=== PATIENT | male | born 1970 | race Caucasian/White ===

== ENCOUNTER 2024-04-24 16:04 | Inpatient (IN) | payer OTHER, SELFPAY ==
[2024-04-24] VITALS (43 sets, daily range): BP systolic 71–107; BP diastolic 51–72; BMI 26.0
[2024-04-24] MEDS: NSS 1000 IV ×6 (12:15→21:46)
[2024-04-24 12:21] LABS: ALT (SGPT) 34 U/L (0-50); Alkaline Phosphatase 358 U/L (38-126); Calcium 7.1 mg/dl (8.4-10.2); Carbon Dioxide 22 mmol/L (22-30); Chloride 96 mmol/L (98-107); Estimated Creatinine Clearance > 125 ml/min; Potassium 4.5 mmol/L (3.5-5.1); Sodium 128 mmol/L (135-145); Total Protein 4.8 g/dl (6.3-8.2); eGFR > 60.00
[2024-04-24 12:23] LABS: Alcohol None Detected
[2024-04-24 12:25] LABS: % Basophils 0.7 % (0-2); % Eosinophils 0.2 % (0-6); % Immature Granulocytes 1.2 % (0-0.5); % Lymphocytes 1.9 % (20.5-51.1); % Monocytes 2.9 % (1.7-9.3); % Neutrophils 93.1 % (42.2-75.2); Absolute Basophils 0.2 10^3/uL (0-0.2); Absolute Immature Granulocytes 0.3 10^3/uL (0-0.05); Absolute Lymphocytes 0.5 10^3/uL (1.2-3.4); Absolute Monocytes 0.8 10^3/uL (0.1-0.6); Hematocrit 30.1 % (39.0-52.0); Hemoglobin 10.4 g/dL (13.0-18.0); Mean Corp Hgb Conc. 34.6 g/dL (33.0-37.0); Mean Corpuscular Volume 83.8 fL (80.0-94.0); Mean Platelet Volume 10.5 fL (7.4-10.4); Nucleated Red Blood Cells % 0 % (-); Platelet Count 314 10^3/uL (130-400); Red Blood Cell Count 3.59 10^6/uL (4.70-6.10); Red Cell Dist. Width 13.3 % (11.5-14.5); White Blood Cell Count 25.8 10^3/uL (4.8-10.8)
[2024-04-24 12:28] LABS: B-Hydroxybutyrate 1.64 mmol/L (0.02-0.27)
[2024-04-24 12:32] LABS: NT-proBNP 6740 pg/ml; Troponin I < 0.012 ng/ml
[2024-04-24 12:34] LABS: AST (SGOT) 21 U/L (17-59); Blood Urea Nitrogen 25 mg/dl (9-20); Glucose 483 mg/dl (70-99); Total Bilirubin 0.4 mg/dl (0.2-1.3)
--- NOTE | 2024-04-24 12:44 | ED.GENMED ---
History of Present Illness
General
Chief Complaint: Fall
Source: patient and ambulance crew
Exam Limitations: none
Time Seen by Provider: 04/24/24 11:40
Nursing documentation reviewed up to this point in time: agreed with
History of Present Illness
History of Present Illness:
The patient is a 54-year-old man with a past medical history of insulin-dependent diabetes, obesity, chronic sinus tachycardia, and anxiety and depression who was brought in by ambulance for a fall that occurred 5 days ago and has caused him to have
significant left upper back pain and left hip pain. Patient admits that he has not seen a doctor in several months and is not taking his medications. He admits he has not been taking care of himself. Patient arrives hypotensive, tachycardic and
hypoxic. Patient denies fever and vomiting. He is not sure if he hit his head. He reports neck pain as well. He denies abdominal pain. He reports that he has been using marijuana and injecting and snorting methamphetamine.
Past History
Past History
ED Past Medical History: Asthma, GERD, HTN, Hypercholesterolemia, NIDDM, Psychiatric (Anxiety, depression) and Other (Chronic pancreatitis, hemachromatosis, diverticulitis/diverticulosis, anxiety)
ED Past Surgical History: Appendectomy, Orthopedic (Right hip is 'bone on bone,' L hip replacement, back surgery at L4-L5) and Other (Liver biopsy)
Social History
Tobacco: Former smoker
Alcohol: Occasional
Drug: Marijuana, IVDA and Other (Methamphetamine)
Personal: Single
Living: alone (Domestic partner)
Employment: Other
Family History
Family History: CAD
Review of Systems
Review of Systems
Allergies reviewed?: Yes
Other source history: ambulance crew
All Other Systems: ROS reviewed and negative except as documented in HPI and ROS
Constitutional: Reports fatigue
EENT: Reports other (Light sensitivity to eyes)
Respiratory: Reports trouble breathing
Cardiac: Reports chest pain
ABD/GI: Reports anorexia
: Reports frequency
Musculoskeletal: Reports joint pain, edema (Chronic edema bilateral ankles and feet) and back pain
Skin: Reports no symptoms
Neurological: Reports no symptoms
Endocrine: Reports polyuria and polydipsia
Hematologic/Lymphatic: Reports no symptoms
Psychiatric: Reports no symptoms
Phy Exam
Physical Exam
Physical Exam:
Physical Exam
General: no apparent distress, disheveled, mildly short of breath
Neck: supple. no meningeal signs. Very dry mucous membrane. C6-C7 spinal tenderness, especially on left side.
Heart: Tachycardic, regular. Tenderness of left scapular area. Deformity of left clavicle. Strong pulses in bilateral upper extremity.
Lungs: Mildly tachypneic. Decreased breath sounds bilaterally
Abdomen: normal bowel sounds. not tender. no CVAT
Neuro: alert and orientedx3 no focal neurological deficits
Skin: no rash
Psychiatric: Disheveled, interactive
Extremities: Swelling of bilateral hands and feet. Pitting edema of bilateral lower extremities including lower legs, ankles and feet. Negative Homans' sign bilaterally. Ecchymotic left lateral femoral area
Course
Orders/Labs/Results
Orders:
Orders
04/24/24 11:42
Electrocardiogram (*1) Urgent
Reason for Study: Bradycardia / Tachycardia
04/24/24 11:43
EKG- Treatment ONCE
04/24/24 11:46
Alcohol Urgent
B-Hydroxybutyrate Urgent
BNP [NT-proBNP] Urgent
Complete Blood Count/With Diff Urgent
Comprehensive Metabolic Panel Urgent
Creatine Phosphokinase Urgent
Comment: ADD ON
Troponin I Urgent
04/24/24 12:15
0.9% Sodium Chloride 1000 ml [Nss] 1,000 ml IV BOLUS
04/24/24 12:18
Add On- LAB Urgent
Tests Added?: total creatinine kinase
04/24/24 12:19
CT Cervical Spine W/o Iv Contr Urgent
Comment:
Reason For Exam: fall, left sided neck pain
CT Head W/o Iv Contrast Urgent
Comment:
Reason For Exam: possible head injury
04/24/24 12:20
CT Chest/abd/pel W Iv Cont Urgent
Reason For Exam: s/p fall, L scapular pain, hypoxia, tachycardia
Hip, Left 2-3 Views [CR Hip - LT w/wo Pel 2-3 Vw*] Urgent
Comment:
Reason For Exam: left thigh pain, fall
Include a pelvis x-ray?: No
04/24/24 12:26
Lactic Acid Urgent
04/24/24 12:54
Lorazepam [Ativan] 0.5 mg IV NOW STA
04/24/24 13:02
Fentanyl, Urine Urgent
Urinalysis Reflex To Culture Urgent
Date Specimen was Collected: 04/24/24
Time Specimen was Collected: 13:00
Urine Drug Abuse Screen Urgent
Date Specimen was Collected: 04/24/24
Time Specimen was Collected: 13:01
Urine Microscopic Reflex Cult Urgent
Urine Culture Urgent
JANETH Source: U
Specimen Description:
Date Specimen was Collected: 04/24/24
Time Specimen was Collected: 13:00
04/24/24 14:17
Piperacillin/Tazo 4.5 Gram [Zosyn] 4.5 gram in 100 ml IV NOW
04/24/24 14:20
0.9% Sodium Chloride 1000 ml [Nss] 1,000 ml IV BOLUS
04/24/24 14:30
Vancomycin [Vancocin] 2,000 mg 0.9% Sodium Chloride 500 ml [Nss] 500 ml IV NOW
04/24/24 14:57
0.9% Sodium Chloride 1000 ml [Nss] 2,000 ml IV BOLUS
04/24/24 15:02
Blood Culture Urgent
JANETH Source: Blood/Venous
Specimen Description:
04/24/24 15:05
Blood Culture Routine
JANETH Source: Blood/Venous
Specimen Description:
04/24/24 15:08
0.9% Sodium Chloride 1000 ml [Nss] 1,000 ml IV BOLUS
04/24/24 15:10
Vancomycin [Vancocin] 2,000 mg 0.9% Sodium Chloride 500 ml [Nss] 500 ml IV NOW
04/24/24 15:21
Admit/Transfer Patient As Directed
Co-Sign Provider:
Level of Care: Inpatient admission
Assign to:: ICU
Physician / Group: Hospitalist
Diagnosis: Sepsis, broken hip
Reason for Hospitalization: Sepsis, broken hip
Expected length of stay greater than two midnights?: Yes
ELOS- Estimated Length of Stay in days: 5
I certify the patient meets the requirements for IP care: Yes
04/24/24 15:25
PRN Pain Medication Management As Directed
May give lesser potent ordered pain med per pt: Yes
preference::
Protocol:: Medication orders for pain may be administered in a
manner that supports deferring to patient preference
when the pt is:
- Requesting an ordered lesser potent pain medication.
Least to most potent pain medications are defined
as: acetaminophen < NSAID < tramadol < opioids
(morphine, oxycodone, hydromorphone).
- Requesting a lesser dose of the same medication IF
ORDERED.
- Requesting a less intrusive route of administration
if both routes are prescribed by the provider (PO <
IV).
04/24/24 15:28
Code Status As Directed
Resuscitation Status: Full Code
04/24/24 16:29
Lactic Acid Q4H
Comment: repeat q4 hours x 4 or until less than 2 mmol/L
0.9% Sodium Chloride 1000 ml [Nss] 1,000 ml IV 200 mls/hr
Albuterol [ProAIR HFA INHALER] 2 puff INH R Q4HPRN PRN
Dextrose 50%-Water [Dextrose 50% Syringe] 12.5 grams IV [id number] PRN
Glucagon [GlucaGen] 1 mg IM PRN PRN
Heparin 5,000 units SC Q8
VANCOMYCIN Pharmacy to Dose [VANCOCIN Pharmacy to Dose] 1 each Pharmacy To Prepare [Call Pharmacy To Prepare] 0 ml IV PER PROTOCOL
04/24/24 16:29
PHYSICIAN CONSULT Routine
Consulting Provider: Kasey Arauz
Was physician already notified: Yes
Reason for consult: septic shock, broken hip
Respiratory Culture/Gram Stain Routine
JANETH Source: Sputum
Specimen Description:
Comment: IF NOT OBTAINED IN ED
Activity As Directed
Activity Level: Bedrest
Bedside Glucose Monitoring As Directed
Frequency: AC&HS
Additional Instructions:: Change to q6h if pt on TPN, tube feeding or not eating
Intake/ Output As Directed
Frequency: Per unit guidelines
Vital Signs As Directed
Frequency: Per unit guidelines
DX Deep Vein Thrombosis Video Routine
04/24/24 16:30
Insulin Aspart High Resistance [Novolog Flexpen-High Resistance] See Protocol SC AC
04/24/24 17:30
telenm-bmzzggrv-ipqvnmp [Creon] 2 cap PO MEALS
04/24/24 20:00
Budesonide/Formoterol 160/4.5 [Symbicort 160/4.5 Mcg Inhaler] 2 puff INH R BID
Piperacillin/Tazo 4.5 Gram [Zosyn] 4.5 gram in 100 ml IV Q6H
04/24/24 20:29
Lactic Acid Q4H
Comment: repeat q4 hours x 4 or until less than 2 mmol/L
04/25/24 00:29
Lactic Acid Q4H
Comment: repeat q4 hours x 4 or until less than 2 mmol/L
04/25/24 04:29
Lactic Acid Q4H
Comment: repeat q4 hours x 4 or until less than 2 mmol/L
04/25/24 Breakfast
2000 calorie (17 carb) Diabetic
Complete Blood Count/No Diff IN AM
Comprehensive Metabolic Panel IN AM
Glycohemoglobin (HgbA1c) IN AM
Abnormal Lab Results
04/24/24 04/24/24
11:46 13:02
WBC 25.8 H 10^3/uL
(4.8-10.8)
RBC 3.59 L 10^6/uL
(4.70-6.10)
Hgb 10.4 L g/dL
(13.0-18.0)
Hct 30.1 L %
(39.0-52.0)
MPV 10.5 H fL
(7.4-10.4)
Abs Immat Gran (auto) 0.3 H 10^3/uL
(0-0.05)
Absolute Neuts (auto) 24.0 H 10^3/uL
(1.4-6.5)
Absolute Lymphs (auto) 0.5 L 10^3/uL
(1.2-3.4)
Absolute Monos (auto) 0.8 H 10^3/uL
(0.1-0.6)
Immature Gran % 1.2 H %
(0-0.5)
Neutrophils % 93.1 H %
(42.2-75.2)
Lymphocytes % 1.9 L %
(20.5-51.1)
Sodium 128 L mmol/L
(135-145)
Chloride 96 L mmol/L
(98-107)
BUN 25 H mg/dl
(9-20)
Glucose 483 H* mg/dl
(70-99)
Calcium 7.1 L mg/dl
(8.4-10.2)
Alkaline Phosphatase 358 H U/L
(38-126)
Creatine Kinase 32 L U/L
(55-170)
Total Protein 4.8 L g/dl
(6.3-8.2)
Albumin 2.0 L g/dl
(3.5-5.0)
Urine Ketones Trace A
(Negative)
Ur Occult Blood Reflex 1+ A
(Negative)
Leukocyte Esterase Rfl 2+ A
(Negative)
Urine RBC 3-6 A /HPF
(0-2)
Urine WBC (Reflex) 26-30 A /HPF
(0-5)
Urine Bacteria (Reflex) Many A
(Negative)
Urine Glucose 3+ A
(Negative)
Ur Oxycodone Screen Positive H
(Negative)
Ur Amphetamines Screen Positive H
(Negative)
U Methamphetamines Scrn Positive H
(Negative)
B-Hydroxybutyrate 1.64 H mmol/L
(0.02-0.27)
04/24/24 11:46
04/24/24 11:46
Vital Signs
Initial and Last Documented VS:
Initial Vital Signs
BP
100/72
04/24/24 11:38
Last Documented Vital Signs
Temp Pulse Resp BP Pulse Ox
97.8 F 121 24 71/53 93
04/24/24 14:42 04/24/24 16:09 04/24/24 16:09 04/24/24 16:09 04/24/24 16:09
MDM/Problems Addressed
Differential Diagnosis Includes:
Diabetic ketoacidosis
acute renal failure
Acute traumatic injuries such as C-spine fracture, left clavicle fracture, left hip fracture
MDM/Problems Addressed:
Patient presents with acute neck pain, left scapular pain, left hip pain and hyperglycemic
Chronic conditions affecting care: DM
Acute Exacerbation and/or Progression of Chronic Illness:
The patient has acute hyperglycemia due to poorly controlled insulin-dependent diabetes
Acute Exacerbation and/or Progression of Chronic Illness: DM
*Radiology
Radiology exam reviewed: preliminary read by ED provider (Acute fracture of left hip) and radiology read reviewed
*Pulse Oximetry
Patient hypoxic: yes
*EKG
Interpreted by ED Provider?: Yes
Interpretation: abnormal
Comparison EKG: changes noted
Rate: tachycardiac
Rhythm: sinus
[place]: normal axis
Interval: normal interval
QRS Pattern: normal QRS
Ischemia: non-specific ST changes
*Senior Production Supervisor Interpretation
Rate: tachycardiac
Interpretation: abnormal
Rhythm: sinus
*Critical Care Note
Total Time (30-74mins, 75-104mins- exclusive of procedures): 85 minutes
comment:
85 minutes critical care given to patient including speaking to the hospitalist as well as orthopedics, as well as reviewing patient's blood work, urinalysis, EKG, x-rays, CAT scan reports, and reassessing his mental status and blood pressure.
Data Reviewed
Review of Other/Old Records Reveals: Discharge Summary (Discharge summary reviewed from December 2021 when patient was admitted for acute nausea and vomiting and diarrhea and also found to have chronically elevated heart rate)
Source: patient and ambulance crew
Patient Management
Social determinants of health affecting care: Living situation
Discussion with other providers: Hospitalist and Other (Case also discussed with Dr. Pete Peck so he is aware of patient's acute left hip fracture as well as our concerns for bacteremia and his prosthesis getting infected.)
Escalation/DeEscalation of care consider admission/obs:
Patient is persistently hypotensive. Given his concern for UTI, likely pneumonia, hypotension and elevated white blood cell count, there is concern for sepsis. Wide spectrum antibiotic started. IV fluids started
ED Attending Note
-
Portions of this chart may have been created with voice recognition software.� Occasional wrong word or��sound alike� substitutions may have occurred due to the inherent limitations of voice recognition software.
Discharge Plan
Departure
Patient Disposition: Admit
Date of Disposition: 04/24/24
Time of Disposition: 14:19
Admit to: ICU
Presentation/result/management discussed w/ accepting MD/DO: Hospitalist
Patient with high blood pressure during this ER visit?: No
Condition: Critical
Discharge Problem:
Acute left hip fracture, Septic shock, Bilateral pleural effusion, Acute UTI, Pneumonia, Acute hyperglycemia
Interventions
Interventions:
*General Assessment Last Done: 04/24/24 11:48
*Neglect/Abuse Screening Last Done: 04/24/24 11:48
ED- Fall Risk Assessment Last Done: 04/24/24 11:51
*ED COVID-19 Vaccine History Last Done: 04/24/24 11:48
ED-Musculoskeletal Assessment Last Done: 04/24/24 11:51
ED- Neurological Assessment Last Done: 04/24/24 11:51
ED-Skin Assessment Last Done: 04/24/24 12:05
[2024-04-24 12:52] LABS: Lactic Acid 1.6 mmol/L (0.7-2.0)
[2024-04-24] MEDS: ATIVAN 0.5 MG IV (13:00)
[2024-04-24 13:16] LABS: Urine Albumin Trace (Neg - Trace); Urine Bilirubin Negative (Negative); Urine Character Slightly Cloudy (Clear); Urine Color Yellow; Urine Glucose 3+ (Negative); Urine Ketone Trace (Negative); Urine Leukocyte 2+ (Negative); Urine Nitrite Negative (Negative); Urine Occult Blood 1+ (Negative); Urine Specific Gravity 1.005 (<1.030); Urine Urobilinogen Negative (Neg - 1+)
[2024-04-24 13:41] LABS: Amphetamines Positive (Negative); Methamphetamines Positive (Negative)
[2024-04-24 13:42] LABS: Barbiturates Negative (Negative); Benzodiazepines Negative (Negative); Buprenorphine Negative (Negative); Cocaine Negative (Negative); Marijuana Negative (Negative); Methadone Negative (Negative); Opiates Negative (Negative); Phencyclidine Negative (Negative); Tricyclic Antidepressants Negative (Negative)
[2024-04-24 13:53] LABS: Creatine Phosphokinase 32 U/L (55-170)
[2024-04-24 14:02] LABS: Urine Bacteria Many (Negative); Urine Squamous Cell 0-2 /LPF (Few); Urine White Cell 26-30 /HPF (0-5)
[2024-04-24 14:04] LABS: Fentanyl, Urine Negative (Negative)
--- NOTE | 2024-04-24 14:54 | HPS.HSE ---
Family Physician
-
Family Physician: Pascual Bates
Chief Complaint
-
hip pain
History of Present Illness
54-year-old man comes in with septic shock. He has a past medical history of:
insulin-dependent diabetes,
historic obesity (now BMI 26),
chronic sinus tachycardia,
anxiety and depression
Past hip replacement x2
Came in by ambulance for a fall that occurred 5 days ago. This has caused him to have significant left upper back pain and left hip pain. He has not seen a doctor in several months and is not taking his medications. He arrived to hypotensive,
tachycardic and hypoxic. He denies fever and vomiting. He is not sure if he hit his head. He reports neck pain as well. He denies abdominal pain. He feels he may have been on the floor for possibly days. He reports that he has been using
marijuana and injecting and snorting methamphetamine. At the time of my interview, he was mildly confused and appeared in distress.
Medical History
Past Medical History
Past Medical History: Reports Other
Additional Past Medical History:
Appendectomy
Right hip was 'bone on bone,' (looks like it was also replaced)
L hip replacement,
back surgery at L4-L5
Liver biopsy
Ophthalmic migraine
Chronic seasonal allergic rhinitis, unspecified trigger
Benign essential hypertension
Diverticulosis of large intestine without hemorrhage
Low testosterone in male
Hereditary hemochromatosis
Fatty liver
Vitamin D deficiency
Pancreatic insufficiency
Benign essential tremor syndrome
History of COVID-19
Renal cyst, right
Opioid type dependence, continuous
Historical Obesity (BMI 30.0-34.9)
Mild persistent asthma without complication
Type 2 diabetes mellitus with other specified complication
Hyperlipidemia, unspecified
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
Type 2 diabetes mellitus with hyperglycemia
Spondylolisthesis, lumbar region
Hypertriglyceridemia
Chronic pancreatitis, unspecified pancreatitis type
Benzodiazepine dependence, continuous
Other chronic pain
History of colonic polyps
Gastroesophageal reflux disease without esophagitis
ALMA DELIA (generalized anxiety disorder)
Hyperthyroidism
Mild episode of recurrent major depressive disorder
Erectile dysfunction due to diseases classified elsewhere
Type 2 diabetes mellitus with other circulatory complications
Past Surgical History: Reports Other
Additional Past Surgical History:
see above
Social History
Unable to obtain full social history at this time due to: Acuity
Drug: Marijuana and Narcotics
Family History
Family History: Not pertinent
Allergies / Home Medications
Allergies reflects when Allergies were last updated in [employer].
Home Medications with original date entered in [employer]
Allergy/Medication List:
Allergies
Allergy/AdvReac Type Severity Reaction Status Date / Time
venom-honey bee Allergy PASSED OUT Verified 04/24/24 11:44
[bee venom (honey bee)] AFTER
STING/ANAPHYLAXIS
Home Medications
budesonide-formoterol HFA 160 mcg-4.5 mcg/actuation aerosol inhaler (Symbicort) 2 puff inhalation R BID Lung/breathing issues 07/24/12
albuterol sulfate 90 mcg/actuation aerosol inhaler 2 puff inhalation R Q4HPRN PRN shortness of breath 08/21/17
aspirin 81 mg tablet,delayed release 81 mg PO DAILY Blood clot prevention/tx 08/21/17
multivitamin with folic acid 400 mcg tablet (Tab-A-Ayan) 1 tab PO DAILY Supplement 01/26/19
fluticasone propionate 50 mcg/actuation nasal spray,suspension 1 spray intranasal DAILYPRN PRN allergies, nasal congestion 07/12/19
sodium chloride 0.65 % nasal spray aerosol (Saline Nasal) 1 sprays intranasal BIDPRN PRN CONGESTION 07/12/19
atorvastatin 40 mg tablet 40 mg PO QPM High cholesterol 09/17/19
fenofibrate nanocrystallized 145 mg tablet 145 mg PO HS High cholesterol 01/03/20
lansoprazole 30 mg delayed release,disintegrating tablet 30 mg PO DAILY Gastrointestinal issue 02/24/20
furosemide 20 mg tablet 20 mg PO DAILYPRN PRN FLUID IN LEGS 12/13/20
icosapent ethyl 1 gram capsule (Vascepa) 2 gm PO BID High cholesterol 12/13/20
glipizide 5 mg tablet 10 mg PO BID Diabetes 01/24/21
oxycodone-acetaminophen 10 mg-325 mg tablet 1 tab PO Q6HPRN PRN severe back pain 02/15/21
Methimazole 15 mg PO DAILY Thyroid 12/24/21
amitriptyline 25 mg tablet 25 mg PO HSPRN PRN urinary leakage 12/24/21
empagliflozin 10 mg tablet (Jardiance) 10 mg PO DAILY Diabetes 12/24/21
gabapentin 400 mg capsule 400 mg PO TID Neurological Condition 12/24/21
insulin glargine 100 unit/mL (3 mL) subcutaneous pen (Lantus Solostar U-100 Insulin) 20 units SC BID Diabetes 12/24/21
insulin lispro 100 unit/mL subcutaneous pen 30 unit SQ MEALS Diabetes 12/24/21
insulin regular human 100 unit/mL injection solution (Novolin R Regular U-100 Insulin) 20 unit IJ MEALS Diabetes 12/24/21
sertraline 50 mg tablet 100 mg PO DAILY Depression 12/24/21
sildenafil (pulm.hypertension) 20 mg tablet 20 mg PO DAILYPRN PRN ed 12/24/21
dicyclomine 20 mg tablet 20 mg PO QIDPRN PRN spasm, pain #15 tabs 12/26/21
icnflz-jctwuqjk-okrqfym 12,000-38,000-60,000 unit capsule,delayed rel (Creon) 2 cap (2 x 12,000-38,000 -60,000 unit) PO MEALS Gastrointestinal issue #180 ea 12/26/21
magnesium oxide 800 mg (2 x 400 mg magnesium) PO TID #90 tabs 12/26/21
metoprolol tartrate 100 mg tablet 100 mg PO BID #60 tabs 12/26/21
Review of Systems
-
Unable to obtain full review of systems at this time due to: Acuity
Physical Exam
Vital Signs
Vital Signs
Temp Pulse Resp BP Pulse Ox
97.8 F 129 23 87/53 93
04/24/24 14:42 04/24/24 14:38 04/24/24 14:38 04/24/24 14:30 04/24/24 14:42
Physical Exam
General: Appears in Distress, Pain and Appears Chronically Ill
HEENT: No Moist mucous membranes
Respiratory: Clear and Decreased Breath Sounds
Cardiac: S1/S2 and Tachycardia
GI: Soft
Musculoskeletal: No Clubbing, No Cyanosis and No Edema
Skin: Warm, Dry and Rash (red LE)
Psych: Calm and Confused
Laboratory Results
-
04/24/24 11:46
04/24/24 11:46
Laboratory Results
Lactic Acid 1.6 mmol/L (0.7-2.0) 04/24/24 12:26
Total Bilirubin 0.4 mg/dl (0.2-1.3) 04/24/24 11:46
AST 21 U/L (17-59) 04/24/24 11:46
ALT 34 U/L (0-50) 04/24/24 11:46
Alkaline Phosphatase 358 U/L (38-126) H 04/24/24 11:46
Troponin I < 0.012 ng/ml 04/24/24 11:46
Data Reviewed
-
Lab Data: Labs Reviewed by me
Impression/Plan
-
IMPRESSION:
54 man with septic shock. 5 days after a fall. Significant findings:
BP 80/56
HR 129
Anemia, H/H 10.4/30.1
WBC 25.8
BUN/Creat 25/0.7
Glucose 483
UA LE, OB, RBC, WBC, Uvaldo
Imaging:
1. Small to moderate bilateral pleural effusions with associated consolidation/atelectasis.
2. Infectious/inflammatory bronchiolitis change in the bilateral upper lobes.
Cannot rule out superimposed pulmonary contusions and/or underlying nodules.
Recommend follow-up imaging after the acute process resolves.
The [facility] Pulmonary Nodule Advisory Board will be notified.
3. Comminuted minimally displaced fracture of the left greater trochanter extending to the underlying prosthesis.
4. Total left hip arthroplasty hardware noted in place.
5. There is a comminuted fracture of the left greater trochanter, with possible extension to the prosthesis.
No dislocation.
Soft tissues are grossly unremarkable.
PLAN:
1. Septic shock - multiple possible sources (could be LE cellulitis, pyelo, PNA, endocarditis, or infected hip joint)
Blood cultures, UC, sputum culture,
echocardiogram
Broad spectrum abx (zosyn, vanco)
High volume fluids
ICU admit with cupola operator consult
2. Broken hip, on setting of past repaired broken hip
Ortho consult
3. risk of rhabdo
Check TCPK
High volume fluids
4. Uncontrolled DM
SQ insulin
5. Anemia - likely from chronic disease
Follow daily
No indication today for immediate transfusion
6. Polysubstance abuse
risk of going into w/d
Re-eval once septic shock stabilized
7. Inability to care for self
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
Social work consult
8. H/O asthma with multiple radiological findings in lungs,
Careful monitoring of breathing status
High risk of asthma exacerbation
9. Pulm HTN - unclear staging
Repeat echo
Resume sildenafil once BP allows
Code: Presumed Full. he does not have capacity to discuss this right now
SQ heparin for DVTP
[2024-04-24] MEDS: ZOSYN 100 IV ×2 (15:05→19:25)
[2024-04-24] MEDS: VANCOCIN 540 MG IV (15:11)
--- NOTE | 2024-04-24 17:11 | PHA.VAN.IN ---
Assessment
- Assessment
Renal Function: Appears similar to baseline
Concomitant Antimicrobials: piperacillin/tazobactam
- Previous Dosing Experience
Previous Regimen: 1500 mg q12h
Date of Regimen: December 2019
Provided Trough of: 10
Provided AUC of: 384
Patient's SCR is: Similar to previous dosing experience
Patient's weight is: Decreased compared to previous dosing experience (01/07 - 110 kg; 05/13 - 86.9 kg)
AUC Dosing Plan
- Empiric Dosing
Initial / Loading Dose: 2000 mg - given 04/24 @1500
Maintenance Regimen: 1250 mg q12h - to start 0600 04/25/24
Estimated AUC (mcg*h/mL): 501
Estimated Peak (mcg*h/mL): 31.6
Estimated Trough (mcg/ml): 12.6
Estimated Half Life (H): 7.9
- Monitoring
No levels ordered at this time: consider levels when pt nears steady state
Pharmacokinetics Vancomycin I
- -
Patient Age: 54
Patient Sex: Male
Vancomycin Day #: 1
Indication: Pulmonary/Respiratory
Requesting Provider: Liz
Height / Weight:
Height 6 ft
Actual Weight 86.9 kg
Pertinent Past Medical History: opioid dependence
- Vital Signs / Lab Results
Temp Pulse Resp BP Pulse Ox
97.8 F 121 24 71/53 93
04/24/24 14:42 04/24/24 16:09 04/24/24 16:09 04/24/24 16:09 04/24/24 16:09
Lab Results - Hematology
04/24/24
11:46
WBC 25.8 H
Lab Results - Chemistry
04/24/24
11:46
BUN 25 H
Creatinine 0.7
Estimated Creat Clear > 125
Albumin 2.0 L
04/24/24
12:26
Lactic Acid 1.6
Lab Results - Urine
04/24/24
13:02
Urine Nitrite (Reflex) Negative
Leukocyte Esterase Rfl 2+ A
Urine WBC (Reflex) 26-30 A
Ur Squamous Epith Cells 0-2
Urine Bacteria (Reflex) Many A
[2024-04-24 18:01] LABS: INR 1.38; PT 16.8 Sec (11.4-14.6)
[2024-04-24 18:02] LABS: APTT 34.5 Sec (23.4-35.0)
[2024-04-24 18:03] LABS: Lactic Acid 1.2 mmol/L (0.7-2.0)
[2024-04-24] MEDS: NOVOLOG FLEXPEN-HIGH RESISTANCE 12 UNITS SC (18:34)
[2024-04-24] MEDS: HEPARIN 5000 UNITS SC (18:35)
[2024-04-24] MEDS: ZENPEP DELAYED RELEASE CAPSULE 2 CAPSULE PO (18:37)
[2024-04-24 18:38] LABS: Glucose - Point of Care 372 mg/dl (70-99)
--- NOTE | 2024-04-24 19:00 | PTCARENOTE ---
Rec'd pt via stretcher from the ED at 1810. Rec'd pt awake alert and overall oriented but moaning in pain. Began writhing/screaming in pain when turned to removed saturated and soiled linens. C/O 9/10 L hip pain. Offered ordered Morphine but refused
it stating it makes him nauseated and that Dilaudid works better for him- will speak with ICU PLASTIC SURGEON about pain management. Speech is clear. Denies dizziness or headache. Skin is pale and warm. Wounds as documented. Stage 2 wound on sacrum and DTI on L
heel as well as excoriation in his R nostril. Respirs are sl shallow and tachypnic but non-labored on 6l nc with sats of 94%. BS are clear. Monitor ST. + pulses. PT and DP pulses with the doppler. Bilateral shins are reddened. +2 LE edema. Denies
chest pain. VS as documented. Bp's 85-97/60's. IV NSS hung via RAC IV site at 200 ml/hr. Capped int intact L AC. ABd is soft with + BS. Denies nausea. Incont of a saturated amt of urine on arrival and just voided via urinal 600 mls of yellow urine.
Complete CHG bath given. BS at [phone] Covered with High Dose coverage 12 units. Plan of care reviewed with pt and call patel in reach.
[2024-04-24] MEDS: TORADOL 30 MG IV (19:17)
--- NOTE | 2024-04-24 19:24 | W.PN.SEPSIS ---
Addendum entered and electronically signed by BETITO Moncada 04/24/24 22:37:
error in note: bilateral BKA, no lower extremity pedals or capillary refill
Original Note:
Sepsis
Vital Signs
Temp Pulse Resp BP Pulse Ox
98.4 F 126 21 77/59 93
04/24/24 17:38 04/24/24 18:00 04/24/24 18:00 04/24/24 17:30 04/24/24 17:45
Physical Exam
Physical Exam:
A focused exam was performed after fluid resuscitation.
Capillary Refill
Bilateral Upper Extremity:
Jose C Time: Less than 3 sec
Bilateral Lower Extremity:
Jose C Time: Less than 3 sec
Pulse Evaluation
Bilateral Radial:
Pulse Evaluation: Present
Bilateral Dorsalis Pedis:
Pulse Evaluation: Present
[2024-04-24] MEDS: NEO-SYNEPHRINE 250 IV (20:10)
--- NOTE | 2024-04-24 20:13 | PTCARENOTE ---
Assumed care of pt. approx 1900.
Lethargic, but can answer/follow simple commands.
On 6L, sp02 91-94%. Lungs CTA B/L.
SBP ranging in high 80s, tachycardic, Phenylephrine started.
L hip fracture, pain management w/ PRNs.
All care explained and pt. updated on plan.
[2024-04-24] MEDS: NOVOLOG FLEXPEN-HIGH RESISTANCE 10 UNITS SC (20:17)
[2024-04-24 20:28] LABS: Glucose - Point of Care 303 mg/dl (70-99)
[2024-04-24] MEDS: SYMBICORT 160/4.5 MCG INHALER 2 PUFF INH (20:35)
[2024-04-24] MEDS: DILAUDID 0.5 MG IV (21:46)
[2024-04-25] VITALS (56 sets, daily range): BP systolic 79–153; BP diastolic 48–132; BMI 26.5
[2024-04-25] MEDS: HEPARIN 5000 UNITS SC ×4 (00:19→23:59)
--- NOTE | 2024-04-25 00:24 | PTCARENOTE ---
Pt. remains on/off evette, see flowsheet.
Assessment unchanged.
[2024-04-25] MEDS: DILAUDID 0.5 MG IV ×5 (00:59→19:39)
[2024-04-25 01:35] LABS: Glucose - Point of Care 247 mg/dl (70-99)
[2024-04-25] MEDS: VALIUM INJECTION 5 MG IV (01:37)
[2024-04-25] MEDS: ZOSYN 100 IV ×2 (01:38→07:41)
[2024-04-25] MEDS: NOVOLOG FLEXPEN-HIGH RESISTANCE 4 UNITS SC ×2 (01:39→11:30)
[2024-04-25 03:30] LABS: Hematocrit 29.5 % (39.0-52.0); Mean Corp Hgb Conc. 33.9 g/dL (33.0-37.0); Mean Corpuscular Hgb 28.5 pg (27.0-31.0); Mean Platelet Volume 10.3 fL (7.4-10.4); Platelet Count 314 10^3/uL (130-400); Red Blood Cell Count 3.51 10^6/uL (4.70-6.10); Red Cell Dist. Width 13.7 % (11.5-14.5); White Blood Cell Count 25.8 10^3/uL (4.8-10.8)
--- NOTE | 2024-04-25 03:46 | PTCARENOTE ---
No change in assessment, remains hemodynamically stable off evette.
Valium x1 given.
[2024-04-25 03:55] LABS: ALT (SGPT) 34 U/L (0-50); AST (SGOT) 27 U/L (17-59); Albumin 2.2 g/dl (3.5-5.0); Alkaline Phosphatase 411 U/L (38-126); Blood Urea Nitrogen 19 mg/dl (9-20); Carbon Dioxide 25 mmol/L (22-30); Chloride 101 mmol/L (98-107); Estimated Creatinine Clearance > 125 ml/min; Glucose 230 mg/dl (70-99); Magnesium 1.5 mg/dl (1.6-2.3); Phosphorus 4.3 mg/dl (2.5-4.5); Potassium 4.4 mmol/L (3.5-5.1); Sodium 136 mmol/L (135-145); Total Bilirubin 0.4 mg/dl (0.2-1.3); Total Protein 5.5 g/dl (6.3-8.2); eGFR > 60.00
[2024-04-25] MEDS: NSS 1000 IV ×4 (05:02→19:49)
[2024-04-25] MEDS: VANCOCIN 275 MG IV ×2 (05:03→17:54)
[2024-04-25] MEDS: MAGNESIUM SULFATE 50 IV (05:13)
--- NOTE | 2024-04-25 07:36 | CON.INTV ---
Consultation
Consultation Request
Date/Time Consultation Requested: 04/25/24
Date/Time Consultation Performed: 04/25/24
Performing Provider: Regla
Reason for Consultation: ICU
Medical History
-
History of Present Illness:
Patient is a 54-year-old male with previous history of IDDM, anxiety and depression, alcohol abuse with chronic pancreatitis, hypertension, hereditary hemochromatosis, asthma presenting via ambulance for a fall that occurred 5 days ago with
persistent left upper back pain and left hip pain. He admits to noncompliance with his medications. Arrived to hypotensive, tachycardic and hypoxemic. He was it is late on the floor somnolent for a few days. He had been using marijuana,
injecting and snorting methamphetamines. UDS indicating positive screening for oxycodone and meth/amphetamines. Alcohol level negative. Elevated beta hydroxybutyrate, UA possibly demonstrating UTI. CT obtained of chest abdomen pelvis showing
small to moderate bilateral pleural effusions and left greater trochanteric fracture. He is placed on pressors for hypotension, and admitted to ICU.
.
Past Medical History
Past Medical History: Other (see list below)
Social History
Tobacco: Non-smoker
Alcohol: Former
Drug: Marijuana and IVDA
Family History
Family History: Reviewed & Not Pertinent
Allergies / Home Medications
Allergies
Allergy/AdvReac Type Severity Reaction Status Date / Time
venom-honey bee Allergy PASSED OUT Verified 04/24/24 11:44
[bee venom (honey bee)] AFTER
STING/ANAPHYLAXIS
Home Medications
�Medication �Instructions �Recorded �Confirmed �Last Taken �Type
budesonide-formoterol HFA 160 2 puff inhalation R BID 07/24/12 12/24/21 02/14/21 History
mcg-4.5 mcg/actuation aerosol Lung/breathing issues
inhaler (Symbicort)
albuterol sulfate 90 mcg/actuation 2 puff inhalation R Q4HPRN PRN 08/21/17 12/24/21 02/14/21 History
aerosol inhaler shortness of breath
aspirin 81 mg tablet,delayed 81 mg PO DAILY Blood clot 08/21/17 12/24/21 02/14/21 History
release prevention/tx
multivitamin with folic acid 400 1 tab PO DAILY Supplement 01/26/19 12/24/21 02/14/21 History
mcg tablet (Tab-A-Ayan)
fluticasone propionate 50 1 spray intranasal DAILYPRN PRN 07/12/19 12/24/21 02/14/21 History
mcg/actuation nasal allergies, nasal congestion
spray,suspension
sodium chloride 0.65 % nasal spray 1 sprays intranasal BIDPRN PRN 07/12/19 12/24/21 01/20/21 History
aerosol (Saline Nasal) CONGESTION
atorvastatin 40 mg tablet 40 mg PO QPM High cholesterol 09/17/19 12/24/21 02/14/21 History
fenofibrate nanocrystallized 145 145 mg PO HS High cholesterol 01/03/20 12/24/21 02/14/21 History
mg tablet
lansoprazole 30 mg delayed 30 mg PO DAILY Gastrointestinal 02/24/20 12/24/21 02/14/21 History
release,disintegrating tablet issue
furosemide 20 mg tablet 20 mg PO DAILYPRN PRN FLUID IN LEGS 12/13/20 12/24/21 02/14/21 History
icosapent ethyl 1 gram capsule 2 gm PO BID High cholesterol 12/13/20 12/24/21 02/14/21 History
(Vascepa)
glipizide 5 mg tablet 10 mg PO BID Diabetes 01/24/21 12/24/21 02/14/21 History
oxycodone-acetaminophen 10 mg-325 1 tab PO Q6HPRN PRN severe back 02/15/21 12/24/21 02/14/21 History
mg tablet pain
Methimazole 15 mg PO DAILY Thyroid 12/24/21 12/24/21 Unknown History
amitriptyline 25 mg tablet 25 mg PO HSPRN PRN urinary leakage 12/24/21 12/24/21 Unknown History
empagliflozin 10 mg tablet 10 mg PO DAILY Diabetes 12/24/21 12/24/21 Unknown History
(Jardiance)
gabapentin 400 mg capsule 400 mg PO TID Neurological 12/24/21 12/24/21 Unknown History
Condition
insulin glargine 100 unit/mL (3 20 units SC BID Diabetes 12/24/21 12/24/21 Unknown History
mL) subcutaneous pen (Lantus
Solostar U-100 Insulin)
insulin lispro 100 unit/mL 30 unit SQ MEALS Diabetes 12/24/21 12/24/21 Unknown History
subcutaneous pen
insulin regular human 100 unit/mL 20 unit IJ MEALS Diabetes 12/24/21 12/24/21 Unknown History
injection solution (Novolin R
Regular U-100 Insulin)
sertraline 50 mg tablet 100 mg PO DAILY Depression 12/24/21 12/24/21 Unknown History
sildenafil (pulm.hypertension) 20 20 mg PO DAILYPRN PRN ed 12/24/21 12/24/21 Unknown History
mg tablet
dicyclomine 20 mg tablet 20 mg PO QIDPRN PRN spasm, pain 12/26/21 Unknown Rx
#15 tabs
zalwvz-bywlqmvs-nyifoaw 2 cap (2 x 12,000-38,000 -60,000 12/26/21 Unknown Rx
12,000-38,000-60,000 unit unit) PO MEALS Gastrointestinal
capsule,delayed rel (Creon) issue #180 ea
magnesium oxide 800 mg (2 x 400 mg magnesium) PO 12/26/21 Unknown Rx
TID #90 tabs
metoprolol tartrate 100 mg tablet 100 mg PO BID #60 tabs 12/26/21 Unknown Rx
Review of Systems
-
Unable to Obtain full review of systems at this time due to: Acuity
History Source: Transfer Record
Vitals / Labs / Diagnostic Testing
Vital Signs
Temp Pulse Resp BP Pulse Ox
102.9 F H 135 22 102/70 94
04/25/24 07:00 04/25/24 05:30 04/25/24 05:30 04/25/24 05:30 04/25/24 05:30
Lab Data
04/25/24 03:06
04/25/24 03:06
Laboratory Results
04/24/24
17:41
PT 16.8 H
INR 1.38
APTT 34.5
Diagnostic Testing:
Physical Exam
-
HEENT: Normocephalic, Anicteric and Moist Mucous Membranes
Cardiovascular: S1/S2 and Regular Rhythm
Respiratory: Clear and Non-Labored Respirations
GI: Soft, Non Distended and Tender (to palpation)
Neurology: Awake, Tremors and Other (confused, non oriented, not answering appropriately)
Skin: Warm and Dry
General: Poor Appetite and Other (restless with eyes closed, speaking incoherently, agitated)
Assessment
-
Patient is a 54-year-old male with previous history of IDDM, anxiety and depression, alcohol abuse with chronic pancreatitis, hypertension, hereditary hemochromatosis, asthma presenting via ambulance for a fall that occurred 5 days ago with
persistent left upper back pain and left hip pain. He admits to noncompliance with his medications. Arrived to hypotensive, tachycardic and hypoxemic. He was it is late on the floor somnolent for a few days. He had been using marijuana,
injecting and snorting methamphetamines. UDS indicating positive screening for oxycodone and meth/amphetamines. Alcohol level negative. Elevated beta hydroxybutyrate, UA possibly demonstrating UTI. CT obtained of chest abdomen pelvis showing
small to moderate bilateral pleural effusions and left greater trochanteric fracture. He is placed on pressors for hypotension, and admitted to ICU.
Septic shock on pressors
MRSA bacteremia
Acute respiratory insufficiency, 12L midflow
Acute bilateral pleural effusions
Acute left greater trochanteric fracture, left hip pain status post fall
Possible UTI
Leukocytosis
Hyperglycemia
Polysubstance abuse including marijuana, methamphetamines
Medical noncompliance
TME likely from sepsis
Conditions present prior to admission
Adm DH 03/15/2020: Acute on chronic pancreatitis triggered by alcohol use
GERD
Chronic abdominal pain/pancreatitis
Pancreatic pseudocyst per imaging, 4.1 cm
History of hypertriglyceridemia
Admitted with DKA 12/2019
Hemochromatosis s/p liver biopsy; phlebotomy every 6 weeks (Prashanth)
Chronic back pain/sciatica s/p hemilaminectomy
Hypertension
Essential tremor
History of asthma, on Symbicort
Anxiety/depression
Former smoker
Former alcohol abuse
Bilateral hip replacement
Insulin-dependent diabetes
Opioid dependence
Hyperlipidemia
Plan
+current signs of metabolic encephalopathy, confused
Baseline MS unknown
Psychiatric history noted above including anxiety/depression
Pain/sedation: PRN, limit based on MS/avoid oversedation
RASS goals: 0
Stop ativan, may contribute to delirium
Can trial seroquel if needed
Hemodynamically unstable, requiring pressors.
Received 4L NS overnight, hold off on further IVFs
Requiring pressors: neosynephrine added, change to levophed
Cardiac history reviewed--HTN
Prior ECHO ([id number]) reviewed indicating stable function
Hold home meds while hypotensive
Monitor on telemetry
Oxygen needs: on 12L midflow
Prior history of lung disease: asthma
Can resume home meds when MS improves
Supplemental O2 as indicated to maintain sats > 89%
CXR/CT reviewed indicating b/l pleural effusions and acute L LE fracture
May eventally need diuresis
NPO, resume diet when able
[facility] recommendations
Aspiration precautions, HOB > 30 degrees
Speech therapy eval can be considered given MS
GI prophylaxis if indicated for mechanical ventilation >48 hours, prior history of GERD, stress ulcer formation in the critically ill
History of pancreatitis, neg CT AP
Creat at baseline, no history of renal disease
Void trials
Follow urine output, critical I/Os
Replete electrolytes as needed
Fever and increased WBC on presentation, suspect underlying MRSA bacteremia/UTI
Likely from IVDU
Will need ECHO
ID consult obtained
Started on empiric antibiotics
Cultures sent/pending
Blood + MRSA
Urine
Follow fever trend, WBC count
CBC stable, no signs of bleeding or coagulopathy.
DVT prophylaxis as assessed based on risk, including mechanical SCDs
Can transfuse if indicated for Hb <7, plt < 10
INR WNL
No prior h/o thyroid disease
H/o diabetes, can continue on home meds, SS for coverage
HbA1c 7.9 previously, repeat pending
s/p L femur fracture, ortho consult placed
Fall precautions
We will follow
Diagnostic Data
Chest X-Ray: 01/21/21-The lung volumes are mildly decreased bilaterally. The tracheal air column is slightly deviated to the right. There is no focal airspace opacity suspicious for pneumonia. There is no pleural effusion or pneumothorax. The
cardiomediastinal silhouette is mildly enlarged. There is no radiographic evidence for acute pulmonary edema.
CT Scan: CAP 04/24/24- 1. Small to moderate bilateral pleural effusions with associated consolidation/atelectasis.
2. Confluent pleural-based consolidation within the lingula measures up to 2.4 cm. Infectious/inflammatory bronchiolitis change in the bilateral upper lobes. Cannot rule out superimposed pulmonary contusions and/or underlying nodules.
3. Comminuted minimally displaced fracture of the left greater trochanter extending to the underlying prosthesis.
Stable simple bilateral renal cysts
Echocardiogram on 05/15/2020: Normal LVEF. Ejection fraction 60-65%. Mild LVH.
02/19/21- Technically difficult study. Normal left ventricular chamber size and left ventricular systolic function. Left ventricular ejection fraction is 55-60% . Mild concentric left ventricular hypertrophy.
Normal diastolic function. Trace mitral regurgitation. Aortic sclerosis without stenosis. Trace tricuspid regurgitation. Estimated pulmonary artery pressure of 30-35 mmHg assuming a right atrial pressure of 0-5 mmHg. Compared to study dated
05/15/2020, no significant change.
PFT's:
Reports and relevant images were personally reviewed.
-----
Critical care time 75 mins -- this includes review of history, physical exam, medications, hemodynamic/ventilator parameters, laboratory data, imaging and discussion with house staff, pharmacy, respiratory therapy, inventory control analyst, and nursing. Extensive
time spent on complexity of case.
[2024-04-25] MEDS: ZENPEP DELAYED RELEASE CAPSULE PO ×2 (07:41→08:35)
--- NOTE | 2024-04-25 07:44 | PHA.VAN.FU ---
Vancomycin Assessment / Plan
- Assessment
Renal Function: Stable
WBC's are: Stable
In the past 24 hrs, patient has been: Febrile (102.9F)
Concomitant Antimicrobials: zosyn
- Dosing Plan
Continue: 1250mg q12h
- Monitoring Plan
Peak Level: 04/26 @2100
Trough Level: 04/27 @0530
- Follow Up
Pharmacy will continue to follow.
Vancomycin Follow UP
- -
Patient Age: 54
Patient Sex: Male
Vancomycin Day #: 2
Indication: Pulmonary/Respiratory
Requesting Provider: Liz
Height / Weight:
Height 6 ft
Actual Weight 88.7 kg
Pertinent Past Medical History: opioid dependence
- Vital Signs / Lab Results
Temp Pulse Resp BP Pulse Ox
102.9 F H 135 22 102/70 94
04/25/24 07:00 04/25/24 05:30 04/25/24 05:30 04/25/24 05:30 04/25/24 05:30
Lab Results - Hematology
04/24/24 04/25/24
11:46 03:06
WBC 25.8 H 25.8 H
Lab Results - Chemistry
04/24/24 04/25/24
11:46 03:06
BUN 25 H 19
Creatinine 0.7 0.5 L
Estimated Creat Clear > 125 > 125
Albumin 2.0 L 2.2 L
04/24/24 04/24/24 04/24/24
12:26 17:41 20:29
Lactic Acid 1.6 1.2 Cancelled
Lab Results - Urine
04/24/24
13:02
Urine Nitrite (Reflex) Negative
Leukocyte Esterase Rfl 2+ A
Ur Squamous Epith Cells 0-2
[2024-04-25] MEDS: NOVOLOG FLEXPEN-HIGH RESISTANCE 7 UNITS SC (07:54)
[2024-04-25] MEDS: SYMBICORT 160/4.5 MCG INHALER 2 PUFF INH ×2 (08:01→20:17)
[2024-04-25 08:04] LABS: Glucose - Point of Care 262 mg/dl (70-99)
[2024-04-25] MEDS: OFIRMEV 100 IV (08:13)
--- NOTE | 2024-04-25 09:06 | W.PN.UPDATE ---
Update Note
Progress Note Update
Patient seen and examined.
Full consult to follow
History is obtained through chart review as patient kept saying 'I don't know' to nearly all questions asked. He appears to be in quite distress
He states that his most pain in his 'tummy'
He may have fallen 5 days ago. Has been using marijuana and methamphetamines.
X-rays show minimally displaced left greater trochanteric fracture with intact prosthesis
Left hip incision is intact, no erythema, no warmth
There is diffuse bilateral lower extremity edema, but without any overt signs of joint infection.
Plan:
- Non op management of the greater trochanter fracture
- Continue with medical care for sepsis
- If the joint pain continues, follow up with his original joint surgeon.
--- NOTE | 2024-04-25 09:28 | PTCARENOTE ---
recd pt in acute distress, moaning/groaning, calling out. T noted. Requested and recd order from Dr. Donnelly for acetaminophen, dose given. restless, occas redirectable, unable to quantify pain, all over, abdomen, r hip. ice packs to L hip where
swelling is slightly greater. Seen by Liv Patel. incont, cont to c/o need to urinate, bladder scanned 1709, order for white from Dr. Mcdaniel, placed, immed clear yellow 1749, urine initially clear yellow now milky/cloudy. thermister in place,
102.5 upon placing, presently 101.9. hypoxic, increased midflow presently 15 l, when pulls off desats immed to 81%. Restless. Nasal drainage, irritated. rest of assessment as documented.
--- NOTE | 2024-04-25 09:29 | CON.ID ---
Consultation
-
Date/Time Consultation Requested: 04/25/2024 0812
Date/Time Consultation Performed: 04/25/2024 0930
Requesting Provider: Dr. Donnelly
Performing Provider: Dr. Hand
Reason for Consultation: Clinical sepsis
Chief Complaint / Past History
History of Present Illness
Michael Villa is a 54-year-old male being evaluated at the request of Dr. Donnelly regarding bacteremia and clinical sepsis. History is obtained from chart review, and to a limited degree, the patient himself although he was found to be able to
provide very little in the way of history.
The patient presented to the emergency room on 04/24/2024 via ambulance following a reported fall that occurred 5 days ago. He reports significant left upper back pain, along with left hip pain since that time. Reviewed notes indicate that he
admitted to noncompliance with his medications recently and generally not taking care of himself. Additionally, there is a report of illicit drug use in the form of marijuana and methamphetamine.
Workup in the ER revealed a marked leukocytosis. Blood cultures are now positive for gram-positive cocci in clusters. Nursing reports Proctor placement with frankly purulent urine. The patient was in urinary retention. Currently in intensive care
unit on phenylephrine.
At this time, the patient denies any specific complaints. He denies any cough. He denies any back discomfort.
Past History
Additional Past Medical History:
Asthma
GERD
Hypertension
Dyslipidemia
Diabetes mellitus
Anxiety/depression
Chronic pancreatitis
Hemochromatosis
Additional Past Surgical History:
Appendectomy
Left hip replacement
Right hip 'resurfacing'
L4-S1 back surgery
Hepatic biopsy
Allergy History:
venom-honey bee [bee venom (honey bee)] Allergy (Verified 04/24/24 11:44)
PASSED OUT AFTER STING/ANAPHYLAXIS
Medications Reviewed: Yes
Current Antibiotics:
Zosyn 4.5 g IV every 6 hours
Vancomycin (dosing per pharmacy)
Social History
Tobacco: Former Smoker
Alcohol: Occasional
Drug: Marijuana and Other (meth)
Personal: Partner
Living: Alone
Family History
Family History: Not Pertinent
Review of Systems
Vital Signs
Temp Pulse Resp BP Pulse Ox
102.9 F H 143 28 100/70 93
04/25/24 07:00 04/25/24 08:30 04/25/24 08:30 04/25/24 08:30 04/25/24 08:30
Physical Exam
Physical Exam
Constitutional: Comfortable, Chronically Ill and Non-toxic
Head: Normocephalic
Eyes: Pupils Equal, Pupils Round, No Conjunctival Hemorrhage and Sclera Anicteric
Oral: No Thrush and No Ulcers
Cardiovascular: Regular Rate and S1/S2; Negative S3/S4 or Murmur
Pulmonary: Clear; Negative Wheezes, Rales or Rhonchi
Gastrointestinal: Soft, Non Tender, Non Distended, Normal Bowel Sounds, No Rebound and No Guarding
Genito-Urinary: Proctor and Turbid Urine; Negative Hematuria
Extremities: Edema (3+ bilateral lower extremities) and Splinter Hemorrhage (On distal nailbeds); Negative Cyanosis, Erythema or Janeway Lesions
Neurological: Oriented (To person and place) and Other (Arousable; responsive)
Psychological: Calm
.
Lab / Diagnostic Study Results
04/25/24 03:06
04/25/24 03:06
Abs Immat Gran (auto) 0.3 10^3/uL (0-0.05) H 04/24/24 11:46
Absolute Neuts (auto) 24.0 10^3/uL (1.4-6.5) H 04/24/24 11:46
Absolute Lymphs (auto) 0.5 10^3/uL (1.2-3.4) L 04/24/24 11:46
Absolute Monos (auto) 0.8 10^3/uL (0.1-0.6) H 04/24/24 11:46
Absolute Basos (auto) 0.2 10^3/uL (0-0.2) 04/24/24 11:46
Immature Gran % 1.2 % (0-0.5) H 04/24/24 11:46
Neutrophils % 93.1 % (42.2-75.2) H 04/24/24 11:46
Lymphocytes % 1.9 % (20.5-51.1) L 04/24/24 11:46
Monocytes % 2.9 % (1.7-9.3) 04/24/24 11:46
Eosinophils % 0.2 % (0-6) 04/24/24 11:46
Basophils % 0.7 % (0-2) 04/24/24 11:46
PT 16.8 Sec (11.4-14.6) H 04/24/24 17:41
INR 1.38 04/24/24 17:41
Lactic Acid Cancelled 04/24/24 20:29
Ur Squamous Epith Cells 0-2 /LPF (Few) 04/24/24 13:02
Microbiology Results
Micro:
04/24/24 17:41 Nasal Screen MRSA (PCR) - Final
Nose Staph aureus MRSA
04/24/24 15:05 Blood Culture - Preliminary
Blood/Venous Positive for GPC (1 of 2); culture in progress
Gram Stain - Preliminary
04/24/24 15:02 Blood Culture - Preliminary
Blood/Venous Positive for GPC (1 of 2); culture in progress
Gram Stain - Preliminary
04/24/24 18:42 MRSA Screen - Pending
Nose
04/24/24 13:02 Urine Culture - Pending
Urine
Imaging:
04/24/2024 X-ray left hip: Total left hip arthroplasty hardware noted in place. There is a comminuted nondisplaced fracture of the left greater trochanter, with possible extension to the prosthesis. No dislocation noted. Please see full dictation
for additional detail.
04/24/2024 CT chest/abdomen/pelvis with IV contrast: There is a small to moderate bilateral pleural effusions with associated consolidation. Infectious/inflammatory bronchiolitis changes in the bilateral upper lobes. Cannot rule out superimposed
pulmonary contusion or underlying nodules. There is a comminuted minimally displaced fracture of the left greater trochanter extending to the underlying prosthesis. Please see full dictation for additional detail. Film personally viewed.
04/24/2024 CT cervical spine without contrast; CT head without contrast: No acute intracranial abnormalities noted. No acute fracture or subluxation of the cervical spine. Multilevel degenerative changes of the cervical spine are noted.
Assessment / Plan
Clinical sepsis /septic shock
- remains on pressor
Leukocytosis
Fever
Complicated urinary tract infection
Hyperglycemia
Illicit drug use
Left hip fracture
Asthma
GERD
Hypertension
Dyslipidemia
Diabetes mellitus
Anxiety/depression
Chronic pancreatitis
Hemochromatosis
Recommendations:
Continue current empiric antibiotics (vancomycin; Zosyn)
Change Zosyn dose to 3.375 g IV every 6 hours
Follow white count and temperature curve.
Await further culture data from currently positive cultures.
Continue with supportive care.
Continue pressor support; maintain MAP greater than 65
Await further input from Orthopedics regarding fracture
Check ESR and CRP in AM. May need ECHO based upon further blood culture findings.
Care Review
Plan reviewed with: Physician (Hospitalist)
--- NOTE | 2024-04-25 09:31 | CON.ORTHO ---
Consultation
-
Date/Time Consultation Requested: 04/24/2024
Date/Time Consultation Performed: 04/25/2024
Requesting Provider: Dr. Donnelly
Performing Provider: Lesley Greenberg PA-C, for Dr. Pete Peck
Reason for Consultation: Left hip periprosthetic greater trochanter fracture
Consultation - Orthopedics
History
HPI: This is a 54 year old male who presented to ED and admitted with sepsis. All history is obtained through chart review as patient was unable to appropriately answer any questions during examination. It is believed he sustained a fall at
home within the last week and may have been on the floor for days. He has a known history of polysubstance abuse to include marijuana, methamphetamine, and opioids. He has a prior history of a right UMU in 2008 and a left UMU in 2014. He was c/o
left hip pain in the ED, and x-rays revealed a periprosthetic greater trochanter fracture. When attempting to ask him where his pain was today, he kept replying 'my tummy'. He was unable to provide information about his joint surgeon, but his
surgery was not performed at [facility]. Orthopedics was consulted in to discuss management of his left hip periprosthetic fracture.
Past medical history: Hypertension, diverticulosis, rotatory hemochromatosis, fatty liver, vitamin D deficiency, pancreatic insufficiency, benign essential tremor syndrome, opioid dependence, historical obesity, mild persistent asthma without
complication, type 2 diabetes hyperlipidemia, GERD, generalized anxiety disorder, hypothyroidism.
Past surgical history: Appendectomy, right UMU, left UMU, L4-L5 discectomy by Dr. Thomas, liver biopsy.
Social history: Polysubstance abuse. Lives at home.
Review of systems: Unable to obtain due to altered mental status
Allergies / Home Medications
Allergy/AdvReac Type Severity Reaction Status Date / Time
venom-honey bee Allergy PASSED OUT Verified 04/24/24 11:44
[bee venom (honey bee)] AFTER
STING/ANAPHYLAXIS
�Medication �Instructions �Recorded
budesonide-formoterol HFA 160 2 puff inhalation R BID 07/24/12
mcg-4.5 mcg/actuation aerosol Lung/breathing issues
inhaler (Symbicort)
albuterol sulfate 90 mcg/actuation 2 puff inhalation R Q4HPRN PRN 08/21/17
aerosol inhaler shortness of breath
aspirin 81 mg tablet,delayed 81 mg PO DAILY Blood clot 08/21/17
release prevention/tx
multivitamin with folic acid 400 1 tab PO DAILY Supplement 01/26/19
mcg tablet (Tab-A-Ayan)
fluticasone propionate 50 1 spray intranasal DAILYPRN PRN 07/12/19
mcg/actuation nasal allergies, nasal congestion
spray,suspension
sodium chloride 0.65 % nasal spray 1 sprays intranasal BIDPRN PRN 07/12/19
aerosol (Saline Nasal) CONGESTION
atorvastatin 40 mg tablet 40 mg PO QPM High cholesterol 09/17/19
fenofibrate nanocrystallized 145 145 mg PO HS High cholesterol 01/03/20
mg tablet
lansoprazole 30 mg delayed 30 mg PO DAILY Gastrointestinal 02/24/20
release,disintegrating tablet issue
furosemide 20 mg tablet 20 mg PO DAILYPRN PRN FLUID IN LEGS 12/13/20
icosapent ethyl 1 gram capsule 2 gm PO BID High cholesterol 12/13/20
(Vascepa)
glipizide 5 mg tablet 10 mg PO BID Diabetes 01/24/21
oxycodone-acetaminophen 10 mg-325 1 tab PO Q6HPRN PRN severe back 02/15/21
mg tablet pain
Methimazole 15 mg PO DAILY Thyroid 12/24/21
amitriptyline 25 mg tablet 25 mg PO HSPRN PRN urinary leakage 12/24/21
empagliflozin 10 mg tablet 10 mg PO DAILY Diabetes 12/24/21
(Jardiance)
gabapentin 400 mg capsule 400 mg PO TID Neurological 12/24/21
Condition
insulin glargine 100 unit/mL (3 20 units SC BID Diabetes 12/24/21
mL) subcutaneous pen (Lantus
Solostar U-100 Insulin)
insulin lispro 100 unit/mL 30 unit SQ MEALS Diabetes 12/24/21
subcutaneous pen
insulin regular human 100 unit/mL 20 unit IJ MEALS Diabetes 12/24/21
injection solution (Novolin R
Regular U-100 Insulin)
sertraline 50 mg tablet 100 mg PO DAILY Depression 12/24/21
sildenafil (pulm.hypertension) 20 20 mg PO DAILYPRN PRN ed 12/24/21
mg tablet
dicyclomine 20 mg tablet 20 mg PO QIDPRN PRN spasm, pain 12/26/21
#15 tabs
zptwaf-fdstgnja-kxzuymv 2 cap (2 x 12,000-38,000 -60,000 12/26/21
12,000-38,000-60,000 unit unit) PO MEALS Gastrointestinal
capsule,delayed rel (Creon) issue #180 ea
magnesium oxide 800 mg (2 x 400 mg magnesium) PO 12/26/21
TID #90 tabs
metoprolol tartrate 100 mg tablet 100 mg PO BID #60 tabs 12/26/21
Vital Signs / Lab Results
Temp Pulse Resp BP Pulse Ox
102.9 F H 143 28 100/70 93
04/25/24 07:00 04/25/24 08:30 04/25/24 08:30 04/25/24 08:30 04/25/24 08:30
04/25/24 03:06
04/25/24 03:06
Physical examination:
General: patient in obvious distress with mild rigors noted. Inappropriately answering questions.
HEENT: AT/NC, neck supple.
Lungs: Non labored breathing on room air, no audible wheezing.
Left hip: limited exam secondary to patient's distress. Surgical incision over anterior hip is well healed. Logroll with discomfort. Ecchymosis and swelling about lateral hip. Calf soft and non tender. Erythematous changes of medial B/L lower
extremities. N/v intact.
Radiographic studies:
Left hip x-ray demonstrates comminuted, nondisplaced fracture of greater trochanter with possible extension to the prosthesis. Total hip arthroplasty hardware noted to be in place. No dislocation
Assessment / Plan
Assessment: Left periprosthetic greater trochanter fracture.
Plan: Patient seen in tandem with Dr. Peck. Unfortunately, Michael was unable to provide any history in regards to his left hip surgery, current injury, or complaints in regards to his left hip pain. His x-rays do demonstrate a nondisplaced greater
trochanter fracture about the left hip prosthesis. This is amenable to nonsurgical intervention with nonweightbearing and avoidance of abduction of the left hip. It does appear as though he had an anterior hip approach, but he was unable to let us
know who the operating surgeon was. We will check in on him again tomorrow to see if he is more coherent or able to provide more information in regards to his left hip symptoms. Continue medical care for sepsis and withdrawal. PT will likely be
beneficial when medically stable. May need further follow up with original joint surgeon if joint pain persists. Will continue to follow along for now.
--- NOTE | 2024-04-25 10:38 | PTCARENOTE ---
sister Pam phoned, updated. pt pulled off oxygen and monitor, replaced. more comfortable than earlier, resting presently when undisturbed at brief intervals.
--- NOTE | 2024-04-25 11:20 | W.PN.HOSP.TC ---
Today's Communication/Plan
-
Continue with empiric broad-spectrum IV antibiotics
Maintain Proctor catheter
Plan for TTE
Follow culture results
Med rec when cognition improved
Assessment / Plan
Assessment / Plan
#Gram-positive sepsis of unclear origin
#Pyelonephritis
-Differentials include endocarditis, bacterial pneumonia, pyelonephritis, hip infection
-Does have grossly purulent urine though gram-positive cocci would not be typical species
-Question if he has vegetations with septic emboli to the kidney; right flank pain with purulent urine
-Was started on broad-spectrum antibiotics with vancomycin and Zosyn on arrival
-Remained febrile as of this morning, status post 1700 mL urine retention
-CT scan showed signs of pyelonephritis, bacterial pneumonia
-Has not required vasopressors; hemodynamically stable on fluid
Plan
-Continue broad-spectrum antibiotics and follow cultures
-Maintain Proctor catheter and monitor urine output
-Order echocardiogram to assess for vegetation
-Trend CBC, temperature curve, inflammatory markers
-Continue supportive IVF and monitor MAP
#Acute hypoxemic respiratory failure
-Suspect secondary to bacterial pneumonia, has required up to 15 L O2 here
-Imaging on arrival concerning for lobar pneumonia; blood cultures with gram-positive cocci
-He does have a history of asthma though no wheezing on exam, no signs of CO2 retention
-Currently on 12 L of supplemental oxygen with SpO2 at 94%, no increased WOB
-Sputum cultures pending
Plan
-Continue with empiric antibiotics as above
-Order albuterol MDI as needed for wheezing or shortness of breath
-Follow-up sputum cultures taken in the ED
-Wean oxygen for SpO2 goal >90%
#Left comminuted nondisplaced greater trochanter fracture
-likely secondary to a fall
-X-ray with comminuted nondisplaced fracture of left greater trochanter
-Imaging shows possible extension to the prosthesis of the hip
-Orthopedics evaluated, no plan for surgical intervention as of now
-As needed Tylenol ordered
#Toxic metabolic encephalopathy
-Secondary to above issues; CT head on arrival without acute findings
-No focal neurological deficits on exam
-Expect improvement with resolution of the above
-Monitor neurological status clinically
#Chronic pancreatitis
-Unclear etiology, possibly from alcohol or other substance abuse
-Home medications include pancreatic enzymes, Creon 2 caps with meals
-Remains on home enzyme replacement therapy
#S/p bilateral hip replacements
-Unclear what necessitated this at early age
-Acute periprosthetic hip fracture as above
#Hyperthyroidism
-Per history, home med list does show methimazole 15 mg daily
-Unclear etiology, no orbitopathy or other signs of Graves' disease
-Does have history of sinus tachycardia that is likely related
-Will clarify methimazole dose mental status improved
#Hereditary hemochromatosis
-Per history, no HFE gene mutation analysis per records here
#Insulin-dependent diabetes mellitus
-Unknown A1c, current results pending from admission
-Will started on insulin sliding scale on admission, glucose remained near 250�300
-Will start on 10 units Lantus, continue with insulin sliding scale and Accu-Cheks
DVT prophylaxis: Subcutaneous heparin
Diet: Carb controlled
CODE STATUS: Full code
Med rec incomplete due to patient's mental status and inability to obtain history. As encephalopathy improves will obtain home medication list.
Anticipated Discharge: > 48 hours
Subjective/Interval History
-
Date of Service: April 25, 2024
Seen and examined at the bedside. No acute events since admission. Remains febrile with a temperature 102.9 �F this morning, tachycardic at 135/min, hypoxemic on 8 L oxygen via nasal cannula. Not currently receiving vasopressors, MAP within
normal range on IV fluids.
He is able to answer questions though does seem encephalopathic. Complains of right flank pain. Had straight cath 1700 mL, per nursing gross purulence near end of urine stream.
Review of systems is limited due to his encephalopathy
Objective Data
-
Labs:
Laboratory Results
04/25/24
03:06
WBC 25.8 H
Hgb 10.0 L
Hct 29.5 L
Plt Count 314
Sodium 136 D
Potassium 4.4
Chloride 101
Carbon Dioxide 25
BUN 19
Creatinine 0.5 L
Glucose 230 H
Calcium 8.0 L
Total Bilirubin 0.4
AST 27
ALT 34
Alkaline Phosphatase 411 H
Vital Signs:
Vital Signs
Temp Pulse Resp BP Pulse Ox
101.9 F H 131 23 98/60 94
04/25/24 09:31 04/25/24 09:45 04/25/24 09:45 04/25/24 09:30 04/25/24 09:45
I&O
04/24/24 04/25/24 04/26/24
06:59 06:59 06:59
Intake Total 3018 / 3218 800 / 800
Output Total 1750 / 1750 1750 / 1750
Balance 1268 / 1468 -950 / -950
Review of Systems
-
Unable to obtain full review of systems at this time due to: Acuity
Physical Exam
-
General: Appears in Distress, Fever, Sweats and Other (Toxic appearance)
HEENT: Normocephalic, Atraumatic, Moist Mucous Membranes and Anicteric
Respiratory: Clear to Auscultation and Non Labored Respirations; Negative Wheezes, Rales, Rhonchi or Accessory Resp Muscle Use
Cardiac: Regular Rhythm, S1/S2 and Tachycardic; Negative Murmur, Rub or Gallop
GI: Soft, Nontender, Nondistended and Normal Bowel Sounds
Genito-urinary: Costovertebral Angle Tend (Right side), Turbid Urine and Proctor
Musculoskeletal: No Clubbing, No Cyanosis, No Edema and Other (No gross deformity, including to hip)
Skin: Warm and Other (Splinter hemorrhages on distal nailbeds, left hand); Negative Dry, Rash or Jaundice
Neuro: Awake, Alert, Nonfocal/Grossly Intact and Central Nerve's Intact; Negative Oriented
Psych: Confused
Data Reviewed
-
CT Scan: Report Reviewed by me and Discussed with Nurse
Labs: Labs Reviewed by me, Discussed with Nurse and Discussed with Patient
[2024-04-25] MEDS: LANTUS 0.1 UNITS SC (11:29)
[2024-04-25] MEDS: ZENPEP DELAYED RELEASE CAPSULE 2 CAPSULE PO ×2 (11:31→17:15)
[2024-04-25 11:39] LABS: Glucose - Point of Care 228 mg/dl (70-99)
[2024-04-25] MEDS: ZOSYN 50 IV ×2 (11:58→17:15)
[2024-04-25 12:58] LABS: Glycohemoglobin (HgbA1c) 16.9 % (4.0-5.6)
--- NOTE | 2024-04-25 13:44 | PTCARENOTE ---
ate lunch though fell asleep several times while eating. Turned, repositioned, draw sheet placed for boosting, localized pain L hip, med as noted, see MAR. Presently sleeping, TV movie is on, titrating midflow cannula lower.
--- NOTE | 2024-04-25 14:38 | CM ---
CM following re: discharge planning.
Reviewed pt's chart, met with pt.
pt is a 54 year old male, admitted with primary dx of Sepsis.
Pt is not a great historian, presents drowsy, lethargic and was falling to sleep during interview. Pt reports he lives alone in a 2 story house. The patient has been independent in ADLs and ambulation using his cane until recently when he began
using his RW. The patient states he is disabled due to back and hip problems. The patient has no children. His sister Pam lives next door.
Substance abuse treatment resources consult noted. Pt referred to [facility] and they will meet with the pt when pt is more awake and oriented.
PCP - Pascual Bates
Pharmacy - [facility]
D/C plan: uncertain at this time and will depend on pt's progress.
CM will follow with discharge plan updates as hospitalization progresses
[2024-04-25] MEDS: TYLENOL 650 MG PO (17:06)
[2024-04-25] MEDS: NOVOLOG FLEXPEN-HIGH RESISTANCE 2 UNITS SC (17:15)
[2024-04-25 17:25] LABS: Glucose - Point of Care 191 mg/dl (70-99)
--- NOTE | 2024-04-25 18:13 | PTCARENOTE ---
I/O collected, popo presently infusing, sitting up eating dinner. more interactive. Order obtained for oral tylenol, given for temp. urine remains cloudy clumpy sediment.
[2024-04-25] MEDS: ZANAFLEX 2 MG PO (19:49)
--- NOTE | 2024-04-25 19:50 | PTCARENOTE ---
Assumed care of pt. approx 1900.
Remains on midflo 10L, sp02 94-96%. In no acute distress.
Remains off vasopressor support, Fluids decreased to 80 ml/hr. Pt. having excessive oral intake.
Proctor remains patent, and OP 70-100 ml hr.
Pain management discussed w/ house provider, cont. same regiment.
Fever trending down, switched to basal po APAP.
[2024-04-25] MEDS: NSS IV (20:10)
[2024-04-25] MEDS: LEVOPHED 250 IV (21:12)
--- NOTE | 2024-04-25 21:19 | PTCARENOTE ---
Pt. profound hypotension, Norepi started,
[2024-04-25 21:51] LABS: Glucose - Point of Care 285 mg/dl (70-99)
--- NOTE | 2024-04-25 23:36 | PTCARENOTE ---
Pt. having increased confusion, removing leads.
Desatting into high 70s. Mid cornelius maxxed out --> sp02 now low 90s. ICU RONNELL notified, orders for high cornelius if pt desats again.
Norepi titrated off.
[2024-04-26] VITALS (54 sets, daily range): BP systolic 78–141; BP diastolic 58–99; BMI 26.9
--- NOTE | 2024-04-26 00:19 | PTCARENOTE ---
Spiking fever to 102.8, orders for cooling blanket, offirmev.
[2024-04-26] MEDS: OFIRMEV 100 IV (00:46)
--- NOTE | 2024-04-26 02:47 | PTCARENOTE ---
Pt. reached target temp. ICU RONNELL notified, therapy D/C.
[2024-04-26 03:35] LABS: % Basophils 0.7 % (0-2); % Eosinophils 0.1 % (0-6); % Lymphocytes 5.2 % (20.5-51.1); % Monocytes 3.7 % (1.7-9.3); % Neutrophils 88.3 % (42.2-75.2); Absolute Basophils 0.2 10^3/uL (0-0.2); Absolute Immature Granulocytes 0.5 10^3/uL (0-0.05); Absolute Lymphocytes 1.2 10^3/uL (1.2-3.4); Absolute Monocytes 0.9 10^3/uL (0.1-0.6); Absolute Neutrophils 21.1 10^3/uL (1.4-6.5); Hematocrit 31.2 % (39.0-52.0); Hemoglobin 10.3 g/dL (13.0-18.0); Mean Corpuscular Hgb 27.4 pg (27.0-31.0); Mean Platelet Volume 9.8 fL (7.4-10.4); Nucleated Red Blood Cells % 0 % (-); Platelet Count 297 10^3/uL (130-400); Red Blood Cell Count 3.76 10^6/uL (4.70-6.10); Red Cell Dist. Width 14.3 % (11.5-14.5); White Blood Cell Count 23.9 10^3/uL (4.8-10.8)
[2024-04-26 03:44] LABS: ALT (SGPT) 33 U/L (0-50); AST (SGOT) 37 U/L (17-59); Albumin 2.2 g/dl (3.5-5.0); Alkaline Phosphatase 671 U/L (38-126); Blood Urea Nitrogen 15 mg/dl (9-20); Calcium 7.9 mg/dl (8.4-10.2); Carbon Dioxide 25 mmol/L (22-30); Chloride 99 mmol/L (98-107); Direct Bilirubin 0.1 mg/dl (0.0-0.4); Estimated Creatinine Clearance > 125 ml/min; Glucose 252 mg/dl (70-99); Potassium 4.2 mmol/L (3.5-5.1); Sodium 133 mmol/L (135-145); Total Bilirubin 0.6 mg/dl (0.2-1.3); Total Protein 5.7 g/dl (6.3-8.2); eGFR > 60.00
--- NOTE | 2024-04-26 03:45 | PTCARENOTE ---
Cooling blanket off, core temp now 98.6.
Maintaining sp02 94-97 12L midflo.
Remains confused/encephalopathic, unable to redirect.
Hemodynamically stable off Vasopressor support.
[2024-04-26 03:47] LABS: Erythrocyte Sed Rate 75 mm/hour (0-20)
[2024-04-26 04:00] LABS: C-Reactive Protein > 270.00 mg/L (0.0-10.00)
--- NOTE | 2024-04-26 04:16 | PTCARENOTE ---
Pt. more alert/awake, able to explain previous ortho surgeries.
Previously saw Dr. Yoan Adamson MD at [place]. Right hip resurface, Left hip replacement.
[2024-04-26] MEDS: DILAUDID 0.5 MG IV ×7 (04:18→19:51)
[2024-04-26] MEDS: NOVOLOG FLEXPEN 7 UNITS SC (04:19)
[2024-04-26] MEDS: ZOSYN 50 IV ×2 (05:06)
[2024-04-26] MEDS: VANCOCIN 275 MG IV ×2 (05:07→17:14)
[2024-04-26 06:22] LABS: Glucose - Point of Care 285 mg/dl (70-99)
[2024-04-26] MEDS: NOVOLOG FLEXPEN-HIGH RESISTANCE 7 UNITS SC ×2 (06:46→12:32)
[2024-04-26] MEDS: SYMBICORT 160/4.5 MCG INHALER 2 PUFF INH ×2 (07:26→19:46)
[2024-04-26] MEDS: HEPARIN 5000 UNITS SC ×3 (07:28→23:34)
[2024-04-26] MEDS: LANTUS 0.1 UNITS SC (07:30)
[2024-04-26] MEDS: ZENPEP DELAYED RELEASE CAPSULE 2 CAPSULE PO ×2 (07:34→19:10)
--- NOTE | 2024-04-26 08:00 | PTCARENOTE ---
Received patient from warehouse shift supervisor.
Patient is AAOx2, has been screaming and moaning throughout the night. Pain medicine continues to be administered q3hrs as ordered. Educated patient production control expert patel.
Patient remains on10L midflow, 94% pulse ox resting. is sinus tach on monitor. some edema noted lower extremities. Patient is on 1800 heather diet. poor appetite. Urinary catheter draining clear/yellow urine. Heparin for dvt prophylaxis. will
review orders.
Call patel within reach.
--- NOTE | 2024-04-26 09:27 | CM ---
Patient seen at bedside with physician. Patient drowsy but talked to physician and CM. Patient complaining of pain. Patient clarified that his sister and brother in law live in the attached duplex home. Patient for further medical assessment per
chart review. CM will follow for discharge planning needs.
Plan; pending medical assessment; [facility] assessment. SNF vs home with VN pending functional assessment
--- NOTE | 2024-04-26 09:32 | W.PN.HOSP.TC ---
Today's Communication/Plan
-
wean pressors to off
will need to clarify orthopedics MD
repeat blood cultures until clear
wean O2 as able
repeat CXR
cont vanco/zosyn
await ECHO
check proBNP
check B/L LE US
Assessment / Plan
Assessment / Plan
pt is a 54 year old male
septic shock--pressor dependent with acute hypoxemic respiratory failure due to MRSA bacteremia with MRSA UTI (blood and urine cultures positive for MRSA)--with positive nasal screen as well--cont vanco/zosyn--apprec ID and indoor landscape architect--wean
pressors to off--cont white for now--CT scan with small to moderate bilateral pleural effusions (unclear if true pna)--await ECHO, may need NEELIMA--still with elevated WBCs
Acute hypoxemic respiratory failure--suspect due to sepsis and bilateral pleural effusions--no evidence of pna by CT scan formal read--may need thoracentesis--wean O2 as able--no documentation of PE on CT chest either--repeat CXR
Acute Left comminuted nondisplaced greater trochanter fracture from acute fall-- pt relates that he sees Dr. Adamson--other ortho group has seen patient this admission---may need to consult Abhinav--Imaging shows possible extension to the prosthesis of
the hip--pain control
bilateral LE edema--check bilateral LE US--check proBNP
Toxic metabolic encephalopathy---Secondary to above issues; CT head on arrival without acute findings--No focal neurological deficits on exam
Chronic pancreatitis--Unclear etiology, possibly from alcohol or other substance abuse--Home medications include pancreatic enzymes, Creon 2 caps with meals--Remains on home enzyme replacement therapy
Hyperthyroidism--Per history, home med list does show methimazole 15 mg daily--Does have history of sinus tachycardia that is likely related
Hereditary hemochromatosis--Per history, no HFE gene mutation analysis per records here (in 2007, liver iron concentration very high at 7340)
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
DVT prophylaxis: Subcutaneous heparin
CODE STATUS: Full code
Total Critical Care Time 30 minutes. I was immediately available to the patient and staff. I personally examined, reviewed labs, diagnostic images/reports, interpretations, treatment plans, discussed patient care with other providers and family
or caregivers (if patient is unable to make decisions), entered orders as appropriate and documented the medical record.
Anticipated Discharge: > 48 hours
Subjective/Interval History
-
Date of Service: April 26, 2024
pt c/o pain all over with touching his bilateral legs
Objective Data
-
Labs:
Laboratory Results
04/26/24
03:14
WBC 23.9 H
Hgb 10.3 L
Hct 31.2 L
Plt Count 297
Sodium 133 L
Potassium 4.2
Chloride 99
Carbon Dioxide 25
BUN 15
Creatinine 0.5 L
Glucose 252 H
Calcium 7.9 L
Total Bilirubin 0.6
AST 37
ALT 33
Alkaline Phosphatase 671 H
Vital Signs:
max temp for 24 hours
04/26/24
00:40
Temp 102.8 F H
Vital Signs
Temp Pulse Resp BP Pulse Ox
98.4 F 109 23 106/76 91
04/26/24 08:00 04/26/24 08:45 04/26/24 08:45 04/26/24 08:00 04/26/24 08:45
I&O
04/25/24 04/26/24 04/27/24
06:59 06:59 06:59
Intake Total 3018 / 3218 6100 / 6180 160 / 160
Output Total 1750 / 1750 4095 / 4095
Balance 1268 / 1468 2004 160 / 160
Review of Systems
-
All other systems: Reviewed and negative
Musculoskeletal: Reports Other (leg pains)
Physical Exam
-
General: Well Developed, Well Nourished and No Apparent Distress
HEENT: Normocephalic, Atraumatic and Oxygen
Respiratory: Clear to Auscultation; Negative Wheezes or Rhonchi
Cardiac: Regular Rhythm and S1/S2; Negative Murmur
GI: Soft, Nontender, Nondistended and Normal Bowel Sounds
Genito-urinary: White
Musculoskeletal: Other (bilateral LE edema with tenderness to palpation)
Skin: Warm
Neuro: Awake and Alert
Psych: Calm
[2024-04-26 09:34] LABS: Magnesium 1.8 mg/dl (1.6-2.3)
[2024-04-26] MEDS: LASIX 20 MG IV ×2 (10:41→17:21)
--- NOTE | 2024-04-26 10:42 | W.PN.UPDATE ---
Update Note
Progress Note Update
Mr. Villa was a bit more coherent this morning, however I am told he was quite agitated overnight. continues his detox. He was able to report that his left hip was replaced by Dr. Adamson back in 2008. I did explain that he has a periprosthetic
fracture (greater trochanter), but fortunately no operative management will be recommended at this time. He will continue to be NWB with no active or passive abduction. May work with PT/OT if deemed safe by the medical team. Would recommend
follow-up x-rays in 1 to 2 weeks, but should return to see his original orthopedist, Dr. Adamson, or someone on his team. Orthopedics ([facility]) to follow along peripherally. please reengage throughout the rest of his admission, if necessary. Again, he
should follow-up as an outpatient with Dr. Adamson, or someone at the [facility]
[2024-04-26] MEDS: NSS IV (10:45)
[2024-04-26] MEDS: ZANAFLEX 2 MG PO ×2 (10:47→17:06)
[2024-04-26] MEDS: TYLENOL 650 MG PO ×3 (10:47→19:51)
--- NOTE | 2024-04-26 11:46 | W.PN.ID1 ---
Date of Service
Date of Service: April 26, 2024
Today's Communication
Continue vancomycin. See below�
Assessment / Plan
Clinical sepsis /septic shock
MRSA bacteremia
MRSA complicated urinary tract infection
Elevated ESR, CRP
Leukocytosis
Fever
Hyperglycemia
Illicit drug use (opiates, amphetamines)
Left hip fracture
Asthma
GERD
Hypertension
Dyslipidemia
Diabetes mellitus
Anxiety/depression
Chronic pancreatitis
Hemochromatosis
Recommendations:
Continue vancomycin.
Further Zosyn can be discontinued.
Follow white count and temperature curve.
Repeat blood cultures x 2 today.
Continue with supportive care.
Check ECHO
Check MRI of thoracic and lumbar spine to assess for epidural abscess.
Chief Complaint
-: Fever, Leukocytosis and Bacteremia
Subjective / Review of Systems
Patient seen and examined. Patient notes diffuse and generalized body discomfort. Also notes low back discomfort. He states that it is somewhat chronic, but increased over baseline.
Vital Signs / Physical Exam
Vital Signs
Vital Signs
Temp Pulse Resp BP Pulse Ox
98.4 F 109 23 106/76 91
04/26/24 08:00 04/26/24 08:45 04/26/24 08:45 04/26/24 08:00 04/26/24 08:45
Physical Exam
Constitutional: Comfortable and Chronically Ill
Eyes: No Conjunctival Hemorrhage and Sclera Anicteric
Cardiovascular: Regular Rate (tachy) and S1/S2; Negative S3/S4 or Murmur
Pulmonary: Coarse and Non Labored
Gastrointestinal: Soft, Non Distended, Normal Bowel Sounds, No Rebound and No Guarding
Genito-Urinary: Proctor and Clear Urine
Extremities: Edema (3+ B/L LE edema) and Splinter Hemorrhage (noted in distal nail beds.); Negative Janeway Lesions
Musculoskeletal: Negative Joint Swelling or Joint Effusion
Skin: Warm and Dry; Negative Rash or Jaundice
Neurological: Awake and Alert; Negative Meningeal Signs
Psychological: Calm
Objective Data
Lab Data
Lab Results
04/26/24 03:14
04/26/24 03:14
ESR 75 mm/hour (0-20) H 04/26/24 03:14
PT 16.8 Sec (11.4-14.6) H 04/24/24 17:41
INR 1.38 04/24/24 17:41
APTT 34.5 Sec (23.4-35.0) 04/24/24 17:41
Estimated Creat Clear > 125 ml/min 04/26/24 03:14
Lactic Acid Cancelled 04/24/24 20:29
Total Bilirubin 0.6 mg/dl (0.2-1.3) 04/26/24 03:14
AST 37 U/L (17-59) 04/26/24 03:14
ALT 33 U/L (0-50) 04/26/24 03:14
Alkaline Phosphatase 671 U/L (38-126) H 04/26/24 03:14
C-Reactive Protein > 270.00 mg/L (0.0-10.00) H 04/26/24 03:14
Most recent labs reviewed.
Micro Results:
04/26/24 11:12 Blood Culture - Pending
Blood/Venous
04/24/24 15:05 Blood Culture - 2 of 2 bottles
Blood/Venous Staph aureus MRSA
Gram Stain - Preliminary
04/24/24 15:02 Blood Culture - 2 of 2 bottles
Blood/Venous Staph aureus MRSA
Gram Stain - Final
04/24/24 13:02 Urine Culture - Final
Urine Staph aureus MRSA
04/24/24 17:41 Nasal Screen MRSA (PCR) - Final
Nose Staph aureus MRSA
Imaging:
04/24/2024 X-ray left hip: Total left hip arthroplasty hardware noted in place. There is a comminuted nondisplaced fracture of the left greater trochanter, with possible extension to the prosthesis. No dislocation noted. Please see full dictation
for additional detail.
04/24/2024 CT chest/abdomen/pelvis with IV contrast: There is a small to moderate bilateral pleural effusions with associated consolidation. Infectious/inflammatory bronchiolitis changes in the bilateral upper lobes. Cannot rule out superimposed
pulmonary contusion or underlying nodules. There is a comminuted minimally displaced fracture of the left greater trochanter extending to the underlying prosthesis. Please see full dictation for additional detail. Film personally viewed.
04/24/2024 CT cervical spine without contrast; CT head without contrast: No acute intracranial abnormalities noted. No acute fracture or subluxation of the cervical spine. Multilevel degenerative changes of the cervical spine are noted.
Care Review
Plan reviewed with: Nurse, Physician (Hospitalist) and Other (Radiology team)
--- NOTE | 2024-04-26 11:54 | W.PN.INTV ---
Today's Communication / Plan
Recommendations
Discontinue IV fluids
20 mg of diuretic
Continue mid flow oxygen
Continue antibiotics
Follow cultures
Pain control
Monitor respiratory status and mental status closely
Assessment
-
Patient is a 54-year-old male with previous history of IDDM, anxiety and depression, alcohol abuse with chronic pancreatitis, hypertension, hereditary hemochromatosis, asthma presenting via ambulance for a fall that occurred 5 days ago with
persistent left upper back pain and left hip pain. He admits to noncompliance with his medications. Arrived to hypotensive, tachycardic and hypoxemic. He was it is late on the floor somnolent for a few days. He had been using marijuana,
injecting and snorting methamphetamines. UDS indicating positive screening for oxycodone and meth/amphetamines. Alcohol level negative. Elevated beta hydroxybutyrate, UA possibly demonstrating UTI. CT obtained of chest abdomen pelvis showing
small to moderate bilateral pleural effusions and left greater trochanteric fracture. He is placed on pressors for hypotension, and admitted to ICU.
Septic shock on pressors
MRSA bacteremia
Acute respiratory insufficiency, 12L midflow
Acute bilateral pleural effusions
Acute left greater trochanteric fracture, left hip pain status post fall
Possible UTI
Leukocytosis
Hyperglycemia
Polysubstance abuse including marijuana, methamphetamines
Medical noncompliance
TME likely from sepsis
Conditions present prior to admission
Adm 03/15/2020: Acute on chronic pancreatitis triggered by alcohol use
GERD
Chronic abdominal pain/pancreatitis
Pancreatic pseudocyst per imaging, 4.1 cm
History of hypertriglyceridemia
Admitted with DKA 12/2019
Hemochromatosis s/p liver biopsy; phlebotomy every 6 weeks (Prashanth)
Chronic back pain/sciatica s/p hemilaminectomy
Hypertension
Essential tremor
History of asthma, on Symbicort
Anxiety/depression
Former smoker
Former alcohol abuse
Bilateral hip replacement
Insulin-dependent diabetes
Opioid dependence
Hyperlipidemia
Plan
-
Mental status appears to be back to baseline. Toxic metabolic encephalopathy resolved
Psychiatric history noted above including anxiety/depression
Pain/sedation: PRN, limit based on MS/avoid oversedation
Continue to hold benzodiazepines. May have contributed to confusion.
Can trial seroquel if needed
Hemodynamics improved-off Levophed since 04/25/2024.
Status post adequate fluid resuscitation.
Discontinue all IV fluid
Cardiac history reviewed--HTN
Prior ECHO ([id number]) reviewed indicating stable function
Hold home meds while hypotensive
Monitor on telemetry
Acute hypoxemic respiratory failure: Suspect volume overload plan
proBNP 6000
Oxygen needs: on 12L midflow
Prior history of lung disease: asthma-continue inhalers. Not bronchospastic on exam
Supplemental O2 as indicated to maintain sats > 89%
CXR/CT reviewed indicating b/l pleural effusions , bilateral pleural effusions suggestive of volume overload.
Discontinue IV fluids
20 mg of Lasix given 04/26/2024. Likely will need more depending on tolerance
Follow renal function electrolytes
Advance diet as able
Home Health Outreach Coordinator recommendations
Aspiration precautions, HOB > 30 degrees
History of pancreatitis, neg CT AP
Creat at baseline, no history of renal disease
Follow urine output, critical I/Os
Replete electrolytes as needed
MRSA bacteremia/UTI
Fever and increased WBC on presentation, suspect underlying MRSA bacteremia/UTI
Likely from IVDU
Repeat echocardiogram pending.
ID following the patient.
Continue vancomycin, consider discontinuation of Zosyn
Cultures sent/pending
Blood + MRSA
Urine positive for MRSA
Leukocytosis trending lower.
Fever curve improved this morning
CBC stable, no signs of bleeding or coagulopathy.
DVT prophylaxis as assessed based on risk, including mechanical SCDs
Can transfuse if indicated for Hb <7, plt < 10
INR WNL
No prior h/o thyroid disease
H/o diabetes, can continue on home meds, SS for coverage
HbA1c 7.9 previously, repeat pending
s/p L femur fracture, ortho consult placed-prior history of left hip replacement back in 2008
Per Ortho, periprosthetic fracture (greater trochanter), but fortunately no operative management will be recommended at this time. He will continue to be NWB with no active or passive abduction.
Fall precautions
We will follow
Diagnostic Data
Chest X-Ray: 01/21/21-The lung volumes are mildly decreased bilaterally. The tracheal air column is slightly deviated to the right. There is no focal airspace opacity suspicious for pneumonia. There is no pleural effusion or pneumothorax. The
cardiomediastinal silhouette is mildly enlarged. There is no radiographic evidence for acute pulmonary edema.
CT Scan: CAP 04/24/24- 1. Small to moderate bilateral pleural effusions with associated consolidation/atelectasis.
2. Confluent pleural-based consolidation within the lingula measures up to 2.4 cm. Infectious/inflammatory bronchiolitis change in the bilateral upper lobes. Cannot rule out superimposed pulmonary contusions and/or underlying nodules.
3. Comminuted minimally displaced fracture of the left greater trochanter extending to the underlying prosthesis.
Stable simple bilateral renal cysts
Echocardiogram on 05/15/2020: Normal LVEF. Ejection fraction 60-65%. Mild LVH.
02/19/21- Technically difficult study. Normal left ventricular chamber size and left ventricular systolic function. Left ventricular ejection fraction is 55-60% . Mild concentric left ventricular hypertrophy.
Normal diastolic function. Trace mitral regurgitation. Aortic sclerosis without stenosis. Trace tricuspid regurgitation. Estimated pulmonary artery pressure of 30-35 mmHg assuming a right atrial pressure of 0-5 mmHg. Compared to study dated
05/15/2020, no significant change.
PFT's:
Reports and relevant images were personally reviewed.
-----
Critical care time35 mins -- this includes review of history, physical exam, medications, hemodynamic/ventilator parameters, laboratory data, imaging and discussion with house staff, pharmacy, respiratory therapy, telephone maintainer, and nursing. Extensive
time spent on complexity of case.
Subjective Dataa
Subjective Data
Date of Service:
Date of Service: April 26, 2024
Chief Complaint: Electrical Instrument Technician Follow Up (Septic shock/MRSA bacteremia)
Subjective:
Denies shortness of breath
Continues to complain of pain
Continues to report shortness of breath-hypoxemic on mid flow oxygen
Review of Systems
General: Fever (n)
Cardiopulmonary: Dyspnea and Dyspnea on Exertion
GI: Abdominal Pain (n)
Neuro: Headache (n) and Dizziness (n)
Objective Data
Data Reviewed
Vital Signs / I&O / Oxygen:
Vital Signs
Temp Pulse Resp BP Pulse Ox
98.4 F 109 23 106/76 91
04/26/24 08:00 04/26/24 08:45 04/26/24 08:45 04/26/24 08:00 04/26/24 08:45
Intake and Output
04/25/24 04/26/24 04/27/24
06:59 06:59 06:59
Intake Total 3018 / 3218 6100 / 6180 240 / 240
Output Total 1750 / 1750 4095 / 4220 650 / 650
Balance 1268 / 1468 2004 / 1959 -410 / -410
SaO2 91
Nasal Cannula flow liters per 10
minute
Physical Exam
General: Respiratory Distress (With activity)
HEENT: Normocephalic
Cardiovascular: S1-S2
Respiratory: Other (Decreased breath sounds)
GI: Soft and Non Distended
Neurology: Awake, Alert and No Motor Deficits
Skin: Warm
Labs/Micro/Reports
Lab Data
04/26/24 03:14
04/26/24 03:14
Microbiology
04/24/24 15:05 Blood/Venous Blood Culture - Preliminary
Staph aureus MRSA
04/24/24 15:05 Blood/Venous Gram Stain - Preliminary
04/24/24 15:02 Blood/Venous Blood Culture - Preliminary
Staph aureus MRSA
04/24/24 15:02 Blood/Venous Gram Stain - Final
04/24/24 13:02 Urine Urine Culture - Final
Staph aureus MRSA
04/24/24 17:41 Nose Nasal Screen MRSA (PCR) - Final
Staph aureus MRSA
--- NOTE | 2024-04-26 12:00 | PTCARENOTE ---
Patient continues to desaturate intermittently. Lasix given, on 15L midflow with non rebreather at times.
[2024-04-26] MEDS: NOVOLOG FLEXPEN 5 UNITS SC (12:33)
[2024-04-26] MEDS: ZENPEP DELAYED RELEASE CAPSULE PO ×2 (12:36→17:06)
--- NOTE | 2024-04-26 12:40 | PHA.VAN.FU ---
Vancomycin Assessment / Plan
- Assessment
Renal Function: Stable
WBC's are: Trending Down
- Dosing Plan
Continue: Vanc 1250mg Q12H pending levels
- Monitoring Plan
Peak Level: 04/26 21:00
Trough Level: 04/27 05:30
Monitoring Comments: levels to be drawn after 4th maintenance dose
- Follow Up
Pharmacy will continue to follow.
Vancomycin Follow UP
- -
Patient Age: 54
Patient Sex: Male
Vancomycin Day #: 3
Indication: Pulmonary/Respiratory
Requesting Provider: Dr. Hill / Yazan
Pertinent Antimicrobial Allergies:
no pertinent antibiotic allergies
Height / Weight:
Height 6 ft
Actual Weight 90 kg
Pertinent Past Medical History: DM, IV SHANTELL
- Vital Signs / Lab Results
Temp Pulse Resp BP Pulse Ox
102.1 F H 109 23 106/76 91
04/26/24 12:00 04/26/24 08:45 04/26/24 08:45 04/26/24 08:00 04/26/24 08:45
Lab Results - Hematology
04/24/24 04/25/24 04/26/24
11:46 03:06 03:14
WBC 25.8 H 25.8 H 23.9 H
Lab Results - Chemistry
04/24/24 04/25/24 04/26/24
11:46 03:06 03:14
BUN 25 H 19 15
Creatinine 0.7 0.5 L 0.5 L
Estimated Creat Clear > 125 > 125 > 125
Albumin 2.0 L 2.2 L 2.2 L
04/24/24 04/24/24 04/24/24
12:26 17:41 20:29
Lactic Acid 1.6 1.2 Cancelled
Microbiology Results
04/24/24 15:05 Blood Culture - Preliminary
Blood/Venous Staph aureus MRSA
Gram Stain - Preliminary
04/24/24 15:02 Blood Culture - Preliminary
Blood/Venous Staph aureus MRSA
Gram Stain - Final
04/24/24 13:02 Urine Culture - Final
Urine Staph aureus MRSA
04/24/24 17:41 Nasal Screen MRSA (PCR) - Final
Nose Staph aureus MRSA
[2024-04-26 12:48] LABS: Glucose - Point of Care 256 mg/dl (70-99)
--- NOTE | 2024-04-26 14:48 | PN.DE.MGMTRT ---
Insulin Management
- -
04/26/2024: Diabetes Management Consult
54 year old male admitted on 04/24 s/p fall 5 days ago with persistent left upper back pain and left hip pain due to Acute left greater trochanteric fx.
PMH: HTN, HLD, Alcohol abuse with acute on chronic pancreatitis, h/o hypertriglyceridemia, Hemochromatosis s/p liver biopsy, GERD, Chronic back pain/sciatica s/p hemilaminectomy, Essential tremor,Asthma, Anxiety/depression, Former smoker, Former
alcohol abuse, Opioid dependence and IDDM.
Patient had been using marijuana, injecting and snorting methamphetamines. UDS +oxycodone and meth/amphetamines.
Reports he was taking Lantus 20 units BID, Lispro 30 units AC, Jardiance 10 mg daily, Metformin 1000 mg BID, and Glipizide 10mg BID. Has not taken his meds in 8-9 months. Was using Dexcom G7 and has a working meter at home. States he was routinely
seeing an Endo at [place]. A1C 16.9%, Cr 0.6, eGFR >60.
Pt awake, A/O x3, sitting up in bed, offers no complaints, able to discuss diabetes plan of care
Current diabetes regimen includes: Lantus 15 units in AM, NovoLog 5 units AC and high corrective with meals
Glucose remains elevated, premeal 191 to 262, requiring 7 units of additional corrective coverage
FBG 252 this AM. Will increase Lantus to 20 units BID and AC NovoLog to 12 units. Will start Farxiga 10mg daily (Jardiance @home)
Will follow tomorrow and make further insulin adjustments if needed
Diabetes History
- -
Type of Diabetes: 2 requiring insulin
Pre-Admission Diabetes Regimen
04/26/24
03:14
Creatinine 0.5 L
Lab Results
Hemoglobin A1c 16.9 % (4.0-5.6) H 04/25/24 03:06
Insulin Pump Settings
IP Diabetes Regimen
04/25/24 04/25/24 04/26/24
17:14 21:39 03:14
Glucose 252 H
POC Glucose 191 H 285 H
04/26/24 04/26/24
06:11 12:32
Glucose
POC Glucose 285 H 256 H
Meal type: Breakfast
Meal type: Dinner
Meal type: Lunch
Amount consumed: 75%
Amount consumed: 85%
Patient Education
--- NOTE | 2024-04-26 14:53 | PTCARENOTE ---
Patient is not moving or shifting at all in bed. Placed air pillows under sacrum, under heels and pillows under bilateral calves.
--- NOTE | 2024-04-26 17:10 | PTCARENOTE ---
Judah Melo called nurses station to report patient's echo could possibly implicate PE. US of lower extremities ordered by Dr. Pickett. Patient continues to have pain 9:10, having more pain on left side. MRI ordered as well. one time dose of PO
ativan ordered for test.
--- NOTE | 2024-04-26 17:10 | W.PN.UPDATE ---
Update Note
Progress Note Update
Hypoxemia somewhat better. Responded to diuretics been
Today chest x-ray noted with ongoing abnormality suggestive of pulmonary edema.
Echocardiogram noted: Normal LVEF. RV dilatation/dysfunction with signs of pressure overload. Unclear if this is explained by his hypoxemia and abnormal CT of the chest.
Pulmonary embolism is a possibility but at this point with significantly abnormal chest x-ray appears less likely.
Patient has been on DVT prophylaxis.
Will start with lower extremity Doppler-May need to consider CT angiogram at some point depending if there is no response to diuresis.
He did receive 20 mg of Lasix with significant urinary output. Urinary output tapering down, will give again 20 mg of Lasix.
[2024-04-26 17:21] LABS: Glucose - Point of Care 132 mg/dl (70-99)
[2024-04-26] MEDS: NOVOLOG FLEXPEN 12 UNITS SC (19:08)
[2024-04-26] MEDS: LANTUS 0.2 UNITS SC (19:50)
[2024-04-26 19:58] LABS: Glucose - Point of Care 182 mg/dl (70-99)
--- NOTE | 2024-04-26 20:06 | PTCARENOTE ---
report received, assessments per work list. patient moaning in pain. febrile. medicated with dilaudid per prn order. pulse oximeter 98 on 15 liters midflow. adjustment per RT. lungs with basilar crackles. nonproductive cough. monitor sinus
tachycardia. +4 lower leg edema, generalized anasarca. +1 left arm edema. abdomen distended, hyperactive bowel sounds. white draining yellow urine. poor po intake. bruising left hip/leg. sacral dressing in place with air cushion under buttocks. feet
dusky, doppler pulses. call from MRI, tnetative time for MRI [id number], they request thermistor white be removed prior to MRI
[2024-04-26] MEDS: ATIVAN 1 MG PO (21:10)
[2024-04-26 21:11] LABS: Vancomycin Peak 14.3 ug/ml (18-26)
[2024-04-26] MEDS: NSS (PRESERVATIVE FREE) 0.5 ML IV (21:25)
[2024-04-26] MEDS: ATIVAN 1 MG IV (21:26)
[2024-04-26 23:14] LABS: Glucose - Point of Care 149 mg/dl (70-99)
--- NOTE | 2024-04-26 23:17 | PTCARENOTE ---
patient premedicated with oral Ativan per order pre MRI, patient very agitated yelling stated he needed IV Ativan to tolerate MRI. d/w pillar man BETITO, orders received. premedicated with IV Ativan prior to MRI. Proctor removed. taken to MRI, patient
mildly restless, required addition of non rebreather when lying flat for test. MRI not able to be completed due to equipment malfunction. returned to unit. Proctor reinserted(not a thermistor as MRI not completed and will require rescheduling). rectal
probe inserted, complete care given
[2024-04-27] VITALS (55 sets, daily range): BP systolic 75–136; BP diastolic 47–91; BMI 26.8
--- NOTE | 2024-04-27 00:12 | PTCARENOTE ---
patient reassessed, remains sedate. awakens with repositioning. yells out with care, but then back to sleep. call patel in reach
--- NOTE | 2024-04-27 02:50 | PTCARENOTE ---
patient clammy, temp rectal down to 95.2. AccuCheck as per [facility], vascular surgeon LINING STUFFER updated. no new orders. warm blanket applied. patient remains drowsy, but arouses to verbal stimuli
[2024-04-27 03:00] LABS: Glucose - Point of Care 217 mg/dl (70-99)
[2024-04-27 03:43] LABS: Hematocrit 28.6 % (39.0-52.0); Hemoglobin 9.6 g/dL (13.0-18.0); Mean Corp Hgb Conc. 33.6 g/dL (33.0-37.0); Mean Corpuscular Hgb 27.7 pg (27.0-31.0); Mean Corpuscular Volume 82.7 fL (80.0-94.0); Mean Platelet Volume 9.7 fL (7.4-10.4); Platelet Count 280 10^3/uL (130-400); Red Blood Cell Count 3.46 10^6/uL (4.70-6.10); Red Cell Dist. Width 14.2 % (11.5-14.5); White Blood Cell Count 23.5 10^3/uL (4.8-10.8)
[2024-04-27 04:06] LABS: ALT (SGPT) 24 U/L (0-50); AST (SGOT) 24 U/L (17-59); Alkaline Phosphatase 450 U/L (38-126); Blood Urea Nitrogen 14 mg/dl (9-20); Calcium 7.8 mg/dl (8.4-10.2); Carbon Dioxide 28 mmol/L (22-30); Chloride 100 mmol/L (98-107); Estimated Creatinine Clearance > 125 ml/min; Glucose 75 mg/dl (70-99); Magnesium 1.5 mg/dl (1.6-2.3); Potassium 3.6 mmol/L (3.5-5.1); Sodium 135 mmol/L (135-145); Total Bilirubin 0.6 mg/dl (0.2-1.3); Total Protein 5.4 g/dl (6.3-8.2); eGFR > 60.00
[2024-04-27 04:14] LABS: NT-proBNP 2630 pg/ml
[2024-04-27 04:37] LABS: TSH Reflex To Free T4 1.45 uIU/ml (0.47-4.68)
--- NOTE | 2024-04-27 04:55 | PTCARENOTE ---
patient remains very drowsy. received call from MRI that they would be able to complete MRI@0500. patient is now adamantly refusing. hybrid powertrain development engineer BETITO updated
[2024-04-27] MEDS: KCL 160 MEQ IV (05:14)
[2024-04-27] MEDS: MAGNESIUM SULFATE 50 IV (05:14)
[2024-04-27] MEDS: VANCOCIN 275 MG IV (06:11)
[2024-04-27] MEDS: SYMBICORT 160/4.5 MCG INHALER 2 PUFF INH ×2 (07:32→19:52)
[2024-04-27 07:43] LABS: Glucose - Point of Care 119 mg/dl (70-99)
[2024-04-27] MEDS: TYLENOL 650 MG PO ×2 (07:51→12:55)
[2024-04-27] MEDS: DILAUDID 0.5 MG IV ×4 (07:52→20:31)
[2024-04-27] MEDS: HEPARIN 5000 UNITS SC ×3 (07:52→23:09)
[2024-04-27] MEDS: ZENPEP DELAYED RELEASE CAPSULE 2 CAPSULE PO ×2 (07:52→12:55)
[2024-04-27] MEDS: ZANAFLEX 2 MG PO ×2 (07:56→22:09)
--- NOTE | 2024-04-27 07:56 | PN.DE.MGMTRT ---
Addendum entered and electronically signed by Lori Kan NP 04/27/24 13:41:
Will decrease AC novolog to 3 units
Original Note:
Insulin Management
- -
04/27/2024: Diabetes Management Consult Follow up
Patient admitted on 04/24 s/p fall 5 days ago with persistent left upper back pain and left hip pain due to Acute left greater trochanteric fx.
PMH: HTN, HLD, Alcohol abuse with acute on chronic pancreatitis, h/o hypertriglyceridemia, Hemochromatosis s/p liver biopsy, GERD, Chronic back pain/sciatica s/p hemilaminectomy, Essential tremor,Asthma, Anxiety/depression, Former smoker, alcohol
abuse, Opioid dependence and IDDM.
Patient had been using marijuana, injecting and snorting methamphetamines. UDS +oxycodone and meth/amphetamines.
Reports he was taking Lantus 20 units BID, Lispro 30 units AC, Jardiance 10 mg daily, Metformin 1000 mg BID, and Glipizide 10mg BID. Has not taken his meds in 8-9 months. Was using DexZalando G7 and has a working meter at home. States he was routinely
seeing an Endo at [place]. A1C 16.9%, Cr 0.6, eGFR >60.
Pt awake, A/O x3, sitting up in bed, offers no complaints, able to discuss diabetes plan of care
Current diabetes regimen includes: Lantus 20 units @ hs with ac novolog 12 units.
04/27 glucose 75 @ 3:29AM. cr .5, eGFR > 60.
Fasting glucose 04/27 119. Will decrease Lantus to 18 units BID and AC NovoLog to 10 units. Will start Farxiga 10mg daily (Jardiance @home) and metformin 1000 mg BID.
Will follow for further needed adjustments.
Diabetes History
- -
Type of Diabetes: 2 requiring insulin
Pre-Admission Diabetes Regimen
04/27/24
03:29
Creatinine 0.5 L
Lab Results
Hemoglobin A1c 16.9 % (4.0-5.6) H 04/25/24 03:06
Insulin Pump Settings
IP Diabetes Regimen
04/26/24 04/26/24 04/26/24
12:32 17:04 19:47
Glucose
POC Glucose 256 H 132 H 182 H
04/26/24 04/27/24 04/27/24
23:03 02:49 03:29
Glucose 75
POC Glucose 149 H 217 H
04/27/24
07:31
Glucose
POC Glucose 119 H
Meal type: Dinner
Amount consumed: 5%
Patient Education
--- NOTE | 2024-04-27 08:00 | PTCARENOTE ---
No change in patient's assessment. patient is somnolent this morning, but arousable. Patient's blood sugar was 119 on POC. reached out to statement clerks manager as patient also had low blood sugar, 75 last night regarding lantus dose. Adjustments
ordered. patient is on midflow, 10L 92%. still dyspneic on exertion, orthopneic. He is sinus rhythm on monitor while sleeping. will be tachycardic at times. Patient is arousable, states he feels 'better than yesterday' is more calm. Patient
has 2000 heather diet, ordered for patient. REstarted metformin and Farxiga. Proctor draining yellow urine. Skin as documented in focused assessment. Will review orders, call patel within reach.
[2024-04-27] MEDS: VANCOCIN 150 IV (08:35)
--- NOTE | 2024-04-27 08:50 | W.PN.HOSP.TC ---
Addendum entered and electronically signed by Carmen Mejia MD 04/27/24 17:29:
I saw and evaluated the patient independently. I reviewed the resident�s note and agree with findings and plan as documented by Dr. Jimenez.
GENERAL: well developed, well nourished, male in no apparent distress
HEENT: NC/AT--still on O2
HEART: regular rate and rhythm, +S1, +S2, tachycardic
LUNGS : clear to auscultation bilaterally
ABDOM: soft, nontender, nondistended, + bowel sounds
EXT: no cyanosis, clubbing, or edema
NEUROLOGIC: grossly intact
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
pressors off--cont white for now--CT scan with small to moderate bilateral pleural effusions (unclear if true pna)-- ECHO without vegetations but suggestive of volume overload no vegetations seen, will likely still need NEELIMA as negative transthoracic
echo does not rule out endocarditis--still with elevated WBCs
Acute hypoxemic respiratory failure--suspect due to sepsis and bilateral pleural effusions--no evidence of pna by CT scan formal read--may need thoracentesis--wean O2 as able--no documentation of PE on CT chest either--repeat CXR still with volume
overload
Acute Left comminuted nondisplaced greater trochanter fracture from acute fall-- pt relates that he sees Dr. Adamson--other ortho group has seen patient this admission-- consulted Abhinav--Imaging shows possible extension to the prosthesis of the
hip--pain control--f/u with Dr. Adamson as outpt
hypokalemia/hypomagnesemia--replete as needed
bilateral LE edema-- bilateral LE US neg for DVT--left arm neg for DVT-- proBNP elevated--cont diuresis
Toxic metabolic encephalopathy---Secondary to above issues; CT head on arrival without acute findings--No focal neurological deficits on exam--mentation improving
Chronic pancreatitis--Unclear etiology, possibly from alcohol or other substance abuse--Home medications include pancreatic enzymes, Creon 2 caps with meals--Remains on home enzyme replacement therapy
Hyperthyroidism--Per history, home med list does show methimazole 15 mg daily--Does have history of sinus tachycardia that is likely related
Hereditary hemochromatosis--Per history, no HFE gene mutation analysis per records here (in 2007, liver iron concentration very high at 7340)
type 2 DM insulin requiring--cont home insulin with SSI--HGB A1C 16.9--consult DM WEDDING PHOTOGRAPHER
pt now admits to IV use of drugs--likely cause of MRSA bacteremia
DVT prophylaxis: Subcutaneous heparin
CODE STATUS: Full code
Total Critical Care Time 32 minutes. I was immediately available to the patient and staff. I personally examined, reviewed labs, diagnostic images/reports, interpretations, treatment plans, discussed patient care with other providers and family
or caregivers (if patient is unable to make decisions), entered orders as appropriate and documented the medical record.
Original Note:
Today's Communication/Plan
-
Switch vancomycin to daptomycin
Follow blood cultures
MRI today
IV diuretics
Monitor BMP
Wean O2 as tolerated
Pain control
Assessment / Plan
Assessment / Plan
Assessment/plan
#septic shock-
#MRSA bacteremia with MRSA UTI
Weaned off pressors
with positive MRSA screen
ID input appreciated, vancomycin/Zosyn changed to daptomycin
Follow blood cultures
CT scan with small to moderate bilateral pleural effusions
ECHO 04/26/2024 with no vegetations, may need NEELIMA
#Acute hypoxemic respiratory failure--suspect due to sepsis and bilateral pleural effusions
may need thoracentesis
wean O2 as able
Diuresis with Lasix
#Acute Left comminuted nondisplaced greater trochanter fracture from acute fall
-Imaging shows possible extension to the prosthesis of the hip
-pain control
-Ortho consulted
#bilateral LE edema-
-bilateral peripheral ultrasound 04/27/2024 with no evidence of DVT bilaterally
-proBNP 2630
#Toxic metabolic encephalopathy
Secondary to above issues; CT head on arrival without acute findings--No focal neurological deficits on exam
#Chronic pancreatitis
-Unclear etiology, possibly from alcohol or other substance abuse
-Home medications include pancreatic enzymes, Creon 2 caps with meals
-Remains on home enzyme replacement therapy
#type 2 DM insulin requiring
-DM WEDDING PHOTOGRAPHER consulted
-Lantus 18 units twice daily, NovoLog 3 units
-HGB A1C 16.9
#Hyperthyroidism-
#Hereditary hemochromatosis--Per history, no HFE gene mutation analysis per records here (in 2007, liver iron concentration very high at 7340)
DVT prophylaxis: Subcutaneous heparin
CODE STATUS: Full code
Anticipated Discharge: > 48 hours
Subjective/Interval History
-
Date of Service: April 27, 2024
Objective Data
-
Labs:
Laboratory Results
04/27/24
03:29
WBC 23.5 H
Hgb 9.6 L
Hct 28.6 L
Plt Count 280
Sodium 135
Potassium 3.6
Chloride 100
Carbon Dioxide 28
BUN 14
Creatinine 0.5 L
Glucose 75
Calcium 7.8 L
Total Bilirubin 0.6
AST 24
ALT 24
Alkaline Phosphatase 450 H
Vital Signs:
Vital Signs
Temp Pulse Resp BP Pulse Ox
97 F 95 18 133/91 93
04/27/24 06:00 04/27/24 07:36 04/27/24 07:36 04/27/24 06:12 04/27/24 07:36
I&O
04/26/24 04/27/24 04/28/24
06:59 06:59 06:59
Intake Total 6100 / 6180 1350 / 1350
Output Total 4095 / 4220 4475 / 4475
Balance 2004 -3124 /
Review of Systems
-
All other systems: Reviewed and negative (Except as documented)
Physical Exam
-
General: Respiratory Distress
Respiratory: Crackles
Cardiac: S1/S2
GI: Soft, Nontender and Nondistended
Musculoskeletal: Edema, Left Upper Extrem, Edema, Right Lower Extrem and Edema, Left Lower Extrem
Neuro: Awake and Alert
[2024-04-27] MEDS: LANTUS SC (09:09)
[2024-04-27] MEDS: NOVOLOG FLEXPEN SC ×2 (09:09→17:49)
[2024-04-27] MEDS: GLUCOPHAGE 1000 MG PO ×2 (09:20→17:23)
[2024-04-27] MEDS: LANTUS 0.18 UNITS SC ×2 (09:20→20:11)
[2024-04-27] MEDS: FARXIGA 10 MG PO (09:20)
--- NOTE | 2024-04-27 09:27 | PHA.VAN.FU ---
Addendum entered and electronically signed by Lorna Zapata RPH 04/27/24 09:49:
Note entered in error - see corrected note
Original Note:
Vancomycin Assessment / Plan
- Assessment
Renal Function: No New Labs Today
In the past 24 hrs, patient has been: Afebrile
- Dosing Plan
Continue: Vanc 750mg Q24H
- Monitoring Plan
Level(s) appropriate: Recheck trough at minimum of weekly intervals, Repeat sooner for changes in renal function or clinical status
Next Level Due (Date): ~05/03
- Follow Up
Pharmacy will continue to follow.
Vancomycin Follow UP
- -
Patient Age: 54
Patient Sex: Male
Vancomycin Day #: 4
Indication: Pulmonary/Respiratory
Requesting Provider: Dr. Hill / Yazan
Pertinent Antimicrobial Allergies:
no pertinent antibiotic allergies
Height / Weight:
Height 6 ft
Actual Weight 89.4 kg
Pertinent Past Medical History: DM, IV SHANTELL
- Vital Signs / Lab Results
Temp Pulse Resp BP Pulse Ox
99.2 F 95 18 133/91 93
04/27/24 08:00 04/27/24 07:36 04/27/24 07:36 04/27/24 06:12 04/27/24 07:36
Lab Results - Hematology
04/24/24 04/25/24 04/26/24
11:46 03:06 03:14
WBC 25.8 H 25.8 H 23.9 H
04/27/24
03:29
WBC 23.5 H
Lab Results - Chemistry
04/24/24 04/25/24 04/26/24
11:46 03:06 03:14
BUN 25 H 19 15
Creatinine 0.7 0.5 L 0.5 L
Estimated Creat Clear > 125 > 125 > 125
Albumin 2.0 L 2.2 L 2.2 L
04/27/24
03:29
BUN 14
Creatinine 0.5 L
Estimated Creat Clear > 125
Albumin 2.0 L
04/24/24 04/24/24 04/24/24
12:26 17:41 20:29
Lactic Acid 1.6 1.2 Cancelled
Microbiology Results
04/24/24 15:05 Blood Culture - Preliminary
Blood/Venous Staph aureus MRSA
Gram Stain - Preliminary
04/24/24 15:02 Blood Culture - Preliminary
Blood/Venous Staph aureus MRSA
Gram Stain - Final
04/26/24 11:12 Blood Culture - Preliminary
Blood/Venous Positive culture in progress
Gram Stain - Preliminary
04/26/24 14:27 Blood Culture - Preliminary
Blood/Venous Positive culture in progress
Gram Stain - Preliminary
04/24/24 13:02 Urine Culture - Final
Urine Staph aureus MRSA
04/24/24 17:41 Nasal Screen MRSA (PCR) - Final
Nose Staph aureus MRSA
Therapeutic Drug Monitoring
Vancomycin Peak Cancelled 04/26/24 21:00
Vancomycin Trough Cancelled 04/27/24 05:23
--- NOTE | 2024-04-27 09:49 | PHA.VAN.FU ---
Vancomycin Assessment / Plan
- Assessment
Renal Function: Stable
WBC's are: Stable
- Assessment - Therapeutic Drug Monitoring
Extrapolated Cmax (mcg/mL): 16.5
Peak level was drawn: Appropriately (drawn ~2H after end of previous infusion)
Extrapolated Cmin (mcg/mL): 7.7
Trough Drawn: Appropriately
Levels were drawn: At steady state (levels drawn after 4th maintenance dose)
Calculated AUC (mcg*h/mL): 279
Calculated ke: 0.0729
Calculated half life (H): 9.5
Calculated Vd (L): 123 (~1.4 L/kg)
Calculated Vanc CL (ml/min): 149
- Dosing Plan
Adjust Regimen to: Vanc 1750mg Q12H
New Regimen Predicts: AUC (419), Peak (24.4), Trough (11.8)
- Monitoring Plan
Monitoring Comments: Vancomycin changed to daptomycin - no repeat levels
- Follow Up
Pharmacy will continue to follow.
Vancomycin Follow UP
- -
Patient Age: 54
Patient Sex: Male
Vancomycin Day #: 4
Indication: Pulmonary/Respiratory
Requesting Provider: Dr. Hill / Yazan
Pertinent Antimicrobial Allergies:
no pertinent antibiotic allergies
Height / Weight:
Height 6 ft
Actual Weight 89.4 kg
Pertinent Past Medical History: DM, IV SHANTELL
- Vital Signs / Lab Results
Temp Pulse Resp BP Pulse Ox
99.2 F 95 18 133/91 93
04/27/24 08:00 04/27/24 07:36 04/27/24 07:36 04/27/24 06:12 04/27/24 07:36
Lab Results - Hematology
04/24/24 04/25/24 04/26/24
11:46 03:06 03:14
WBC 25.8 H 25.8 H 23.9 H
04/27/24
03:29
WBC 23.5 H
Lab Results - Chemistry
04/24/24 04/25/24 04/26/24
11:46 03:06 03:14
BUN 25 H 19 15
Creatinine 0.7 0.5 L 0.5 L
Estimated Creat Clear > 125 > 125 > 125
Albumin 2.0 L 2.2 L 2.2 L
04/27/24
03:29
BUN 14
Creatinine 0.5 L
Estimated Creat Clear > 125
Albumin 2.0 L
04/24/24 04/24/24 04/24/24
12:26 17:41 20:29
Lactic Acid 1.6 1.2 Cancelled
Microbiology Results
04/24/24 15:05 Blood Culture - Preliminary
Blood/Venous Staph aureus MRSA
Gram Stain - Preliminary
04/24/24 15:02 Blood Culture - Preliminary
Blood/Venous Staph aureus MRSA
Gram Stain - Final
04/26/24 11:12 Blood Culture - Preliminary
Blood/Venous Positive culture in progress
Gram Stain - Preliminary
04/26/24 14:27 Blood Culture - Preliminary
Blood/Venous Positive culture in progress
Gram Stain - Preliminary
04/24/24 13:02 Urine Culture - Final
Urine Staph aureus MRSA
04/24/24 17:41 Nasal Screen MRSA (PCR) - Final
Nose Staph aureus MRSA
Therapeutic Drug Monitoring
Vancomycin Peak Cancelled 04/26/24 21:00
Vancomycin Trough Cancelled 04/27/24 05:23
--- NOTE | 2024-04-27 10:18 | PTCARENOTE ---
US in to see patient.
[2024-04-27] MEDS: LASIX 20 MG IV ×2 (11:28→19:11)
--- NOTE | 2024-04-27 12:16 | W.PN.INTV ---
Today's Communication / Plan
Recommendations
Continue antibiotics
Follow cultures
MRI later today
NEELIMA might be needed
IV diuretics
Follow renal function
Wean down oxygen for mentation
Pain control
Assessment
-
Patient is a 54-year-old male with previous history of IDDM, anxiety and depression, alcohol abuse with chronic pancreatitis, hypertension, hereditary hemochromatosis, asthma presenting via ambulance for a fall that occurred 5 days ago with
persistent left upper back pain and left hip pain. He admits to noncompliance with his medications. Arrived to hypotensive, tachycardic and hypoxemic. He was it is late on the floor somnolent for a few days. He had been using marijuana,
injecting and snorting methamphetamines. UDS indicating positive screening for oxycodone and meth/amphetamines. Alcohol level negative. Elevated beta hydroxybutyrate, UA possibly demonstrating UTI. CT obtained of chest abdomen pelvis showing
small to moderate bilateral pleural effusions and left greater trochanteric fracture. He is placed on pressors for hypotension, and admitted to ICU.
Septic shock-resolved
MRSA bacteremia-source possibly due to IVDA
Acute respiratory insufficiency, 12L midflow
Acute bilateral pleural effusions
Acute left greater trochanteric fracture, left hip pain status post fall
Possible UTI
Leukocytosis
Hyperglycemia
Polysubstance abuse including marijuana, methamphetamines
Medical noncompliance
TME likely from sepsis
Conditions present prior to admission
Adm 03/15/2020: Acute on chronic pancreatitis triggered by alcohol use
GERD
Chronic abdominal pain/pancreatitis
Pancreatic pseudocyst per imaging, 4.1 cm
History of hypertriglyceridemia
Admitted with DKA 12/2019
Hemochromatosis s/p liver biopsy; phlebotomy every 6 weeks (Prashanth)
Chronic back pain/sciatica s/p hemilaminectomy
Hypertension
Essential tremor
History of asthma, on Symbicort
Anxiety/depression
Former smoker
Former alcohol abuse
Bilateral hip replacement
Insulin-dependent diabetes
Opioid dependence
Hyperlipidemia
Plan
-
Mental status back to baseline.
Patient feels less anxious with a dose of Ativan he got last night.
Psychiatric history noted above including anxiety/depression
Main complaint is ongoing back pain.
Hemodynamics improved-off Levophed since 04/25/2024.
Status post adequate fluid resuscitation.
No further IV fluids required.
Cardiac history reviewed--HTN
Echocardiogram this admission: Showed RV dysfunction. Signs of RV pressure overload. Normal LVEF.
Hold home meds while hypotensive
Lower extremity Dopplers negative. Upper left extremity Doppler negative for DVT.
Suspect RV dysfunction likely related to hypoxemia and underlying parenchymal lung disease-doubt thromboembolic disease.
-
Acute hypoxemic respiratory failure: Suspect volume overload based on increased proBNP as well as bilateral groundglass opacities on CAT scan/chest x-ray with bilateral pleural effusions.
proBNP 6000 responded to diuresis since 04/26/2024, 3 L negative.
Oxygen supplementation improved down to 7 L
Will give additional 20 mg of IV Lasix.
Follow renal function, hemodynamics and electrolytes.
-
Prior history of lung disease: asthma-continue inhalers. Not bronchospastic on exam
Continue inhaler
Continue to wean down oxygen supplementation to maintain pulse ox above 90%.
-
MRSA bacteremia/UTI/? From IVDA.
Echocardiogram: No vegetations. RV dysfunction.
Persistently positive cultures, latest on 04/26/2024.
Persistently febrile.
ID following the patient. Antibiotics adjusted
NEELIMA may be necessary
MRI to evaluate for abscess pending.
Ativan for claustrophobia/anxiety will be given prior to procedure.
-
Back pain/anxiety: Narcotics for pain. Monitor respiratory status closely-history of chronic back pain status postsurgery
Lorazepam for anxiety and possible some degree of withdrawal.
Zanaflex as needed
MRI pending as above
-
Advance diet as able
Aspiration precautions, HOB > 30 degrees
History of pancreatitis, neg acute findings on CT AP
Creat at baseline, no history of renal disease-tolerating diuresis.
Follow urine output, critical I/Os
Replete electrolytes as needed
-
CBC stable, no signs of bleeding or coagulopathy.
Chronic anemia noted since admission.
No evidence of bleeding
Platelet count stable
-
H/o diabetes, can continue on home meds, SS for coverage
Hemoglobin A1c on admission 16.9-poorly controlled
Diabetes nurse practitioner following, on subcu insulin.
s/p L femur fracture, ortho consult placed-prior history of left hip replacement back in 2008
Per Ortho, periprosthetic fracture (greater trochanter), but fortunately no operative management will be recommended at this time. He will continue to be NWB with no active or passive abduction.
Fall precautions
Outpatient follow-up
We will follow

Diagnostic Data
Chest X-Ray: 01/21/21-The lung volumes are mildly decreased bilaterally. The tracheal air column is slightly deviated to the right. There is no focal airspace opacity suspicious for pneumonia. There is no pleural effusion or pneumothorax. The
cardiomediastinal silhouette is mildly enlarged. There is no radiographic evidence for acute pulmonary edema.
CT Scan: CAP 04/24/24- 1. Small to moderate bilateral pleural effusions with associated consolidation/atelectasis.
2. Confluent pleural-based consolidation within the lingula measures up to 2.4 cm. Infectious/inflammatory bronchiolitis change in the bilateral upper lobes. Cannot rule out superimposed pulmonary contusions and/or underlying nodules.
3. Comminuted minimally displaced fracture of the left greater trochanter extending to the underlying prosthesis.
Stable simple bilateral renal cysts
Echocardiogram on 05/15/2020: Normal LVEF. Ejection fraction 60-65%. Mild LVH.
02/19/21- Technically difficult study. Normal left ventricular chamber size and left ventricular systolic function. Left ventricular ejection fraction is 55-60% . Mild concentric left ventricular hypertrophy.
Normal diastolic function. Trace mitral regurgitation. Aortic sclerosis without stenosis. Trace tricuspid regurgitation. Estimated pulmonary artery pressure of 30-35 mmHg assuming a right atrial pressure of 0-5 mmHg. Compared to study dated
05/15/2020, no significant change.
PFT's:
Reports and relevant images were personally reviewed.
-----
Critical care time 40 mins -- this includes review of history, physical exam, medications, hemodynamic/ventilator parameters, laboratory data, imaging and discussion with house staff, pharmacy, respiratory therapy, electrifier operator, and nursing. Extensive
time spent on complexity of case.
Subjective Dataa
Subjective Data
Date of Service:
Date of Service: April 27, 2024
Chief Complaint: Order Entry Administrator Follow Up (Septic shock/MRSA bacteremia)
Subjective:
Remains intermittently febrile
Blood cultures positive
Short of breath with activity
Continues to complain of back pain.
Feels less anxious after receiving some Ativan.
Review of Systems
General: Fever
Cardiopulmonary: Dyspnea, Dyspnea on Exertion, Cough and Sputum Production (n)
GI: Abdominal Pain (n)
Neuro: Headache (n)
Objective Data
Data Reviewed
Vital Signs / I&O / Oxygen:
Vital Signs
Temp Pulse Resp BP Pulse Ox
99.2 F 95 18 99/70 92
04/27/24 08:00 04/27/24 07:36 04/27/24 07:36 04/27/24 11:28 04/27/24 08:00
Intake and Output
04/26/24 04/27/24 04/28/24
06:59 06:59 06:59
Intake Total 6100 / 6180 1350 / 1350 480 / 480
Output Total 4095 / 4220 4475 / 4625 650 / 650
Balance 2004 -3125 / -3275 -170 / -170
SaO2 92
Nasal Cannula flow liters per 10
minute
Physical Exam
General: Respiratory Distress (With activity)
HEENT: Normocephalic
Cardiovascular: S1-S2
Respiratory: Wheeze (n) and Crackles
GI: Soft and Non Distended
Neurology: Awake, Alert and No Motor Deficits
Skin: Warm
Labs/Micro/Reports
Lab Data
04/27/24 03:29
04/27/24 03:29
Microbiology
04/24/24 15:05 Blood/Venous Blood Culture - Preliminary
Staph aureus MRSA
04/24/24 15:05 Blood/Venous Gram Stain - Preliminary
04/24/24 15:02 Blood/Venous Blood Culture - Preliminary
Staph aureus MRSA
04/24/24 15:02 Blood/Venous Gram Stain - Final
04/26/24 11:12 Blood/Venous Blood Culture - Preliminary
Positive culture in progress
04/26/24 11:12 Blood/Venous Gram Stain - Preliminary
04/26/24 14:27 Blood/Venous Blood Culture - Preliminary
Positive culture in progress
04/26/24 14:27 Blood/Venous Gram Stain - Preliminary
04/24/24 13:02 Urine Urine Culture - Final
Staph aureus MRSA
04/24/24 17:41 Nose Nasal Screen MRSA (PCR) - Final
Staph aureus MRSA
--- NOTE | 2024-04-27 12:38 | W.PN.ID1 ---
Date of Service
Date of Service: April 27, 2024
Today's Communication
Continue antibiotics. Vancomycin changed to daptomycin. Await further studies. See below�
Assessment / Plan
Clinical sepsis /septic shock
MRSA bacteremia
MRSA complicated urinary tract infection
Elevated ESR, CRP
Leukocytosis
Fever
Hyperglycemia
Illicit drug use (opiates, amphetamines)
Left hip fracture
Asthma
GERD
Hypertension
Dyslipidemia
Diabetes mellitus
Anxiety/depression
Chronic pancreatitis
Hemochromatosis
Recommendations:
Ongoing bacteremia noted.
Case discussed with Clinical ID Pharmacist. Transitioned vancomycin to daptomycin.
Follow white count and temperature curve.
Repeat blood cultures x 2 today.
Continue with supportive care.
Patient remains critically ill in ICU
Echo without evidence of vegetation. Will need NEELIMA.
Awaiting MRI of thoracic and lumbar spine to assess for epidural abscess.
����������������������������������������������������������
Chief Complaint
-: Fever, Leukocytosis and Bacteremia
Subjective / Review of Systems
Patient seen and examined. Reports ongoing diffuse body pain, along with low back pain. MRI could not be performed last night, but will be performed today at some point. Patient denies lower extremity weakness.
Review of Systems: Fever
Vital Signs / Physical Exam
Vital Signs
Vital Signs
Temp Pulse Resp BP Pulse Ox
99.2 F 95 18 99/70 92
04/27/24 08:00 04/27/24 07:36 04/27/24 07:36 04/27/24 11:28 04/27/24 08:00
Physical Exam
Constitutional: Comfortable, Acutely Ill, Chronically Ill and Non-toxic
Eyes: No Conjunctival Hemorrhage and Sclera Anicteric
Cardiovascular: Regular Rate and S1/S2; Negative S3/S4 or Murmur
Pulmonary: Clear; Negative Wheezes, Rales or Rhonchi
Gastrointestinal: Soft, Non Tender and Non Distended
Genito-Urinary: Proctor and Clear Urine; Negative Hematuria
Extremities: Splinter Hemorrhage; Negative Edema (3+ bilateral lower extremities), Erythema or Venous Insufficiency
Neurological: Awake and Alert
Psychological: Calm
Objective Data
Lab Data
Lab Results
04/27/24 03:29
04/27/24 03:29
ESR 75 mm/hour (0-20) H 04/26/24 03:14
PT 16.8 Sec (11.4-14.6) H 04/24/24 17:41
INR 1.38 04/24/24 17:41
APTT 34.5 Sec (23.4-35.0) 04/24/24 17:41
Estimated Creat Clear > 125 ml/min 04/27/24 03:29
Lactic Acid Cancelled 04/24/24 20:29
Total Bilirubin 0.6 mg/dl (0.2-1.3) 04/27/24 03:29
AST 24 U/L (17-59) 04/27/24 03:29
ALT 24 U/L (0-50) 04/27/24 03:29
Alkaline Phosphatase 450 U/L (38-126) H 04/27/24 03:29
C-Reactive Protein > 270.00 mg/L (0.0-10.00) H 04/26/24 03:14
Most recent labs reviewed.
Micro Results:
04/24/24 15:05 Blood Culture - Preliminary
Blood/Venous Staph aureus MRSA
Gram Stain - Preliminary
04/24/24 15:02 Blood Culture - Preliminary
Blood/Venous Staph aureus MRSA
Gram Stain - Final
04/26/24 11:12 Blood Culture - Preliminary
Blood/Venous Positive culture in progress
Gram Stain - Preliminary
04/26/24 14:27 Blood Culture - Preliminary
Blood/Venous Positive culture in progress
Gram Stain - Preliminary
04/24/24 13:02 Urine Culture - Final
Urine Staph aureus MRSA
04/24/24 17:41 Nasal Screen MRSA (PCR) - Final
Nose Staph aureus MRSA
Imaging:
04/24/2024 X-ray left hip: Total left hip arthroplasty hardware noted in place. There is a comminuted nondisplaced fracture of the left greater trochanter, with possible extension to the prosthesis. No dislocation noted. Please see full dictation
for additional detail.
04/24/2024 CT chest/abdomen/pelvis with IV contrast: There is a small to moderate bilateral pleural effusions with associated consolidation. Infectious/inflammatory bronchiolitis changes in the bilateral upper lobes. Cannot rule out superimposed
pulmonary contusion or underlying nodules. There is a comminuted minimally displaced fracture of the left greater trochanter extending to the underlying prosthesis. Please see full dictation for additional detail. Film personally viewed.
04/24/2024 CT cervical spine without contrast; CT head without contrast: No acute intracranial abnormalities noted. No acute fracture or subluxation of the cervical spine. Multilevel degenerative changes of the cervical spine are noted.
Care Review
Plan reviewed with: Physician (Critical Care)
[2024-04-27 12:39] LABS: Glucose - Point of Care 134 mg/dl (70-99)
[2024-04-27] MEDS: NOVOLOG FLEXPEN-LOW RESISTANCE SC (12:40)
[2024-04-27] MEDS: CUBICIN 20 MG IV (12:53)
[2024-04-27] MEDS: KCL 40 MEQ PO (12:54)
[2024-04-27] MEDS: LEVOPHED 250 IV (15:19)
--- NOTE | 2024-04-27 15:28 | WOUNDNOTE ---
TAMERA RN NOTE: Consulted to see patient for wound care. Nurse requested that patient be seen tomorrow, patient not stable at the moment.
--- NOTE | 2024-04-27 16:26 | CON.CAR ---
Addendum entered and electronically signed by Alex Zarco MD 04/27/24 17:56:
I saw and examined the patient.
The Tractor Operator Helper's note was reviewed and I agree with the note.
Comment:
GEN: No distress, awake, Ox3
HEENT: supple, anicteric, mmm
LUNGS: Scattered rhonchi
CV: Reg, S1/S2, 1/6 syst LSB, no gallop
ABD: soft, BS+, NT/ND
EXT: No edema
NEURO: Gross non-focal
SKIN: No rash
Plan:
53-year-old male with past medical history of IV drug use presents with sepsis, back pain status post fall who was found to have recurrent fevers and MRSA bacteremia. He has had several blood cultures which were positive continues to have fevers.
Transthoracic echo has an ejection fraction of 54% with tricuspid valve thickening and mild to moderate TR. We are asked to evaluate him for NEELIMA.
He remains on high flow oxygen with a nonrebreather mask. At this point he is not stable for transesophageal echo but ultimately will need a NEELIMA to evaluate for endocarditis.
Will continue longstanding antibiotics per infectious disease.
Wean Levophed as tolerated and continue to wean oxygen.
I suspect that he is mildly volume overloaded and would diurese with IV Lasix.
Will follow.
Original Note:
Consultation
Consultation Request
Date/Time Consultation Requested: 04/27/24
Date/Time Consultation Performed: 04/27/24
Requesting Provider: Dr. Mejia
Performing Provider: Dr. Zarco
Reason for Consultation: Possible endocarditis
Medical History
-
History of Present Illness:
Patient came to ER from home on 04/24/2024 with back pain after a fall at home 5 days prior and was admitted with sepsis and shock, cardiology is now consulted for MRSA bacteremia and concern for endocarditis. Blood cultures have been positive
since admission for MRSA. Patient had echo 04/26/2024 that showed EF 54% with mild MR. ID is following. His vancomycin was changed to daptomycin today. He is awaiting an MRI of the thoracic and lumbar spine to look for possible epidural abscess.
Patient also has upper and lower extremity edema. There is no known history of heart failure and patient was not taking a diuretic prior to admission. Patient says he was not taking any of his medications prior to admission and that he has 'not
been taking care of himself' it appears that he was discharged from his PCP office back in 05/2023 due to repeatedly missing appointments. And then more recently he started injecting methamphetamine.
PMH:
Chronic pancreatitis
DM 2
h/o Mediterranean fever
Hemochromatosis
HTN
HLD-Hypertriglyceridemia
Severe Fatty Liver Disease
Chronic pancreatitis
DM II
RA
Multiple fractures including hip and pelvic (was very active as a child and young adult with sports including Equestrian sports)
Chronic pain
Past Medical History
Past Medical History: Other (in HPI)
Past Surgical History: Appendectomy, Orthopedic (B/L UMU, lumbar discectomy) and Other (previous liver biopsy)
Social History
Tobacco: Former Smoker
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
Drug: Marijuana and IVDA (methamphetamine)
Personal: Single
Living: Alone (lives next door to his sister)
Family History
Family History: CAD
Allergies / Home Medications
Allergy/AdvReac Type Severity Reaction Status Date / Time
venom-honey bee Allergy PASSED OUT Verified 04/24/24 11:44
[bee venom (honey bee)] AFTER
STING/ANAPHYLAXIS
�Medication �Instructions �Recorded �Confirmed �Type
budesonide-formoterol HFA 160 2 puff inhalation R BID 07/24/12 12/24/21 History
mcg-4.5 mcg/actuation aerosol Lung/breathing issues
inhaler (Symbicort)
albuterol sulfate 90 mcg/actuation 2 puff inhalation R Q4HPRN PRN 08/21/17 12/24/21 History
aerosol inhaler shortness of breath
aspirin 81 mg tablet,delayed 81 mg PO DAILY Blood clot 08/21/17 12/24/21 History
release prevention/tx
multivitamin with folic acid 400 1 tab PO DAILY Supplement 01/26/19 12/24/21 History
mcg tablet (Tab-A-Ayan)
fluticasone propionate 50 1 spray intranasal DAILYPRN PRN 07/12/19 12/24/21 History
mcg/actuation nasal allergies, nasal congestion
spray,suspension
sodium chloride 0.65 % nasal spray 1 sprays intranasal BIDPRN PRN 07/12/19 12/24/21 History
aerosol (Saline Nasal) CONGESTION
atorvastatin 40 mg tablet 40 mg PO QPM High cholesterol 09/17/19 12/24/21 History
fenofibrate nanocrystallized 145 145 mg PO HS High cholesterol 01/03/20 12/24/21 History
mg tablet
lansoprazole 30 mg delayed 30 mg PO DAILY Gastrointestinal 02/24/20 12/24/21 History
release,disintegrating tablet issue
furosemide 20 mg tablet 20 mg PO DAILYPRN PRN FLUID IN LEGS 12/13/20 12/24/21 History
icosapent ethyl 1 gram capsule 2 gm PO BID High cholesterol 12/13/20 12/24/21 History
(Vascepa)
glipizide 5 mg tablet 10 mg PO BID Diabetes 01/24/21 12/24/21 History
oxycodone-acetaminophen 10 mg-325 1 tab PO Q6HPRN PRN severe back 02/15/21 12/24/21 History
mg tablet pain
Methimazole 15 mg PO DAILY Thyroid 12/24/21 12/24/21 History
amitriptyline 25 mg tablet 25 mg PO HSPRN PRN urinary leakage 12/24/21 12/24/21 History
empagliflozin 10 mg tablet 10 mg PO DAILY Diabetes 12/24/21 12/24/21 History
(Jardiance)
gabapentin 400 mg capsule 400 mg PO TID Neurological 12/24/21 12/24/21 History
Condition
insulin glargine 100 unit/mL (3 20 units SC BID Diabetes 12/24/21 12/24/21 History
mL) subcutaneous pen (Lantus
Solostar U-100 Insulin)
insulin lispro 100 unit/mL 30 unit SQ MEALS Diabetes 12/24/21 12/24/21 History
subcutaneous pen
insulin regular human 100 unit/mL 20 unit IJ MEALS Diabetes 12/24/21 12/24/21 History
injection solution (Novolin R
Regular U-100 Insulin)
sertraline 50 mg tablet 100 mg PO DAILY Depression 12/24/21 12/24/21 History
sildenafil (pulm.hypertension) 20 20 mg PO DAILYPRN PRN ed 12/24/21 12/24/21 History
mg tablet
dicyclomine 20 mg tablet 20 mg PO QIDPRN PRN spasm, pain 12/26/21 Rx
#15 tabs
xwfkjo-vpijfeaj-nhdtlrr 2 cap (2 x 12,000-38,000 -60,000 12/26/21 Rx
12,000-38,000-60,000 unit unit) PO MEALS Gastrointestinal
capsule,delayed rel (Creon) issue #180 ea
magnesium oxide 800 mg PO TID Supplement 04/25/24 History
metoprolol tartrate 100 mg tablet 100 mg PO BID Blood Pressure 04/25/24 History
Review of Systems
-
History Source: Patient
All other systems: Negative unless noted
Physical Exam
Vital Signs
Temp Pulse Resp BP Pulse Ox
101.4 F H 111 25 91/59 88
04/27/24 13:30 04/27/24 14:45 04/27/24 14:45 04/27/24 14:00 04/27/24 14:45
GEN: AAOx3
HEENT: EOMI, MMM
LUNGS: Wearing 10 L midflow. No audible wheeze
CV: Reg, S1/S2, 1/6 syst LSB
ABD: soft, BS+, NT, ND
EXT: +2 B/L LE edema
NEURO: Gross non-focal
SKIN: No rash
Lab Results
04/27/24 03:29
04/27/24 03:29
Troponin I < 0.012 ng/ml 04/24/24 11:46
Qux-V-Xgpzqkuywcu Pept 2630 pg/ml 04/27/24 03:29
Impression / Plan
-
PCP: None, previously discharged from Dr. Bates's office for noncompliance 05/2023, multiple no-shows with [facility]-residency program
Hospital Insurance Clerk: none as an outpatient, seen by [facility] during previous admission in 2019
Impression:
Admitted with back pain after a fall at home 5 days prior, 04/24/24
Sepsis
Septic shock
MRSA bacteremia
IVDA
Acute hypoxemic respiratory failure
Acute HFpEF
Left greater trochanter fracture
TME
Chronic pancreatitis
DM 2
h/o Mediterranean fever
Hemochromatosis
HTN
HLD-Hypertriglyceridemia
Severe Fatty Liver Disease
Chronic pancreatitis
DM II
RA
Multiple fractures including hip and pelvic (was very active as a child and young adult with sports including Equestrian sports)
Chronic pain
ECHO 05/15/20: EF 60-65%, mild cLVH
Echo 04/26/24: EF 54%, D-shaped septum c/w RV pressure overload, mild MR, mild aortic sclerosis with trace aortic regurgitation, borderline dilated RV with RV hypokinesis and moderate PHTN with PAP 54 to 59 mmHg
Plan:
-Patient came to [facility] from home on 04/24/2024 with back pain after a fall at home 5 days prior and was admitted with sepsis and shock, cardiology is now consulted for MRSA bacteremia and concern for endocarditis. Blood cultures have been positive
since admission for MRSA. Patient had echo 04/26/2024 that showed EF 54% with mild MR. MEAGHAN is following. His vancomycin was changed to daptomycin today. He is awaiting an MRI of the thoracic and lumbar spine to look for possible epidural abscess.
Patient also has upper and lower extremity edema. There is no known history of heart failure and patient was not taking a diuretic prior to admission. Patient says he was not taking any of his medications prior to admission and that he has 'not
been taking care of himself' it appears that he was discharged from his PCP office back in 05/2023 due to repeatedly missing appointments. And then more recently he started injecting methamphetamine.
-Will tentatively plan on NEELIMA on , 04/29/24
-Hand Brush Filler has ordered Lasix 20 mg IV x1 on 04/27/24. Follow daily weights
-EF preserved by echo
-Hypotension precludes GDMT
-ECG from 04/24/24 reviewed by me shows sinus tachycardia without acute ischemic changes
[2024-04-27 17:35] LABS: Glucose - Point of Care 160 mg/dl (70-99)
[2024-04-27] MEDS: NOVOLOG FLEXPEN-LOW RESISTANCE 1 UNITS SC (17:36)
[2024-04-27] MEDS: ZENPEP DELAYED RELEASE CAPSULE PO (17:50)
--- NOTE | 2024-04-27 17:54 | PTCARENOTE ---
Andrade rocheed hospitalist. Patient is requiring non rebreather again. was given Dilaudid for pain, is somnolent at times but still states he has pain 9:10. Unable to get comfortable. Requiring more oxygen.
--- NOTE | 2024-04-27 18:20 | W.PN.UPDATE ---
Update Note
Progress Note Update
called to see patient at Bedside. Patient requiring non rebreather mask again. uncomfortable and requiring high flow oxygen. Patient states pain still persistent despite Dilaudid. Requesting more pain medication to get comfortable. On examination of
lungs at bedside, bilateral crackles present. On review of Chest Ultrasound 04/27/24 Moderate sized Bilateral pleural effusion. Will consult IR for thoracocentesis. Lasix 20 mg IV now. In addition, will repeat portable CXR now.
[2024-04-27 18:29] LABS: Creatine Phosphokinase 23 U/L (55-170)
[2024-04-27] MEDS: TORADOL 15 MG IV (19:11)
[2024-04-27 19:28] LABS: Glucose - Point of Care 131 mg/dl (70-99)
--- NOTE | 2024-04-27 20:13 | PTCARENOTE ---
report received, hospitalist at bedside, reviewed orders plan of care. plan for MRI @0400 per MRI staff.assessments per work list. patient drowsy, easily arousable. oriented to self, place and time. stat dose Lasix, Toradol given, placed on high
flow oxygen. lungs diminished with scattered crackles. no cough. orthopnea. monitor sinus tachycardia with occasional pvc. Levophed per work list. +4 anasarca, all IV's with good blood returns. abdomen soft, hyperactive bowel sounds. incontinent
small amount brown stool. Proctor draining katia yellow urine. family updated at bedside. call patel in reach
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
[2024-04-27 22:37] LABS: Glucose - Point of Care 91 mg/dl (70-99)
[2024-04-28] VITALS (45 sets, daily range): BP systolic 78–110; BP diastolic 47–71; BMI 26.9
[2024-04-28] MEDS: TORADOL 15 MG IV ×3 (00:11→11:56)
--- NOTE | 2024-04-28 00:23 | PTCARENOTE ---
reassessed,levophed per work list. high flow wean per RT
[2024-04-28] MEDS: DILAUDID 0.5 MG IV ×3 (02:06→13:08)
[2024-04-28 03:24] LABS: Glucose - Point of Care 104 mg/dl (70-99)
[2024-04-28 03:25] LABS: Hematocrit 28.7 % (39.0-52.0); Hemoglobin 9.4 g/dL (13.0-18.0); Mean Corp Hgb Conc. 32.8 g/dL (33.0-37.0); Mean Corpuscular Hgb 27.6 pg (27.0-31.0); Mean Corpuscular Volume 84.4 fL (80.0-94.0); Mean Platelet Volume 10.1 fL (7.4-10.4); Platelet Count 366 10^3/uL (130-400); Red Cell Dist. Width 14.2 % (11.5-14.5); White Blood Cell Count 27.8 10^3/uL (4.8-10.8)
[2024-04-28] MEDS: ATIVAN 1 MG IV (03:31)
[2024-04-28 03:51] LABS: ALT (SGPT) 20 U/L (0-50); AST (SGOT) 21 U/L (17-59); Albumin 1.9 g/dl (3.5-5.0); Alkaline Phosphatase 400 U/L (38-126); Blood Urea Nitrogen 20 mg/dl (9-20); Calcium 7.7 mg/dl (8.4-10.2); Carbon Dioxide 29 mmol/L (22-30); Chloride 98 mmol/L (98-107); Estimated Creatinine Clearance > 125 ml/min; Glucose 112 mg/dl (70-99); Magnesium 1.6 mg/dl (1.6-2.3); Potassium 4.7 mmol/L (3.5-5.1); Sodium 133 mmol/L (135-145); Total Bilirubin 0.5 mg/dl (0.2-1.3); Total Protein 5.3 g/dl (6.3-8.2); eGFR > 60.00
[2024-04-28] MEDS: LEVOPHED 250 IV ×2 (05:51→13:49)
--- NOTE | 2024-04-28 05:53 | PTCARENOTE ---
patient taken and returned from MRI on nonrebreather mask. premedicated with ativan, patient mildy restless during MRI. returned to room. placed back on high flow. during repositioning, pulse oximeter 88, returned to 90's with rest.
[2024-04-28 06:01] LABS: % Basophils 0.6 % (0-2); % Eosinophils 0.2 % (0-6); % Immature Granulocytes 4.4 % (0-0.5); % Monocytes 5.2 % (1.7-9.3); % Neutrophils 82.6 % (42.2-75.2); Absolute Basophils 0.2 10^3/uL (0-0.2); Absolute Eosinophils 0.1 10^3/uL (0-0.7); Absolute Immature Granulocytes 1.2 10^3/uL (0-0.05); Absolute Monocytes 1.4 10^3/uL (0.1-0.6); Absolute Neutrophils 22.9 10^3/uL (1.4-6.5); Nucleated Red Blood Cells % 0 % (-)
[2024-04-28] MEDS: SYMBICORT 160/4.5 MCG INHALER 2 PUFF INH (07:32)
[2024-04-28 07:36] LABS: Glucose - Point of Care 132 mg/dl (70-99)
--- NOTE | 2024-04-28 08:05 | PN.DE.MGMTRT ---
Insulin Management
- -
04/28/2024: Diabetes Management Consult Follow up
Patient admitted on 04/24 s/p fall 5 days ago with persistent left upper back pain and left hip pain due to Acute left greater trochanteric fx.
PMH: HTN, HLD, Alcohol abuse with acute on chronic pancreatitis, h/o hypertriglyceridemia, Hemochromatosis s/p liver biopsy, GERD, Chronic back pain/sciatica s/p hemilaminectomy, Essential tremor,Asthma, Anxiety/depression, Former smoker, alcohol
abuse, Opioid dependence and IDDM.
Patient had been using marijuana, injecting and snorting methamphetamines. UDS +oxycodone and meth/amphetamines.
Reports he was taking Lantus 20 units BID, Lispro 30 units AC, Jardiance 10 mg daily, Metformin 1000 mg BID, and Glipizide 10mg BID. Has not taken his meds in 8-9 months. Was using DexItugo G7 and has a working meter at home. States he was routinely
seeing an Endo at [facility]. A1C 16.9%, Cr 0.6, eGFR >60.
Pt awake, A/O x3, sitting up in bed, offers no complaints, able to discuss diabetes plan of care
04/27 glucose 75 @ 3:29AM. cr .5, eGFR > 60. Fasting glucose 04/27 119. Lantus decreased to 18 units BID and AC NovoLog to 3 units with Farxiga 10mg daily (Jardiance @home) and metformin 1000 mg BID. Fasting glucose 104 venous/132 POC. Will make
no change to regimen at this time.
Will follow for further needed adjustments.
Diabetes History
- -
Type of Diabetes: 2 requiring insulin
Pre-Admission Diabetes Regimen
04/28/24
03:05
Creatinine 0.6 L
Lab Results
Hemoglobin A1c 16.9 % (4.0-5.6) H 04/25/24 03:06
Insulin Pump Settings
IP Diabetes Regimen
04/27/24 04/27/24 04/27/24
12:26 17:20 18:36
Glucose Cancelled
POC Glucose 134 H 160 H
04/27/24 04/27/24 04/28/24
19:17 22:24 03:05
Glucose 112 H
POC Glucose 131 H 91
04/28/24 04/28/24
03:13 07:25
Glucose
POC Glucose 104 H 132 H
Meal type: Dinner
Amount consumed: 0
Patient Education
--- NOTE | 2024-04-28 08:14 | W.PN.CARDCBS ---
Today's Communication / Plan
-
Continue Levophed for blood pressure support
Will attempt to diurese with Lasix 40 mg IV twice daily.
Will need eventual transesophageal echo for MRSA bacteremia
Remains critically ill.
Attempt to wean oxygen
Impression / Plan
-
PCP: None, previously discharged from Dr. Bates's office for noncompliance 05/2023, multiple no-shows with [facility]-residency program
Communications Executive: none as an outpatient, seen by [facility] during previous admission in 2019
Impression:
Admitted with back pain after a fall at home 5 days prior, 04/24/24
Sepsis
Septic shock
MRSA bacteremia
IVDA
Acute hypoxemic respiratory failure
Acute HFpEF
Left greater trochanter fracture
TME
Chronic pancreatitis
DM 2
h/o Mediterranean fever
Hemochromatosis
HTN
HLD-Hypertriglyceridemia
Severe Fatty Liver Disease
Chronic pancreatitis
DM II
RA
Multiple fractures including hip and pelvic (was very active as a child and young adult with sports including Equestrian sports)
Chronic pain
ECHO 05/15/20: EF 60-65%, mild cLVH
Echo 04/26/24: EF 54%, D-shaped septum c/w RV pressure overload, mild MR, mild aortic sclerosis with trace aortic regurgitation, borderline dilated RV with RV hypokinesis and moderate PHTN with PAP 54 to 59 mmHg
Plan:
-Patient came to ER from home on 04/24/2024 with back pain after a fall at home 5 days prior and was admitted with sepsis and shock, cardiology is now consulted for MRSA bacteremia and concern for endocarditis. Blood cultures have been positive
since admission for MRSA. Patient had echo 04/26/2024 that showed EF 54% with mild MR. ID is following. His vancomycin was changed to daptomycin today.
-He will need a transesophageal echo when he is medically stable. I reviewed his echo personally and he does have thickening of the tricuspid valve with moderate tricuspid regurgitation and pulm hypertension.
-He will need to be off Levophed and oxygen weaned down. We will continue to evaluate him daily.
-Chest x-ray could be bilateral pneumonia/ARDS versus heart failure. Will increase Lasix to 40 mg IV twice daily and attempt to diurese.
-Continue antibiotics
-Await report of MRI of spine with back pain.
-EF preserved by echo
-Hypotension precludes GDMT
-ECG from 04/24/24 reviewed by me shows sinus tachycardia without acute ischemic changes
-cc Time 32 min
Progress Note - Communications Executive
Subjective
Date of Service: April 28, 2024
Remains on high flow oxygen. Still with positive blood cultures and low-grade fevers.
Objective
Labs:
04/28/24 03:05
Labs
Hgb 9.4 g/dL (13.0-18.0) L 04/28/24 03:05
Hct 28.7 % (39.0-52.0) L 04/28/24 03:05
Plt Count 366 10^3/uL (130-400) D 04/28/24 03:05
PT 16.8 Sec (11.4-14.6) H 04/24/24 17:41
INR 1.38 04/24/24 17:41
APTT 34.5 Sec (23.4-35.0) 04/24/24 17:41
Sodium 133 mmol/L (135-145) L 04/28/24 03:05
Potassium 4.7 mmol/L (3.5-5.1) D 04/28/24 03:05
BUN 20 mg/dl (9-20) 04/28/24 03:05
Creatinine 0.6 mg/dL (0.7-1.3) L 04/28/24 03:05
Glucose 112 mg/dl (70-99) H 04/28/24 03:05
Vital Signs and I&O:
Vital Signs
Temp Pulse Resp BP Pulse Ox
99.4 F 84 17 93/60 95
04/28/24 07:49 04/28/24 07:45 04/28/24 07:45 04/28/24 07:45 04/28/24 07:45
Vital Signs
Temp Pulse Resp BP Pulse Ox
99.4 F 84 17 93/60 95
04/28/24 07:49 04/28/24 07:45 04/28/24 07:45 04/28/24 07:45 04/28/24 07:45
Intake & Output
04/26/24 04/27/24 04/28/24 04/29/24
06:59 06:59 06:59 06:59
Intake Total 6100 / 6180 1350 / 1350 2291.7 / 2310.5 18.8 / 18.8
Output Total 4095 / 4220 4475 / 4625 3800 / 3800
Balance 2004 -3125 / -3275 -1508.3 / -1489.5 18.8 / 18.8
Physical Exam
Physical Exam
GEN: No distress, awake, Ox3
HEENT: supple, anicteric, mmm
LUNGS: bilt rhonchi
CV: Reg, S1/S2, 1/6 syst LSB, no murmur
ABD: soft, BS+, NT/ND
EXT: No edema
NEURO: gen slowing
SKIN: No rash
[2024-04-28] MEDS: NOVOLOG FLEXPEN-LOW RESISTANCE SC (08:20)
[2024-04-28] MEDS: MAGNESIUM SULFATE 102 GRAMS IV (08:27)
[2024-04-28] MEDS: HEPARIN 5000 UNITS SC (08:35)
[2024-04-28] MEDS: FLUSH (NSS) 2 FLUSH IV (08:35)
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
--- NOTE | 2024-04-28 09:00 | PTCARENOTE ---
Rec'd pt at 0800 sleeping. Did require a fair amount of stimulation to wake up but once awake was alert and oriented asking for his diet Snapple and zero sugar Twizzlers. Admitted to initially pain across his chest but then more in his back 02/27-
Medicated with Dilaudid 0.5 mg IV for pain at 0840. Speech is clear. Does get tearful at times when he thinks about how sick he is. Movement- is able to move his arm off the bed about 1/2 way but unable to lift arms completely up and cannot put them
down and unable to move legs or move feet. Can feel sensation however. Dr. Pickett in and aware. Skin is pale wm and dry. Temp 99.4 rectally via rectal probe. Wounds as documented. Foam intact on sacrum. L heel remains ecchymotic with DTI. Respirs
are shallow at times with some abd breathing. Rec'd pt on High Flow 50L/70% with sats of 96%- changed currently to 15 L midflow to transport to IR with sats of 95%. BS are decreasd throughout with base crackles. Dr. Zarco in and will give Lasix
20 mg BID today. Monitor SR. + pulses. +3 gen anasarca and scrotal edema. VS as documented. Remains on Levophed at 5 mg via R forearm IV Site. Site wnl . MAP's >65. ABd is soft, round, sl distended with + BS. Denies nausea. States he is hungry
today. Proctor intact for yellow urine. Mag 1 gm rider hung via R AC IV site. Capped int intact LAC. Pt turned and repostioned. SKin and mouth care given. Does c/o pain with turning. Plan of care reviewed with pt and call patel in reach. Pt ready to go
to IR for thoracentesis.
--- NOTE | 2024-04-28 09:07 | PTCARENOTE ---
Taken to IR for thoracentesis. Report given to IR staff. Tolerating Midflow 15L with sats at 95%
[2024-04-28] MEDS: LANTUS 0.18 UNITS SC (10:34)
[2024-04-28] MEDS: NOVOLOG FLEXPEN-LOW RESISTANCE 1 UNITS SC ×2 (10:34→14:00)
[2024-04-28] MEDS: NOVOLOG FLEXPEN 3 UNITS SC ×2 (10:34→14:00)
[2024-04-28] MEDS: ZENPEP DELAYED RELEASE CAPSULE 2 CAPSULE PO ×2 (10:35→13:48)
[2024-04-28] MEDS: FARXIGA 10 MG PO (10:35)
[2024-04-28] MEDS: GLUCOPHAGE 1000 MG PO (10:35)
[2024-04-28] MEDS: LASIX 20 MG IV (10:36)
[2024-04-28 10:37] LABS: Glucose - Point of Care 174 mg/dl (70-99)
[2024-04-28 10:47] LABS: Body Fluid pH 7.51
--- NOTE | 2024-04-28 10:49 | W.PN.ID1 ---
Addendum entered and electronically signed by Hero Hand DO 04/28/24 13:59:
Spoke with Radiology earlier, along with Neurosurgery. Inability to quickly obtain MRI given multiple factors, including availability of machine. Reading by Neurosurgery of thoracic MRI noted. Agree with emergent transfer to [facility] to prevent any
delay in care. Continue abx.
Original Note:
Date of Service
Date of Service: April 28, 2024
Today's Communication
Continue antibiotics. Await further input from Neurosurgery.
Assessment / Plan
Clinical sepsis /septic shock
MRSA bacteremia (high-grade)
MRSA complicated urinary tract infection
Suspected C5-C7 infection (possible epidural abscess, possible discitis/osteomyelitis)
Elevated ESR, CRP
Leukocytosis
Fever
Hyperglycemia
Illicit drug use (opiates, amphetamines) <- may have been source of MRSA
Left hip fracture
Asthma
GERD
Hypertension
Dyslipidemia
Diabetes mellitus
Anxiety/depression
Chronic pancreatitis
Hemochromatosis
Recommendations:
Continue with daptomycin.
MRI findings discussed with Radiology. MRI of C-spine ordered stat. MRI of L-spine changed to stat.
Case discussed extensively with Hospitalist. Have recommended Neurosurgical evaluation, and they have been consulted.
Follow white count and temperature curve.
Repeat blood cultures x 2 today.
Continue with supportive care.
Patient remains critically ill in ICU
Echo without evidence of vegetation. Will need NEELIMA.
Await MRI of c-spine and l-spine to assess for epidural abscess. (Ordered stat). Case further discussed with Radiology. Contrast cannot be given again on the same day. I have asked studies to be changed to noncontrast so that they may be
performed on an stat basis.
����������������������������������������������������������
Chief Complaint
-: Fever, Leukocytosis and Bacteremia
Subjective / Review of Systems
Patient seen and examined. Notes ongoing back pain, especially in the low back area. No upper thoracic or cervical pain described or admitted to. Also notes new weakness of the upper and lower extremities.
Vital Signs / Physical Exam
Vital Signs
Vital Signs
Temp Pulse Resp BP Pulse Ox
98.1 F 20 16 110/71 93
04/28/24 09:04 04/28/24 10:36 04/28/24 10:00 04/28/24 10:36 04/28/24 09:30
Physical Exam
Constitutional: Acutely Ill and Chronically Ill
Eyes: No Conjunctival Hemorrhage and Sclera Anicteric
Cardiovascular: S1/S2; Negative S3/S4 or Murmur
Pulmonary: Clear; Negative Wheezes or Rales
Gastrointestinal: Soft, Non Tender, Non Distended, Normal Bowel Sounds and No Rebound
Extremities: Edema; Negative Erythema
Skin: Warm and Dry; Negative Rash or Jaundice
Neurological: Awake, Alert, Oriented and Other (UE motor strength 3/5. LE motor 1/5.)
Psychological: Calm
Objective Data
Lab Data
Lab Results
04/28/24 03:05
04/28/24 10:28
ESR 75 mm/hour (0-20) H 04/26/24 03:14
PT 16.8 Sec (11.4-14.6) H 04/24/24 17:41
INR 1.38 04/24/24 17:41
APTT 34.5 Sec (23.4-35.0) 04/24/24 17:41
Estimated Creat Clear > 125 ml/min 04/28/24 03:05
Lactic Acid Cancelled 04/24/24 20:29
Total Bilirubin 0.5 mg/dl (0.2-1.3) 04/28/24 03:05
AST 21 U/L (17-59) 04/28/24 03:05
ALT 20 U/L (0-50) 04/28/24 03:05
Alkaline Phosphatase 400 U/L (38-126) H 04/28/24 03:05
C-Reactive Protein > 270.00 mg/L (0.0-10.00) H 04/26/24 03:14
Most recent labs reviewed.
Micro Results:
04/28/24 09:42 Body Fluid Culture - Pending
Pleural Fluid Gram Stain - Pending
04/24/24 15:05 Blood Culture - Final
Blood/Venous Staph aureus MRSA
Gram Stain - Final
04/24/24 15:02 Blood Culture - Final
Blood/Venous Staph aureus MRSA
Gram Stain - Final
04/26/24 11:12 Blood Culture - Preliminary
Blood/Venous Staph aureus MRSA
Gram Stain - Preliminary
04/26/24 14:27 Blood Culture - Preliminary
Blood/Venous Staph aureus MRSA
Gram Stain - Preliminary
04/24/24 13:02 Urine Culture - Final
Urine Staph aureus MRSA
04/24/24 17:41 Nasal Screen MRSA (PCR) - Final
Nose Staph aureus MRSA
Imaging:
04/28/2024 MRI T-spine: [employer] images demonstrate T2 signal within the C6-C7 vertebral bodies with a likely 3 mm T2 hyperintense focus of signal in the anterior epidural space which appears to extend from the C5-C7 levels. Findings may represent
discitis/osteomyelitis with epidural phlegmon or fracture with hematoma. Recommend dedicated MRI cervical spine with and without contrast for further evaluation.
MRI L-spine : (ordered urgent) : pending
04/24/2024 X-ray left hip: Total left hip arthroplasty hardware noted in place. There is a comminuted nondisplaced fracture of the left greater trochanter, with possible extension to the prosthesis. No dislocation noted. Please see full dictation
for additional detail.
04/24/2024 CT chest/abdomen/pelvis with IV contrast: There is a small to moderate bilateral pleural effusions with associated consolidation. Infectious/inflammatory bronchiolitis changes in the bilateral upper lobes. Cannot rule out superimposed
pulmonary contusion or underlying nodules. There is a comminuted minimally displaced fracture of the left greater trochanter extending to the underlying prosthesis. Please see full dictation for additional detail. Film personally viewed.
04/24/2024 CT cervical spine without contrast; CT head without contrast: No acute intracranial abnormalities noted. No acute fracture or subluxation of the cervical spine. Multilevel degenerative changes of the cervical spine are noted.
Care Review
Plan reviewed with: Physician (Hospitalist; Radiology)
--- NOTE | 2024-04-28 10:50 | PTCARENOTE ---
Pt returned around 1015 from IR s/p L thoracentesis. Bandaid to back is D+I. Glucose checked and was 174- Pt fed breakfast as he is unable to move his hands to feed himself. Insulin given as ordered. Excellent appetite for breakfast- ate 100% and
said he was really hungry. No difficulty noted with swallowing with breakfast or pills but after breakfast and currently is having trouble expectorating mucous. Cough is very weak as is his gag when orally suctioned. Tried Seat Coverer suctioning as he was
begging me to do something to get the mucous out but only a small amt of clear/whitish mucous obtained. Able to expectorate small amts of whitish mucous/spit but with much effort- making him anxious. Sats remain 91-93% on 15L midflow. AM Lasix 20 mg
IV given as ordered at 1040. Earlier this am c/o an intermittent 'freezing' feeling of his mostly L arm but sometimes his R arm-despite both arms being warm to touch- now c/o intermittent extreme shooting spasms in his arms that only pain med or
warm blankets seem to ease. Gets very anxious with any discomfort. Currently repositioned and 1 set of blood cultures obtained. Dr. Hand in to see pt. Levophed currently remains at 5 mcg. Pt for PICC line today.
[2024-04-28 11:11] LABS: Body Fluid Mononuclear 16.5 %; Body Fluid Polymorphonuclear 83.5 %; Body Fluid WBC 2541 /CUMM
[2024-04-28 11:17] LABS: Body Fluid Second Tech EM
[2024-04-28 11:19] LABS: Body Fluid Amylase < 30 U/L; Body Fluid Glucose 115 mg/dl; Body Fluid LDH 173 U/L; Body Fluid Protein < 2.0 g/dl; Body Fluid Triglycerides < 30 mg/dl
--- NOTE | 2024-04-28 11:35 | W.PN.INTV ---
Today's Communication / Plan
Recommendations
MRI as soon as possible cervical spine, lumbar spine
Continue antibiotics
Wait for neurosurgical input
Continue vasopressin
Continue oxygen supplementation
Diuresis as able
Continue aspiration precautions
Assessment
-
Patient is a 54-year-old male with previous history of IDDM, anxiety and depression, alcohol abuse with chronic pancreatitis, hypertension, hereditary hemochromatosis, asthma presenting via ambulance for a fall that occurred 5 days ago with
persistent left upper back pain and left hip pain. He admits to noncompliance with his medications. Arrived to hypotensive, tachycardic and hypoxemic. He was it is late on the floor somnolent for a few days. He had been using marijuana,
injecting and snorting methamphetamines. UDS indicating positive screening for oxycodone and meth/amphetamines. Alcohol level negative. Elevated beta hydroxybutyrate, UA possibly demonstrating UTI. CT obtained of chest abdomen pelvis showing
small to moderate bilateral pleural effusions and left greater trochanteric fracture. He is placed on pressors for hypotension, and admitted to ICU.
Septic shock
MRSA bacteremia-source possibly due to IVDA
Acute respiratory insufficiency, 12L midflow
Acute bilateral pleural effusions
Acute left greater trochanteric fracture, left hip pain status post fall
Possible UTI
Leukocytosis
Hyperglycemia
Polysubstance abuse including marijuana, methamphetamines
Medical noncompliance
TME likely from sepsis
Conditions present prior to admission
Adm 03/15/2020: Acute on chronic pancreatitis triggered by alcohol use
GERD
Chronic abdominal pain/pancreatitis
Pancreatic pseudocyst per imaging, 4.1 cm
History of hypertriglyceridemia
Admitted with DKA 12/2019
Hemochromatosis s/p liver biopsy; phlebotomy every 6 weeks (Prashanth)
Chronic back pain/sciatica s/p hemilaminectomy
Hypertension
Essential tremor
History of asthma, on Symbicort
Anxiety/depression
Former smoker
Former alcohol abuse
Bilateral hip replacement
Insulin-dependent diabetes
Opioid dependence
Hyperlipidemia
Plan
-
Remains critically ill.
This morning following commands, not complaining of distal for extremity weakness.
Main complaint is ongoing back pain.
-
New onset upper and lower distal lower extremity weakness
Discussed with infectious disease, there has been a delay from radiology on the MRI due to equipment issues.
We have made this stat-radiology aware. Rule out epidural abscess.
Only thoracic spine was performed yesterday 04/28/2024: No discrete abnormality in the thoracic spine. Possible C5-C7 abnormality suggestive of discitis/osteomyelitis with possible phlegmon. Cervical and lumbar spine stat MRIs ordered and they have
been pending.
Discussed with infectious disease.
Neurosurgery has been notified as well.
-
Septic shock
Hemodynamics improved-off Levophed since 04/25/2024. Restarted on 04/26/2024 after diuresis.
Continue Levophed to target mean arterial blood pressure 65 mmHg
Status post adequate fluid resuscitation.
IV fluids have been discontinued
Cardiac history reviewed--HTN.
Echocardiogram this admission: Showed RV dysfunction. Signs of RV pressure overload. Normal LVEF.
Hold home meds while hypotensive.
Lower extremity Dopplers negative. Upper left extremity Doppler negative for DVT.
Suspect RV dysfunction likely related to hypoxemia and underlying parenchymal lung disease-doubt thromboembolic disease.
Eventual NEELIMA, at this point too risky.
-
Acute hypoxemic respiratory failure: Suspect volume overload based on increased proBNP as well as bilateral groundglass opacities on CAT scan/chest x-ray with bilateral pleural effusions.
proBNP 6000 responded to diuresis-continue IV Lasix.
Monitor renal function electrolytes
Continue oxygen supplementation.
Chest x-ray 04/27/2024: Continues to have bilateral upper lobe predominant infiltrate.
Cannot rule out that infiltrates are related to MRSA pneumonia as well
-
Status post thoracentesis, 04/28/2024-transudate.
Suspect due to heart failure and low albumin state
Follow culture
-
Prior history of lung disease: asthma-continue inhalers. Not bronchospastic on exam
Continue inhaler
Continue to wean down oxygen supplementation to maintain pulse ox above 90%.
-
MRSA bacteremia/UTI/? From IVDA.
Echocardiogram: No vegetations. RV dysfunction.
Persistently positive cultures, latest on 04/26/2024.
Persistently febrile.
ID following the patient. Antibiotics adjusted
Eventual NEELIMA-discussed with cardiology. To risk at this point due to increased oxygen requirements
MRI pending as above. Delayed due to equipment issues
Ativan for claustrophobia/anxiety will be given prior to procedure.
-
Back pain/anxiety: Narcotics for pain. Monitor respiratory status closely-history of chronic back pain status postsurgery
Lorazepam for anxiety and possible some degree of withdrawal.
Zanaflex as needed
MRI pending as above
-
Advance diet as able
Aspiration precautions, HOB > 30 degrees
History of pancreatitis, neg acute findings on CT AP
Creat at baseline, no history of renal disease-tolerating diuresis.
Follow urine output, critical I/Os
Replete electrolytes as needed
-
CBC stable, no signs of bleeding or coagulopathy.
Chronic anemia noted since admission.
No evidence of bleeding
Platelet count stable
-
H/o diabetes, can continue on home meds, SS for coverage
Hemoglobin A1c on admission 16.9-poorly controlled
Diabetes nurse practitioner following, on subcu insulin.
s/p L femur fracture, ortho consult placed-prior history of left hip replacement back in 2008
Per Ortho, periprosthetic fracture (greater trochanter), but fortunately no operative management will be recommended at this time. He will continue to be NWB with no active or passive abduction.
Fall precautions
Outpatient follow-up
Discussed with patient severity of his situation 04/28/2024. Cannot rule out that patient will end up on mechanical ventilation. He is agreeable to go on mechanical ventilation. Continue with aggressive care
We will follow

Diagnostic Data
Chest X-Ray: 01/21/21-The lung volumes are mildly decreased bilaterally. The tracheal air column is slightly deviated to the right. There is no focal airspace opacity suspicious for pneumonia. There is no pleural effusion or pneumothorax. The
cardiomediastinal silhouette is mildly enlarged. There is no radiographic evidence for acute pulmonary edema.
CT Scan: CAP 04/24/24- 1. Small to moderate bilateral pleural effusions with associated consolidation/atelectasis.
2. Confluent pleural-based consolidation within the lingula measures up to 2.4 cm. Infectious/inflammatory bronchiolitis change in the bilateral upper lobes. Cannot rule out superimposed pulmonary contusions and/or underlying nodules.
3. Comminuted minimally displaced fracture of the left greater trochanter extending to the underlying prosthesis.
Stable simple bilateral renal cysts
Echocardiogram on 05/15/2020: Normal LVEF. Ejection fraction 60-65%. Mild LVH.
02/19/21- Technically difficult study. Normal left ventricular chamber size and left ventricular systolic function. Left ventricular ejection fraction is 55-60% . Mild concentric left ventricular hypertrophy.
Normal diastolic function. Trace mitral regurgitation. Aortic sclerosis without stenosis. Trace tricuspid regurgitation. Estimated pulmonary artery pressure of 30-35 mmHg assuming a right atrial pressure of 0-5 mmHg. Compared to study dated
05/15/2020, no significant change.
PFT's:
Reports and relevant images were personally reviewed.
-----
Critical care time 43 mins -- this includes review of history, physical exam, medications, hemodynamic/ventilator parameters, laboratory data, imaging and discussion with house staff, pharmacy, respiratory therapy, puddler helper, and nursing. Extensive
time spent on complexity of case.
Subjective Dataa
Subjective Data
Date of Service:
Date of Service: April 28, 2024
Chief Complaint: Academic Affairs Dean Follow Up (Septic shock/MRSA bacteremia)
Subjective:
This morning complaining of distal extremity weakness.
No shortness of breath at rest
High flow oxygen has been discontinued
Denies abdominal pain
Continues to report back pain
Review of Systems
General: Fever
Cardiopulmonary: Dyspnea and Dyspnea on Exertion
GI: Abdominal Pain (n) and Nausea (n)
Objective Data
Data Reviewed
Vital Signs / I&O / Oxygen:
Vital Signs
Temp Pulse Resp BP Pulse Ox
98.1 F 20 16 110/71 93
04/28/24 09:04 04/28/24 10:36 04/28/24 10:00 04/28/24 10:36 04/28/24 09:30
Intake and Output
04/27/24 04/28/24 04/29/24
06:59 06:59 06:59
Intake Total 1350 / 1350 2291.7 / 2310.5 308.4 / 308.4
Output Total 4475 / 4625 3800 / 3800 100 / 100
Balance -3125 / -3275 -1508.3 / -1489.5 208.4 / 208.4
SaO2 93
Nasal Cannula flow liters per 50
minute
Physical Exam
General: Respiratory Distress (With activity)
HEENT: Normocephalic
Cardiovascular: S1-S2
Respiratory: Wheeze (n) and Crackles
GI: Soft and Non Distended
Neurology: Awake, Alert, Other (Now with evident bilateral hand and bilateral feet weakness. Able to lift arms in the air but unable to squeeze symmetrically in both hands.) and Other
Skin: Warm
Labs/Micro/Reports
Lab Data
04/28/24 03:05
04/28/24 10:28
Microbiology
04/24/24 15:05 Blood/Venous Blood Culture - Final
Staph aureus MRSA
04/24/24 15:05 Blood/Venous Gram Stain - Final
04/24/24 15:02 Blood/Venous Blood Culture - Final
Staph aureus MRSA
04/24/24 15:02 Blood/Venous Gram Stain - Final
04/26/24 11:12 Blood/Venous Blood Culture - Preliminary
Staph aureus MRSA
04/26/24 11:12 Blood/Venous Gram Stain - Preliminary
04/26/24 14:27 Blood/Venous Blood Culture - Preliminary
Staph aureus MRSA
04/26/24 14:27 Blood/Venous Gram Stain - Preliminary
04/24/24 13:02 Urine Urine Culture - Final
Staph aureus MRSA
04/24/24 17:41 Nose Nasal Screen MRSA (PCR) - Final
Staph aureus MRSA
[2024-04-28 11:36] LABS: LDH 204 U/L (120-246)
--- NOTE | 2024-04-28 11:55 | PTCARENOTE ---
2nd set of blood cultures obtained peripherally and both sets sent to lab. Levophed increased to 6 mcg for MAP of 60 at 1152. Ordered Toradol given for pain. Pt repositioned again. Diuresing somewhat from Lasix. No other changes in assessment. Still
with some movement off the bed of his arms but unable to move his hands-no fine or gross motor movement. No movement of his legs. Further described the sensation he intermittently gets in his arms as a stinging type spasm.
[2024-04-28] MEDS: CUBICIN 20 MG IV (11:56)
[2024-04-28 12:02] LABS: Glucose - Point of Care 186 mg/dl (70-99)
[2024-04-28] MEDS: ZANAFLEX 2 MG PO (12:04)
--- NOTE | 2024-04-28 12:15 | PTCARENOTE ---
Zanaflex 2 mg po given at 1205 to try to help with the spasm discomfort. Currently IV team in to place PICC Line. Spoke with MRI about needed MRI- will put on schedule as first Outpt starting at 2200. Dr. Pickett and Dr. Hand aware.
[2024-04-28] MEDS: FLUSH (NSS) 1 FLUSH IV ×2 (13:09→15:10)
--- NOTE | 2024-04-28 13:24 | W.PN.UPDATE ---
Update Note
Progress Note Update
Thoracic MRI was done during the night of April 27, 2024 to April 28, 2024. Radiology read reveals patrol sergeant sheriff's office images demonstrate T2 signal within the C6-C7 vertebral bodies with a likely 3 mm T2 hyperintense focus of signal in the anterior epidural
space which appears to extend from the C5-C7 levels. Recommended a dedicated MRI of the cervical spine which we did order stat.
Attending physician Dr Mejia called [facility]. Based on Discussion with Dr Park (Neurosurgeon), and after his review of thoracic spine MRI: It is his impression that the patient has a cervical epidural abscess from C5-C7. Dr Park is
recommending transfer due to his performing an emergent procedure currently and another immediately following (He is the only neurosurgeon available currently). Therefore he is unable to take this patient to surgery. Patient is having signs of
cord compression. He is unable to move his legs, complaining of significant pain in his neck and arms, and and only able to 'batwing' his arms ,meaning movements of the shoulders only. He has no fine motor movements of his hands and feet.
Dr Mejia Spoke with Dr. Donahue (Neurosurgeon) at [facility] who agrees to accept the patient to an ICU level of care, with a 'Buy back' agreement in place. Patient is agreeable to transfer as well.
--- NOTE | 2024-04-28 13:45 | PTCARENOTE ---
PICC line placement confirmed and Levophed changed over to R upper arm DL picc- remains at 6 mcg. Capped ints removed from his RAC and R forearm. Plan is for transfer to [facility]- Pts sister in and updated.Awaiting a bed. Pt remedicated with Dilaudid
0.5 mg IV at 1310 for 8/ mostly arm burning/stabbing pain. Pt dozing on and off currently but will still intermittently c/o pain. Still with intermitent coughing and difficulty clearing his mucous which in turn tends to make him very anxious.
Oropharyngeally suctioned for whitsh secretions. Very very minimal gag and cough in general is weak. BS are decreased and sl coarse. Remains in High FLow with sats of mostly 90-92%. Will at times dip to 88-89%. Dr. Mejia in and updated. Turned
and repositioned.
--- NOTE | 2024-04-28 13:45 | PTCARENOTE ---
PICC line placement confirmed and Levophed changed over to R upper arm DL picc- remains at 6 mcg. Capped ints removed from his RAC and R forearm. Plan is for transfer to [facility]- Pts sister in and updated.Awaiting a bed. Pt remedicated with Dilaudid
0.5 mg IV at 1310 for 8 mostly arm burning/stabbing pain. Pt dozing on and off currently but will still intermittently c/o pain. Still with intermittent coughing and difficulty clearing his mucous which in turn tends to make him very anxious.
Oropharyngeally suctioned for whitsh secretions. Very very minimal gag and cough in general is weak. BS are decreased and sl coarse. Remains on Midflow with sats of mostly 90-92%. Will at times dip to 88-89%. Dr. Mejia in and updated. Turned and
repositioned.
--- NOTE | 2024-04-28 13:45 | W.DCSUMMARY ---
Discharge Summary
Discharge Data
Date of Admission: 04/24/24
Date of Discharge: 04/28/24
Total time spent discharging patient (in min): 90
-
Pending Results: Yes
Additional Pending Results:
ongoing blood cultures
thoracentesis fluid studies
Hospital Course
Disposition : [facility]
Accepting MD: Dr. Donahue, Neurosurgeon
Primary care physician : Pascual Bates
Principal Discharge diagnosis : Cervical abscess with impending paraplegia due to persistently positive MRSA bacteremia/urinary tract infection with persistently positive blood cultures
Other Pertinent Discharge diagnosis : Septic shock with Levophed dependent hypotension and acute hypoxemic respiratory failure on 15 L mid flow oxygen, acute left comminuted nondisplaced greater trochanteric fracture extending into his hip
prosthetic, bilateral lower extremity edema with negative ultrasound for DVT, swollen left upper arm with ultrasound negative for DVT, significant volume overload with elevated proBNP, chronic pancreatitis secondary to alcohol abuse, hypothyroidism,
hereditary hemochromatosis, type 2 diabetes insulin requiring, IV drug abuse likely cause of MRSA bacteremia
Hospital Course : Patient was a 54-year-old male with a history of insulin requiring type 2 diabetes, anxiety and depression, past hip replacements x 2, who was brought in by ambulance on April 24, 2024 after a fall that occurred 5 days prior. He
stated he had significant left upper back and hip pain. He stated that he is noncompliant with his medications since July. Upon arrival he was found to be hypotensive, tachycardic, and hypoxic. He complained of neck pain. He states he may
have been on the floor for days. He initially stated that he was using marijuana and admitted to injecting methamphetamine laced with marijuana. Urine drug screen was positive for oxycodone and meth/amphetamines. Patient was found to be in septic
shock and was admitted to the intensive care unit.
During his hospitalization here, he has been in the intensive care unit since admission. He has been on and off pressors for blood pressure support and currently is on Levophed at the time of discharge (6 mcg). He also received significant amounts
of IV fluids for resuscitative efforts. He was found to have bilateral pleural effusions on his imaging studies from the emergency department and is requiring oxygen for acute hypoxemic respiratory failure. At one point he was on 12 L nasal
cannula mid flow oxygen upon arrival, high flow oxygen overnight from April 27 to April 28 and currently is on 15 L of nasal cannula oxygen mid flow.
He was started on empiric antibiotics with vancomycin and Zosyn and cultures were obtained. Infectious disease was consulted. On April 24, 2024 urine culture was positive for MRSA, blood cultures were positive for MRSA, and nasal screen was also
positive for MRSA. Blood cultures from April 26 were positive for MRSA, April 27 blood cultures are pending at this time. Antibiotics were transitioned to vancomycin only and eventually to daptomycin. Patient had persistently elevated white
blood cell counts in the mid 20,000's. Current white blood cell count on discharge is 27.8.
Cardiology was consulted for echocardiogram as endocarditis was a significant possibility. Echocardiogram results are below without any vegetations seen. Patient will need a NEELIMA but is too unstable at this point to obtain. proBNP was elevated at
2630 and IV diuresis was started. Bilateral lower extremity ultrasounds were negative for DVT, left upper arm ultrasound was also negative for DVT. Patient had left thoracentesis done for bilateral pleural effusions. 1100 mL of clear yellow
fluid was removed with fluid results as follows (pH 7.51, white cells 2541, fluid glucose 115, fluid total protein less than 2, fluid LDH 173, amylase less than 30, triglycerides less than 30 which indicates an exudative effusion).
Due to significant back pain, thoracic and lumbar spine MRIs were ordered. Lumbar spine was unable to be obtained due to extenuating circumstances with the MRI machine, thoracic MRI is read as follows C5-C7 signal consistent with either
discitis/osteomyelitis or epidural phlegmon. Our neurosurgeon did review the images and indicated that the patient has a cervical epidural abscess given his medical findings of persistent positive MRSA bacteremia. Stat C-spine MRI was ordered.
Unfortunately, we only have 1 neurosurgeon available today and he is involved with 2 emergent procedures and is unable to get to this patient. He is recommending immediate transfer. Patient cannot move his legs but sensation is intact, is only
able to raise his shoulders and cannot wound care specialist.
[facility] transfer center was notified and the case was reviewed with neurosurgeon Dr. Donahue. He agrees to accept the patient in transfer with buy back agreement in place.
In regards to his fracture of the left hip, orthopedics was consulted, and no operative management is recommended at this time. He should return to his primary orthopedic surgeon and recommend follow-up x-rays in 1 to 2 weeks.
At his other medical issues including chronic pancreatitis, hereditary hemochromatosis, type 2 diabetes insulin requiring were managed appropriately to the best of our ability.
Important imaging findings :
THORACIC SPINE MRI IMPRESSION:
Within the limitations there is no discrete abnormality of the thoracic spine.
[employer] images demonstrate T2 signal within the C6-C7 vertebral bodies with a likely 3 mm T2 hyperintense focus of signal in the anterior epidural space which appears to extend from the C5-C7 levels. Findings may represent discitis/osteomyelitis with
epidural phlegmon or fracture with hematoma. Recommend dedicated MRI cervical spine with and without contrast for further evaluation.
ADMISSION CERVICAL SPINE CT IMPRESSION:
1. No acute intracranial abnormality noted.
2. No acute fracture or subluxation of the cervical spine. Multilevel degenerative changes of the cervical spine.
ADMISSION CHEST/ABDOMEN/PELVIS CT IMPRESSION:
1. Small to moderate bilateral pleural effusions with associated consolidation/atelectasis.
2. Infectious/inflammatory bronchiolitis change in the bilateral upper lobes. Cannot rule out superimposed pulmonary contusions and/or underlying nodules. Recommend follow-up imaging after the acute process resolves. [facility]
Nodule Advisory Board will be notified.
3. Comminuted minimally displaced fracture of the left greater trochanter extending to the underlying prosthesis.
Procedure findings :
ECHOCARDIOGRAM CONCLUSIONS:
1. Borderline small left ventricle with D-shaped septum consistent with RV
pressure overload, EF 54%
2. Mild mitral regurgitation with normal left atrium
3. Mild aortic sclerosis with trace aortic regurgitation
4. Borderline dilated RV with RV hypokinesis and moderate pulmonary
hypertension, pulmonary artery systolic pressure 54-59 mmHg
5. Pleural effusion presents
Compared to 2020, the RV is now dilated, and mitral regurgitation is mild
instead of trace. A D-shaped septum is present. The pulmonary artery pressure
is higher.
Discharge Plan
-
Patient Disposition: Acute Care Hospital
Discharge Orders:
Discharge Patient (As Directed); Ordered 04/28/24
Ordered By: Carmen Mejia
Discharge Date and Time
Print Language: SAMOAN
[2024-04-28] MEDS: TYLENOL 650 MG PO (14:22)
[2024-04-28] MEDS: NEURONTIN 100 MG PO (15:10)
[2024-04-28] MEDS: DILAUDID 0.25 MG IV (15:10)
--- NOTE | 2024-04-28 15:40 | PTCARENOTE ---
Pt for transfer to [facility]- Report called to Elizabeth in the Neuro ICU at [facility] [phone]. Dr. Mejia in and spoke with pts sister Pam. Pt remedicated with Dilaudid 0.25 mg IV for pain. Swallowed a few spoonfuls of applesauce and had pudding and
gingerale for lunch. Took pills whole without difficulty and swallowed lunch with no coughing noted however has required suctioning several times for whitish secretions that he cannot expectorate. Overall respirs are shallow and more tachypnic-
remains on 15L midflow with sats of 91-95%. Vs as documented. Remains on 6mcg of Levophed. Currently Gian Stat here and pt for transfer. Disc's and Transfer records sent. Report given to Gian stat and pt transferred via helicopter. Held on giving
Flu shot after consulting with Dr. Mejia as temp currently is 101.4. Tylenol 650 mg po given at 1425.
== END 2024-04-28 15:30 | disposition short-term general hospital (02) | DRG 871 ==
LOC: ICU 16:04
PROVIDERS: Internal Medicine; Radiology Diagnostic Radiology; Student in an Organized Health Care Education/Training Program; ADMITTING PHYSICIAN Internal Medicine; ATTENDING PHYSICIAN Internal Medicine; CONSULT PHYSICIAN Internal Medicine; CONSULT PHYSICIAN Internal Medicine Cardiovascular Disease; CONSULT PHYSICIAN Internal Medicine Infectious Disease; EMERGENCY PHYSICIAN Emergency Medicine; FAMILY PHYSICIAN Family Medicine; OTHER PHYSICIAN Orthopaedic Surgery
PROC: 5A0935A Assistance with Respiratory Ventilation, Less than 24 Consecutive Hours, High Flow/Velocity Cannula (ICD-10-PCS; 2024-04-27)
PROC: 0W9B3ZZ Drainage of Left Pleural Cavity, Percutaneous Approach (ICD-10-PCS; 2024-04-28)
PROC: 02HV33Z Insertion of Infusion Device into Superior Vena Cava, Percutaneous Approach (ICD-10-PCS; 2024-04-28)
DX: A41.02 Sepsis due to Methicillin resistant Staphylococcus aureus (principal); G06.1 Intraspinal abscess and granuloma; G92.8 Other toxic encephalopathy; I50.31 Acute diastolic (congestive) heart failure; S72.115A Nondisplaced fracture of greater trochanter of left femur, initial encounter for closed fracture; J96.01 Acute respiratory failure with hypoxia; R65.21 Severe sepsis with septic shock; J18.9 Pneumonia, unspecified organism; F33.0 Major depressive disorder, recurrent, mild; F11.20 Opioid dependence, uncomplicated; F13.20 Sedative, hypnotic or anxiolytic dependence, uncomplicated; J98.11 Atelectasis; J21.9 Acute bronchiolitis, unspecified; M97.02XA Periprosthetic fracture around internal prosthetic left hip joint, initial encounter; N39.0 Urinary tract infection, site not specified; K86.3 Pseudocyst of pancreas; K86.0 Alcohol-induced chronic pancreatitis; F41.1 Generalized anxiety disorder; M54.6 Pain in thoracic spine; E78.00 Pure hypercholesterolemia, unspecified; I11.0 Hypertensive heart disease with heart failure; K21.9 Gastro-esophageal reflux disease without esophagitis; J45.30 Mild persistent asthma, uncomplicated; N28.1 Cyst of kidney, acquired; E78.1 Pure hyperglyceridemia; M43.16 Spondylolisthesis, lumbar region; E83.110 Hereditary hemochromatosis; R91.1 Solitary pulmonary nodule; D63.8 Anemia in other chronic diseases classified elsewhere; I27.20 Pulmonary hypertension, unspecified; K76.0 Fatty (change of) liver, not elsewhere classified; M47.812 Spondylosis without myelopathy or radiculopathy, cervical region; I70.0 Atherosclerosis of aorta; G25.0 Essential tremor; G89.29 Other chronic pain; E05.90 Thyrotoxicosis, unspecified without thyrotoxic crisis or storm; E87.6 Hypokalemia; E11.59 Type 2 diabetes mellitus with other circulatory complications; E11.65 Type 2 diabetes mellitus with hyperglycemia; M25.512 Pain in left shoulder; F10.10 Alcohol abuse, uncomplicated; W19.XXXA Unspecified fall, initial encounter; Y93.9 Activity, unspecified; Y92.9 Unspecified place or not applicable; Z60.2 Problems related to living alone; Z87.891 Personal history of nicotine dependence; Z82.49 Family history of ischemic heart disease and other diseases of the circulatory system; Z79.4 Long term (current) use of insulin; Z86.16 Personal history of COVID-19; Z86.0100 Personal history of colon polyps, unspecified; Z91.030 Bee allergy status; Z79.82 Long term (current) use of aspirin; Z79.51 Long term (current) use of inhaled steroids; Z79.84 Long term (current) use of oral hypoglycemic drugs; Z91.148 Patient's other noncompliance with medication regimen for other reason; Z91.199 Patient's noncompliance with other medical treatment and regimen due to unspecified reason
CPT/HCPCS: 32555; 70450; 71045; 71260; 72125; 72157; 73502; 74177; 76604; 80053; 80202; 80306; 80307; 81003; 81015; 82010; 82077; 82150; 82248; 82550; 82945; 82962; 83036; 83605; 83615; 83735; 83880; 83986; 84100; 84157; 84443; 84478; 84484; 85025; 85027; 85610; 85652; 85730; 86140; 87015; 87040; 87070; 87086; 87147; 87150; 87186; 87205; 87641; 89051; 93005; 93306; 93970; 93971; 94640; 96361; 96365; 96366; 96367; 96375; 99291; 99292; A9575; J0878; Q9967

== ENCOUNTER 2024-05-01 12:48 | Inpatient (IN) | payer OTHER, SELFPAY ==
[2024-05-01] VITALS (20 sets, daily range): BP systolic 90–118; BP diastolic 55–87; BMI 25.5
--- NOTE | 2024-05-01 13:24 | HPS.HSE ---
Family Physician
-
Family Physician: NOT KNOWN
Chief Complaint
-
Transferred back from [facility]
History of Present Illness
Patient is a 54-year-old male who was admitted to our hospital on April 24, 2024 with a diagnosis of septic shock with persistently positive MRSA bacteremia, MRSA urinary tract infection and developed cervical abscess with impending paraplegia.
This was presumed to be due to IV use of methamphetamine. Patient developed significant neurologic findings with the inability to move his legs and and his shoulders only with thoracic spine MRI concerning for cervical epidural abscess from the
C5-C7 region. Patient was transferred emergently to the [facility] on April 28, 2024 for immediate cervical laminectomy and decompression.
On the patient's arrival to the intensive care unit at [facility], patient was emergently intubated for increased work of breathing and airway protection, was continued on a Levophed drip, and taken urgently for a C4-C7 laminectomy
for cervical decompression. Patient was extubated on April 30, 2024, NOE drain from the neck was also removed on April 30, 2024. Patient's PICC line that was placed here for Levophed prior to transfer was removed at 10 on April 30, 2024. He
had persistently positive blood cultures at [place] as well with the last positive on April 29, 2024 with April 30's not resulted yet. He was continued on IV vancomycin and there are infectious disease team is recommending switching to daptomycin
at some point. He was placed on stress dose steroids and they are being weaned, he was on 50 mg every 6 hours of hydrocortisone. Pain control has been an issue and he was on Tylenol, Dilaudid, Flexeril, gabapentin.
He did undergo a transesophageal echocardiogram (NEELIMA) prior to extubation which did not show any vegetation, ejection fraction was 60%, no RV strain, and normal pulmonary arterial pressures. He was not requiring diuresis since April 28, 2024 and
his Proctor catheter was removed on April 29, 2024.
He was seen in consultation by speech and failed his swallowing evaluation. It was recommended that he remain n.p.o. and a Dobbhoff catheter was placed.
He returns to us from the [facility] for further ongoing medical management.
Medical History
Past Medical History
Past Medical History: Reports Other
Additional Past Medical History:
Persistently positive MRSA bacteremia, MRSA urinary tract infection with cervical epidural abscess
Chronic pancreatitis secondary to previous alcohol abuse
Hypothyroidism
Hereditary hemochromatosis
Type 2 diabetes mellitus insulin requiring
IV drug abuse
Recent septic shock as mentioned starting April 24, 2024
Acute hypoxemic respiratory failure requiring 15 L mid flow oxygen and subsequent intubation upon arrival to [facility]
Acute left comminuted nondisplaced greater trochanteric fracture extending into his hip prosthetic
Bilateral lower extremity edema
Essential hypertension
Ophthalmic migraines
Vitamin D deficiency
History of opioid dependence
Hyperlipidemia
Gastro esophageal reflux disease
Generalized anxiety disorder
Past Surgical History: Reports Other
Additional Past Surgical History:
Cervical laminectomy at C4-C7 April 2024
Appendectomy
Left hip replacement
Back surgery previously at L4-L5 unknown timeframe
Liver biopsy
Social History
Tobacco: Other (Unknown)
Alcohol: Other (History of alcohol abuse)
Drug: Other (History of IV drug abuse and narcotic dependency abuse)
Family History
Family History: Not pertinent
Allergies / Home Medications
Allergies reflects when Allergies were last updated in [facility].
Home Medications with original date entered in [facility]
Allergy/Medication List:
Allergies
Allergy/AdvReac Type Severity Reaction Status Date / Time
venom-honey bee Allergy PASSED OUT Verified 04/24/24 11:44
[bee venom (honey bee)] AFTER
STING/ANAPHYLAXIS
Home Medications
Actually from [facility] transfer form
acetaminophen 160 mg/5 mL oral elixir 500 mg feeding tube Q6H 05/01/24
bisacodyl 10 mg rectal suppository 10 mg MN DAILY PRN constipation 05/01/24
famotidine 20 mg tablet 20 mg PO BID 05/01/24
folic acid 1 mg tablet 1 mg PO DAILY 05/01/24
heparin, porcine (PF) 5,000 unit/mL injection syringe 5,000 unit SC Q8H 05/01/24
hydrocortisone sod succinate 100 mg solution for injection (Solu-Cortef) 100 mg IV Q6H 05/01/24
hydromorphone 0.2 mg/mL injection solution 0.4 mg Q1H Pain 05/01/24
insulin aspart U-100 100 unit/mL (3 mL) subcutaneous pen (Novolog FlexPen U-100 Insulin aspart) 1 sliding scale dose SC DIRECTED 05/01/24
lidocaine 5 % topical patch 1 patch topical DAILY 05/01/24
multivitamin with minerals-iron fumarate 9 mg iron/15 mL oral liquid (Multi Vitamin) 15 ml PO DAILY 05/01/24
polyethylene glycol 3350 17 gram oral powder packet (Miralax) 17 g PO DAILY 05/01/24
sennosides 8.6 mg tablet (senna) 8.6 mg PO DAILY 05/01/24
thiamine HCl (vitamin B1) 100 mg tablet 100 mg feeding tube DAILY 05/01/24
vancomycin 1.5 gram/500 mL in 0.9 % sodium chloride intravenous soln 1.5 g IV Q8H 05/01/24
Review of Systems
-
History Source: Patient
A 12 point ROS was completed and negative except as noted: Yes
Constitutional: Reports Other (Patient complains of pain, in tears)
EENT: Reports No Symptoms
Respiratory: Reports No Symptoms
Cardiac: Reports No Symptoms
Abdomen/GI: Reports No Symptoms
: Reports No Symptoms
Musculoskeletal: Reports No Symptoms and Other (Pain all over)
Skin: Reports No Symptoms
Neurological: Reports No Symptoms
Endocrine: Reports No Symptoms
Hematologic/Lymphatic: Reports No Symptoms
Psych: Reports No Symptoms
Physical Exam
Physical Exam
General: Appears Chronically Ill
HEENT: NormoCephalic, Atraumatic, Oxygen (Nasal cannula in place) and Other (Small bore Dobbhoff feeding tube in place)
Respiratory: Clear; No Wheezes, Rales, Rhonchi or Crackles
Cardiac: S1/S2, Regular Rhythm and Murmur
GI: Soft, Non Tender, Non Distended and Normal Bowel Sounds
Genito-urinary: Other (Swollen scrotum)
Musculoskeletal: No Clubbing, No Cyanosis and Other (3+ lower extremity edema bilaterally--2+ upper extremity edema bilaterally)
Skin: Other (Early pressure skin blanching injury on bilateral heels--present on admission)
Neuro: Awake and Alert; No Nonfocal/grossly intact (Has sensation present in bilateral lower extremities, no motor movement lower extremities bilaterally--left upper extremity with more movement in right, can move both at the elbows and wrists)
Psych: Other (Tearful)
Impression/Plan
-
Patient is a 54-year-old male
C4-C7 cervical laminectomy for epidural abscess drainage on April 28, 2024 --developed upper and lower extremity weakness/plegia with inability to move--NOE drain removed April 30, dangelo will remain in place through May 19, 2024--continue
vancomycin with possibility of switching to daptomycin--pain control
MRSA bacteremia with MRSA UTI with septic shock--pressor dependent on Levophed--unable to be weaned at the [facility]--on 4 mics here--wean to off as able keeping mean arterial pressure greater than 65, systolic blood pressure
greater than 90--hold on IV fluids as patient finished diuresing April 28, 2024--still with persistently positive MRSA bacteremia--last positive culture 04/29/2024, 04/30/2024 pending--consult ID, consult market investigator--patient had NEELIMA at [place]
[facility] which showed no vegetations, ejection fraction 60%, no RV strain, normal pulmonary artery pressures, this was done prior to extubation--patient finished diuresis on April 28, 2024 and Proctor catheter was taken out April
10--ID team recommends looking at left hip prosthetic with fracture if blood cultures do not clear as a possible source--weaning stress dose steroids on 50 mg every 6 IV hydrocortisone
acute hypoxemic respiratory failure required intubation with extubation on April 30 likely due to sepsis MRSA bacteremia with MRSA UTI --remains on IV Vanco at this time--reconsult ID and market investigator--prior to his transfer to [facility], patient had a
CAT scan here which did not show pulmonary embolism
Acute Left comminuted nondisplaced greater trochanter fracture from acute fall--patient was seen by 2 orthopedic groups here and the orthopedic group at [facility]--all 3 have recommended no surgical interventions with weightbearing as tolerated and
follow-up as an outpatient with his orthopedic doctor --however, [facility] ID team recommending taking a look at the hardware as a potential source of ongoing infection if blood cultures do not clear imaging
bilateral LE edema-- bilateral LE US neg for DVT--left arm neg for DVT--patient finished diuresis on 04/28/2024--Proctor catheter was removed on 04/29/2024
History of chronic pancreatitis--Unclear etiology, possibly from alcohol or other substance abuse--Home medications include pancreatic enzymes, Creon 2 caps with meals--Remains on home enzyme replacement therapy
Hyperthyroidism/hypothyroidism--Per history, home med list prior to first admission here showed methimazole 15 mg daily--Does have history of sinus tachycardia that is likely related--if patient's tachycardia continues to increase, would consider
restarting methimazole
Hereditary hemochromatosis--Per history, no HFE gene mutation analysis per records here (in 2007, liver iron concentration very high at 7340)
type 2 DM insulin requiring--cont home insulin with SSI--HGB A1C 16.9--reconsult DM TREASURY DIRECTOR, Friday
DVT prophylaxis: Subcutaneous heparin
CODE STATUS: Full code
--- NOTE | 2024-05-01 14:28 | PTCARENOTE ---
pt aaox3. crying out in pain asking for ice and pain medicine. pain med given as ordered. pt states whole body pain. chg bath and oral care done. condom cath placed on pt. left heel with dti wound foam dressing applied. st2 on sacrum foam
dressing applied. posterior neck with dangelo intact. pt unable to move legs but states he has sensation. moves arms at wrists and elbows but very weak. inc of stool levo gtt running when he arrived from [place].
[2024-05-01] MEDS: DILAUDID 1 MG IV ×2 (14:30→20:15)
[2024-05-01] MEDS: SOLU-CORTEF 50 MG IV ×2 (15:25→20:18)
--- NOTE | 2024-05-01 16:24 | PHA.VAN.FU ---
Vancomycin Assessment / Plan
- Assessment
Renal Function: No New Labs Today (transferred from [facility], labs pending for AM)
Patient-specific PK from 04/27 calculations:
Extrapolated Cmax (mcg/mL): 16.5
Peak level was drawn: Appropriately (drawn ~2H after end of previous infusion)
Extrapolated Cmin (mcg/mL): 7.7
Trough Drawn: Appropriately
Levels were drawn: At steady state (levels drawn after 4th maintenance dose)
Calculated AUC (mcg*h/mL): 279
Calculated ke: 0.0729
Calculated half life (H): 9.5
Calculated Vd (L): 123 (~1.4 L/kg)
Calculated Vanc CL (ml/min): 149
- Dosing Plan
Adjust Regimen to: Vanc 1750mg Q12H
New Regimen Predicts: AUC (419), Peak (24.4), Trough (11.8)
Patient previously on Vanc 1250mg Q12H that provided subtherapeutic levels.
Patient-specific PK calculated 04/27 but patient changed to daptomycin
Patient transferred to [facility] and per returning transfer med list, is currently on Vanc 1500mg Q8H; however, based on prior dosing experience, patient's half-life > 8H
- Monitoring Plan
No level(s) ordered at this time: consider repeat levels in next few days
- Follow Up
Pharmacy will continue to follow.
Vancomycin Follow UP
- -
Patient Age: 54
Patient Sex: Male
Vancomycin Day #: 8 (total antibiotics - switched to daptomycin 04/27 then back to vanco at [facility])
Indication: Bacteremia (epidural abscess)
Requesting Provider: Dr. Mejia
Pertinent Antimicrobial Allergies:
no pertinent antibiotic allergies
Height / Weight:
Height 6 ft
Actual Weight 85.2 kg
Pertinent Past Medical History: DM, IV SHANTELL
- Vital Signs / Lab Results
Temp Pulse Ox
97.8 F 95
05/01/24 14:00 05/01/24 14:26
[2024-05-01] MEDS: TYLENOL ORAL SOLUTION 500 MG TUBE ×2 (17:14→23:43)
[2024-05-01] MEDS: DILAUDID 4 MG TUBE ×2 (17:15→23:43)
[2024-05-01] MEDS: VANCOCIN 535 MG IV (17:46)
--- NOTE | 2024-05-01 17:47 | CON.ID ---
Consultation
-
Date/Time Consultation Requested: May 01, 2024 1313
Date/Time Consultation Performed: May 01, 2024 1750
Requesting Provider: Dr. Carmen Mejia
Performing Provider: Dr. Ange Priest
Reason for Consultation: MRSA bacteremia, discitis, transfered back from [facility]
Chief Complaint / Past History
Chief Complaint
Back pain
History of Present Illness
I reviewed medica records here and at [facility]. Michael Villa is a 54-year-old male, DM, poor self-care, who presented emergency room on 04/24/2024 via ambulance following a reported fall that occurred 5 days prior with significant left upper back
pain, along with left hip pain since that time. Patient was in septic shock with sustained MRSA bacteremia. MRI T-spine concerning for epidural abscess/osteo of C5- C7 level. He was transfered to [facility] on 04/28/2024. He underwent emergent C4-C7
laminectomy, cervical decompression. OR cx +MRSAThe PICC line and white removed 04/29/. Blood cx persistently positive at [facility]. 04/29 NEELIMA negative vegetation. He remained on Vancomycin. He failed speech eval. Pt was transferred back to today,
04/30/24. Today, he continues to have back pain and asking for pain med. He is also thirsty.
Past History
Additional Past Medical History:
Asthma
GERD
Hypertension
Dyslipidemia
Diabetes mellitus
Anxiety/depression
Chronic pancreatitis
Hemochromatosis
hx opioid dependence
Additional Past Surgical History:
Appendectomy
Left hip replacement
Right hip 'resurfacing'
L4-S1 back surgery
Hepatic biopsy
Allergy History:
venom-honey bee [bee venom (honey bee)] Allergy (Verified 04/24/24 11:44)
PASSED OUT AFTER STING/ANAPHYLAXIS
Medications Reviewed: Yes
Current Antibiotics:
Vancomycin (dosing per pharmacy)
Social History
Tobacco: Former Smoker
Alcohol: Occasional
Drug: Marijuana and Other (meth)
Personal: Partner
Living: Alone
Family History
Family History: Not Pertinent
Review of Systems
Review of Systems
General: Negative Fever or Chills
HEENT: Negative Headache
Respiratory: Dyspnea; Negative Cough
Gasteroenterology: Negative Nausea, Vomiting or Diarrhea
Genital / Urological: Negative Flank Pain
Endocrine: Weakness
Skin / Hair / Nails: Negative Rash
All systems: All other systems were reviewed and were negative
Vital Signs
Temp Pulse Ox
97.8 F 95
05/01/24 14:00 05/01/24 14:26
Physical Exam
Physical Exam
Constitutional: Acutely Ill
Eyes: No Conjunctival Hemorrhage and Sclera Anicteric
Cardiovascular: Regular Rate and S1/S2
Pulmonary: Other (Decreased breath sounds at the bases)
Gastrointestinal: Soft, Non Tender and Non Distended
Genito-Urinary: Negative CVA Tenderness
Extremities: Edema
Musculoskeletal: Negative Joint Swelling (Left hip) or Joint Effusion (Left hip)
Neurological: AO x 3 and Other (Able to move upper extremities)
Assessment / Plan
MRSA bacteremia -sustained, persistent
- 04/29/24 NEELIMA no vege at [facility]
C4-C7 epidural abscess
- 04/28/24 s/p laminectomy, decompression at [facility].
-OR cx MRSA
septic shock
- on low dose levophed
- tapering stress dose steroid
Elevated ESR, CRP
Leukocytosis
Fever
Dysphagia
Hyperglycemia
Illicit drug use (opiates, amphetamines) <- may have been source of MRSA
Left hip fracture
Asthma
GERD
Hypertension
Dyslipidemia
Diabetes mellitus
Anxiety/depression
Chronic pancreatitis
Hemochromatosis
Recommendations:
Continue with Vancomycin. Follow levels
Continue daily blood culture until bacteremia cleared.
Follow white count and temperature curve.
[2024-05-01 18:05] LABS: Glucose - Point of Care 284 mg/dl (70-99)
--- NOTE | 2024-05-01 18:08 | PTCARENOTE ---
pt complaining of full body pain. po pain med given as ordered. pt o2 sat will drop into the low 80's while awake. very poor moist cough NT suction produced min this clear. place pt on nrb mask. sat 95% now. bladder scan >700 had multiple
straight caths at [facility] per report dr inocencia white ordered.
[2024-05-01] MEDS: NOVOLOG FLEXPEN-LOW RESISTANCE 3 UNITS SC (18:31)
[2024-05-01] MEDS: NOVOLOG FLEXPEN 4 UNITS SC (20:16)
[2024-05-01] MEDS: HEPARIN 5000 UNITS SC (20:18)
[2024-05-01] MEDS: PEPCID 20 MG TUBE (20:18)
--- NOTE | 2024-05-01 20:19 | PTCARENOTE ---
Assumed care of pt. approx 1899.
Pt. placed on Hi Josiah N/C due to increased WOB/desatturating periods.
Pt. calling out in pain, appearing encephalopathic, one time IV dilaudid ordered.
Norepi infusing at 4 mcg.
Appears hemodynamically stable, normothermic.
Lami incision site well approximated w/ dangelo STEVE.
Unable to follow simple commands, does move upper extrem, does not move lowers but sensation intact.
4 U additional insulin covered, following closely.
[2024-05-01 22:25] LABS: Hematocrit 25.8 % (39.0-52.0); Hemoglobin 8.1 g/dL (13.0-18.0); Mean Corp Hgb Conc. 31.4 g/dL (33.0-37.0); Mean Corpuscular Hgb 27.3 pg (27.0-31.0); Mean Corpuscular Volume 86.9 fL (80.0-94.0); Mean Platelet Volume 9.4 fL (7.4-10.4); Platelet Count 553 10^3/uL (130-400); Red Blood Cell Count 2.97 10^6/uL (4.70-6.10); Red Cell Dist. Width 14.6 % (11.5-14.5); White Blood Cell Count 21.8 10^3/uL (4.8-10.8)
--- NOTE | 2024-05-01 22:31 | PTCARENOTE ---
Addendum entered by New Melo RN 05/01/24 23:09:
ICU RONNELL confirmed Dobhoff placement, TF resumed.
Addendum entered by New Melo RN 05/01/24 22:33:
No baseline labs since transfer back from [place], CBC/CMP ordered.
Original Note:
Pt. confused, started to remove dobhoff tube. TF placed on hold, STAT CXR ordered to confirm placement.
POC rechecked, GLU 278 despite additional 4u given, ICU RONNELL notified,
-Admin 7U SQ.
-Recheck at 0000, if persisting will place on insulin gtt.
[2024-05-01 22:40] LABS: Glucose - Point of Care 272 mg/dl (70-99)
[2024-05-01] MEDS: NOVOLOG FLEXPEN 7 UNITS SC (22:49)
[2024-05-01 22:50] LABS: Blood Urea Nitrogen 33 mg/dl (9-20); Calcium 8.2 mg/dl (8.4-10.2); Carbon Dioxide 32 mmol/L (22-30); Chloride 104 mmol/L (98-107); Estimated Creatinine Clearance > 125 ml/min; Glucose 279 mg/dl (70-99); Magnesium 1.9 mg/dl (1.6-2.3); Potassium 4.8 mmol/L (3.5-5.1); Sodium 141 mmol/L (135-145); eGFR > 60.00
[2024-05-01] MEDS: LEVOPHED 250 IV (23:43)
--- NOTE | 2024-05-01 23:48 | PTCARENOTE ---
Tube feeds resumed, pt repeating phrase 'please', unable to verbalize any more. PRNs given as ordered, pt. does not appear to be in distress, remains hemodynamically stable on low dose norepi, see flowsheet for details.
[2024-05-02] VITALS (74 sets, daily range): BP systolic 61–140; BP diastolic 44–82; BMI 25.6
--- NOTE | 2024-05-02 00:36 | PTCARENOTE ---
Pt. hypoxic, desatting to low 80s sustained, non rebreather placed on pt. HHF maxed, ABG sent.
[2024-05-02 00:38] LABS: B.E. 8.6 mmol/L; HCO3 33.4 mmol/L (21-28); PCO2 47 mmHg (35-48); PO2 144 mmHg (83-108); pH 7.46 (7.35-7.45)
--- NOTE | 2024-05-02 01:13 | PTCARENOTE ---
POC in the 300s despite multiple add. SQ insulin, Orders placed to start insulin gtt.
[2024-05-02 01:23] LABS: Glucose - Point of Care 304 mg/dl (70-99)
[2024-05-02] MEDS: NOVOLIN R INSULIN INFUSION 100 IV ×2 (01:56→08:33)
[2024-05-02] MEDS: NOVOLIN R 6 UNITS IV (01:56)
[2024-05-02] MEDS: SOLU-CORTEF 50 MG IV ×4 (01:57→20:04)
--- NOTE | 2024-05-02 02:47 | PTCARENOTE ---
Pt. cont. removing HHF N/C, reorientation unsuccessful on numerous attempts, pt. RX per order set.
[2024-05-02 03:25] LABS: Glucose - Point of Care 301 mg/dl (70-99)
[2024-05-02 04:19] LABS: Glucose - Point of Care 286 mg/dl (70-99)
[2024-05-02 04:29] LABS: Hematocrit 26.2 % (39.0-52.0); Hemoglobin 8.3 g/dL (13.0-18.0); Mean Corp Hgb Conc. 31.7 g/dL (33.0-37.0); Mean Corpuscular Hgb 28.3 pg (27.0-31.0); Mean Corpuscular Volume 89.4 fL (80.0-94.0); Mean Platelet Volume 9.5 fL (7.4-10.4); Platelet Count 555 10^3/uL (130-400); Red Blood Cell Count 2.93 10^6/uL (4.70-6.10); Red Cell Dist. Width 14.5 % (11.5-14.5); White Blood Cell Count 27.6 10^3/uL (4.8-10.8)
--- NOTE | 2024-05-02 04:30 | PTCARENOTE ---
Addendum entered by New Melo RN 05/02/24 04:41:
Pt. complains of chest pain, unable to ascertain specifics and/or characteristics of pain, ICU RONNELL notified, EKG ordered, troponin.
Original Note:
Pt. out of bi lat soft restraints, remains maxed on HHF w/ multiple desats inter. recovering back to low 90s, ICU RONNELL aware.
Confused, but can follow very simple commands.
[2024-05-02] MEDS: DILAUDID 4 MG TUBE ×4 (04:47→20:05)
[2024-05-02 04:53] LABS: ALT (SGPT) 17 U/L (0-50); AST (SGOT) 18 U/L (17-59); Albumin 2.1 g/dl (3.5-5.0); Alkaline Phosphatase 249 U/L (38-126); Blood Urea Nitrogen 33 mg/dl (9-20); Calcium 8.3 mg/dl (8.4-10.2); Carbon Dioxide 30 mmol/L (22-30); Chloride 107 mmol/L (98-107); Estimated Creatinine Clearance > 125 ml/min; Glucose 270 mg/dl (70-99); Potassium 4.4 mmol/L (3.5-5.1); Sodium 145 mmol/L (135-145); Total Bilirubin 0.3 mg/dl (0.2-1.3); Total Protein 5.8 g/dl (6.3-8.2); eGFR > 60.00
[2024-05-02] MEDS: TYLENOL ORAL SOLUTION 500 MG TUBE ×4 (05:00→23:05)
[2024-05-02] MEDS: VANCOCIN 535 MG IV ×2 (05:01→17:34)
[2024-05-02 05:17] LABS: Glucose - Point of Care 238 mg/dl (70-99)
[2024-05-02 05:51] LABS: Troponin I < 0.012 ng/ml
[2024-05-02 06:18] LABS: Glucose - Point of Care 262 mg/dl (70-99)
[2024-05-02 07:21] LABS: Glucose - Point of Care 202 mg/dl (70-99)
[2024-05-02] MEDS: VITAMIN B1 100 MG TUBE (08:25)
[2024-05-02] MEDS: PEPCID 20 MG TUBE ×2 (08:44→20:05)
[2024-05-02] MEDS: FOLVITE 1 MG TUBE (08:45)
[2024-05-02] MEDS: HEPARIN 5000 UNITS SC ×2 (08:45→19:58)
--- NOTE | 2024-05-02 08:45 | W.PN.HOSP.TC ---
Today's Communication/Plan
-
consult neuro
renew drips
pain control
follow oxygen requirements--may need intubation....
apprec all consultants' input
prognosis guarded....
Assessment / Plan
Assessment / Plan
pt is a 54 year old male
C4-C7 cervical laminectomy for epidural abscess drainage on April 28, 2024 --developed upper and lower extremity weakness/plegia with inability to move required emergent transfer 04/28--NOE drain removed April 30, dangelo will remain in place
through May 19, 2024--continue vancomycin with possibility of switching to daptomycin--pain control, some improvement--consult neuro for opinion
inverted T waves on EKG--cards consulted--want to start IV heparin--consult neuro
MRSA bacteremia with MRSA UTI with septic shock--pressor dependent on Levophed--unable to be weaned at the [facility]--on 6 mics here--wean to off as able keeping mean arterial pressure greater than 65--hold on IV fluids as patient
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
ejection fraction 60%, no RV strain, normal pulmonary artery pressures, this was done prior to extubation--patient finished diuresis on April 28, 2024 and Proctor catheter was taken out April 29--ID team recommended looking at left hip prosthetic
with fracture if blood cultures do not clear as a possible source-- stress dose steroids on 50 mg every 6 IV hydrocortisone
acute hypoxemic respiratory failure required intubation with extubation on April 30 likely due to sepsis MRSA bacteremia with MRSA UTI --on HI GURMEET max with intermittent NRB mask (perhaps acute lung injury?) --remains on --apprec ID and
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
type 2 DM insulin requiring- (uncontrolled)-now on glycemic protocol with insulin drip at 22 units per hour-HGB A1C 16.9--reconsult DM Friday
Acute Left comminuted nondisplaced greater trochanter fracture from acute fall--patient was seen by 2 orthopedic groups here and the orthopedic group at [facility]--all 3 have recommended no surgical interventions with weightbearing as tolerated and
follow-up as an outpatient with his orthopedic doctor --however, [facility] ID team recommending taking a look at the hardware as a potential source of ongoing infection if blood cultures do not clear--may need ortho reconsult
bilateral LE edema-- bilateral LE US neg for DVT--left arm neg for DVT--patient finished diuresis on 04/28/2024 at [facility]--Proctor catheter was removed on 04/29/2024
History of chronic pancreatitis--Unclear etiology, possibly from alcohol or other substance abuse--Home medications include pancreatic enzymes, Creon 2 caps with meals--Remains on home enzyme replacement therapy
Hyperthyroidism/hypothyroidism--Per history, home med list prior to first admission here showed methimazole 15 mg daily--Does have history of sinus tachycardia that is likely related--if patient's tachycardia continues to increase, would consider
restarting methimazole--consider hecking TSH but pt is critically ill and will not be accurate
Hereditary hemochromatosis--Per history, no HFE gene mutation analysis per records here (in 2007, liver iron concentration very high at 7340)
DVT prophylaxis: Subcutaneous heparin
CODE STATUS: Full code
pt critically ill, prognosis guarded at best......
Total Critical Care Time 38 minutes. I was immediately available to the patient and staff. I personally examined, reviewed labs, diagnostic images/reports, interpretations, treatment plans, discussed patient care with other providers and family
or caregivers (if patient is unable to make decisions), entered orders as appropriate and documented the medical record.
Anticipated Discharge: > 48 hours
Subjective/Interval History
-
Date of Service: May 02, 2024
pt c/o his eye are burning from the O2--pt said amenable to intubation if need be
Objective Data
-
Labs:
Laboratory Results
05/01/24 05/02/24 05/02/24
22:14 00:33 04:10
WBC 21.8 H 27.6 H
Hgb 8.1 L 8.3 L
Hct 25.8 L 26.2 L
Plt Count 553 H D 555 H
HCO3 33.4 H
Sodium 141 145
Potassium 4.8 4.4
Chloride 104 107
Carbon Dioxide 32 H 30
BUN 33 H 33 H
Creatinine 0.5 L 0.5 L
Glucose 279 H 270 H
Calcium 8.2 L 8.3 L
Total Bilirubin 0.3
AST 18
ALT 17
Alkaline Phosphatase 249 H
Vital Signs:
max temp for 24 hours
05/01/24
19:00
Temp 99 F
Vital Signs
Temp Pulse Resp BP Pulse Ox
98.5 F 86 19 95/63 99
05/02/24 05:00 05/02/24 05:00 05/02/24 05:00 05/02/24 05:00 05/02/24 08:08
I&O
05/01/24 05/02/24 05/03/24
06:59 06:59 06:59
Intake Total 1245 / 1245
Output Total 1540 / 1540
Balance -295 / -295
Review of Systems
-
Unable to obtain full review of systems at this time due to: Acuity
Physical Exam
-
General: Appears Chronically Ill
HEENT: Normocephalic, Atraumatic and Oxygen (max at HI GURMEET with NRB mask at times)
Respiratory: Rhonchi (all lung linares)
Cardiac: Regular Rhythm and S1/S2; Negative Murmur
GI: Soft, Nontender, Nondistended and Normal Bowel Sounds
Genito-urinary: Proctor
Musculoskeletal: No Clubbing and No Cyanosis; Negative No Edema (bilateral edema x 4)
Skin: Other (early heel skin changes from pressure injury)
Neuro: Awake and Alert
Psych: Agitated
[2024-05-02] MEDS: LIDOCAINE 4% PATCH 1 PATCH TOPICAL (08:46)
[2024-05-02] MEDS: NSS (PRESERVATIVE FREE) 10 ML IV (08:47)
[2024-05-02] MEDS: PROTONIX IV 40 MG IV (08:47)
[2024-05-02 08:52] LABS: Glucose - Point of Care 184 mg/dl (70-99)
--- NOTE | 2024-05-02 08:53 | PHA.VAN.FU ---
Vancomycin Assessment / Plan
- Assessment
Renal Function: Stable
WBC's are: Trending Up
In the past 24 hrs, patient has been: Afebrile
- Dosing Plan
Continue: Vanc 1750mg IV Q12H
- Monitoring Plan
Peak Level: 05/02 at 2130
Trough Level: 05/03 at 0530
- Follow Up
Pharmacy will continue to follow.
Vancomycin Follow UP
- -
Patient Age: 54
Patient Sex: Male
Vancomycin Day #: 9 (total antibiotics - switched to daptomycin 04/27 then back to vanco at [facility])
Indication: Bacteremia (epidural abscess)
Requesting Provider: Dr. Mejia
Pertinent Antimicrobial Allergies:
no pertinent antibiotic allergies
Height / Weight:
Height 6 ft
Actual Weight 85.4 kg
Pertinent Past Medical History: DM, IV SHANTELL
- Vital Signs / Lab Results
Temp Pulse Resp BP Pulse Ox
98.5 F 86 19 95/63 99
05/02/24 05:00 05/02/24 05:00 05/02/24 05:00 05/02/24 05:00 05/02/24 08:08
Lab Results - Hematology
05/01/24 05/02/24
22:14 04:10
WBC 21.8 H 27.6 H
Lab Results - Chemistry
05/01/24 05/02/24
22:14 04:10
BUN 33 H 33 H
Creatinine 0.5 L 0.5 L
Estimated Creat Clear > 125 > 125
Albumin 2.1 L
[2024-05-02] MEDS: DAILY VITAMIN/CENTRUM 15 ML TUBE (09:00)
[2024-05-02 09:13] LABS: Glucose - Point of Care 147 mg/dl (70-99)
--- NOTE | 2024-05-02 09:19 | CON.CAR ---
Consultation
Consultation Request
Date/Time Consultation Requested: May 02, 2024
Date/Time Consultation Performed: May 02 2024
Requesting Provider: Tellez
Performing Provider: Hospitalist
Reason for Consultation: Chest pain
Medical History
-
Chief Complaint: Chest pain
History of Present Illness:
54-year-old male who has an extensive past medical history who is reporting to nursing constant central chest pain which also in the notes has been reported as back pain. Initial troponin is negative. He does have T wave inversions in lead V2 and
V3 compared to prior electrocardiograms. He has been transferred back from [facility] after a C4-C7 cervical decompression and NEELIMA which demonstrated no cardiac vegetation which was performed due to persistent MRSA bacteremia. Cultures from overnight
are currently pending. His white count and hemoglobin are noted.
PCP: None, previously discharged from Dr. Bates's office for noncompliance 05/2023, multiple no-shows with [facility]-residency program
Home Health Caregiver: none as an outpatient, seen by [facility] during previous admission in 2019
Past medical history
Admitted with back pain after a fall at home 5 days prior, 04/24/24
Sepsis
Septic shock
MRSA bacteremia
IVDA
Acute hypoxemic respiratory failure
Acute HFpEF
Left greater trochanter fracture
TME
Chronic pancreatitis
DM 2
h/o Mediterranean fever
Hemochromatosis
HTN
HLD-Hypertriglyceridemia
Severe Fatty Liver Disease
Chronic pancreatitis
DM II
RA
Multiple fractures including hip and pelvic (was very active as a child and young adult with sports including Equestrian sports)
Chronic pain
ECHO 05/15/20: EF 60-65%, mild cLVH
Echo 04/26/24: EF 54%, D-shaped septum c/w RV pressure overload, mild MR, mild aortic sclerosis with trace aortic regurgitation, borderline dilated RV with RV hypokinesis and moderate PHTN with PAP 54 to 59 mmHg
Past Medical History
Past Surgical History: Orthopedic
Social History
Tobacco: Smoker
Alcohol: None
Drug: Former User
Personal: Other
Living: Other
Employment: Other
Family History
Family History: Reviewed & Not Pertinent
Allergies / Home Medications
Allergy/AdvReac Type Severity Reaction Status Date / Time
venom-honey bee Allergy PASSED OUT Verified 04/24/24 11:44
[bee venom (honey bee)] AFTER
STING/ANAPHYLAXIS
�Medication �Instructions �Recorded �Confirmed �Type
acetaminophen 160 mg/5 mL oral 500 mg feeding tube Q6H 05/01/24 05/01/24 History
elixir
bisacodyl 10 mg rectal suppository 10 mg MA DAILY PRN constipation 05/01/24 05/01/24 History
famotidine 20 mg tablet 20 mg PO BID 05/01/24 05/01/24 History
folic acid 1 mg tablet 1 mg PO DAILY 05/01/24 05/01/24 History
heparin, porcine (PF) 5,000 5,000 unit SC Q8H 05/01/24 05/01/24 History
unit/mL injection syringe
hydrocortisone sod succinate 100 100 mg IV Q6H 05/01/24 05/01/24 History
mg solution for injection
(Solu-Cortef)
hydromorphone 0.2 mg/mL injection 0.4 mg Q1H Pain 05/01/24 05/01/24 History
solution
insulin aspart U-100 100 unit/mL 1 sliding scale dose SC DIRECTED 05/01/24 05/01/24 History
(3 mL) subcutaneous pen (Novolog
FlexPen U-100 Insulin aspart)
lidocaine 5 % topical patch 1 patch topical DAILY 05/01/24 05/01/24 History
multivitamin with minerals-iron 15 ml PO DAILY 05/01/24 05/01/24 History
fumarate 9 mg iron/15 mL oral
liquid (Multi Vitamin)
polyethylene glycol 3350 17 gram 17 g PO DAILY 05/01/24 05/01/24 History
oral powder packet (Miralax)
sennosides 8.6 mg tablet (senna) 8.6 mg PO DAILY 05/01/24 05/01/24 History
thiamine HCl (vitamin B1) 100 mg 100 mg feeding tube DAILY 05/01/24 05/01/24 History
tablet
vancomycin 1.5 gram/500 mL in 0.9 1.5 g IV Q8H 05/01/24 05/01/24 History
% sodium chloride intravenous soln
Review of Systems
-
All other systems: Negative unless noted
Cardiac: Chest Pain
Musculoskeletal: Muscle Pain
Physical Exam
Vital Signs
Temp Pulse Resp BP Pulse Ox
98.5 F 86 19 95/63 99
05/02/24 05:00 05/02/24 05:00 05/02/24 05:00 05/02/24 05:00 05/02/24 08:08
Lab Results
05/02/24 04:10
05/02/24 04:10
Troponin I < 0.012 ng/ml 05/02/24 04:59
Physical Exam
General: Well Developed and Well Nourished
HEENT: Normocephalic and Anicteric
Respiratory: Clear
Cardiac: S1/S2 and Regular Rhythm
Breast: Deferred by me
GI: Soft, Non Tender and Non Distended
Rectal: Deferred by Provider
Musculoskeletal: No Clubbing and No Cyanosis
Skin: Warm and Dry
Neuro: Awake, Alert and Oriented
Hematologic/Lymphatic: No Lymphadenopathy
Psych: Calm
Impression / Plan
-
PCP: None, previously discharged from Dr. Bates's office for noncompliance 05/2023, multiple no-shows with [facility]-residency program
Home Health Caregiver: none as an outpatient, seen by [facility] during previous admission in 2019
Impression:
Admitted with back pain after a fall at home 5 days prior, 04/24/24
Sepsis
Septic shock
MRSA bacteremia
IVDA
Acute hypoxemic respiratory failure
Acute HFpEF
Left greater trochanter fracture
TME
Chronic pancreatitis
DM 2
h/o Mediterranean fever
Hemochromatosis
HTN
HLD-Hypertriglyceridemia
Severe Fatty Liver Disease
Chronic pancreatitis
DM II
RA
Multiple fractures including hip and pelvic (was very active as a child and young adult with sports including Equestrian sports)
Chronic pain
ECHO 05/15/20: EF 60-65%, mild cLVH
Echo 04/26/24: EF 54%, D-shaped septum c/w RV pressure overload, mild MR, mild aortic sclerosis with trace aortic regurgitation, borderline dilated RV with RV hypokinesis and moderate PHTN with PAP 54 to 59 mmHg
-His pain may indeed be noncardiac in nature. He does have nonspecific ST-T changes in the anterior precordium but given his overall medical picture including sepsis, persistent MRSA bacteremia, recent neurosurgery in his cervical spine and fresh
surgical site I am reticent to consider aspirin or heparin in this patient. Happy to communicate with his neurosurgical team or neurosurgical team locally to assess risks of consideration of these therapies if indeed he is found to have a positive
troponin. Currently his initial troponin is negative and his pain appears to be musculoskeletal
-Will perform echo at bedside to see if there is any focal wall motion abnormalities in the anterior wall
-Agree with serial troponin
-Currently his blood pressure on pressor support for sepsis would not allow antianginals and as such would perform observant management at this time. Aim to keep hemoglobin greater than 8 if possible to to decrease myocardial oxygen demand
-We will follow closely with you
Data Reviewed
-
EKG: Tracing Personally Visualized and interpreted
Medical Tests (Nuc Med, Echo etc): Image Personally Visualized and interpreted
Labs: Labs Reviewed by me
Old Records: Requested
[2024-05-02] MEDS: REFRESH EYE DROPS (PF) 1 DROPS OPHTH (09:24)
--- NOTE | 2024-05-02 09:31 | W.PN.ID1 ---
Date of Service
Date of Service: May 02, 2024
Today's Communication
Continue Vancomycin.
Assessment / Plan
MRSA bacteremia -sustained, persistent
- 04/29/24 NEELIMA no vege at [facility]
C4-C7 epidural abscess
- 04/28/24 s/p laminectomy, decompression at [facility].
-OR cx MRSA
septic shock
- on levophed
- on steroid
Acute hypoxic respiratory failure on high-flow oxygen
Elevated ESR, CRP
Leukocytosis - partially due to steroid effect
Fever
Dysphagia - NGT in place
Hyperglycemia
Illicit drug use (opiates, amphetamines) <- may have been source of MRSA
Left hip fracture
Asthma
GERD
Hypertension
Dyslipidemia
Diabetes mellitus
Anxiety/depression
Chronic pancreatitis
Hemochromatosis
Recommendations:
Continue with Vancomycin. Follow levels
Continue daily blood culture until bacteremia cleared.
Follow white count and temperature curve.
Continue ICU supportive care.
Prognosis guarded.
Chief Complaint
-: Bacteremia and Other (epidural abscess)
Subjective / Review of Systems
Multiple complaints - back pain, SOB, weak
Vital Signs / Physical Exam
Vital Signs
Vital Signs
Temp Pulse Resp BP Pulse Ox
98.5 F 86 19 95/63 99
05/02/24 05:00 05/02/24 05:00 05/02/24 05:00 05/02/24 05:00 05/02/24 08:08
Physical Exam
Constitutional: Acutely Ill
Eyes: Sclera Anicteric
Cardiovascular: Regular Rate and S1/S2
Pulmonary: Clear (anteriorly)
Gastrointestinal: Soft, Non Tender and Non Distended
Extremities: Edema
Neurological: Other (Lethargic)
Objective Data
Lab Data
Lab Results
05/02/24 04:10
05/02/24 04:10
Estimated Creat Clear > 125 ml/min 05/02/24 04:10
Total Bilirubin 0.3 mg/dl (0.2-1.3) 05/02/24 04:10
AST 18 U/L (17-59) 05/02/24 04:10
ALT 17 U/L (0-50) 05/02/24 04:10
Alkaline Phosphatase 249 U/L (38-126) H 05/02/24 04:10
Most recent labs reviewed.
Micro Results:
05/02/24 01:49 Blood Culture - Pending
Blood/Venous
[2024-05-02] MEDS: LEVOPHED 250 IV ×2 (09:40→20:05)
[2024-05-02 10:16] LABS: Urine Albumin Negative (Neg - Trace); Urine Bilirubin Negative (Negative); Urine Character Clear (Clear); Urine Color Yellow; Urine Glucose Negative (Negative); Urine Ketone Negative (Negative); Urine Leukocyte Negative (Negative); Urine Nitrite Negative (Negative); Urine Occult Blood Negative (Negative); Urine Specific Gravity 1.015 (<1.030); Urine Urobilinogen Negative (Neg - 1+)
[2024-05-02 10:18] LABS: Glucose - Point of Care 155 mg/dl (70-99)
--- NOTE | 2024-05-02 10:23 | CON.INTV ---
Consultation
Consultation Request
Date/Time Consultation Requested: 05/02/2024
Date/Time Consultation Performed: 05/02/2020
Requesting Provider: Dr. Mejia
Performing Provider: Dr. Jose David Pickett
Reason for Consultation: Septic shock/hypoxemic respiratory failure
Medical History
-
History of Present Illness:
Michael Villa is a 54-year-old male, DM, poor self-care, not following with doctors, methamphetamine abuse, who initially presented emergency room on 04/24/2024 via ambulance following a reported fall that occurred 5 days prior with significant
left upper back pain, along with left hip pain since that time. Patient was in septic shock with sustained MRSA bacteremia/acute hypoxemic respiratory failure possibly acute lung injury/pulmonary edema. Due to persistent bacteremia and ongoing
back pain. Further imaging performed.
MRI T-spine concerning for epidural abscess/osteo of C5- C7 level. He was transfered to [facility] on 04/28/2024. He underwent emergent C4-C7 laminectomy, cervical decompression. OR cx +MRSA The PICC line and white removed 04/29/.
Blood cx persistently positive at [facility]. 04/29 NEELIMA negative vegetation.
He remained on Vancomycin. He failed speech eval-NG tube in place.
Pt was transferred back to 04/30/24. Today, he continues to have back pain and asking for pain med.
Hypoxemic requiring high flow oxygen despite x-ray improved compared to prior.
Has increased work of breathing at rest.
Asking for pain medications.
Feels thirsty
Past Medical History
Past Medical History: Other (See assessment and plan)
Family History
Family History: Unable to Obtain
Allergies / Home Medications
Allergies
Allergy/AdvReac Type Severity Reaction Status Date / Time
venom-honey bee Allergy PASSED OUT Verified 04/24/24 11:44
[bee venom (honey bee)] AFTER
STING/ANAPHYLAXIS
Home Medications
�Medication �Instructions �Recorded �Confirmed �Last Taken �Type
acetaminophen 160 mg/5 mL oral 500 mg feeding tube Q6H 05/01/24 05/01/24 Unknown History
elixir
bisacodyl 10 mg rectal suppository 10 mg NE DAILY PRN constipation 05/01/24 05/01/24 Unknown History
famotidine 20 mg tablet 20 mg PO BID 05/01/24 05/01/24 Unknown History
folic acid 1 mg tablet 1 mg PO DAILY 05/01/24 05/01/24 05/01/24 08:00 History
heparin, porcine (PF) 5,000 5,000 unit SC Q8H 05/01/24 05/01/24 05/01/24 05:00 History
unit/mL injection syringe
hydrocortisone sod succinate 100 100 mg IV Q6H 05/01/24 05/01/24 05/01/24 05:00 History
mg solution for injection
(Solu-Cortef)
hydromorphone 0.2 mg/mL injection 0.4 mg Q1H Pain 05/01/24 05/01/24 05/01/24 05:00 History
solution
insulin aspart U-100 100 unit/mL 1 sliding scale dose SC DIRECTED 05/01/24 05/01/24 05/01/24 05:00 History
(3 mL) subcutaneous pen (Novolog
FlexPen U-100 Insulin aspart)
lidocaine 5 % topical patch 1 patch topical DAILY 05/01/24 05/01/24 04/30/24 04:00 History
multivitamin with minerals-iron 15 ml PO DAILY 05/01/24 05/01/24 05/01/24 09:00 History
fumarate 9 mg iron/15 mL oral
liquid (Multi Vitamin)
polyethylene glycol 3350 17 gram 17 g PO DAILY 05/01/24 05/01/24 05/01/24 09:00 History
oral powder packet (Miralax)
sennosides 8.6 mg tablet (senna) 8.6 mg PO DAILY 05/01/24 05/01/24 05/01/24 09:00 History
thiamine HCl (vitamin B1) 100 mg 100 mg feeding tube DAILY 05/01/24 05/01/24 05/01/24 09:00 History
tablet
vancomycin 1.5 gram/500 mL in 0.9 1.5 g IV Q8H 05/01/24 05/01/24 05/01/24 07:00 History
% sodium chloride intravenous soln
Review of Systems
-
Unable to Obtain full review of systems at this time due to: Acuity
Vitals / Labs / Diagnostic Testing
Vital Signs
Temp Pulse Resp BP Pulse Ox
98.5 F 86 19 95/63 99
05/02/24 05:00 05/02/24 05:00 05/02/24 05:00 05/02/24 05:00 05/02/24 08:08
Lab Data
05/02/24 04:10
05/02/24 04:10
Laboratory Results
05/02/24
00:33
pH 7.46 H
pCO2 47
pO2 144 H
HCO3 33.4 H
O2 Delivery Level
Diagnostic Testing:
Assessment
-
Patient is a 54-year-old male with previous history of IDDM, anxiety and depression, alcohol abuse with chronic pancreatitis, hypertension, hereditary hemochromatosis, asthma presenting via ambulance for a fall that occurred 5 days ago with
persistent left upper back pain and left hip pain. He admits to noncompliance with his medications. Arrived to hypotensive, tachycardic and hypoxemic. He was it is late on the floor somnolent for a few days. He had been using marijuana,
injecting and snorting methamphetamines. UDS indicating positive screening for oxycodone and meth/amphetamines. Alcohol level negative. Elevated beta hydroxybutyrate, UA possibly demonstrating UTI. CT obtained of chest abdomen pelvis showing
small to moderate bilateral pleural effusions and left greater trochanteric fracture. He is placed on pressors for hypotension, and admitted to ICU.
Subsequently diagnosed with cervical epidural abscess-transferred to [facility] underwent laminectomy and decompression. 04/28/2024.
Negative NEELIMA. Persistently positive cultures for MRSA.
Persistently in shock. Persistently hypoxemic. Transferred back to the critical care unit [facility] 05/01/2024
Septic shock
MRSA bacteremia-source possibly due to IVDA
Persistently positive blood cultures as of 04/29/2024
Cervical epidural abscess status postlaminectomy and decompression 04/28/2024 [facility]
Acute respiratory failure: Suspect acute lung injury/possibly MRSA pneumonia as well
Bilateral pleural effusions: Likely to hypovolemia, fluid resuscitation. Volume overload
Acute left greater trochanteric fracture, left hip pain status post fall
Positive urine culture for MRSA
Leukocytosis
Hyperglycemia-necessitating insulin drip
Polysubstance abuse including marijuana, methamphetamines
Medical noncompliance
TME likely from sepsis
Conditions present prior to admission
Transfer to [facility] for laminectomy due to persistent MRSA bacteremia 04/28/2024 status post laminectomy and decompression
Adm DH 03/15/2020: Acute on chronic pancreatitis triggered by alcohol use
GERD
Chronic abdominal pain/pancreatitis
Pancreatic pseudocyst per imaging, 4.1 cm
History of hypertriglyceridemia
Admitted with DKA 12/2019
Hemochromatosis s/p liver biopsy; phlebotomy every 6 weeks (Prashanth)
Chronic back pain/sciatica s/p hemilaminectomy
Hypertension
Essential tremor
History of asthma, on Symbicort
Anxiety/depression
Former smoker
Former alcohol abuse
Bilateral hip replacement
Insulin-dependent diabetes
Opioid dependence
Hyperlipidemia
Assessment and plan:
Remains critically ill: Persistently requiring low-dose vasopressors, hypoxemic requiring high flow oxygen.
Transferred back from [facility] after cervical laminectomy/decompression for epidural MRSA abscess 05/01/2024.
-
MRSA bacteremia/epidural cervical abscess status post decompression [facility] 04/28/2024
Persistently positive blood cultures as of 04/29/2024.
Persistent leukocytosis/monitor fever curve
Repeat blood cultures pending
NEELIMA at [facility] negative
If persistently bacteremic may need to contemplate seeding of left hip hardware-he is a status post hip replacement in 2008.
Discussed with infectious disease
-
Septic shock-currently on 6 mics of Levophed.
Continue Levophed to target mean arterial blood pressure 65 mmHg
No further fluid resuscitation required.
IV fluids have been discontinued
Placed on hydrocortisone for relative adrenal insufficiency-continue without change for now
Prior to transfer to [facility] patient got significant diuresis.
Repeat chest x-ray 05/01/2024: Showed persistent bibasilar infiltrate but improved pulmonary edema pattern.
-
Continues to complain of chest and back pain. Suspect chest pain musculoskeletal
Due to new EKG changes: Nonspecific ST-T wave abnormalities.
Initial troponin negative
New echocardiogram performed 05/02/2024-results pending
Echocardiogram 04/26/2024: D-shaped septum consistent with RV pressure overload. EF 44%. Mild MR. Mild aortic sclerosis. Borderline RV with RV hypokinesis and moderate pulmonary hypertension. Bilateral pleural effusions.
Cardiology following.
Correspondence reviewed, considering starting antiplatelets and heparin drip.
-
Hold home meds while hypotensive.
04/27/2024 lower extremity Dopplers negative. Upper left extremity Doppler negative for DVT.
Suspect RV dysfunction likely related to hypoxemia and underlying parenchymal lung disease-doubt thromboembolic disease.
Repeat echocardiogram pending
Persistently hypoxemic
-
Acute hypoxemic respiratory failure: Suspect volume overload based on increased proBNP as well as bilateral groundglass opacities on CAT scan/chest x-ray with bilateral pleural effusions.
Initial proBNP was elevated. Patient was diuresed.
Chest x-ray 05/01/2024 improved pulmonary edema pattern.
I suspect degree of acute lung injury/atelectasis/perhaps also MRSA pneumonia.
No further diuretics-patient shock
Continue oxygen supplementation-high flow oxygen to maintain pulse ox above 90%. Currently 100% FiO2, 50 L/min.
Monitor closely.
At risk for intubation and mechanical ventilation
Full code
-
Status post thoracentesis, 04/28/2024-transudate.
Suspect due to heart failure and low albumin state
Culture negative.
-
Not bronchospastic.? Prior history of asthma.
As needed nebulizers
-
Back pain/anxiety: Narcotics for pain. Monitor respiratory status closely-history of chronic back pain status postsurgery
Lorazepam for anxiety and possible some degree of withdrawal.
Zanaflex as needed
Incentive spirometry encouraged. Limited by pain.
Likely developing some degree of dependent atelectasis due to ongoing narcotic usage.
-
Failed speech evaluation.
Keep Dobbhoff tube-tube feeding
Aspiration precautions, HOB > 30 degrees
History of pancreatitis, neg acute findings on CT AP this admission.
-
Renal function is normal.
Follow urine output, critical I/Os-White in place
Replete electrolytes as needed
-
Chronic anemia-will transfuse as necessary
Hemoglobin trending lower
Thrombocytosis-likely reactive
Not coagulopathic
Follow CBC
-
H/o diabetes, can continue on home meds, SS for coverage
Hyperglycemic. Continue insulin drip
s/p L femur fracture after a fall this admission, ortho consult placed-prior history of left hip replacement back in 2008
Per Ortho, periprosthetic fracture (greater trochanter), but fortunately no operative management will be recommended at this time. He will continue to be NWB with no active or passive abduction.
-
Discussed with patient severity of his situation 04/28/2024. Cannot rule out that patient will end up on mechanical ventilation. He is agreeable to go on mechanical ventilation. Continue with aggressive care
We will follow

Diagnostic Data
Chest X-Ray: 01/21/21-The lung volumes are mildly decreased bilaterally. The tracheal air column is slightly deviated to the right. There is no focal airspace opacity suspicious for pneumonia. There is no pleural effusion or pneumothorax. The
cardiomediastinal silhouette is mildly enlarged. There is no radiographic evidence for acute pulmonary edema.
CT Scan: [facility] 04/24/24- 1. Small to moderate bilateral pleural effusions with associated consolidation/atelectasis.
2. Confluent pleural-based consolidation within the lingula measures up to 2.4 cm. Infectious/inflammatory bronchiolitis change in the bilateral upper lobes. Cannot rule out superimposed pulmonary contusions and/or underlying nodules.
3. Comminuted minimally displaced fracture of the left greater trochanter extending to the underlying prosthesis.
Stable simple bilateral renal cysts
Echocardiogram on 05/15/2020: Normal LVEF. Ejection fraction 60-65%. Mild LVH.
02/19/21- Technically difficult study. Normal left ventricular chamber size and left ventricular systolic function. Left ventricular ejection fraction is 55-60% . Mild concentric left ventricular hypertrophy.
Normal diastolic function. Trace mitral regurgitation. Aortic sclerosis without stenosis. Trace tricuspid regurgitation. Estimated pulmonary artery pressure of 30-35 mmHg assuming a right atrial pressure of 0-5 mmHg. Compared to study dated
05/15/2020, no significant change.
PFT's:
Reports and relevant images were personally reviewed.
-----
Critical care time 55 mins -- this includes review of history, physical exam, medications, hemodynamic/ventilator parameters, laboratory data, imaging and discussion with house staff, pharmacy, respiratory therapy, observer gravity prospecting, and nursing. Extensive
time spent on complexity of case.
--- NOTE | 2024-05-02 11:16 | CON.NEURO ---
Consultation
Order
Date of Consultation: 05/02/24
Requesting Provider: Carmen Mejia MD
Reason for Consult: Safety of anticoagulation following cervical laminectomy
CC: ' I want to get up'
HPI: This is a 54-year-old man who presented to [facility] on 04/24/2024 with sepsis and was found to have epidural cervical abscess. Neurology consultation was requested to comment on the safety of potential anticoagulation need for
possible acute coronary syndrome given patient's complaints of chest pain.
The patient endorses dull nonpositional and nonpleuritic moderate to severe pain. No reports of the pain in the legs or paresthesias.
The patient underwent C4-C7 laminectomy in [facility] on 04/28/2024.
VS: 95/63(LUZ min 84/44(05/02/2024), 86, afebrile, 94% on on high flow NC
EKG(05/02/2024) NSR, T wave inversion in anterior leads, QTc Int : 487 ms
PDMP:no recently prescribed meds
MAR: Hydromorphone 4 mg 05/02/24 09:25 am,
Labs(05/02/2024): Glucose�270, WBCs�21.8�27.6, platelets 553-555, hemoglobin 8.1-8.3, normal sodium, creatinine, unremarkable UA, TN-neg
ua tox(04/24/2024) positive for amphetamines, oxycodone.
CT chest/abdomen/pelvis(04/24/2024)- pleural effusions.
PMH: hereditary hemochromatosis, HTN, DM, hypothyroidism, GERD, hepatic steatosis, chronic pancreatitis, celiac disease, chronic pain syndrome, polysubstance addiction, ALMA DELIA,
PSH: C4-C7 laminectomy, appendectomy, L UMU, L L2-L5 laminectomy, liver biopsy
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
All: NKDA
ROS: positive for arms and leg weakness, pain in the upper body, encephalopathy, dysphagia
General: Well developed. In no acute distress.
Cardio: Regular rate and rhythm without murmur. Extremities are without cyanosis or edema.
Neuro:
Mental Status: Alert, oriented to place, month, year, not to day or date. Labile mood. Follows simple requests consistently. No aphasia or hemineglect.
Cranial Nerves: . Pupils are equally round and reactive to light. EOMs full. BTT BL No ptosis. No nystagmus. V1-V3 intact to light touch and pinprick bilaterally, symmetric. Face symmetric. Normal hearing AU. The palate elevated well. SCMs
and traps 5/5. Tongue midline. No dysarthria.
Motor: flaccid proximal>distal quadriparesis. Distal leg movements, proximal-within bedplane
Reflexes: 0+ throughout the upper extremities and knees. 0/2 in AJs. Plantar responses flexor bilaterally.
Sensory: states that vibration at the toes is normal
Coordination: to tremors or myoclonic movements
Gait: deferred
Assessment and Plan:
I. Extrinsic cervical myelopathy, status post decompression. Probable postlaminectomy syndrome.
II. Multifactorial encephalopathy (infectious (bacteremia), toxic(Hydromorphone), vascular (hypotension)
III. History of chronic pain syndrome and polysubstance addiction.
-Avoid cerebral hypoperfusion,
-Continue thiamine,
-Please check TFTs, ammonia
-Brain MRI without alma delia to rule out embolic septic infarcts to be able to comment on the potential need for systemic anticoagulation
-Start gabapentin 300 mg nightly with titration as tolerated. Wean off opioids
-Addictive psychiatry consult.
I personally reviewed all radiology and labs along with past medical records pertinent to current medical problems. Total time spent in patient care is 60 minutes.
Thank you for allowing us to participate in the care of this patient. We will continue to follow. Please do not hesitate to contact us with any questions or concerns.
Subjective/Objective
Subjective Data
Date of Service: May 02, 2024
Objective Data
Vital Signs
Temp Pulse Resp BP Pulse Ox
36.9 C 86 19 95/63 99
05/02/24 05:00 05/02/24 05:00 05/02/24 05:00 05/02/24 05:00 05/02/24 08:08
Lab Results
05/02/24 04:10
05/02/24 04:10
Sodium 145 mmol/L (135-145) 05/02/24 04:10
Potassium 4.4 mmol/L (3.5-5.1) 05/02/24 04:10
BUN 33 mg/dl (9-20) H 05/02/24 04:10
Glucose 270 mg/dl (70-99) H 05/02/24 04:10
Calcium 8.3 mg/dl (8.4-10.2) L 05/02/24 04:10
Patient Allergies
venom-honey bee [bee venom (honey bee)] Allergy (Verified 04/24/24 11:44)
PASSED OUT AFTER STING/ANAPHYLAXIS
Medications
-
Active Medications
Generic Name Dose Route Start Last Admin
Trade Name Freq PRN Reason Stop Dose Admin
Acetaminophen 500 mg 05/01/24 18:00 05/02/24 05:00
Acetaminophen (Oral Solution) 650 Mg/20.3 Ml Cup TUBE 05/29/24 17:59 500 mg
Q6H CYNDI Administration
Artificial Tears 1 drops 05/02/24 08:41 05/02/24 09:24
Artificial Tears Pf (Refresh) 10 Drop Droperette OPHTH 05/30/24 08:40 1 drops
QIDPRN PRN Administration
dry eye
Bisacodyl 10 mg 05/01/24 13:43
Bisacodyl 10 Mg Rectal Suppository RECTAL 05/29/24 13:42
DAILYPRN PRN
constipation
Dextrose 12.5 grams 05/01/24 15:00
Dextrose 50% (0.5 Grams/Ml) 50 Ml Syringe IV 05/29/24 14:59
[id number] PRN
hypoglycemia
Protocol
Dextrose 12.5 grams 05/02/24 01:13
Dextrose 50% (0.5 Grams/Ml) 50 Ml Syringe IV 05/30/24 01:12
[id number] PRN
BLOOD GLUCOSE < 70
Famotidine 20 mg 05/01/24 20:00 05/02/24 08:44
Famotidine 20 Mg Tablet TUBE 05/29/24 19:59 20 mg
BID CYNDI Administration
Folic Acid 1 mg 05/02/24 08:00 05/02/24 08:45
Folic Acid 1 Mg Tablet TUBE 05/30/24 07:59 1 mg
DAILY CYNDI Administration
Glucagon 1 mg 05/01/24 15:00
Glucagon 1 Mg Vial IM 05/29/24 14:59
PRN PRN
hypoglycemia - no IV access
Protocol
Heparin Sodium 5,000 units 05/01/24 20:00 05/02/24 08:45
Heparin 5,000 Units/Ml 1 Ml Vial SC 05/29/24 19:59 5,000 units
Q12 CYNDI Administration
Hydrocortisone Sodium Succinate 50 mg 05/01/24 14:00 05/02/24 08:47
Hydrocortisone Sodium Succinate 100 Mg/2 Ml Vial IV 05/29/24 13:59 50 mg
Q6H CYNDI Administration
Hydromorphone HCl 4 mg 05/01/24 13:46 05/02/24 09:25
Hydromorphone 4 Mg Tablet TUBE 05/15/24 13:45 4 mg
Q4HPRN PRN Administration
severe pain
Hydromorphone HCl 2 mg 05/01/24 13:46
Hydromorphone 2 Mg Tablet TUBE 05/15/24 13:45
Q4HPRN PRN
moderate pain
Norepinephrine Bitartrate 4 mg in 250 mls @ 0 mls/hr 05/01/24 13:30 05/02/24 09:40
Levophed IV 250 mls
PER PROTOCOL CYNDI Administration
Protocol
Per Protocol
Vancomycin HCl 1,750 mg/ 535 mls @ 267.5 mls/hr 05/01/24 18:00 05/02/24 05:01
Sodium Chloride IV 535 mls
Q12@0600,1800 CYNDI Administration
Protocol
Insulin Human Regular 100 units in 100 mls @ 0 mls/hr 05/02/24 01:15 05/02/24 08:33
Novolin R Insulin Infusion IV 100 mls
PER PROTOCOL CYNDI Administration
Protocol
Per Protocol
Lidocaine 1 patch 05/02/24 08:00 05/02/24 08:46
Lidocaine 4% Topical Patch TOPICAL 05/30/24 07:59 1 patch
DAILY CYNDI Administration
Multivitamins 15 ml 05/02/24 08:00 05/02/24 09:00
Multiple Vitamin Oral Liquid 15 Ml Cup TUBE 05/30/24 07:59 15 ml
DAILY CYNDI Administration
Pantoprazole Sodium 40 mg 05/02/24 08:00 05/02/24 08:47
Pantoprazole Sodium 40 Mg/10 Ml Vial IV 05/30/24 07:59 40 mg
DAILY CYNDI Administration
Patch Removal 0 patch 05/02/24 20:00
Remove Lidocaine Patch REMOVE 05/30/24 19:59
DAILY@2000 CYNDI
Sodium Chloride 0 flush 05/01/24 14:00
Sodium Chloride 0.9% (Flush) Syringe IV 05/29/24 13:59
PER PROTOCOL CYNDI
Sodium Chloride 10 ml 05/02/24 08:00 05/02/24 08:47
Sodium Chloride 0.9% (Preservative Free) 10 Ml Vial IV 05/30/24 07:59 10 ml
DAILY CYNDI Administration
Thiamine HCl 100 mg 05/02/24 08:00 05/02/24 08:25
Thiamine 100 Mg Tablet TUBE 05/30/24 07:59 100 mg
DAILY CYNDI Administration
Home Medications
�Medication �Instructions �Recorded
acetaminophen 160 mg/5 mL oral 500 mg feeding tube Q6H 05/01/24
elixir
bisacodyl 10 mg rectal suppository 10 mg [place] DAILY PRN constipation 05/01/24
famotidine 20 mg tablet 20 mg PO BID 05/01/24
folic acid 1 mg tablet 1 mg PO DAILY 05/01/24
heparin, porcine (PF) 5,000 5,000 unit SC Q8H 05/01/24
unit/mL injection syringe
hydrocortisone sod succinate 100 100 mg IV Q6H 05/01/24
mg solution for injection
(Solu-Cortef)
hydromorphone 0.2 mg/mL injection 0.4 mg Q1H Pain 05/01/24
solution
insulin aspart U-100 100 unit/mL 1 sliding scale dose SC DIRECTED 05/01/24
(3 mL) subcutaneous pen (Novolog
FlexPen U-100 Insulin aspart)
lidocaine 5 % topical patch 1 patch topical DAILY 05/01/24
multivitamin with minerals-iron 15 ml PO DAILY 05/01/24
fumarate 9 mg iron/15 mL oral
liquid (Multi Vitamin)
polyethylene glycol 3350 17 gram 17 g PO DAILY 05/01/24
oral powder packet (Miralax)
sennosides 8.6 mg tablet (senna) 8.6 mg PO DAILY 05/01/24
thiamine HCl (vitamin B1) 100 mg 100 mg feeding tube DAILY 05/01/24
tablet
vancomycin 1.5 gram/500 mL in 0.9 1.5 g IV Q8H 05/01/24
% sodium chloride intravenous soln
Vital Signs and Labs
-
Vital Signs and Labs:
Vital Signs
Temp Pulse Resp BP Pulse Ox
36.9 C 86 19 95/63 94
05/02/24 05:00 05/02/24 05:00 05/02/24 05:00 05/02/24 05:00 05/02/24 11:16
Lab Results
05/02/24 04:10
05/02/24 04:10
Sodium 145 mmol/L (135-145) 05/02/24 04:10
Potassium 4.4 mmol/L (3.5-5.1) 05/02/24 04:10
BUN 33 mg/dl (9-20) H 05/02/24 04:10
Glucose 270 mg/dl (70-99) H 05/02/24 04:10
Calcium 8.3 mg/dl (8.4-10.2) L 05/02/24 04:10
Medications
-
Medications:
Generic Name Dose Route Start Last Admin
Trade Name Freq PRN Reason Stop Dose Admin
Acetaminophen 500 mg 05/01/24 18:00 05/02/24 05:00
Acetaminophen (Oral Solution) 650 Mg/20.3 Ml Cup TUBE 05/29/24 17:59 500 mg
Q6H CYNDI Administration
Artificial Tears 1 drops 05/02/24 08:41 05/02/24 09:24
Artificial Tears Pf (Refresh) 10 Drop Droperette OPHTH 05/30/24 08:40 1 drops
QIDPRN PRN Administration
dry eye
Bisacodyl 10 mg 05/01/24 13:43
Bisacodyl 10 Mg Rectal Suppository RECTAL 05/29/24 13:42
DAILYPRN PRN
constipation
Dextrose 12.5 grams 05/01/24 15:00
Dextrose 50% (0.5 Grams/Ml) 50 Ml Syringe IV 05/29/24 14:59
[id number] PRN
hypoglycemia
Protocol
Dextrose 12.5 grams 05/02/24 01:13
Dextrose 50% (0.5 Grams/Ml) 50 Ml Syringe IV 05/30/24 01:12
[id number] PRN
BLOOD GLUCOSE < 70
Famotidine 20 mg 05/01/24 20:00 05/02/24 08:44
Famotidine 20 Mg Tablet TUBE 05/29/24 19:59 20 mg
BID CYNDI Administration
Folic Acid 1 mg 05/02/24 08:00 05/02/24 08:45
Folic Acid 1 Mg Tablet TUBE 05/30/24 07:59 1 mg
DAILY CYNDI Administration
Glucagon 1 mg 05/01/24 15:00
Glucagon 1 Mg Vial IM 05/29/24 14:59
PRN PRN
hypoglycemia - no IV access
Protocol
Heparin Sodium 5,000 units 05/01/24 20:00 05/02/24 08:45
Heparin 5,000 Units/Ml 1 Ml Vial SC 05/29/24 19:59 5,000 units
Q12 CYNDI Administration
Hydrocortisone Sodium Succinate 50 mg 05/01/24 14:00 05/02/24 08:47
Hydrocortisone Sodium Succinate 100 Mg/2 Ml Vial IV 05/29/24 13:59 50 mg
Q6H CYNDI Administration
Hydromorphone HCl 4 mg 05/01/24 13:46 05/02/24 09:25
Hydromorphone 4 Mg Tablet TUBE 05/15/24 13:45 4 mg
Q4HPRN PRN Administration
severe pain
Hydromorphone HCl 2 mg 05/01/24 13:46
Hydromorphone 2 Mg Tablet TUBE 05/15/24 13:45
Q4HPRN PRN
moderate pain
Norepinephrine Bitartrate 4 mg in 250 mls @ 0 mls/hr 05/01/24 13:30 05/02/24 09:40
Levophed IV 250 mls
PER PROTOCOL CYNDI Administration
Protocol
Per Protocol
Vancomycin HCl 1,750 mg/ 535 mls @ 267.5 mls/hr 05/01/24 18:00 05/02/24 05:01
Sodium Chloride IV 535 mls
Q12@0600,1800 CYNDI Administration
Protocol
Insulin Human Regular 100 units in 100 mls @ 0 mls/hr 05/02/24 01:15 05/02/24 08:33
Novolin R Insulin Infusion IV 100 mls
PER PROTOCOL CYNDI Administration
Protocol
Per Protocol
Lidocaine 1 patch 05/02/24 08:00 05/02/24 08:46
Lidocaine 4% Topical Patch TOPICAL 05/30/24 07:59 1 patch
DAILY CYNDI Administration
Multivitamins 15 ml 05/02/24 08:00 05/02/24 09:00
Multiple Vitamin Oral Liquid 15 Ml Cup TUBE 05/30/24 07:59 15 ml
DAILY CYNDI Administration
Pantoprazole Sodium 40 mg 05/02/24 08:00 05/02/24 08:47
Pantoprazole Sodium 40 Mg/10 Ml Vial IV 05/30/24 07:59 40 mg
DAILY CYNDI Administration
Patch Removal 0 patch 05/02/24 20:00
Remove Lidocaine Patch REMOVE 05/30/24 19:59
DAILY@2000 CYNDI
Sodium Chloride 0 flush 05/01/24 14:00
Sodium Chloride 0.9% (Flush) Syringe IV 05/29/24 13:59
PER PROTOCOL CYNDI
Sodium Chloride 10 ml 05/02/24 08:00 05/02/24 08:47
Sodium Chloride 0.9% (Preservative Free) 10 Ml Vial IV 05/30/24 07:59 10 ml
DAILY CYNDI Administration
Thiamine HCl 100 mg 05/02/24 08:00 05/02/24 08:25
Thiamine 100 Mg Tablet TUBE 05/30/24 07:59 100 mg
DAILY CYNDI Administration
Home Medications
-
Home Medications
acetaminophen 160 mg/5 mL oral elixir 500 mg feeding tube Q6H 05/01/24
bisacodyl 10 mg rectal suppository 10 mg [place] DAILY PRN constipation 05/01/24
famotidine 20 mg tablet 20 mg PO BID 05/01/24
folic acid 1 mg tablet 1 mg PO DAILY 05/01/24
heparin, porcine (PF) 5,000 unit/mL injection syringe 5,000 unit SC Q8H 05/01/24
hydrocortisone sod succinate 100 mg solution for injection (Solu-Cortef) 100 mg IV Q6H 05/01/24
hydromorphone 0.2 mg/mL injection solution 0.4 mg Q1H Pain 05/01/24
insulin aspart U-100 100 unit/mL (3 mL) subcutaneous pen (Novolog FlexPen U-100 Insulin aspart) 1 sliding scale dose SC DIRECTED 05/01/24
lidocaine 5 % topical patch 1 patch topical DAILY 05/01/24
multivitamin with minerals-iron fumarate 9 mg iron/15 mL oral liquid (Multi Vitamin) 15 ml PO DAILY 05/01/24
polyethylene glycol 3350 17 gram oral powder packet (Miralax) 17 g PO DAILY 05/01/24
sennosides 8.6 mg tablet (senna) 8.6 mg PO DAILY 05/01/24
thiamine HCl (vitamin B1) 100 mg tablet 100 mg feeding tube DAILY 05/01/24
vancomycin 1.5 gram/500 mL in 0.9 % sodium chloride intravenous soln 1.5 g IV Q8H 05/01/24
[2024-05-02 11:29] LABS: Glucose - Point of Care 116 mg/dl (70-99)
[2024-05-02 12:14] LABS: Glucose - Point of Care 97 mg/dl (70-99)
[2024-05-02 13:28] LABS: Glucose - Point of Care 94 mg/dl (70-99)
[2024-05-02 14:05] LABS: Ammonia 16 umol/L (9-30)
[2024-05-02 14:17] LABS: Troponin I < 0.012 ng/ml
[2024-05-02 14:36] LABS: TSH Reflex To Free T4 3.19 uIU/ml (0.47-4.68)
--- NOTE | 2024-05-02 14:40 | PTCARENOTE ---
Complete assessment done and documented. Pt is oriented x3, but very forgetful. HR SR, levephed has been titrated throughout day, see worklist, presently at 4 mcg/min, BP 92/55. Pt on reg insulin drip, accu checks started at q 1 hr, and presently q
2hrs. Reg insulin drip presently at 1.2 units/hr. Pt 99% sat on highflow O2, RR 15. Pt with dobhoff, jevity 1.5 received at 40 ml/hr with 25 ml water flush, has been increased to 60 ml/hr with 25 ml water flush. Proctor cath in place, draining mod at
yellow urine. +BS noted. Mouth care, pericare done, pt turned q 2 hrs. Pt's sister in room and updated. Dr Pickett and Dr Marie both in room today, to see and assess pt.
[2024-05-02 15:17] LABS: Glucose - Point of Care 108 mg/dl (70-99)
--- NOTE | 2024-05-02 15:22 | PTCARENOTE ---
Trop remains neg <0.112, both ammonia and TSH values are within norm values. Pt presently at levophed3 mcg/min. dilaudid 4 mg given via FT as pt's request for whole body pain.
[2024-05-02 17:22] LABS: Glucose - Point of Care 116 mg/dl (70-99)
[2024-05-02 19:15] LABS: Glucose - Point of Care 178 mg/dl (70-99)
--- NOTE | 2024-05-02 20:32 | PTCARENOTE ---
Assumed care of pt. @ 190.
Remains on max HHF settings, low dose norepi, Insulin gtt.
Persistent complaints of pain, unable to ascertain characteristics, PRNs given.
Remains oriented to simple conversation, however difficult to get true neuro assessment due to pt. using repetitive phrases, difficult to redirect.
Normocephalic, pupils =/R 3mm brisk, Decreased movement in lower extrem, upper extrem weak but equal movement, appears focally intact.
NSR w/o ectopy, Normothermic, SBP remaining over goal of 90 on low dose norepi, see titration flowsheet.
HHF max settings SP02 range 94-97 percent, Tachypneic, irregular breathing, Rhonchi bilaterally.
Proctor in place trending I/O, OP 75-140 mL/HR, sediment cloudy katia urine.
Edema increasing to +3 in upper extrem, scrotal edema +2.
All questions answered bedside, family updated on plan of care.
[2024-05-02 20:47] LABS: Troponin I < 0.012 ng/ml
[2024-05-02] MEDS: DEXTROSE 50% SYRINGE 12.5 GRAMS IV (20:59)
[2024-05-02 21:08] LABS: Glucose - Point of Care 67 mg/dl (70-99)
[2024-05-02 21:23] LABS: Glucose - Point of Care 113 mg/dl (70-99)
[2024-05-02 21:38] LABS: Vancomycin Peak 22.3 ug/ml (18-26)
[2024-05-02 22:15] LABS: Glucose - Point of Care 77 mg/dl (70-99)
[2024-05-02] MEDS: NEURONTIN 300 MG TUBE (23:05)
[2024-05-02 23:15] LABS: Glucose - Point of Care 102 mg/dl (70-99)
[2024-05-03] VITALS (53 sets, daily range): BP systolic 84–118; BP diastolic 50–77; BMI 25.7
[2024-05-03 00:18] LABS: Glucose - Point of Care 127 mg/dl (70-99)
--- NOTE | 2024-05-03 00:26 | PTCARENOTE ---
1 Hypoglycemic event, protocol followed, gtt remains on.
Pt. found to be hypothermic, chandana hugger applied, has reached goal temp, chandana hugger off.
pain seems to be resolving, as patient noted to be getting more sleep.
[2024-05-03 01:14] LABS: Glucose - Point of Care 132 mg/dl (70-99)
[2024-05-03] MEDS: SOLU-CORTEF 50 MG IV ×4 (01:56→21:18)
[2024-05-03 02:11] LABS: Glucose - Point of Care 146 mg/dl (70-99)
[2024-05-03 03:19] LABS: Glucose - Point of Care 124 mg/dl (70-99)
--- NOTE | 2024-05-03 03:26 | PTCARENOTE ---
Pt. sp02 range 87-91 max HHF w/ nonrebreather.
[2024-05-03 04:21] LABS: Hematocrit 23.6 % (39.0-52.0); Hemoglobin 7.5 g/dL (13.0-18.0); Mean Corp Hgb Conc. 31.8 g/dL (33.0-37.0); Mean Corpuscular Volume 84.9 fL (80.0-94.0); Mean Platelet Volume 9.4 fL (7.4-10.4); Platelet Count 664 10^3/uL (130-400); Red Blood Cell Count 2.78 10^6/uL (4.70-6.10); Red Cell Dist. Width 14.2 % (11.5-14.5); White Blood Cell Count 26.3 10^3/uL (4.8-10.8)
[2024-05-03 04:40] LABS: ALT (SGPT) 16 U/L (0-50); AST (SGOT) 17 U/L (17-59); Alkaline Phosphatase 229 U/L (38-126); Blood Urea Nitrogen 27 mg/dl (9-20); Calcium 8.1 mg/dl (8.4-10.2); Carbon Dioxide 34 mmol/L (22-30); Chloride 106 mmol/L (98-107); Estimated Creatinine Clearance > 125 ml/min; Glucose 101 mg/dl (70-99); Magnesium 1.8 mg/dl (1.6-2.3); Potassium 4.7 mmol/L (3.5-5.1); Sodium 146 mmol/L (135-145); Total Bilirubin 0.2 mg/dl (0.2-1.3); Total Protein 5.6 g/dl (6.3-8.2); eGFR > 60.00
[2024-05-03 04:46] LABS: Vancomycin Trough 14.1 ug/ml (5-20)
[2024-05-03] MEDS: VANCOCIN 535 MG IV (05:02)
[2024-05-03] MEDS: TYLENOL ORAL SOLUTION 500 MG TUBE ×4 (05:02→23:20)
[2024-05-03] MEDS: NOVOLIN R INSULIN INFUSION 100 IV ×2 (05:03→08:56)
[2024-05-03 05:20] LABS: Glucose - Point of Care 126 mg/dl (70-99)
[2024-05-03] MEDS: LEVOPHED 250 IV ×2 (05:56→17:32)
--- NOTE | 2024-05-03 06:12 | PTCARENOTE ---
Pt. desatting low 80s, nonrebreather placed on top of HHF, icu yana notified.
--- NOTE | 2024-05-03 07:18 | W.PN.HOSP.TC ---
Today's Communication/Plan
-
see A/P
Assessment / Plan
Assessment / Plan
A/P:
# cervical epidural abscess s/p C4-C7 cervical laminectomy and drainage on April 28, 2024 at [place]
upper and lower extremity weakness/plegia with inability to move, required emergent transfer 04/28
NOE drain removed April 30, dangelo to remain in place through May 19, 2024
continue vancomycin with possibility of switching to daptomycin
ID Following
pain control
neuro on board, rec MRI brain to rule out embolic septic infarcts
# MRSA bacteremia
# MRSA UTI
# septic shock
still with persistently positive MRSA bacteremia, last positive culture 05/02/2024, follow until clearance
Cont Levophed, has been on 6 mcg, aim MAP > 65
hold on IV fluids as patient finished diuresing April 28, 2024
s/p NEELIMA at [place] which showed no vegetations, ejection fraction 60%, no RV strain, normal pulmonary artery pressures, this was done prior to extubation
Consider eval of Left hip prosthesis as alternative source of MRSA bacteremia per ID
Cont stress dose steroids IV hydrocortisone 50 mg Q6H
apprec ID/php mysql developer
# Anemia
Hgb 7.5 from 10.0 on initial presentation
monitor Hgb
# acute hypoxemic respiratory failure, required intubation with extubation on April 30, likely due to sepsis MRSA bacteremia with MRSA UTI
Cont current High flow NC 100% with intermittent NRB mask (perhaps acute lung injury?)
apprec php mysql developer
# chest pain appears to be musculoskeletal
# inverted T waves on EKG
Trop negative
cards on board
# type 2 DM, insulin requiring, uncontrolled
now on glycemic protocol with insulin drip
on tube feed
SPL eval prior to restarting diet
A1C at 16.9%
DM LAST REPAIRER HELPER consulted
# Acute Left comminuted nondisplaced greater trochanter fracture from acute fall
patient was seen by 2 orthopedic groups here and the orthopedic group at [facility], all 3 have recommended no surgical interventions with weightbearing as tolerated and follow-up as an outpatient with his orthopedic doctor
however, [facility] ID team recommending taking a look at the hardware as a potential source of ongoing infection if blood cultures do not clear
may need ortho reconsult
# bilateral LE edema
bilateral LE US 04/27 neg for DVT
left arm US 04/27 neg for DVT
patient finished diuresis on 04/28/2024 at [facility]
# History of chronic pancreatitis, Unclear etiology, possibly from alcohol or other substance abuse
Home medications include pancreatic enzymes, Creon 2 caps with meals
Remains on home enzyme replacement therapy
# Hyperthyroidism
Per history, home med list prior to first admission here showed methimazole 15 mg daily
consider restarting methimazole
TSH 3.19
# Hereditary hemochromatosis per history
no HFE gene mutation analysis per records here (in 2007, liver iron concentration very high at 7340)
DVT prophylaxis: switch to Lovenox SQ
CODE STATUS: Full code
pt critically ill, prognosis guarded
DW RN
Total Critical Care Time 45 minutes. I was immediately available to the patient and staff. I personally examined, reviewed labs, diagnostic images/reports, interpretations, treatment plans, discussed patient care with other providers and family
or caregivers (if patient is unable to make decisions), entered orders as appropriate and documented the medical record.
Anticipated Discharge: > 48 hours
Subjective/Interval History
-
Date of Service: May 03, 2024
Objective Data
-
Labs:
Laboratory Results
05/03/24
03:42
WBC 26.3 H
Hgb 7.5 L
Hct 23.6 L
Plt Count 664 H
Sodium 146 H
Potassium 4.7
Chloride 106
Carbon Dioxide 34 H
BUN 27 H
Creatinine 0.4 L
Glucose 101 H
Calcium 8.1 L
Total Bilirubin 0.2
AST 17
ALT 16
Alkaline Phosphatase 229 H
Vital Signs:
Vital Signs
Temp Pulse Resp BP Pulse Ox
36.9 C 85 18 118/77 93
05/03/24 05:30 05/03/24 05:45 05/03/24 05:45 05/03/24 05:30 05/03/24 05:45
I&O
05/02/24 05/03/24 05/04/24
06:59 06:59 06:59
Intake Total 1245 / 1352.5 3041.3 / 3041.3
Output Total 1540 / 1605 1385 / 1385
Balance -295 / -252.5 1656.3 / 1656.3
Review of Systems
-
Unable to obtain full review of systems at this time due to: Acuity
Physical Exam
-
General: Appears Chronically Ill
HEENT: Normocephalic, Atraumatic and Oxygen (max on high flow NC with intermittent need for NRB mask )
Respiratory: Rhonchi (all lung linares)
Cardiac: Regular Rhythm and S1/S2; Negative Murmur
GI: Soft, Nontender, Nondistended and Normal Bowel Sounds
Genito-urinary: Proctor
Musculoskeletal: No Clubbing, No Cyanosis, Edema, Right Lower Extrem and Edema, Left Lower Extrem
Skin: Other (early heel skin changes from pressure injury)
Neuro: Awake and Alert
Psych: Agitated
Data Reviewed
-
CT Scan: Report Reviewed by me
Labs: Labs Reviewed by me
[2024-05-03 07:24] LABS: Glucose - Point of Care 114 mg/dl (70-99)
[2024-05-03] MEDS: PROTONIX IV 40 MG IV (07:35)
[2024-05-03] MEDS: DAILY VITAMIN/CENTRUM 15 ML TUBE (07:36)
[2024-05-03] MEDS: HEPARIN 5000 UNITS SC (07:36)
[2024-05-03] MEDS: FOLVITE 1 MG TUBE (07:36)
[2024-05-03] MEDS: NSS (PRESERVATIVE FREE) 10 ML IV (07:36)
[2024-05-03] MEDS: LIDOCAINE 4% PATCH 1 PATCH TOPICAL (07:37)
[2024-05-03] MEDS: VITAMIN B1 100 MG TUBE (07:37)
[2024-05-03] MEDS: PEPCID 20 MG TUBE ×2 (07:37→21:23)
--- NOTE | 2024-05-03 07:43 | W.PN.INTV ---
Today's Communication / Plan
Recommendations
Antibiotics
Cardiology evaluation
Diuresis as tolerated
Analgesia
Wean norepinephrine
Assessment
-
Patient is a 54-year-old male with previous history of IDDM, anxiety and depression, alcohol abuse with chronic pancreatitis, hypertension, hereditary hemochromatosis, asthma presenting via ambulance for a fall that occurred 5 days ago with
persistent left upper back pain and left hip pain. He admits to noncompliance with his medications. Arrived to hypotensive, tachycardic and hypoxemic. He was it is late on the floor somnolent for a few days. He had been using marijuana,
injecting and snorting methamphetamines. UDS indicating positive screening for oxycodone and meth/amphetamines. Alcohol level negative. Elevated beta hydroxybutyrate, UA possibly demonstrating UTI. CT obtained of chest abdomen pelvis showing
small to moderate bilateral pleural effusions and left greater trochanteric fracture. He is placed on pressors for hypotension, and admitted to ICU.
Subsequently diagnosed with cervical epidural abscess-transferred to [facility] underwent laminectomy and decompression. 04/28/2024.
Negative NEELIMA. Persistently positive cultures for MRSA. Persistently in shock. Persistently hypoxemic. Transferred back to the critical care unit [facility] 05/01/2024
Septic shock
MRSA bacteremia-source possibly due to IVDA
Persistently positive blood cultures as of 04/29/2024
Cervical epidural abscess status postlaminectomy and decompression 04/28/2024 [facility]
Acute respiratory failure: Suspect acute lung injury/possibly MRSA pneumonia as well
Bilateral pleural effusions: Likely to hypovolemia, fluid resuscitation. Volume overload
Acute left greater trochanteric fracture, left hip pain status post fall
Positive urine culture for MRSA
Leukocytosis
Hyperglycemia-necessitating insulin drip
Polysubstance abuse including marijuana, methamphetamines
Medical noncompliance
TME likely from sepsis
Hypothermia
Conditions present prior to admission:
Transfer to [facility] for laminectomy due to persistent MRSA bacteremia 04/28/2024 status post laminectomy and decompression-subsequently transferred back to [facility] on hospital
Initial Adm DH 03/15/2020: Acute on chronic pancreatitis triggered by alcohol use
GERD
Chronic abdominal pain/pancreatitis
Pancreatic pseudocyst per imaging, 4.1 cm
History of hypertriglyceridemia
Admitted with DKA 12/2019
Hemochromatosis s/p liver biopsy; phlebotomy every 6 weeks (Prashanth)
Chronic back pain/sciatica s/p hemilaminectomy
Hypertension
Essential tremor
History of asthma, on Symbicort
Anxiety/depression
Former smoker
Former alcohol abuse
Bilateral hip replacement
Insulin-dependent diabetes
Opioid dependence
Hyperlipidemia
Plan:
Remains critically ill on pressors
Supplemental oxygen as needed
High flow oxygen if needed
Aspiration precautions
Incentive spirometry if able
Mucus clearing devices
Nebulizers as needed
Follow chest x-ray-has had CHF pattern
Cultures reviewed
MRSA bacteremia/epidural cervical abscess
Continue antibiotics
Status post laminectomy and spinal epidural abscess decompression 05/01/2024
Norepinephrine as needed-MAP goal greater than 65
Intravenous fluids
Neurosurgical evaluation
Analgesia as needed
Monitor for oversedation
Diuresis as tolerated
Monitor renal function, electrolytes, intake/output, lower extremity edema and weight
Replace electrolytes as needed
Echocardiogram 04/26/2024: D-shaped septum consistent with RV pressure overload. EF 44%. Mild MR. Mild aortic sclerosis. Borderline RV with RV hypokinesis and moderate pulmonary hypertension. Bilateral pleural effusions.
Echocardiogram 05/02/2024-EF 55-60%, mild mitral regurgitation, PA systolic 40-45
Transesophageal echocardiogram at [facility]-no endocarditis
EKG changes
Troponin negative
Cardiology following-correspondence reviewed
Lower extremity ultrasound-04/27/2024 lower extremity Dopplers negative. Upper left extremity Doppler negative for DVT.
Thoracentesis 04/28/2024-transudate suspect due to heart failure, cultures negative
Monitor hemoglobin
Transfuse as needed
Monitor blood sugar
Insulin supplementation including insulin drip as needed
s/p L femur fracture after a fall this admission-ortho consult placed-prior history of left hip replacement back in 2008
Per Ortho, periprosthetic fracture (greater trochanter), but fortunately no operative management will be recommended at this time.
He will continue to be NWB with no active or passive abduction.
DVT prophylaxis-on Lovenox
GI prophylaxis-on pantoprazole as well as famotidine-discontinue pantoprazole-no longer on ventilator
Nutrition
Early mobilization-nonweightbearing
Critical care statement: A total of 55 minutes of critical care time was provided for this patient today. This includes management of unstable vital signs, evaluation of the patient at bedside, reviewing the patient's pertinent medical records
including radiographs, microbiology, pressor management, sepsis management, insulin drip management, laboratory evaluations, and discussion with primary team, consultants, pharmacy, nutrition, physical therapy, case management, charge nurse,
critical care nursing, and respiratory therapy.

Diagnostic Data
Chest X-Ray: 01/21/21-The lung volumes are mildly decreased bilaterally. The tracheal air column is slightly deviated to the right. There is no focal airspace opacity suspicious for pneumonia. There is no pleural effusion or pneumothorax. The
cardiomediastinal silhouette is mildly enlarged. There is no radiographic evidence for acute pulmonary edema.
CT Scan: [facility] 04/24/24- 1. Small to moderate bilateral pleural effusions with associated consolidation/atelectasis.
2. Confluent pleural-based consolidation within the lingula measures up to 2.4 cm. Infectious/inflammatory bronchiolitis change in the bilateral upper lobes. Cannot rule out superimposed pulmonary contusions and/or underlying nodules.
3. Comminuted minimally displaced fracture of the left greater trochanter extending to the underlying prosthesis.
Stable simple bilateral renal cysts
Echocardiogram on 05/15/2020: Normal LVEF. Ejection fraction 60-65%. Mild LVH.
02/19/21- Technically difficult study. Normal left ventricular chamber size and left ventricular systolic function. Left ventricular ejection fraction is 55-60% . Mild concentric left ventricular hypertrophy.
Normal diastolic function. Trace mitral regurgitation. Aortic sclerosis without stenosis. Trace tricuspid regurgitation. Estimated pulmonary artery pressure of 30-35 mmHg assuming a right atrial pressure of 0-5 mmHg. Compared to study dated
05/15/2020, no significant change.
Reports and relevant images were personally reviewed.
Subjective Dataa
Subjective Data
Date of Service:
Date of Service: May 03, 2024
Chief Complaint: Take Off Man Follow Up and Pulmonary Follow Up
Subjective:
Complaining of pain, asking for Dilaudid, mild shortness of breath, no abdominal pain
Review of Systems
General: Other (Per HPI)
Objective Data
Data Reviewed
Vital Signs / I&O / Oxygen:
Vital Signs
Temp Pulse Resp BP Pulse Ox
98.4 F 85 18 118/77 93
05/03/24 05:30 05/03/24 05:45 05/03/24 05:45 05/03/24 05:30 05/03/24 05:45
Intake and Output
05/02/24 05/03/24 05/04/24
06:59 06:59 06:59
Intake Total 1245 / 1352.5 3041.3 / 3041.3
Output Total 1540 / 1605 1385 / 1385
Balance -295 / -252.5 1656.3 / 1656.3
SaO2 93
Nasal Cannula flow liters per 55
minute
Physical Exam
General: Respiratory Distress (n) and Comfortable
HEENT: Normocephalic, Anicteric and Moist Mucous Membranes
Cardiovascular: Regular Rhythm
Respiratory: Wheeze (n), Crackles (Basilar), Rhonchi ( expiratory), Non-Labored Respirations, Accessory Resp Muscle Use (nn) and Stridor (n)
GI: Soft, Non Distended and Non Tender
Neurology: Awake, Alert and No Motor Deficits
Skin: Warm, Good Color, Cyanosis (n), Jaundice (n) and Rash (n)
Labs/Micro/Reports
Lab Data
05/03/24 03:42
05/03/24 03:42
Microbiology
05/02/24 01:49 Blood/Venous Blood Culture - Preliminary
Positive culture in progress
[2024-05-03 08:05] LABS: % Basophils 0.2 % (0-2); % Immature Granulocytes 1.4 % (0-0.5); % Lymphocytes 5.8 % (20.5-51.1); % Monocytes 2.6 % (1.7-9.3); Absolute Basophils 0.1 10^3/uL (0-0.2); Absolute Immature Granulocytes 0.4 10^3/uL (0-0.05); Absolute Lymphocytes 1.5 10^3/uL (1.2-3.4); Absolute Monocytes 0.7 10^3/uL (0.1-0.6); Absolute Neutrophils 23.7 10^3/uL (1.4-6.5); Nucleated Red Blood Cells % 0 % (-)
--- NOTE | 2024-05-03 08:05 | PN.DE.MGMTRT ---
Insulin Management
- -
05/03/2024: Diabetes Management Consult
54 year oldf male initially admitted to on 04/24 s/p fall with significant left upper back pain and left hip pain due to Acute left greater trochanteric fx and MRI findings consistent with epidural abscess/osteo of C5- C7 level. Pt was transferred
to [facility] on 04/28/2024 and underwent emergent C4-C7 laminectomy, cervical decompression, OR cx +MRSA. He was transferred back to on 04/30/24 for further management of his bacteremia.
PMH: HTN, HLD, Alcohol abuse with acute on chronic pancreatitis, h/o hypertriglyceridemia, Hemochromatosis s/p liver biopsy, GERD, Chronic back pain/sciatica s/p hemilaminectomy, Essential tremor, Asthma, Anxiety/depression, Former smoker, alcohol
abuse, Opioid dependence and IDDM.
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 UDS +oxycodone and meth/amphetamines.
MOTEL KEEPER on 04/24 he was taking Lantus 20 units BID, Lispro 30 units AC, Jardiance 10 mg daily, Metformin 1000 mg BID, and Glipizide 10mg BID but had not taken his meds in 8-9 months. Routinely seeing an Endo at [place]. A1C 16.9%, Cr 0.4, eGFR >60.
Pt sleeping, arouses to name calling, offers no complaints, unable to discuss diabetes plan of care at this time.
Current diabetes regimen includes: Lantus 20 units @ hs and AC NovoLog 12 units. Pt failed speech eval-->NGT
Pt was started on stress dose steroids IV hydrocortisone 50 mg Q6H and Tube feeds contributing to hyperglycemia.
Insulin infusion was initiated on 05/01. He remains on steroids and tube feeds @ 65c/hr.
Glucose range 102 to 146 , requiring 5-8 units on insulin/hr.
Will cont CCGP given high insulin requirements on IV steroids and tube feeds.
Will follow and reassess for readiness to transition off gtt to SQ insulin.
Will resume Farxiga 10mg daily (Jardiance @home) and metformin 1000 mg BID when diet has been started.
Diabetes History
- -
Type of Diabetes: 2 requiring insulin
Pre-Admission Diabetes Regimen
05/03/24
03:42
Creatinine 0.4 L
Insulin Pump Settings
IP Diabetes Regimen
05/02/24 05/02/24 05/02/24
08:40 09:03 10:06
Glucose
POC Glucose 184 H 147 H 155 H
05/02/24 05/02/24 05/02/24
11:17 12:03 13:16
Glucose
POC Glucose 116 H 97 94
05/02/24 05/02/24 05/02/24
15:05 17:11 19:03
Glucose
POC Glucose 108 H 116 H 178 H
05/02/24 05/02/24 05/02/24
20:56 21:12 22:04
Glucose
POC Glucose 67 L 113 H 77
05/02/24 05/03/24 05/03/24
23:03 00:06 01:03
Glucose
POC Glucose 102 H 127 H 132 H
05/03/24 05/03/24 05/03/24
01:59 03:08 03:42
Glucose 101 H
POC Glucose 146 H 124 H
05/03/24 05/03/24
05:09 07:13
Glucose
POC Glucose 126 H 114 H
Patient Education
[2024-05-03] MEDS: DILAUDID 4 MG TUBE ×3 (08:27→21:18)
--- NOTE | 2024-05-03 08:45 | PTCARENOTE ---
Received pt sleeping.Eyes open to voice.Follows commands consistently.3/5 bl upper ext.2/5 bl low ext.bl weak hand grasps.Weak cough.c/o severe whole body pain.Medicated with Dilaudid as requested.SR noted.Glycemic Insulin and Levophed gtts
infusing.High Flow O2 60l 100% with NRB mask.POX 91-96%Diminished breath sounds with scattered rhonchi noted.Weak non productive cough.Pt encouraged to cough and deep breath.Dobbhoff intact with tube feedings.Proctor draining yellow urine.Skin
integrity as documented.Plan of care discussed.
--- NOTE | 2024-05-03 08:45 | W.PN.CARDCBS ---
Today's Communication / Plan
-
Continues to complain of chest pains. Echo and troponins are normal. EKG does have anterior T wave abnormalities.
Repeat troponin today. Check amylase lipase.
Continue supportive care with vancomycin and Levophed.
Transesophageal echo at [facility] had no endocarditis.
Impression / Plan
-
PCP: None, previously discharged from Dr. Bates's office for noncompliance 05/2023, multiple no-shows with [facility]-residency program
[employer]: none as an outpatient, seen by [facility] during previous admission in 2019
Impression:
Admitted with back pain after a fall at home 5 days prior, 04/24/24
Sepsis
Septic shock
MRSA bacteremia
IVDA
Acute hypoxemic respiratory failure
Acute HFpEF
Left greater trochanter fracture
TME
Chronic pancreatitis
DM 2
h/o Mediterranean fever
Hemochromatosis
HTN
HLD-Hypertriglyceridemia
Severe Fatty Liver Disease
Chronic pancreatitis
DM II
RA
Multiple fractures including hip and pelvic (was very active as a child and young adult with sports including Equestrian sports)
Chronic pain
ECHO 05/15/20: EF 60-65%, mild cLVH
Echo 04/26/24: EF 54%, D-shaped septum c/w RV pressure overload, mild MR, mild aortic sclerosis with trace aortic regurgitation, borderline dilated RV with RV hypokinesis and moderate PHTN with PAP 54 to 59 mmHg
Echo 05/02/2024, EF 55 to 60% with no LV wall motion abnormality, mild MR, mild TR PA pressure 40-45
Plan:
-He continues to complain of chest pain and shoulder pains although his troponins are serial negative. Echo with no clear wall motion abnormality although his EKG does have anterior T wave abnormalities.
-The etiology of his chest pain remains unclear. Possible musculoskeletal pains? Consider CT scan of the chest. Check amylase/lipase
-Will repeat troponin today to continue to follow.
-Blood pressure remains low. Continue supportive care with Levophed.
-Continues to have MRSA in the blood from 05/02/24. Continue broad-spectrum antibiotics.
-We will follow
Progress Note - [employer]
Subjective
Date of Service: May 03, 2024
Continues to complain of chest pains. He states it is in both of his shoulders
Objective
Labs:
05/03/24 03:42
05/03/24 03:42
Labs
Hgb 7.5 g/dL (13.0-18.0) L 05/03/24 03:42
Hct 23.6 % (39.0-52.0) L 05/03/24 03:42
Plt Count 664 10^3/uL (130-400) H 05/03/24 03:42
Sodium 146 mmol/L (135-145) H 05/03/24 03:42
Potassium 4.7 mmol/L (3.5-5.1) 05/03/24 03:42
BUN 27 mg/dl (9-20) H 05/03/24 03:42
Creatinine 0.4 mg/dL (0.7-1.3) L 05/03/24 03:42
Glucose 101 mg/dl (70-99) H 05/03/24 03:42
Troponins
05/02/24 05/02/24 05/02/24
04:36 04:59 13:39
Troponin I Cancelled < 0.012 < 0.012
05/02/24
20:18
Troponin I < 0.012
Vital Signs and I&O:
Vital Signs
Temp Pulse Resp BP Pulse Ox
99.1 F 89 23 105/60 92
05/03/24 08:03 05/03/24 08:30 05/03/24 08:30 05/03/24 08:30 05/03/24 08:30
Vital Signs
Temp Pulse Resp BP Pulse Ox
99.1 F 89 23 105/60 92
05/03/24 08:03 05/03/24 08:30 05/03/24 08:30 05/03/24 08:30 05/03/24 08:30
Intake & Output
05/01/24 05/02/24 05/03/24 05/04/24
06:59 06:59 06:59 06:59
Intake Total 1245 / 1352.5 3041.3 / 3158.8 235.0 / 235.0
Output Total 1540 / 1605 1385 / 1435 350 / 350
Balance -295 / -252.5 1656.3 / 1723.8 -115.0 / -115.0
Physical Exam
Physical Exam
GEN: No distress, awake, anxious
HEENT: supple, anicteric, mmm
LUNGS: bilat rhonchi
CV: Reg, S1/S2, 1/6 syst LSB, no gallop
ABD: soft, BS+, NT/ND
EXT: No edema
NEURO: Gross non-focal
SKIN: No rash
--- NOTE | 2024-05-03 08:47 | PHA.VAN.FU ---
Vancomycin Assessment / Plan
- Assessment
Renal Function: Stable
WBC's are: Stable
In the past 24 hrs, patient has been: Afebrile
- Assessment - Therapeutic Drug Monitoring
Extrapolated Cmax (mcg/mL): 24.8
Peak level was drawn: Appropriately (drawn ~1.5H after end of previous infusion)
Extrapolated Cmin (mcg/mL): 12.4
Trough Drawn: Appropriately
Levels were drawn: At steady state (levels drawn after 3rd dose of new regimen)
Calculated AUC (mcg*h/mL): 432
Calculated ke: 0.0695
Calculated half life (H): 10
Calculated Vd (L): 116 (~1.3)
Calculated Vanc CL (ml/min): 135
- Dosing Plan
Continue: Vanc 1750mg Q12H
- Monitoring Plan
No level(s) ordered at this time: consider repeat levels later this week to ensure levels stable
- Follow Up
Pharmacy will continue to follow.
Vancomycin Follow UP
- -
Patient Age: 54
Patient Sex: Male
Vancomycin Day #: 10 (total antibiotics - switched to daptomycin 04/27 then back to vanco at [facility])
Indication: Bacteremia (epidural abscess)
Requesting Provider: Dr. Mejia
Pertinent Antimicrobial Allergies:
no pertinent antibiotic allergies
Height / Weight:
Height 6 ft
Actual Weight 86 kg
Pertinent Past Medical History: DM, IV SHANTELL
- Vital Signs / Lab Results
Temp Pulse Resp BP Pulse Ox
99.1 F 89 23 105/60 92
05/03/24 08:03 05/03/24 08:30 05/03/24 08:30 05/03/24 08:30 05/03/24 08:30
Lab Results - Hematology
05/01/24 05/02/24 05/03/24
22:14 04:10 03:42
WBC 21.8 H 27.6 H 26.3 H
Lab Results - Chemistry
05/01/24 05/02/24 05/03/24
22:14 04:10 03:42
BUN 33 H 33 H 27 H
Creatinine 0.5 L 0.5 L 0.4 L
Estimated Creat Clear > 125 > 125 > 125
Albumin 2.1 L 2.0 L
Lab Results - Urine
05/02/24
09:52
Urine Nitrite (Reflex) Negative
Leukocyte Esterase Rfl Negative
Microbiology Results
05/02/24 01:49 Blood Culture - Preliminary
Blood/Venous Positive culture in progress
Gram Stain - Preliminary
Therapeutic Drug Monitoring
Vancomycin Peak 22.3 ug/ml (18-26) 05/02/24 21:06
Vancomycin Trough 14.1 ug/ml (5-20) 05/03/24 03:42
[2024-05-03 09:10] LABS: Glucose - Point of Care 105 mg/dl (70-99)
--- NOTE | 2024-05-03 10:28 | W.PN.ID1 ---
Date of Service
Date of Service: May 03, 2024
Today's Communication
Continue antibiotics. Transition to daptomycin and ceftaroline.
Assessment / Plan
MRSA bacteremia -sustained & persistent
- 04/29/24 NEELIMA no veg at [facility]
C4-C7 epidural abscess
- 04/28/24 s/p laminectomy, decompression at [facility].
- OR cx: MRSA
septic shock
- on Levophed
- on steroid
Acute hypoxic respiratory failure : on high-flow oxygen
Elevated ESR, CRP
Leukocytosis
- likely component of steroid effect
Fever
Dysphagia - NGT in place
Hyperglycemia
Illicit drug use (opiates, amphetamines) <- may have been source of MRSA
Left hip fracture
Asthma
GERD
Hypertension
Dyslipidemia
Diabetes mellitus
Anxiety/depression
Chronic pancreatitis
Hemochromatosis
Recommendations:
Given ongoing bacteremia. Transition to daptomycin, with the addition of ceftaroline in an attempt to gain control of bacteremia
Continue daily blood culture until bacteremia cleared.
Follow white count and temperature curve.
Neurology has been consulted.
Patient remains critically ill in intensive care unit on pressors.
Continue ICU supportive care.
Prognosis extremely guarded.
����������������������������������������������������������
Chief Complaint
-: Bacteremia and Other (Cervical epidural abscess)
Subjective / Review of Systems
Patient seen and examined. Reports generalized pain, along with bilateral arm pain.
Review of Systems: No Fever
Vital Signs / Physical Exam
Vital Signs
Vital Signs
Temp Pulse Resp BP Pulse Ox
99.1 F 89 23 105/60 92
05/03/24 08:03 05/03/24 08:30 05/03/24 08:30 05/03/24 08:30 05/03/24 08:30
Physical Exam
Constitutional: Acutely Ill and Non-toxic
Head: Normocephalic
Eyes: Pupils Equal, Pupils Round, No Conjunctival Hemorrhage and Sclera Anicteric
Cardiovascular: Regular Rate and S1/S2; Negative S3/S4 or Murmur
Pulmonary: Coarse and Other (On high flow O2)
Gastrointestinal: Soft, Non Distended, Decreased Bowel Sounds, No Rebound and No Guarding
Extremities: Edema (3+ bilateral lower extremities, bilateral upper extremities); Negative Erythema, Splinter Hemorrhage, Venous Insufficiency or Janeway Lesions
Skin: Warm and Dry; Negative Rash or Jaundice
Neurological: Awake and Other (No motor movement in lower extremities. Only proximal motor strength in upper extremities.)
Psychological: Calm
Objective Data
Lab Data
Lab Results
05/03/24 03:42
05/03/24 03:42
Estimated Creat Clear > 125 ml/min 05/03/24 03:42
Total Bilirubin 0.2 mg/dl (0.2-1.3) 05/03/24 03:42
AST 17 U/L (17-59) 05/03/24 03:42
ALT 16 U/L (0-50) 05/03/24 03:42
Alkaline Phosphatase 229 U/L (38-126) H 05/03/24 03:42
Most recent labs reviewed.
Micro Results:
05/02/24 01:49 Blood Culture - Preliminary
Blood/Venous Positive culture in progress
Gram Stain - Preliminary
05/03/24 03:42 Blood Culture - Pending
Blood/Venous
[2024-05-03 10:30] LABS: Lipase 12 U/L (23-300)
--- NOTE | 2024-05-03 11:59 | PTCARENOTE ---
Addendum entered by Mag Bush RN 05/03/24 15:41:
Pt's sister had questions regarding antibiotics and source of infection. She asked 'Could this be from his needle use?'.
Original Note:
Pt's sister called the unit for an update.Phone call returned.Plan of care discussed.
[2024-05-03] MEDS: LASIX 20 MG IV (12:20)
[2024-05-03] MEDS: TEFLARO 270 MG IV ×2 (12:20→21:27)
[2024-05-03] MEDS: CUBICIN 20 MG IV (12:21)
[2024-05-03] MEDS: NEURONTIN 600 MG TUBE ×2 (12:22→21:24)
--- NOTE | 2024-05-03 12:23 | WOUNDNOTE ---
CERVICAL/UPPER SPINE INCISION
[2024-05-03 12:24] LABS: Glucose - Point of Care 96 mg/dl (70-99)
--- NOTE | 2024-05-03 12:25 | WOUNDNOTE ---
[facility] RN note: Patient admitted with cervical epidural abscess. Transferred to [facility] 04/28/24 from for immediate cervical laminectomy and decompression. He had a Dobhoff at [facility]. Patient extubated 04/30/24 at [facility]. Patient transferred back to
05/01/24 for medical management.
See H&P for complete history.
PMH: septic shock, +MRSA bacteremia, cervical abscess, IV drug use, chronic pancreatitis r/t previous ETOH abuse, hemochromatosis, IDDM, L hip replacement for fracture, LE edema, anxiety disorder, back surgery L4-5.
Wound Location and type/assessment: Patient admitted with: unstageable sacral pressure injury with yellow/brown necrosis and pink/purple ecchymosis and surrounding dull erythema. L plantar heel unstageable Pressure injury, brown/black in color
without surrounding erythema. +Palpable pedal pulses. +1-2 LE edema. R nare mucosal pressure injury from Dobhoff tube (Dobhoff currently in R nare). Cervical approximated incision with dangelo intact with small ss drainage from mid incision. No
surrounding erythema. Suture noted to R of cervical incision.
Appetite: NPO, on tube feeding.
Pressure redistribution devices in place: Centrella Max air bed. Heels off bed with pillow.
Plan: Sacral and L heel dressings changed. Dry gauze applied to neck incision. Patient turned to R semi side lying position with help from SARAH Anton. Patient's HEALTH AND SAFETY INSPECTOR Kim in room. Heels off bed with pillow. T/c SPD and ordered TruVue lite heel
relief boots. Discussed with SARAH Wilder.
Will confirm orders with Dr. Branch.
Care plan to be updated and will follow as needed.
Note to case management of equipment requested for discharge: air mattress at SNF/rehab.
Recommend follow up at wound care center upon discharge.
--- NOTE | 2024-05-03 12:26 | WOUNDNOTE ---
[facility] RN note: Patient admitted with cervical epidural abscess. Transferred to [facility] 04/28/24 from for immediate cervical laminectomy and decompression. He had a Dobhoff at [facility]. Patient extubated 04/30/24 at [facility]. Patient transferred back to
05/01/24 for medical management.
See H&P for complete history.
PMH: From H+P 'Persistently positive MRSA bacteremia, MRSA urinary tract infection with cervical epidural abscess
Chronic pancreatitis secondary to previous alcohol abuse
Hypothyroidism
Hereditary hemochromatosis
Type 2 diabetes mellitus insulin requiring
IV drug abuse
Recent septic shock as mentioned starting April 24, 2024
Acute hypoxemic respiratory failure requiring 15 L mid flow oxygen and subsequent intubation upon arrival to [facility]
Acute left comminuted nondisplaced greater trochanteric fracture extending into his hip prosthetic
Bilateral lower extremity edema
Essential hypertension
Ophthalmic migraines
Vitamin D deficiency
History of opioid dependence
Hyperlipidemia
Gastro esophageal reflux disease
Generalized anxiety disorder
Past Surgical History: Reports Other
Additional Past Surgical History:
Cervical laminectomy at C4-C7 April 2024
Appendectomy
Left hip replacement
Back surgery previously at L4-L5 unknown timeframe
Liver biopsy
Social History
Tobacco: Other (Unknown)
Alcohol: Other (History of alcohol abuse)
Drug: Other (History of IV drug abuse and narcotic dependency abuse)'
Wound Location and type/assessment: Patient admitted with: unstageable sacral pressure injury with yellow/brown necrosis and pink/purple ecchymosis and surrounding dull erythema. L plantar heel unstageable pressure injury, brown/black in color
without surrounding erythema. +Palpable pedal pulses. +1-2 LE edema. R nare mucosal pressure injury from Dobhoff tube (Dobhoff currently in L nare). Cervical approximated incision with dangelo intact with small ss drainage from mid incision. No
surrounding erythema. Suture noted to R of cervical incision.
Appetite: NPO, on tube feeding.
Pressure redistribution devices in place: Centrella Max air bed. Heels off bed with pillow.
Plan: Sacral and L heel dressings changed. Dry gauze applied to neck incision. Patient turned to R semi side lying position with help from SARAH Anton. Patient's MEDICARE INSURANCE SPECIALIST Kim in room. Heels off bed with pillow. T/c SPD and ordered TruVue lite heel
relief boots. Discussed with SARAH Wilder.
Will confirm orders with Dr. Branch.
Care plan to be updated and will follow as needed.
Note to case management of equipment requested for discharge: air mattress at SNF/rehab.
Recommend follow up at wound care center upon discharge.
--- NOTE | 2024-05-03 12:45 | PTCARENOTE ---
Pt assessed.No change in assessment noted.c/o whole body pain.Increased Neurontin discussed.Repositioned for comfort.
[2024-05-03 13:04] LABS: NT-proBNP 420 pg/ml; Troponin I < 0.012 ng/ml
--- NOTE | 2024-05-03 13:40 | WOUNDNOTE ---
WOC RN note: timer texted Dr. Branch wound updated; Dr. Branch approved local wound care, air mattress, soft heel relief boots; defer to hospitalist if sacral and plantar heel x-ray indicated during hospital stay.
[2024-05-03 13:42] LABS: Glucose - Point of Care 119 mg/dl (70-99)
--- NOTE | 2024-05-03 13:53 | CM ---
CM following re: discharge planning.
Reviewed pt's chart, met with pt.
Pt is a 54 year old male, admitted with primary dx of Sepsis. Per Rounds meeting, pt returns back from [facility], requires 55: HFNC with FIO2 100%, continue supportive care.
Pt lives alone in a 2 story house. The patient has been independent in ADLs and ambulation using his cane until recently when he began using his RW. The patient states he is disabled due to back and hip problems. The patient has no children. His
sister Pam lives next door.
PT and OT will evaluate the pt when clinically appropriate to determine a level of care at discharge.
[facility] team will meet with the pt when clinically appropriate.
PCP - Pascual Bates
Pharmacy - [facility]
D/C plan: uncertain at this time and will depend on pt's progress.
CM will follow with discharge plan updates as hospitalization progresses
--- NOTE | 2024-05-03 14:00 | PTCARENOTE ---
BL TruVue heel protectors applied as ordered.
[2024-05-03 14:46] LABS: Macrocytosis Slight; Normal RBC Morphology No
[2024-05-03 15:45] LABS: Glucose - Point of Care 88 mg/dl (70-99)
--- NOTE | 2024-05-03 16:00 | PTCARENOTE ---
Pt assessed.No change in assessment noted.
[2024-05-03] MEDS: LOVENOX 40 MG SC (17:31)
[2024-05-03 17:38] LABS: Glucose - Point of Care 160 mg/dl (70-99)
[2024-05-03 19:13] LABS: Glucose - Point of Care 153 mg/dl (70-99)
--- NOTE | 2024-05-03 20:41 | PTCARENOTE ---
Assumed care of pt. approx 1900.
Remains on HHF Max Settings weaning as appropriate.
Hemodynamics managed w/ 5 norepi see flowsheet for titration details.
Glycemic protocol insulin gtt remains on, see titration flowsheet for details.
WOC orders completed for sacral, heel, and cervical.
Cervical incision minimal drainage, dangelo intact.
[2024-05-03 21:17] LABS: Glucose - Point of Care 111 mg/dl (70-99)
[2024-05-03] MEDS: REFRESH EYE DROPS (PF) 1 DROPS OPHTH (21:24)
[2024-05-03 23:15] LABS: Glucose - Point of Care 90 mg/dl (70-99)
[2024-05-03] MEDS: MOTRIN 600 MG TUBE (23:19)
[2024-05-04] VITALS (51 sets, daily range): BP systolic 78–125; BP diastolic 41–81; BMI 25.9
--- NOTE | 2024-05-04 00:34 | PTCARENOTE ---
No change in patient assessment.
[2024-05-04 01:13] LABS: Glucose - Point of Care 171 mg/dl (70-99)
[2024-05-04] MEDS: NOVOLIN R INSULIN INFUSION 100 IV (03:15)
[2024-05-04] MEDS: SOLU-CORTEF 50 MG IV ×4 (03:15→22:06)
[2024-05-04 03:16] LABS: Glucose - Point of Care 153 mg/dl (70-99)
[2024-05-04 03:37] LABS: Hemoglobin 7.7 g/dL (13.0-18.0); Mean Corp Hgb Conc. 32.1 g/dL (33.0-37.0); Mean Corpuscular Hgb 27.7 pg (27.0-31.0); Mean Corpuscular Volume 86.3 fL (80.0-94.0); Mean Platelet Volume 9.2 fL (7.4-10.4); Platelet Count 585 10^3/uL (130-400); Red Blood Cell Count 2.78 10^6/uL (4.70-6.10); Red Cell Dist. Width 14.5 % (11.5-14.5); White Blood Cell Count 25.7 10^3/uL (4.8-10.8)
[2024-05-04 03:51] LABS: Blood Urea Nitrogen 25 mg/dl (9-20); Carbon Dioxide 37 mmol/L (22-30); Chloride 104 mmol/L (98-107); Estimated Creatinine Clearance > 125 ml/min; Glucose 140 mg/dl (70-99); Magnesium 1.7 mg/dl (1.6-2.3); Potassium 3.8 mmol/L (3.5-5.1); Sodium 144 mmol/L (135-145); eGFR > 60.00
--- NOTE | 2024-05-04 04:03 | PTCARENOTE ---
HHF weaned down to 50L/70%. SP02 range 90-91.
No further change in pt. assessment.
[2024-05-04 05:10] LABS: Glucose - Point of Care 111 mg/dl (70-99)
[2024-05-04] MEDS: TEFLARO 270 MG IV ×3 (06:12→22:08)
[2024-05-04] MEDS: TYLENOL ORAL SOLUTION 500 MG TUBE ×3 (06:12→17:55)
[2024-05-04 07:58] LABS: Glucose - Point of Care 115 mg/dl (70-99)
--- NOTE | 2024-05-04 07:58 | PN.DE.MGMTRT ---
Insulin Management
- -
05/04/2024: Diabetes Management Consult Follow u
Patient initially admitted to on 04/24 s/p fall with significant left upper back pain and left hip pain due to Acute left greater trochanteric fx and MRI findings consistent with epidural abscess/osteo of C5- C7 level. Pt was transferred to [facility] on
04/28/2024 and underwent emergent C4-C7 laminectomy, cervical decompression, OR cx +MRSA. He was transferred back to on 04/30/24 for further management of his bacteremia.
PMH: HTN, HLD, Alcohol abuse with acute on chronic pancreatitis, h/o hypertriglyceridemia, Hemochromatosis s/p liver biopsy, GERD, Chronic back pain/sciatica s/p hemilaminectomy, Essential tremor, Asthma, Anxiety/depression, Former smoker, alcohol
abuse, Opioid dependence and IDDM.
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 UDS +oxycodone and meth/amphetamines.
Prior to admission was prescribed Lantus 20 units BID, Lispro 30 units AC, Jardiance 10 mg daily, Metformin 1000 mg BID, and Glipizide 10mg BID but had not taken his meds in 8-9 months. Routinely seeing an Endo at [place]. A1C 16.9%, Cr 0.4, eGFR
>60.
Pt sleeping, arouses to name calling, offers no complaints, unable to discuss diabetes plan of care at this time.
Pt receiving steroids IV hydrocortisone 50 mg Q6H and Tube feeds @ 65c/hr. Has required 4 to 8 units of insulin per hour. Will transition from glycemic protocol IV insulin to subcutaneous insulin 18 units lantus now, drip off 2 hours after
lantus administered. Will start novolog 4 units Q 6 hours with low corrective insulin.
Discussed with patients nurse. Will follow.
Diabetes History
- -
Type of Diabetes: 2 requiring insulin
Pre-Admission Diabetes Regimen
05/04/24
03:09
Creatinine 0.4 L
Insulin Pump Settings
IP Diabetes Regimen
05/03/24 05/03/24 05/03/24
08:59 12:14 13:31
Glucose
POC Glucose 105 H 96 119 H
05/03/24 05/03/24 05/03/24
15:33 17:26 19:02
Glucose
POC Glucose 88 160 H 153 H
05/03/24 05/03/24 05/04/24
21:06 23:04 01:02
Glucose
POC Glucose 111 H 90 171 H
05/04/24 05/04/24 05/04/24
03:05 03:09 04:59
Glucose 140 H
POC Glucose 153 H 111 H
05/04/24
07:47
Glucose
POC Glucose 115 H
Patient Education
--- NOTE | 2024-05-04 08:00 | PTCARENOTE ---
Received pt sleeping.Eyes open to voice.Pt sleeps intermittently.Pt c/o severe whole body pain.Received Dilaudid as requested.BL upper extremity 3/5 without hand grasps noted.1/5 movement bl low extremity noted.SR noted.Levophed and Insulin gtts
infusing.Scattered rhonchi with expiratory wheeze noted.Productive cough after am care.Pt expectorating thick jones sputum noted.High Flow O2 60 l 80%.POX 96%Dobbhoff intact with tube feedings.+ BM.Proctor draining yellow urine.Skin integrity as
documented.Plan of care discussed with pt.
[2024-05-04 08:12] LABS: % Basophils 0.2 % (0-2); % Lymphocytes 6.1 % (20.5-51.1); % Neutrophils 90.7 % (42.2-75.2); Absolute Basophils 0.1 10^3/uL (0-0.2); Absolute Immature Granulocytes 0.3 10^3/uL (0-0.05); Absolute Lymphocytes 1.6 10^3/uL (1.2-3.4); Absolute Monocytes 0.5 10^3/uL (0.1-0.6); Absolute Neutrophils 23.3 10^3/uL (1.4-6.5); Nucleated Red Blood Cells % 0 % (-)
--- NOTE | 2024-05-04 08:22 | W.PN.HOSP.TC ---
Today's Communication/Plan
-
see A/P
Assessment / Plan
Assessment / Plan
A/P:
# MRSA bacteremia
# MRSA UTI
# septic shock
still with persistently positive MRSA bacteremia, last positive culture 05/03/2024, follow blood culture until clearance
vancomycin changed to daptomycin and ceftaroline.
Cont Levophed, has been on 6 mcg, aim MAP > 65
Low dose IV lasix 20 mg daily added by Fireman Helper
s/p NEELIMA at [facility] which showed no vegetations, ejection fraction 60%, no RV strain, normal pulmonary artery pressures, this was done prior to extubation
Consider eval of Left hip prosthesis as alternative source of MRSA bacteremia per ID
Cont stress dose steroids IV hydrocortisone 50 mg Q6H
apprec ID/lode miner
# cervical epidural abscess s/p C4-C7 cervical laminectomy and drainage on April 28, 2024 at [facility]
upper and lower extremity weakness/paraplegia with inability to move, required emergent transfer 04/28
NOE drain removed April 30, dangelo to remain in place through May 19, 2024
vancomycin has been changed to daptomycin and ceftaroline per ID
pain control
neuro on board, [facility] MRI brain to rule out embolic septic infarcts
# Anemia
Hgb 7.7 from 10.0 on initial presentation
monitor Hgb
# acute hypoxemic respiratory failure, required intubation with extubation on April 30, likely due to septic shock
Cont current High flow NC 100% with intermittent use of NRB mask (perhaps acute lung injury?)
apprec lode miner
# chest pain appears to be musculoskeletal
# inverted T waves on EKG
Trop negative
cards on board
# type 2 DM, insulin requiring, uncontrolled
on glycemic protocol with insulin drip
on tube feed
SPL eval prior to restarting diet
A1C at 16.9%
DM CCNA consulted
# Acute Left comminuted nondisplaced greater trochanter fracture from acute fall
patient was seen by 2 orthopedic groups here and the orthopedic group at [facility], all 3 have recommended no surgical interventions with weightbearing as tolerated and follow-up as an outpatient with his orthopedic doctor
however, [facility] ID team recommending taking a look at the hardware as a potential source of ongoing infection if blood cultures do not clear
may need ortho reconsult
# bilateral LE edema
bilateral LE US 10/8 neg for DVT
left arm US 10/8 neg for DVT
# History of chronic pancreatitis, Unclear etiology, possibly from alcohol or other substance abuse
Home medications include pancreatic enzymes, Creon 2 caps with meals
Remains on home enzyme replacement therapy
# Hyperthyroidism
Per history, home med list prior to first admission here showed methimazole 15 mg daily
consider restarting methimazole
TSH 3.19
# Hereditary hemochromatosis per history
no HFE gene mutation analysis per records here (in 2007, liver iron concentration very high at 7340)
DVT prophylaxis: switched to Lovenox SQ
CODE STATUS: DNR DNI, discussed with family
pt critically ill, prognosis guarded
DW sister on the phone. Extensive discussion including GOC. She does not think the patient would want to be reintubated, agreed with changing code status to DNR DNI. Continue current management.
BONI RN / Fireman Helper
Total Critical Care Time 50 minutes. I was immediately available to the patient and staff. I personally examined, reviewed labs, diagnostic images/reports, interpretations, treatment plans, discussed patient care with other providers and family
or caregivers (if patient is unable to make decisions), entered orders as appropriate and documented the medical record.
Anticipated Discharge: > 48 hours
Subjective/Interval History
-
Date of Service: May 04, 2024
Objective Data
-
Labs:
Laboratory Results
05/04/24
03:09
WBC 25.7 H
Hgb 7.7 L
Hct 24.0 L
Plt Count 585 H
Sodium 144
Potassium 3.8
Chloride 104
Carbon Dioxide 37 H
BUN 25 H
Creatinine 0.4 L
Glucose 140 H
Calcium 8.0 L
Vital Signs:
Vital Signs
Temp Pulse Resp BP Pulse Ox
36.4 C 75 12 106/62 97
05/04/24 07:58 05/04/24 06:00 05/04/24 06:00 05/04/24 06:00 05/04/24 07:47
I&O
05/03/24 05/04/24 05/05/24
06:59 06:59 06:59
Intake Total 3041.3 / 3158.8 2937.5 / 2937.5
Output Total 1385 / 1435 2785 / 2785
Balance 1656.3 / 1723.8 152.5 / 152.5
Review of Systems
-
Unable to obtain full review of systems at this time due to: Acuity
Constitutional: Reports Other (pain everywhere)
Physical Exam
-
General: Appears Chronically Ill
HEENT: Normocephalic, Atraumatic and Oxygen (high flow NC with intermittent need for NRB mask )
Respiratory: Rhonchi (all lung linares)
Cardiac: Regular Rhythm and S1/S2; Negative Murmur
GI: Soft, Nontender, Nondistended and Normal Bowel Sounds
Genito-urinary: Proctor
Musculoskeletal: No Clubbing, No Cyanosis, Edema, Right Lower Extrem and Edema, Left Lower Extrem
Skin: Lesions (see wound care note)
Neuro: Awake and Alert
Psych: Agitated
Data Reviewed
-
CT Scan: Report Reviewed by me
Labs: Labs Reviewed by me
--- NOTE | 2024-05-04 08:27 | W.PN.INTV ---
Today's Communication / Plan
Recommendations
Continue antibiotics
Wean oxygen
Wean pressors
Insulin as needed
Diuresis
Assessment
-
Patient is a 54-year-old male with previous history of IDDM, anxiety and depression, alcohol abuse with chronic pancreatitis, hypertension, hereditary hemochromatosis, asthma presenting via ambulance for a fall that occurred 5 days ago with
persistent left upper back pain and left hip pain. He admits to noncompliance with his medications. Arrived to hypotensive, tachycardic and hypoxemic. He was it is late on the floor somnolent for a few days. He had been using marijuana,
injecting and snorting methamphetamines. UDS indicating positive screening for oxycodone and meth/amphetamines. Alcohol level negative. Elevated beta hydroxybutyrate, UA possibly demonstrating UTI. CT obtained of chest abdomen pelvis showing
small to moderate bilateral pleural effusions and left greater trochanteric fracture. He is placed on pressors for hypotension, and admitted to ICU.
Subsequently diagnosed with cervical epidural abscess-transferred to [facility] underwent laminectomy and decompression. 04/28/2024.
Negative NEELIMA. Persistently positive cultures for MRSA. Persistently in shock. Persistently hypoxemic. Transferred back to the critical care unit [facility] 05/01/2024
Septic shock
MRSA bacteremia-source possibly due to IVDA
Persistently positive blood cultures as of 04/29/2024
Cervical epidural abscess status postlaminectomy and decompression 04/28/2024 [facility]
Acute respiratory failure: Suspect acute lung injury/possibly MRSA pneumonia as well
Bilateral pleural effusions: Likely to hypovolemia, fluid resuscitation. Volume overload
Acute left greater trochanteric fracture, left hip pain status post fall
Positive urine culture for MRSA
Leukocytosis
Hyperglycemia-necessitating insulin drip
Polysubstance abuse including marijuana, methamphetamines
Medical noncompliance
TME likely from sepsis
Hypothermia
DNR
Conditions present prior to admission:
Transfer to [facility] for laminectomy due to persistent MRSA bacteremia 04/28/2024 status post laminectomy and decompression-subsequently transferred back to [facility] on hospital
Initial Adm DH 03/15/2020: Acute on chronic pancreatitis triggered by alcohol use
GERD
Chronic abdominal pain/pancreatitis
Pancreatic pseudocyst per imaging, 4.1 cm
History of hypertriglyceridemia
Admitted with DKA 12/2019
Hemochromatosis s/p liver biopsy; phlebotomy every 6 weeks (Prashanth)
Chronic back pain/sciatica s/p hemilaminectomy
Hypertension
Essential tremor
History of asthma, on Symbicort
Anxiety/depression
Former smoker
Former alcohol abuse
Bilateral hip replacement
Insulin-dependent diabetes
Opioid dependence
Hyperlipidemia
Plan:
Remains continues to be critically ill on pressors
Supplemental oxygen as needed-attempt to wean-reviewed with KITCHEN PORTER
High flow oxygen if needed
Aspiration precautions
Mucus clearing devices
Check sputum
Incentive spirometry if able
Mucus clearing devices
Nebulizers as needed
Follow chest x-ray-has had CHF pattern
Cultures reviewed
MRSA bacteremia/epidural cervical abscess
Follow blood cultures-last positive cultures 05/03/2024-follow blood cultures until cleared
Infectious disease following-correspondence reviewed
Continue antibiotics
Status post laminectomy and spinal epidural abscess decompression 05/01/2024
Norepinephrine as needed-MAP goal greater than 65
Intravenous fluids
Add midodrine
Hydrocortisone 50 mg IV every 6 hours-begin to reduce in the next 24 hours
Neurosurgical evaluation completed
Analgesia as needed-per primary service
Monitor for oversedation
Diuresis as tolerated
Monitor renal function, electrolytes, intake/output, lower extremity edema and weight
Replace electrolytes as needed
Echocardiogram 04/26/2024: D-shaped septum consistent with RV pressure overload. EF 44%. Mild MR. Mild aortic sclerosis. Borderline RV with RV hypokinesis and moderate pulmonary hypertension. Bilateral pleural effusions.
Echocardiogram 05/02/2024-EF 55-60%, mild mitral regurgitation, PA systolic 40-45
Transesophageal echocardiogram at [facility]-no endocarditis
EKG changes
Troponin negative
Cardiology following-correspondence reviewed
Lower extremity ultrasound-04/27/2024 lower extremity Dopplers negative. Upper left extremity Doppler negative for DVT.
Thoracentesis 04/28/2024-transudate suspect due to heart failure, cultures negative
Monitor hemoglobin
Transfuse as needed
Monitor blood sugar
Insulin supplementation including insulin drip as needed
s/p L femur fracture after a fall this admission-ortho consult placed-prior history of left hip replacement back in 2008
Per Ortho, periprosthetic fracture (greater trochanter), but fortunately no operative management will be recommended at this time.
He will continue to be NWB with no active or passive abduction.
DVT prophylaxis-on Lovenox
GI prophylaxis-on pantoprazole as well as famotidine-discontinue pantoprazole-no longer on ventilator
Nutrition
PT/OT and eventual rehab
CODE STATUS changed-now DNR-reviewed with primary service
Critical care statement: A total of 45 minutes of critical care time was provided for this patient today. This includes management of unstable vital signs, evaluation of the patient at bedside, reviewing the patient's pertinent medical records
including radiographs, microbiology, pressor management, sepsis management, insulin drip management, laboratory evaluations, and discussion with primary team, consultants, pharmacy, nutrition, physical therapy, case management, charge nurse,
critical care nursing, and respiratory therapy.

Diagnostic Data
Chest X-Ray: 01/21/21-The lung volumes are mildly decreased bilaterally. The tracheal air column is slightly deviated to the right. There is no focal airspace opacity suspicious for pneumonia. There is no pleural effusion or pneumothorax. The
cardiomediastinal silhouette is mildly enlarged. There is no radiographic evidence for acute pulmonary edema.
CT Scan: CAP 04/24/24- 1. Small to moderate bilateral pleural effusions with associated consolidation/atelectasis.
2. Confluent pleural-based consolidation within the lingula measures up to 2.4 cm. Infectious/inflammatory bronchiolitis change in the bilateral upper lobes. Cannot rule out superimposed pulmonary contusions and/or underlying nodules.
3. Comminuted minimally displaced fracture of the left greater trochanter extending to the underlying prosthesis.
Stable simple bilateral renal cysts
Echocardiogram on 05/15/2020: Normal LVEF. Ejection fraction 60-65%. Mild LVH.
02/19/21- Technically difficult study. Normal left ventricular chamber size and left ventricular systolic function. Left ventricular ejection fraction is 55-60% . Mild concentric left ventricular hypertrophy.
Normal diastolic function. Trace mitral regurgitation. Aortic sclerosis without stenosis. Trace tricuspid regurgitation. Estimated pulmonary artery pressure of 30-35 mmHg assuming a right atrial pressure of 0-5 mmHg. Compared to study dated
05/15/2020, no significant change.
Reports and relevant images were personally reviewed.
Subjective Dataa
Subjective Data
Date of Service:
Date of Service: May 04, 2024
Chief Complaint: Logging Tractor Operator Follow Up and Pulmonary Follow Up
Subjective:
Complaining of pain, some movement right upper extremity greater than left extremity and some movement to the lower extremities, some shortness of breath, no anterior chest pain
Review of Systems
General: Other (Per HPI)
Objective Data
Data Reviewed
Vital Signs / I&O / Oxygen:
Vital Signs
Temp Pulse Resp BP Pulse Ox
97.5 F 75 12 106/62 97
05/04/24 07:58 05/04/24 06:00 05/04/24 06:00 05/04/24 06:00 05/04/24 07:47
Intake and Output
05/03/24 05/04/24 05/05/24
06:59 06:59 06:59
Intake Total 3041.3 / 3158.8 2937.5 / 2937.5
Output Total 1385 / 1435 2785 / 2785
Balance 1656.3 / 1723.8 152.5 / 152.5
SaO2 97
Nasal Cannula flow liters per 60
minute
Physical Exam
General: Respiratory Distress (n) and Comfortable
HEENT: Normocephalic, Anicteric and Moist Mucous Membranes
Cardiovascular: Regular Rhythm
Respiratory: Wheeze (n), Crackles (Basilar), Rhonchi ( expiratory), Non-Labored Respirations, Accessory Resp Muscle Use (nn) and Stridor (n)
GI: Soft, Non Distended and Non Tender
Neurology: Awake, Alert and Other (Some right greater than left upper extremity movement, minimal lower extremity movement)
Skin: Warm, Good Color, Cyanosis (n), Jaundice (n) and Rash (n)
Labs/Micro/Reports
Lab Data
05/04/24 03:09
05/04/24 03:09
Microbiology
05/03/24 03:42 Blood/Venous Blood Culture - Preliminary
Positive culture in progress
05/03/24 03:42 Blood/Venous Gram Stain - Preliminary
05/02/24 01:49 Blood/Venous Blood Culture - Preliminary
Staph aureus MRSA
05/02/24 01:49 Blood/Venous Gram Stain - Preliminary
--- NOTE | 2024-05-04 08:33 | W.PN.CARDCBS ---
Today's Communication / Plan
-
Chest pains are improved. He remains short of breath.
Continue gentle diuresis.
Echocardiogram is normal. Troponins are normal as well.
Continue broad-spectrum antibiotics. He continues to have MRSA in the blood.
Transesophageal echo [facility] was unremarkable.
Impression / Plan
-
PCP: None, previously discharged from Dr. Bates's office for noncompliance 05/2023, multiple no-shows with [facility]-residency program
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
Impression:
Admitted with back pain after a fall at home 5 days prior, 04/24/24
Sepsis
Septic shock
MRSA bacteremia
IVDA
Acute hypoxemic respiratory failure
Acute HFpEF
Left greater trochanter fracture
TME
Chronic pancreatitis
DM 2
h/o Mediterranean fever
Hemochromatosis
HTN
HLD-Hypertriglyceridemia
Severe Fatty Liver Disease
Chronic pancreatitis
DM II
RA
Multiple fractures including hip and pelvic (was very active as a child and young adult with sports including Equestrian sports)
Chronic pain
ECHO 05/15/20: EF 60-65%, mild cLVH
Echo 04/26/24: EF 54%, D-shaped septum c/w RV pressure overload, mild MR, mild aortic sclerosis with trace aortic regurgitation, borderline dilated RV with RV hypokinesis and moderate PHTN with PAP 54 to 59 mmHg
Echo 05/02/2024, EF 55 to 60% with no LV wall motion abnormality, mild MR, mild TR PA pressure 40-45
Plan:
-Chest pain seem to have improved although he continues to complain of shortness of breath. Troponins are negative and echo was unremarkable.
-Lipase is normal as well. Would continue conservative therapy.
-Would continue gentle diuresis with 20 mg of IV Lasix daily.
-Blood pressure remains low. Continue supportive care with Levophed.
-Continues to have MRSA in the blood from 05/02/24. Continue broad-spectrum antibiotics.
-We will follow
-Prognosis appears to be poor.
Progress Note - Instructor Product Inspection
Subjective
Date of Service: May 04, 2024
Continues to do very poorly. Still with MRSA in the blood. Denies current chest pains. Complains of shortness of breath.
Objective
Labs:
05/04/24 03:09
05/04/24 03:09
Labs
Hgb 7.7 g/dL (13.0-18.0) L 05/04/24 03:09
Hct 24.0 % (39.0-52.0) L 05/04/24 03:09
Plt Count 585 10^3/uL (130-400) H 05/04/24 03:09
Sodium 144 mmol/L (135-145) 05/04/24 03:09
Potassium 3.8 mmol/L (3.5-5.1) 05/04/24 03:09
BUN 25 mg/dl (9-20) H 05/04/24 03:09
Creatinine 0.4 mg/dL (0.7-1.3) L 05/04/24 03:09
Glucose 140 mg/dl (70-99) H 05/04/24 03:09
Troponins
05/02/24 05/02/24 05/02/24
04:36 04:59 13:39
Troponin I Cancelled < 0.012 < 0.012
05/02/24 05/03/24
20:18 12:19
Troponin I < 0.012 < 0.012
Vital Signs and I&O:
Vital Signs
Temp Pulse Resp BP Pulse Ox
97.5 F 75 12 106/62 97
05/04/24 07:58 05/04/24 06:00 05/04/24 06:00 05/04/24 06:00 05/04/24 07:47
Vital Signs
Temp Pulse Resp BP Pulse Ox
97.5 F 75 12 106/62 97
05/04/24 07:58 05/04/24 06:00 05/04/24 06:00 05/04/24 06:00 05/04/24 07:47
Intake & Output
05/02/24 05/03/24 05/04/24 05/05/24
06:59 06:59 06:59 06:59
Intake Total 1245 / 1352.5 3041.3 / 3158.8 2937.5 / 2937.5
Output Total 1540 / 1605 1385 / 1435 2785 / 2785
Balance -295 / -252.5 1656.3 / 1723.8 152.5 / 152.5
Physical Exam
Physical Exam
GEN: anxious,
HEENT: supple, anicteric, mmm
LUNGS: bilat rhonchi
CV: Reg, S1/S2, 1/6 syst LSB, no gallop
ABD: soft, BS+, NT/ND
EXT: No edema
NEURO: Gross non-focal
SKIN: No rash
--- NOTE | 2024-05-04 08:50 | W.PN.ID1 ---
Date of Service
Date of Service: May 04, 2024
Today's Communication
Continue antibiotics. Monitor pending cultures.
Assessment / Plan
MRSA bacteremia - sustained & persistent
- 04/29/24 NEELIMA no veg at [facility]
C4-C7 epidural abscess
- 04/28/24 s/p laminectomy, decompression at [facility].
- OR cx: MRSA
septic shock
- on Levophed
- on steroid
Acute hypoxic respiratory failure : on high-flow oxygen
Elevated ESR, CRP
Leukocytosis
- likely component of steroid effect
Fever
Dysphagia - NGT in place
Hyperglycemia
Illicit drug use (opiates, amphetamines) <- may have been source of MRSA
Left hip fracture
Asthma
GERD
Hypertension
Dyslipidemia
Diabetes mellitus
Anxiety/depression
Chronic pancreatitis
Hemochromatosis
Recommendations:
Given ongoing bacteremia, antibiotics transitioned to daptomycin / ceftaroline on 05/03, in an attempt to gain control of bacteremia.
Continue daily blood culture until bacteremia cleared. Clearance may take several days.
Follow white count and temperature curve.
Patient remains critically ill in intensive care unit on pressors.
Continue ICU supportive care.
Prognosis extremely guarded.
����������������������������������������������������������
Chief Complaint
-: Bacteremia (MRSA) and Other (Cervical epidural abscess)
Subjective / Review of Systems
Patient seen and examined. Notes ongoing general body discomfort.
Review of Systems: No Fever
Vital Signs / Physical Exam
Vital Signs
Vital Signs
Temp Pulse Resp BP Pulse Ox
97.5 F 75 12 106/62 97
05/04/24 07:58 05/04/24 06:00 05/04/24 06:00 05/04/24 06:00 05/04/24 07:47
Physical Exam
Constitutional: Acutely Ill and Non-toxic
Head: Normocephalic
Eyes: Pupils Equal, Pupils Round, No Conjunctival Hemorrhage and Sclera Anicteric
Cardiovascular: Regular Rate and S1/S2; Negative S3/S4 or Murmur
Pulmonary: Coarse and Other (Mildly labored. High flow O2 in place.)
Gastrointestinal: Soft, Non Distended, Normal Bowel Sounds, No Rebound and No Guarding
Genito-Urinary: Proctor and Clear Urine
Extremities: Edema (3+ bilateral extremity upper and lower extremities); Negative Cyanosis, Erythema, Splinter Hemorrhage or Janeway Lesions
Neurological: Awake, Alert and Normal Muscle Strength (No motor strength lower extremities bilaterally. Slight increase in left upper extremity motor strength (Now ~2/5))
Psychological: Calm and Confused
Objective Data
Lab Data
Lab Results
05/04/24 03:09
05/04/24 03:09
Estimated Creat Clear > 125 ml/min 05/04/24 03:09
Total Bilirubin 0.2 mg/dl (0.2-1.3) 05/03/24 03:42
AST 17 U/L (17-59) 05/03/24 03:42
ALT 16 U/L (0-50) 05/03/24 03:42
Alkaline Phosphatase 229 U/L (38-126) H 05/03/24 03:42
Most recent labs reviewed.
Micro Results:
05/03/24 03:42 Blood Culture - Preliminary
Blood/Venous Positive culture in progress
Gram Stain - Preliminary
05/04/24 03:09 Blood Culture - Pending
Blood/Venous
05/02/24 01:49 Blood Culture - Preliminary
Blood/Venous Staph aureus MRSA
Gram Stain - Preliminary
Care Review
Plan reviewed with: Nurse and Physician (Hospitalist)
[2024-05-04] MEDS: NEURONTIN 600 MG TUBE ×3 (08:51→22:07)
[2024-05-04] MEDS: PEPCID 20 MG TUBE ×2 (08:51→22:05)
[2024-05-04] MEDS: DAILY VITAMIN/CENTRUM 15 ML TUBE (08:51)
[2024-05-04] MEDS: VITAMIN B1 100 MG TUBE (08:52)
[2024-05-04] MEDS: DILAUDID 2 MG TUBE ×3 (08:52→17:56)
[2024-05-04] MEDS: LASIX 20 MG IV (08:52)
[2024-05-04] MEDS: NSS (PRESERVATIVE FREE) IV (08:53)
[2024-05-04] MEDS: SANTYL OINTMENT 1 APPLIC TOPICAL (08:53)
[2024-05-04] MEDS: LIDOCAINE 4% PATCH 1 PATCH TOPICAL (08:53)
[2024-05-04] MEDS: DAKIN'S SOLUTION 0.125% 1/4 STRENGTH 1 ML TOPICAL (08:54)
[2024-05-04] MEDS: FOLVITE 1 MG TUBE (08:54)
--- NOTE | 2024-05-04 09:20 | PTOTSP ---
Speech Language Pathology
Pt seen for clinical bedside swallow evaluation. Baseline wet breath quality noted. On HFNC. P.O. trials of ice chips and sips of thin water provided. Intermittent increase in wet breath quality noted. No overt coughing, but unable to rule out
silent aspiration bedside. Pt is at a high risk for aspiration given 02 needs, recent intubation, and recent cervical sx.
Recommend:
(1) NPO
(2) Oral care 4x/day with suctioning as needed
(3) Allow ice chips post oral care given supervision per Aspiration Risk Hydration Protocol (ARHP)
(4) Will need VSE when appropriate from a respiratory standpoint
(5) ABLE BODIED SEAMAN to continue to follow
[2024-05-04 10:14] LABS: Glucose - Point of Care 120 mg/dl (70-99)
[2024-05-04 11:22] LABS: Glucose - Point of Care 99 mg/dl (70-99)
[2024-05-04] MEDS: ProAmatine 5 MG PO ×2 (11:49→17:55)
[2024-05-04] MEDS: LANTUS 0.18 UNITS SC (11:50)
[2024-05-04] MEDS: NOVOLOG FLEXPEN 4 UNITS SC ×2 (11:52→17:59)
[2024-05-04] MEDS: NOVOLOG FLEXPEN-LOW RESISTANCE SC (11:52)
--- NOTE | 2024-05-04 12:00 | PTCARENOTE ---
Pt assessed.No change in assessment noted.Pt's family at bedside.
[2024-05-04 12:02] LABS: Glucose - Point of Care 96 mg/dl (70-99)
[2024-05-04] MEDS: CUBICIN 20 MG IV (12:40)
[2024-05-04 13:26] LABS: Glucose - Point of Care 128 mg/dl (70-99)
--- NOTE | 2024-05-04 15:46 | CM ---
CM following re: discharge planning.
Discussed in Rounds, reviewed pt's chart, met with pt.
Per Rounds meeting, pt returns back from [facility], requires 60L HFNC with FIO2 80%%, continue supportive care.
Pt lives alone in a 2 story house. The patient has been independent in ADLs and ambulation using his cane until recently when he began using his RW. The patient states he is disabled due to back and hip problems. The patient has no children. His
sister Pam lives next door.
PT and OT will evaluate the pt when clinically appropriate to determine a level of care at discharge.
[facility] team will meet with the pt when clinically appropriate.
D/C plan: uncertain at this time and will depend on pt's progress.
CM will follow with discharge plan updates as hospitalization progresses
--- NOTE | 2024-05-04 16:47 | PTCARENOTE ---
Pt assessed.No change in assessment noted.
[2024-05-04] MEDS: LOVENOX 40 MG SC (17:54)
[2024-05-04] MEDS: NOVOLOG FLEXPEN-LOW RESISTANCE 2 UNITS SC (17:58)
[2024-05-04 18:08] LABS: Glucose - Point of Care 212 mg/dl (70-99)
--- NOTE | 2024-05-04 19:08 | PTCARENOTE ---
POX spontaneously decreased to 85%.NRB added to High Flow.
--- NOTE | 2024-05-04 20:00 | PTCARENOTE ---
rec`d pt at 1900, resting in bed. pt awakens to verbal stimuli. pt does not lower extrem. pt upper extrem a 3/5. SR on monitor. levo going at 3. rhonchi noted. productive cough. high flow 60/ 100% POX 92-94%. left nare dobhof w/ TF. jevity at 65 w/
[address] flush. white in place. Call patel in reach, safe environment maintained.
[2024-05-05] VITALS (67 sets, daily range): BP systolic 80–129; BP diastolic 44–77
--- NOTE | 2024-05-05 00:05 | W.PN.UPDATE ---
Update Note
Progress Note Update
1293 Patient AAO*3, period of desat, maintained on high flow, refusing to wear non rebreather to assist with hypoxia. �Instructed patient if he does not wear mask he can . �He is ok with the risk and is a DNR. �Sister updated.�
--- NOTE | 2024-05-05 00:08 | PTCARENOTE ---
pt POX dipping down into 70s. pt already on high flow. non rebreather put on pt and pt refusing. pt keeps saying, ' get off of me,' I educated the pt if he doesn't wear the mask, he will . pt stated, 'good, i dont care.' RT and SEMICONDUCTOR PACKAGE SYMBOL STAMPER john paul
doughtery at bedside. pt is oriented to questions asked. pt`s sister called- Pam. Pam is updated on pt`s condition. pt remains DNR/DNI.
[2024-05-05 00:11] LABS: Glucose - Point of Care 347 mg/dl (70-99)
[2024-05-05] MEDS: NOVOLOG FLEXPEN-LOW RESISTANCE 4 UNITS SC ×2 (00:21→18:06)
[2024-05-05] MEDS: NOVOLOG FLEXPEN 4 UNITS SC ×2 (00:21→06:33)
[2024-05-05] MEDS: TYLENOL ORAL SOLUTION 500 MG TUBE ×2 (00:23→05:24)
[2024-05-05] MEDS: DILAUDID 2 MG TUBE ×2 (00:24→05:24)
--- NOTE | 2024-05-05 04:05 | W.PN.INTV ---
Today's Communication / Plan
Recommendations
Antibiotics
Diuresis
Wean FiO2
Aspiration precautions
Adjust analgesics
Assessment
-
Patient is a 54-year-old male with previous history of IDDM, anxiety and depression, alcohol abuse with chronic pancreatitis, hypertension, hereditary hemochromatosis, asthma presenting via ambulance for a fall that occurred 5 days ago with
persistent left upper back pain and left hip pain. He admits to noncompliance with his medications. Arrived to hypotensive, tachycardic and hypoxemic. He was it is late on the floor somnolent for a few days. He had been using marijuana,
injecting and snorting methamphetamines. UDS indicating positive screening for oxycodone and meth/amphetamines. Alcohol level negative. Elevated beta hydroxybutyrate, UA possibly demonstrating UTI. CT obtained of chest abdomen pelvis showing
small to moderate bilateral pleural effusions and left greater trochanteric fracture. He is placed on pressors for hypotension, and admitted to ICU.
Subsequently diagnosed with cervical epidural abscess-transferred to [facility] underwent laminectomy and decompression. 04/28/2024.
Negative NEELIMA. Persistently positive cultures for MRSA. Persistently in shock. Persistently hypoxemic. Transferred back to the critical care unit [facility] 05/01/2024
Septic shock
MRSA bacteremia-source possibly due to IVDA
Persistently positive blood cultures as of 04/29/2024
Cervical epidural abscess status postlaminectomy and decompression 04/28/2024 [facility]
Acute respiratory failure: Suspect acute lung injury/possibly MRSA pneumonia as well
Bilateral pleural effusions: Likely to hypovolemia, fluid resuscitation. Volume overload
Acute left greater trochanteric fracture, left hip pain status post fall
Positive urine culture for MRSA
Leukocytosis
Hyperglycemia-necessitating insulin drip
Polysubstance abuse including marijuana, methamphetamines
Medical noncompliance
TME likely from sepsis
Hypothermia
DNR
Conditions present prior to admission:
Transfer to [facility] for laminectomy due to persistent MRSA bacteremia 04/28/2024 status post laminectomy and decompression-subsequently transferred back to [facility] on hospital
Initial Adm DH 03/15/2020: Acute on chronic pancreatitis triggered by alcohol use
GERD
Chronic abdominal pain/pancreatitis
Pancreatic pseudocyst per imaging, 4.1 cm
History of hypertriglyceridemia
Admitted with DKA 12/2019
Hemochromatosis s/p liver biopsy; phlebotomy every 6 weeks (Prashanth)
Chronic back pain/sciatica s/p hemilaminectomy
Hypertension
Essential tremor
History of asthma, on Symbicort
Anxiety/depression
Former smoker
Former alcohol abuse
Bilateral hip replacement
Insulin-dependent diabetes
Opioid dependence
Hyperlipidemia
Plan:
Continues to be critically ill on pressors as well as high FiO2 requirements
Supplemental oxygen as needed-attempt to wean-reviewed with ANTENNA RIGGER
High flow oxygen continues in addition to nonrebreather
Suction as tolerated
Encourage mobilization of secretions
Aspiration precautions
Mucus clearing devices
Check sputum-unable to produce
Chest x-ray 05/04/2024-bibasilar opacifications consistent with atelectasis, possible small bilateral pleural effusions
Incentive spirometry if able
Mucus clearing devices
Nebulizers as needed-currently not bronchospastic
Follow chest x-ray-has had CHF pattern
Cultures reviewed
MRSA bacteremia/epidural cervical abscess
Follow blood cultures-last positive cultures 05/03/2024-follow blood cultures until cleared, blood culture 05/04/2024 no growth
Infectious disease following-correspondence reviewed
Continue antibiotics per infectious disease
Status post laminectomy and spinal epidural abscess decompression 05/01/2024
Norepinephrine as needed-MAP goal greater than 65
Intravenous fluids
Midodrine added
Hydrocortisone 50 mg IV every 6 hours-reduce to every 12 hours
Neurosurgical evaluation completed
Analgesia as needed--reviewed and made adjustments
Comfort a priority
Monitor for oversedation
Continue diuresis as tolerated
Monitor renal function, electrolytes, intake/output, lower extremity edema and weight
Replace electrolytes as needed
Echocardiogram 04/26/2024: D-shaped septum consistent with RV pressure overload. EF 44%. Mild MR. Mild aortic sclerosis. Borderline RV with RV hypokinesis and moderate pulmonary hypertension. Bilateral pleural effusions.
Echocardiogram 05/02/2024-EF 55-60%, mild mitral regurgitation, PA systolic 40-45
Transesophageal echocardiogram at [facility]-no endocarditis
EKG changes
Troponin negative
Cardiology following-correspondence reviewed
Lower extremity ultrasound-04/27/2024 lower extremity Dopplers negative. Upper left extremity Doppler negative for DVT.
Thoracentesis 04/28/2024-transudate suspect due to heart failure, cultures negative
Monitor hemoglobin
Transfuse as needed
Monitor blood sugar
Insulin supplementation including insulin drip as needed
s/p L femur fracture after a fall this admission-ortho consult placed-prior history of left hip replacement back in 2008
Per Ortho, periprosthetic fracture (greater trochanter), but fortunately no operative management will be recommended at this time.
He will continue to be NWB with no active or passive abduction.
DVT prophylaxis-on Lovenox
GI prophylaxis-on pantoprazole as well as famotidine-discontinue pantoprazole-no longer on ventilator
Nutrition
PT/OT and eventual rehab
CODE STATUS changed-now DNR-reviewed with primary service
Dr. Solorio reviewed with sister at the bedside 05/05/2024-current condition, poor prognosis, multiorgan failure,-appreciative and concerned about pain, comfort and will have discussions with patient in regards to further level of care desired-for
now supportive care with an emphasis of comfort and potential if pain cannot be adequately controlled to be converted to comfort care
Critical care statement: A total of 45 minutes of critical care time was provided for this patient today. This includes management of unstable vital signs, evaluation of the patient at bedside, reviewing the patient's pertinent medical records
including radiographs, microbiology, pressor management, sepsis management, insulin drip management, laboratory evaluations, and discussion with primary team, consultants, pharmacy, nutrition, physical therapy, case management, charge nurse,
critical care nursing, and respiratory therapy.

Diagnostic Data
Chest X-Ray: 01/21/21-The lung volumes are mildly decreased bilaterally. The tracheal air column is slightly deviated to the right. There is no focal airspace opacity suspicious for pneumonia. There is no pleural effusion or pneumothorax. The
cardiomediastinal silhouette is mildly enlarged. There is no radiographic evidence for acute pulmonary edema.
CT Scan: CAP 04/24/24- 1. Small to moderate bilateral pleural effusions with associated consolidation/atelectasis.
2. Confluent pleural-based consolidation within the lingula measures up to 2.4 cm. Infectious/inflammatory bronchiolitis change in the bilateral upper lobes. Cannot rule out superimposed pulmonary contusions and/or underlying nodules.
3. Comminuted minimally displaced fracture of the left greater trochanter extending to the underlying prosthesis.
Stable simple bilateral renal cysts
Echocardiogram on 05/15/2020: Normal LVEF. Ejection fraction 60-65%. Mild LVH.
02/19/21- Technically difficult study. Normal left ventricular chamber size and left ventricular systolic function. Left ventricular ejection fraction is 55-60% . Mild concentric left ventricular hypertrophy.
Normal diastolic function. Trace mitral regurgitation. Aortic sclerosis without stenosis. Trace tricuspid regurgitation. Estimated pulmonary artery pressure of 30-35 mmHg assuming a right atrial pressure of 0-5 mmHg. Compared to study dated
05/15/2020, no significant change.
Reports and relevant images were personally reviewed.
Subjective Dataa
Subjective Data
Date of Service:
Date of Service: May 05, 2024
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
Subjective:
Has occasional chest congestion, somewhat difficult mobilizing his secretions, still on high flow oxygen, no complaints of chest pain but complains of pain and asking for pain medications, no abdominal pain
Review of Systems
General: Other (Per HPI)
Objective Data
Data Reviewed
Vital Signs / I&O / Oxygen:
Vital Signs
Temp Pulse Resp BP Pulse Ox
98.1 F 66 11 94/57 82
05/04/24 23:21 05/04/24 23:15 05/04/24 23:15 05/04/24 23:15 05/05/24 00:03
Intake and Output
05/03/24 05/04/24 05/05/24
06:59 06:59 06:59
Intake Total 3041.3 / 3158.8 2937.5 / 3047.5 1759.9 / 1759.9
Output Total 1385 / 1435 2785 / 2835 940 / 940
Balance 1656.3 / 1723.8 152.5 / 212.5 819.9 / 819.9
SaO2 82
Nasal Cannula flow liters per 60
minute
Physical Exam
General: Respiratory Distress (n) and Comfortable
HEENT: Normocephalic, Anicteric and Moist Mucous Membranes
Cardiovascular: Regular Rhythm
Respiratory: Wheeze (n), Crackles (Basilar), Rhonchi ( expiratory), Non-Labored Respirations, Accessory Resp Muscle Use (nn) and Stridor (n)
GI: Soft, Non Distended and Non Tender
Neurology: Awake, Alert and Other (Some right greater than left upper extremity movement, minimal lower extremity movement)
Skin: Warm, Good Color, Cyanosis (n), Jaundice (n) and Rash (n)
Labs/Micro/Reports
Microbiology
05/04/24 03:09 Blood/Venous Blood Culture - Preliminary
No Growth in 24 hours- Final report to follow
05/02/24 01:49 Blood/Venous Blood Culture - Preliminary
Staph aureus MRSA
05/02/24 01:49 Blood/Venous Gram Stain - Preliminary
05/03/24 03:42 Blood/Venous Blood Culture - Preliminary
Positive culture in progress
05/03/24 03:42 Blood/Venous Gram Stain - Preliminary
[2024-05-05] MEDS: SOLU-CORTEF 50 MG IV ×3 (05:23→19:37)
[2024-05-05] MEDS: TEFLARO 270 MG IV ×3 (05:24→22:50)
--- NOTE | 2024-05-05 05:41 | DOWNTIME ---
There was a [employer] Client Windows Support Engineer Downtime on 05/05/2024 from 0100 to 05/05/2024 at 0355. Downtime documentation of patient's care, including medication administrations, has been reconciled in the electronic record per guidelines. Refer to the
patient's paper chart under the miscellaneous tab to see printed paper medication records and downtime forms.
[2024-05-05 06:11] LABS: Glucose - Point of Care 399 mg/dl (70-99)
[2024-05-05] MEDS: NOVOLOG FLEXPEN-LOW RESISTANCE 5 UNITS SC ×2 (06:33→12:54)
[2024-05-05 06:50] LABS: Hematocrit 26.1 % (39.0-52.0); Hemoglobin 8.2 g/dL (13.0-18.0); Mean Corp Hgb Conc. 31.4 g/dL (33.0-37.0); Mean Corpuscular Hgb 27.3 pg (27.0-31.0); Mean Platelet Volume 9.5 fL (7.4-10.4); Platelet Count 590 10^3/uL (130-400); Red Cell Dist. Width 14.5 % (11.5-14.5); White Blood Cell Count 24.7 10^3/uL (4.8-10.8)
[2024-05-05 07:01] LABS: Blood Urea Nitrogen 28 mg/dl (9-20); Calcium 7.6 mg/dl (8.4-10.2); Carbon Dioxide 36 mmol/L (22-30); Chloride 103 mmol/L (98-107); Estimated Creatinine Clearance > 125 ml/min; Glucose 393 mg/dl (70-99); Magnesium 1.9 mg/dl (1.6-2.3); Potassium 4.4 mmol/L (3.5-5.1); Sodium 144 mmol/L (135-145); eGFR > 60.00
--- NOTE | 2024-05-05 07:19 | PN.DE.MGMTRT ---
Insulin Management
- -
05/05/2024: Diabetes Management Consult Follow u
Patient initially admitted to on 04/24 s/p fall with significant left upper back pain and left hip pain due to Acute left greater trochanteric fx and MRI findings consistent with epidural abscess/osteo of C5- C7 level. Pt was transferred to [facility] on
04/28/2024 and underwent emergent C4-C7 laminectomy, cervical decompression, OR cx +MRSA. He was transferred back to on 04/30/24 for further management of his bacteremia.
PMH: HTN, HLD, Alcohol abuse with acute on chronic pancreatitis, h/o hypertriglyceridemia, Hemochromatosis s/p liver biopsy, GERD, Chronic back pain/sciatica s/p hemilaminectomy, Essential tremor, Asthma, Anxiety/depression, Former smoker, alcohol
abuse, Opioid dependence and IDDM.
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 UDS +oxycodone and meth/amphetamines.
Prior to admission was prescribed Lantus 20 units BID, Lispro 30 units AC, Jardiance 10 mg daily, Metformin 1000 mg BID, and Glipizide 10mg BID but had not taken his meds in 8-9 months. Routinely seeing an Endo at [facility]. A1C 16.9%, Cr 0.4, eGFR
>60.
Pt sleeping, arouses to name calling, offers no complaints, unable to discuss diabetes plan of care at this time.
Patient receiving steroids IV hydrocortisone 50 mg Q12H and Tube feeds @ 65c/hr. Transitioned off insulin infusion to 18 units lantus and 4 units novolog Q 6 hours. Glucose has trended up to > 300.
Will increase AM lantus to 22 units and Q 6 hour novolog to 8 units with corrective. Fasting glucose 399, will give additional 5 units novolog now. 12 noon glucose 361, Q 6 hour novolog increased to 15 with corrective.
Discussed with patients nurse. Will follow.
Diabetes History
- -
Type of Diabetes: 2 requiring insulin
Pre-Admission Diabetes Regimen
05/05/24
06:38
Creatinine 0.5 L
Insulin Pump Settings
IP Diabetes Regimen
05/04/24 05/04/24 05/04/24
07:47 10:03 11:11
Glucose
POC Glucose 115 H 120 H 99
05/04/24 05/04/24 05/04/24
11:50 13:15 17:57
Glucose
POC Glucose 96 128 H 212 H
05/05/24 05/05/24 05/05/24
00:00 06:01 06:38
Glucose 393 H
POC Glucose 347 H 399 H
Patient Education
--- NOTE | 2024-05-05 07:52 | W.PN.HOSP.TC ---
Today's Communication/Plan
-
see A/P
Assessment / Plan
Assessment / Plan
A/P:
# MRSA bacteremia
# MRSA UTI
# septic shock
still with persistently positive MRSA bacteremia, last positive culture 05/04/2024, follow blood culture until clearance
vancomycin changed to daptomycin and ceftaroline.
Cont Levophed, aim MAP > 65.
Low dose IV lasix 20 mg daily added for edema.
s/p NEELIMA at [facility] which showed no vegetations, ejection fraction 60%, no RV strain, normal pulmonary artery pressures, this was done prior to extubation at [facility].
Consider eval of Left hip prosthesis as alternative source of MRSA bacteremia per ID.
Cont stress dose steroids, now IV hydrocortisone 50 mg Q12H
apprec ID/latin american studies professor.
# cervical epidural abscess s/p C4-C7 cervical laminectomy and drainage on April 28, 2024 at [facility]
upper and lower extremity weakness/paraplegia with inability to move, required emergent transfer 04/28
NOE drain removed April 30, dangelo to remain in place through May 19, 2024
vancomycin has been changed to daptomycin and ceftaroline per ID
pain control
neuro on board, [facility] MRI brain to rule out embolic septic infarcts
# Anemia
Hgb today at 8.2, was at 10.0 on initial presentation
monitor Hgb
# acute hypoxemic respiratory failure, required intubation with extubation on April 30, likely due to septic shock
Cont current High flow NC 100% with intermittent use of NRB mask (perhaps acute lung injury?)
apprec latin american studies professor
# chest pain appears to be musculoskeletal
# inverted T waves on EKG
Trop negative
cards on board
# type 2 DM, insulin requiring, uncontrolled
on glycemic protocol with insulin drip
on tube feed
SPL eval prior to restarting diet
A1C at 16.9%
DM TAKE OUT WAITER/WAITRESS consulted
# Acute Left comminuted nondisplaced greater trochanter fracture from acute fall
patient was seen by 2 orthopedic groups here and the orthopedic group at [facility], all 3 have recommended no surgical interventions with weightbearing as tolerated and follow-up as an outpatient with his orthopedic doctor
however, [facility] ID team recommending taking a look at the hardware as a potential source of ongoing infection if blood cultures do not clear
may need ortho reconsult
# bilateral LE edema
bilateral LE US 10/8 neg for DVT
left arm US 10/8 neg for DVT
# History of chronic pancreatitis, Unclear etiology, possibly from alcohol or other substance abuse
Home medications include pancreatic enzymes, Creon 2 caps with meals
Remains on home enzyme replacement therapy
# Hyperthyroidism
Per history, home med list prior to first admission here showed methimazole 15 mg daily
consider restarting methimazole
TSH 3.19
# Hereditary hemochromatosis per history
no HFE gene mutation analysis per records here (in 2007, liver iron concentration very high at 7340)
DVT prophylaxis: switched to Lovenox SQ
CODE STATUS: DNR DNI, discussed with family/sister
pt critically ill, prognosis guarded
DW sister in person. Extensive discussion including GOC.
DW RN / Games Dealer
Total Critical Care Time 50 minutes. I was immediately available to the patient and staff. I personally examined, reviewed labs, diagnostic images/reports, interpretations, treatment plans, discussed patient care with other providers and family
or caregivers (if patient is unable to make decisions), entered orders as appropriate and documented the medical record.
Anticipated Discharge: > 48 hours
Subjective/Interval History
-
Date of Service: May 05, 2024
Objective Data
-
Labs:
Laboratory Results
05/05/24
06:38
WBC 24.7 H
Hgb 8.2 L
Hct 26.1 L
Plt Count 590 H
Sodium 144
Potassium 4.4
Chloride 103
Carbon Dioxide 36 H
BUN 28 H
Creatinine 0.5 L
Glucose 393 H
Calcium 7.6 L
Vital Signs:
Vital Signs
Temp Pulse Resp BP Pulse Ox
36.6 C 64 17 105/60 98
05/05/24 07:00 05/05/24 05:45 05/05/24 05:45 05/05/24 05:30 05/05/24 05:45
I&O
05/04/24 05/05/24 05/06/24
06:59 06:59 06:59
Intake Total 2937.5 / 3047.5 2521.5 / 2521.5
Output Total 2785 / 2835 1550 / 1550
Balance 152.5 / 212.5 971.5 / 971.5
Review of Systems
-
Unable to obtain full review of systems at this time due to: Acuity
Constitutional: Reports Other (pain everywhere)
Physical Exam
-
General: Appears Chronically Ill
HEENT: Normocephalic, Atraumatic and Oxygen (high flow NC with NRB mask )
Respiratory: Rhonchi (all lung linares)
Cardiac: Regular Rhythm and S1/S2; Negative Murmur
GI: Soft, Nontender, Nondistended and Normal Bowel Sounds
Genito-urinary: Proctor
Musculoskeletal: No Clubbing, No Cyanosis, Edema, Right Lower Extrem and Edema, Left Lower Extrem
Skin: Lesions (see wound care note)
Neuro: Awake and Alert
Psych: Agitated
Data Reviewed
-
CT Scan: Report Reviewed by me
Labs: Labs Reviewed by me
[2024-05-05 07:56] LABS: % Basophils 0.2 % (0-2); % Immature Granulocytes 1.3 % (0-0.5); % Lymphocytes 4.5 % (20.5-51.1); % Monocytes 1.7 % (1.7-9.3); % Neutrophils 92.3 % (42.2-75.2); Absolute Basophils 0.1 10^3/uL (0-0.2); Absolute Immature Granulocytes 0.3 10^3/uL (0-0.05); Absolute Lymphocytes 1.1 10^3/uL (1.2-3.4); Absolute Monocytes 0.4 10^3/uL (0.1-0.6); Absolute Neutrophils 22.8 10^3/uL (1.4-6.5); Nucleated Red Blood Cells % 0 % (-)
[2024-05-05] MEDS: NOVOLOG FLEXPEN 5 UNITS SC (08:26)
[2024-05-05] MEDS: LASIX 20 MG IV (08:27)
[2024-05-05] MEDS: PEPCID 20 MG TUBE ×2 (08:27→19:37)
[2024-05-05] MEDS: DAILY VITAMIN/CENTRUM 15 ML TUBE (08:27)
[2024-05-05] MEDS: NEURONTIN 600 MG TUBE ×3 (08:28→21:18)
[2024-05-05] MEDS: ProAmatine 5 MG PO ×3 (08:28→18:07)
[2024-05-05] MEDS: VITAMIN B1 100 MG TUBE (08:28)
[2024-05-05] MEDS: MOTRIN 600 MG TUBE (08:29)
[2024-05-05] MEDS: NSS (PRESERVATIVE FREE) IV (08:29)
[2024-05-05] MEDS: FOLVITE 1 MG TUBE (08:30)
[2024-05-05] MEDS: LIDOCAINE 4% PATCH 1 PATCH TOPICAL (08:30)
--- NOTE | 2024-05-05 08:30 | PTCARENOTE ---
Assumed care of pt at 0715 following shift report. Pt awake and resting quietly in bed, c/o whole body pain- see MAR. Physical assessment as documented. Pt's sister here to visit, updated on pt's present condition- questions answered and emotional
support provided. Pt remains on Levophed gtt as documented to keep MAP >65. Proctor patent and draining katia urine. Turned and repositioned, oral care, comfort care and hygiene provided. Safe environment maintained.
[2024-05-05] MEDS: LANTUS 0.22 UNITS SC (08:46)
--- NOTE | 2024-05-05 08:57 | W.PN.CARDCBS ---
Addendum entered and electronically signed by Sloan Boswell DO 05/05/24 16:37:
I saw and examined the patient.
The Chief Executive Or Managing Director's note was reviewed and I agree with the note.
Comment:
Plan:
Trop negative and echo stable.
Cont broad spectrum abx as per ID.
NEELIMA at [facility] was negative.
Cont gentle diuresis per primary service to keep Is and Os
Remains hypotensive, cont with Levophed for bp support and wean as able
Cont pulm toilet, wean O2 as able.
Prognosis poor
Examination:
General: lethargic on hiflo
Neck: Negative JVD
Heart: Regular, Negative S3 positive S1/S2, Negative S4, No murmur
Lungs: CTA b/l, negative wheezes/rales/rhonchi
Abd: Positive BS, NT/ND, neg rebound/rigidity/guarding
Ext: Negative cyanosis/clubbing/edema
Neuro: nonfocal
Original Note:
Today's Communication / Plan
-
Chest pain appears to be musculoskeletal. Trop negative, echo stable
Wean O2 as able
Impression / Plan
-
PCP: None, previously discharged from Dr. Bates's office for noncompliance 05/2023, multiple no-shows with [facility]-residency program
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
Impression:
Admitted with back pain after a fall at home 5 days prior, 04/24/24
Sepsis
Septic shock
MRSA bacteremia
IVDA
Acute hypoxemic respiratory failure
Acute HFpEF
Left greater trochanter fracture
TME
Chronic pancreatitis
DM 2
h/o Mediterranean fever
Hemochromatosis
HTN
HLD-Hypertriglyceridemia
Severe Fatty Liver Disease
Chronic pancreatitis
DM II
RA
Multiple fractures including hip and pelvic (was very active as a child and young adult with sports including Equestrian sports)
Chronic pain
ECHO 05/15/20: EF 60-65%, mild cLVH
Echo 04/26/24: EF 54%, D-shaped septum c/w RV pressure overload, mild MR, mild aortic sclerosis with trace aortic regurgitation, borderline dilated RV with RV hypokinesis and moderate PHTN with PAP 54 to 59 mmHg
Echo 05/02/2024: EF 55 to 60% with no LV wall motion abnormality, mild MR, mild TR PA pressure 40-45
Plan:
-Chest pain improved. Likely musculoskeletal in origin. Troponins have been negative and echo was unremarkable.
-Diuresing with 20 mg of IV Lasix daily. ProBNP improved, down to 420 05/03.
-Blood pressure remains low. Continue supportive care with Levophed.
-Continues to have MRSA in the blood from 05/02/24. Continue broad-spectrum antibiotics.
-Wean O2 as able
Progress Note - Electrician [employer]
Subjective
Date of Service: May 05, 2024
Objective
Labs:
05/05/24 06:38
05/05/24 06:38
Labs
Hgb 8.2 g/dL (13.0-18.0) L 05/05/24 06:38
Hct 26.1 % (39.0-52.0) L 05/05/24 06:38
Plt Count 590 10^3/uL (130-400) H 05/05/24 06:38
Sodium 144 mmol/L (135-145) 05/05/24 06:38
Potassium 4.4 mmol/L (3.5-5.1) 05/05/24 06:38
BUN 28 mg/dl (9-20) H 05/05/24 06:38
Creatinine 0.5 mg/dL (0.7-1.3) L 05/05/24 06:38
Glucose 393 mg/dl (70-99) H 05/05/24 06:38
Troponins
05/02/24 05/02/24 05/03/24
13:39 20:18 12:19
Troponin I < 0.012 < 0.012 < 0.012
Vital Signs and I&O:
Vital Signs
Temp Pulse Resp BP Pulse Ox
97.9 F 83 17 105/58 94
05/05/24 07:00 05/05/24 08:28 05/05/24 05:45 05/05/24 08:28 05/05/24 08:19
Vital Signs
Temp Pulse Resp BP Pulse Ox
97.9 F 83 17 105/58 94
05/05/24 07:00 05/05/24 08:28 05/05/24 05:45 05/05/24 08:28 05/05/24 08:19
Intake & Output
05/03/24 05/04/24 05/05/24 05/06/24
06:59 06:59 06:59 06:59
Intake Total 3041.3 / 3158.8 2937.5 / 3047.5 2521.5 / 2521.5
Output Total 1385 / 1435 2785 / 2835 1550 / 1550
Balance 1656.3 / 1723.8 152.5 / 212.5 971.5 / 971.5
[2024-05-05] MEDS: DILAUDID 4 MG TUBE ×4 (09:50→22:50)
--- NOTE | 2024-05-05 10:03 | W.PN.ID1 ---
Date of Service
Date of Service: May 05, 2024
Today's Communication
Continue antibiotics. Monitor blood cultures.
Assessment / Plan
MRSA bacteremia - sustained & persistent
- 04/29/24 NEELIMA no veg at [facility]
C4-C7 epidural abscess
- 04/28/24 s/p laminectomy, decompression at [facility].
- OR cx: MRSA
septic shock
- on Levophed
- on steroid
Acute hypoxic respiratory failure : on high-flow oxygen
Elevated ESR, CRP
Leukocytosis
- likely some component of steroid effect
Fever
Dysphagia - NGT in place
Hyperglycemia
Illicit drug use (opiates, amphetamines) <- may have been source of MRSA
Left hip fracture
Asthma
GERD
Hypertension
Dyslipidemia
Diabetes mellitus
Anxiety/depression
Chronic pancreatitis
Hemochromatosis
Recommendations:
Given ongoing bacteremia, antibiotics transitioned to daptomycin / ceftaroline on 05/03/24, in an attempt to gain control of bacteremia.
Continue daily blood culture until bacteremia cleared. Clearance may take several days.
Follow white count and temperature curve.
Patient remains critically ill in intensive care unit on pressors.
Continue ICU supportive care.
Brain MRI has been ordered, although patient currently too unstable to be placed in machine as he is on high flow with nonrebreather.
Prognosis extremely guarded.
Prognosis discussed extensively with patient's sisters who are at the bedside. They understand the gravity of the situation. All questions answered.
����������������������������������������������������������
Chief Complaint
-: Bacteremia (MRSA) and Other (Cervical epidural abscess)
Subjective / Review of Systems
Patient seen and examined. Remains on high flow O2. Continues to report generalized body pain.
Additional history obtained from patient's sister. She reports that patient likely has been using methamphetamine for the past year. She has been in his house, and notes that she found liquid (that she felt was methamphetamine) along with needles
behind his bed.
Vital Signs / Physical Exam
Vital Signs
Vital Signs
Temp Pulse Resp BP Pulse Ox
97.9 F 83 17 105/58 94
05/05/24 07:00 05/05/24 08:28 05/05/24 05:45 05/05/24 08:28 05/05/24 08:19
Physical Exam
Constitutional: Acutely Ill and Non-toxic
Head: Normocephalic
Eyes: Pupils Equal, Pupils Round, No Conjunctival Hemorrhage and Sclera Anicteric
Cardiovascular: Regular Rate and S1/S2; Negative S3/S4 or Murmur
Pulmonary: Rhonchi (Scattered), Coarse and Other (Mildly labored. High flow O2 in place.)
Gastrointestinal: Soft, Non Distended, Normal Bowel Sounds, No Rebound and No Guarding
Genito-Urinary: Proctor and Clear Urine
Extremities: Edema (3+ bilateral extremity upper and lower extremities. Anasarca noted.); Negative Cyanosis, Erythema, Splinter Hemorrhage or Janeway Lesions
Neurological: Awake and Alert; Negative Normal Muscle Strength (No motor strength lower extremities bilaterally. Left upper extremity motor strength (Now ~2/5))
Psychological: Calm and Confused
Objective Data
Lab Data
Lab Results
05/05/24 06:38
05/05/24 06:38
Estimated Creat Clear > 125 ml/min 05/05/24 06:38
Total Bilirubin 0.2 mg/dl (0.2-1.3) 05/03/24 03:42
AST 17 U/L (17-59) 05/03/24 03:42
ALT 16 U/L (0-50) 05/03/24 03:42
Alkaline Phosphatase 229 U/L (38-126) H 05/03/24 03:42
Most recent labs reviewed.
Micro Results:
05/05/24 06:38 Blood Culture - Pending
Blood/Venous
05/04/24 03:09 Blood Culture - Preliminary
Blood/Venous Positive culture in progress
Gram Stain - Preliminary
05/03/24 12:00 Daptomycin / Ceftaroline initiated
05/03/24 03:42 Blood Culture - Preliminary
Blood/Venous Positive culture in progress
Gram Stain - Preliminary
05/02/24 01:49 Blood Culture - Preliminary
Blood/Venous Staph aureus MRSA
Gram Stain - Preliminary
Imaging:
05/04/2024 CXR (portable): Nasogastric tube extends into the abdomen, with tip off the image. Bibasilar opacities noted. These are slightly increased on the right. No pneumothorax. Please see full dictation for additional detail.
04/28/2024 MRI T-spine: Athletics Teacher images demonstrate T2 signal within the C6-C7 vertebral bodies with a likely 3 mm T2 hyperintense focus of signal in the anterior epidural space which appears to extend from the C5-C7 levels. Findings may represent
discitis/osteomyelitis with epidural phlegmon or fracture with hematoma. Recommend dedicated MRI cervical spine with and without contrast for further evaluation.
04/24/2024 X-ray left hip: Total left hip arthroplasty hardware noted in place. There is a comminuted nondisplaced fracture of the left greater trochanter, with possible extension to the prosthesis. No dislocation noted. Please see full dictation
for additional detail.
04/24/2024 CT chest/abdomen/pelvis with IV contrast: There is a small to moderate bilateral pleural effusions with associated consolidation. Infectious/inflammatory bronchiolitis changes in the bilateral upper lobes. Cannot rule out superimposed
pulmonary contusion or underlying nodules. There is a comminuted minimally displaced fracture of the left greater trochanter extending to the underlying prosthesis. Please see full dictation for additional detail. Film personally viewed.
04/24/2024 CT cervical spine without contrast; CT head without contrast: No acute intracranial abnormalities noted. No acute fracture or subluxation of the cervical spine. Multilevel degenerative changes of the cervical spine are noted.
Care Review
Plan reviewed with: Nurse
[2024-05-05] MEDS: SANTYL OINTMENT 1 APPLIC TOPICAL (11:30)
[2024-05-05] MEDS: DAKIN'S SOLUTION 0.125% 1/4 STRENGTH 10 ML TOPICAL (11:30)
--- NOTE | 2024-05-05 12:00 | PTCARENOTE ---
Pt continues to rest quietly w/ family members visiting in room. Oral care provided. Resp Therapy tapering O2- presently on Hiflow 60L/100%- 100% NRB no longer in use. No additional changes from previous assessment findings.
[2024-05-05 12:17] LABS: Glucose - Point of Care 361 mg/dl (70-99)
[2024-05-05] MEDS: TYLENOL ORAL SOLUTION 650 MG TUBE ×4 (12:54→23:21)
[2024-05-05] MEDS: NOVOLOG FLEXPEN 8 UNITS SC (12:54)
[2024-05-05] MEDS: LIDOCAINE 4% PATCH 2 PATCH TOPICAL (12:55)
[2024-05-05] MEDS: CUBICIN 20 MG IV (12:55)
--- NOTE | 2024-05-05 13:30 | CM ---
CM following re: discharge planning.
Discussed in Rounds, reviewed pt's chart, met with pt and pt's sisters. pt's sister Pam participated in Rounds meeting and she brought her concerns regarding quality of life, and goals of care has been discussed.
Per Rounds meeting, pt continue to require 60L HFNC with FIO2 100%, continue supportive care.
D/C plan: uncertain at this time and will depend on pt's progress.
CM will follow with discharge plan updates as hospitalization progresses
[2024-05-05] MEDS: LEVOPHED 250 IV (15:45)
--- NOTE | 2024-05-05 16:00 | PTCARENOTE ---
No changes from previous assessment findings. Frequent oral care, comfort care, emotional support provided.
[2024-05-05 17:59] LABS: Glucose - Point of Care 313 mg/dl (70-99)
[2024-05-05] MEDS: LOVENOX 40 MG SC (18:06)
[2024-05-05] MEDS: NOVOLOG FLEXPEN 15 UNITS SC ×2 (18:30→23:21)
--- NOTE | 2024-05-05 20:00 | PTCARENOTE ---
Received patient AAOx3, following commands, absent hand grasps, complaining of 8/10 pain throughout whole body. Weak cough, no movement in lower extremities b/l. Sinus adri/normal sinus, 50s-70s. Levo gtt ongoing to maintain MAP>65. Palpable radial
pulses b/l, doppler pedal pulses b/l. Normothermic, +3 generalized anasarca and +3 scrotal edema. On 60 liters, 90% HFNC saturating 100%. Lung sounds coarse and rhonchorous throughout. L nare DHT at 72 cm. Jevity 1.5 at goal. Proctor in place draining
yellow urine. Foam on left heel and sacrum CDI. Gauze on neck CDI. Midline patent, WNL, LAC WNL. Family at bedside.
[2024-05-05] MEDS: DILAUDID 1 MG IV (20:31)
--- NOTE | 2024-05-05 20:55 | PTCARENOTE ---
Patient began desaturating to the high 70s while sitting in bed with HFNC on. Nonrebreather mask applied, respiratory to bedside. HFNC increased to 100%, stat chest xray ordered.
[2024-05-05] MEDS: NOVOLOG FLEXPEN-LOW RESISTANCE 2 UNITS SC (23:21)
[2024-05-05 23:27] LABS: Glucose - Point of Care 225 mg/dl (70-99)
--- NOTE | 2024-05-05 23:48 | PTCARENOTE ---
Repositioned, mouth care done, white care done. Otherwise patient assessment unchanged from previous.
[2024-05-06] VITALS (74 sets, daily range): BP systolic 76–119; BP diastolic 43–87; BMI 27.0
[2024-05-06] MEDS: DILAUDID 4 MG TUBE ×3 (02:58→16:43)
[2024-05-06] MEDS: TYLENOL ORAL SOLUTION 650 MG TUBE ×5 (02:58→19:58)
[2024-05-06 03:16] LABS: % Basophils 0.2 % (0-2); % Immature Granulocytes 1.2 % (0-0.5); % Lymphocytes 4.5 % (20.5-51.1); % Monocytes 2.2 % (1.7-9.3); % Neutrophils 91.9 % (42.2-75.2); Absolute Immature Granulocytes 0.3 10^3/uL (0-0.05); Absolute Lymphocytes 1.2 10^3/uL (1.2-3.4); Absolute Monocytes 0.6 10^3/uL (0.1-0.6); Absolute Neutrophils 24.3 10^3/uL (1.4-6.5); Hemoglobin 7.6 g/dL (13.0-18.0); Mean Corp Hgb Conc. 31.7 g/dL (33.0-37.0); Mean Corpuscular Hgb 27.6 pg (27.0-31.0); Mean Corpuscular Volume 87.3 fL (80.0-94.0); Mean Platelet Volume 9.2 fL (7.4-10.4); Nucleated Red Blood Cells % 0 % (-); Platelet Count 550 10^3/uL (130-400); Red Blood Cell Count 2.75 10^6/uL (4.70-6.10); White Blood Cell Count 26.4 10^3/uL (4.8-10.8)
--- NOTE | 2024-05-06 04:04 | PTCARENOTE ---
Repositioned, mouth swab given for comfort. Labs sent. Otherwise patient assessment unchanged from previous. Hourly rounding and patient safety checks ongoing.
[2024-05-06 04:11] LABS: Blood Urea Nitrogen 27 mg/dl (9-20); Calcium 7.8 mg/dl (8.4-10.2); Carbon Dioxide 37 mmol/L (22-30); Chloride 102 mmol/L (98-107); Estimated Creatinine Clearance > 125 ml/min; Glucose 189 mg/dl (70-99); Potassium 4.2 mmol/L (3.5-5.1); Sodium 145 mmol/L (135-145); eGFR > 60.00
[2024-05-06] MEDS: NOVOLOG FLEXPEN-LOW RESISTANCE 2 UNITS SC (05:00)
[2024-05-06] MEDS: NOVOLOG FLEXPEN 15 UNITS SC (05:03)
[2024-05-06 05:06] LABS: Glucose - Point of Care 200 mg/dl (70-99)
[2024-05-06] MEDS: TEFLARO 270 MG IV ×3 (05:15→22:26)
--- NOTE | 2024-05-06 07:28 | W.PN.INTV ---
Today's Communication / Plan
Recommendations
Wean oxygen
Analgesia
Thoracentesis on the left if enough fluid
Chest physiotherapy
Antibiotics
Diuresis
Assessment
-
Patient is a 54-year-old male with previous history of IDDM, anxiety and depression, alcohol abuse with chronic pancreatitis, hypertension, hereditary hemochromatosis, asthma presenting via ambulance for a fall that occurred 5 days ago with
persistent left upper back pain and left hip pain. He admits to noncompliance with his medications. Arrived to hypotensive, tachycardic and hypoxemic. He was it is late on the floor somnolent for a few days. He had been using marijuana,
injecting and snorting methamphetamines. UDS indicating positive screening for oxycodone and meth/amphetamines. Alcohol level negative. Elevated beta hydroxybutyrate, UA possibly demonstrating UTI. CT obtained of chest abdomen pelvis showing
small to moderate bilateral pleural effusions and left greater trochanteric fracture. He is placed on pressors for hypotension, and admitted to ICU.
Subsequently diagnosed with cervical epidural abscess-transferred to [facility] underwent laminectomy and decompression. 04/28/2024.
Negative NEELIMA. Persistently positive cultures for MRSA. Persistently in shock. Persistently hypoxemic. Transferred back to the critical care unit [facility] 05/01/2024
Septic shock
MRSA bacteremia-source possibly due to IVDA
Persistently positive blood cultures as of 04/29/2024
Cervical epidural abscess status postlaminectomy and decompression 04/28/2024 [facility]
Acute respiratory failure: Suspect acute lung injury/possibly MRSA pneumonia as well
Bilateral pleural effusions: Likely to hypovolemia, fluid resuscitation. Volume overload
Acute left greater trochanteric fracture, left hip pain status post fall
Positive urine culture for MRSA
Leukocytosis
Hyperglycemia-necessitating insulin drip
Polysubstance abuse including marijuana, methamphetamines
Medical noncompliance
TME likely from sepsis
Hypothermia
DNR
Conditions present prior to admission:
Transfer to [facility] for laminectomy due to persistent MRSA bacteremia 04/28/2024 status post laminectomy and decompression-subsequently transferred back to [facility]
Initial Adm DH 03/15/2020: Acute on chronic pancreatitis triggered by alcohol use
GERD
Chronic abdominal pain/pancreatitis
Pancreatic pseudocyst per imaging, 4.1 cm
History of hypertriglyceridemia
Admitted with DKA 12/2019
Hemochromatosis s/p liver biopsy; phlebotomy every 6 weeks (Prashanth)
Chronic back pain/sciatica s/p hemilaminectomy
Hypertension
Essential tremor
History of asthma, on Symbicort
Anxiety/depression
Former smoker
Former alcohol abuse
Bilateral hip replacement
Insulin-dependent diabetes
Opioid dependence
Hyperlipidemia
Plan:
Continues to be critically ill on pressors as well as high FiO2 requirements
Supplemental oxygen as needed-attempt to wean-reviewed with BOWLING TEACHER
High flow oxygen continues in addition to nonrebreather
Suction as tolerated
Encourage mobilization of secretions
Aspiration precautions
Mucus clearing devices
Check sputum-unable to produce
Chest x-ray 05/04/2024-bibasilar opacifications consistent with atelectasis, possible small bilateral pleural effusions
Chest x-ray 05/05/20248563-[id number] whiteout-effusion and atelectasis
Chest physiotherapy-reviewed with BOWLING TEACHER
Mucolytics
Thoracentesis if enough fluid 05/06/2024-Dr. Solorio contacted interventional radiology
Incentive spirometry if able
Mucus clearing devices
Nebulizers as needed-currently not bronchospastic
Follow chest x-ray-has had CHF pattern
Cultures reviewed
MRSA bacteremia/epidural cervical abscess
Follow blood cultures-last positive cultures 05/03/2024-follow blood cultures until cleared, blood culture 05/04/2024 no growth
Infectious disease following-correspondence reviewed
Continue antibiotics per infectious disease
Status post laminectomy and spinal epidural abscess decompression 05/01/2024
Norepinephrine as needed-MAP goal greater than 65
Intravenous fluids
Midodrine added
Hydrocortisone 50 mg IV every 6 hours-reduce to every 12 hours-no change
Neurosurgical evaluation completed
Analgesia as needed--reviewed and made adjustments
Comfort a priority
Monitor for oversedation
Continue diuresis as tolerated
Monitor renal function, electrolytes, intake/output, lower extremity edema and weight
Replace electrolytes as needed
Echocardiogram 04/26/2024: D-shaped septum consistent with RV pressure overload. EF 44%. Mild MR. Mild aortic sclerosis. Borderline RV with RV hypokinesis and moderate pulmonary hypertension. Bilateral pleural effusions.
Echocardiogram 05/02/2024-EF 55-60%, mild mitral regurgitation, PA systolic 40-45
Transesophageal echocardiogram at [facility]-no endocarditis
EKG changes
Troponin negative
Cardiology following-correspondence reviewed
Lower extremity ultrasound-04/27/2024 lower extremity Dopplers negative. Upper left extremity Doppler negative for DVT.
Thoracentesis 04/28/2024-- left side, 1100 mL clear fluid, transudate suspect due to heart failure, cultures negative
Thoracentesis 05/06/2024 left side-pending
Monitor hemoglobin
Transfuse as needed
Monitor blood sugar
Insulin supplementation including insulin drip as needed
s/p L femur fracture after a fall this admission-ortho consult placed-prior history of left hip replacement back in 2008
Per Ortho, periprosthetic fracture (greater trochanter), but fortunately no operative management will be recommended at this time.
He will continue to be NWB with no active or passive abduction.
DVT prophylaxis-on Lovenox
GI prophylaxis-on pantoprazole as well as famotidine-discontinue pantoprazole-no longer on ventilator
Nutrition
PT/OT and eventual rehab
CODE STATUS changed-now DNR-reviewed with primary service
Dr. Solorio reviewed with sister at the bedside 05/05/2024-current condition, poor prognosis, multiorgan failure,-appreciative and concerned about pain, comfort and will have discussions with patient in regards to further level of care desired-for
now supportive care with an emphasis of comfort and potential if pain cannot be adequately controlled to be converted to comfort care
Critical care statement: A total of 45 minutes of critical care time was provided for this patient today. This includes management of unstable vital signs, evaluation of the patient at bedside, reviewing the patient's pertinent medical records
including radiographs, microbiology, pressor management, sepsis management, insulin drip management, laboratory evaluations, and discussion with primary team, consultants, pharmacy, nutrition, physical therapy, case management, charge nurse,
critical care nursing, and respiratory therapy.

Diagnostic Data
Chest X-Ray: 01/21/21-The lung volumes are mildly decreased bilaterally. The tracheal air column is slightly deviated to the right. There is no focal airspace opacity suspicious for pneumonia. There is no pleural effusion or pneumothorax. The
cardiomediastinal silhouette is mildly enlarged. There is no radiographic evidence for acute pulmonary edema.
CT Scan: [facility] 04/24/24- 1. Small to moderate bilateral pleural effusions with associated consolidation/atelectasis.
2. Confluent pleural-based consolidation within the lingula measures up to 2.4 cm. Infectious/inflammatory bronchiolitis change in the bilateral upper lobes. Cannot rule out superimposed pulmonary contusions and/or underlying nodules.
3. Comminuted minimally displaced fracture of the left greater trochanter extending to the underlying prosthesis.
Stable simple bilateral renal cysts
Echocardiogram on 05/15/2020: Normal LVEF. Ejection fraction 60-65%. Mild LVH.
02/19/21- Technically difficult study. Normal left ventricular chamber size and left ventricular systolic function. Left ventricular ejection fraction is 55-60% . Mild concentric left ventricular hypertrophy.
Normal diastolic function. Trace mitral regurgitation. Aortic sclerosis without stenosis. Trace tricuspid regurgitation. Estimated pulmonary artery pressure of 30-35 mmHg assuming a right atrial pressure of 0-5 mmHg. Compared to study dated
05/15/2020, no significant change.
Reports and relevant images were personally reviewed.
Subjective Dataa
Subjective Data
Date of Service:
Date of Service: May 06, 2024
Chief Complaint: Scraper Loader Operator Follow Up and Pulmonary Follow Up
Subjective:
Continues to complain of pain, shortness of breath persists, difficulties mobilizing secretions, no increase in movement
Review of Systems
General: Other (Per HPI)
Objective Data
Data Reviewed
Vital Signs / I&O / Oxygen:
Vital Signs
Temp Pulse Resp BP Pulse Ox
97.6 F 61 12 76/43 95
05/06/24 03:46 05/06/24 06:16 05/06/24 06:16 05/06/24 06:16 05/06/24 06:16
Intake and Output
05/05/24 05/06/24 05/07/24
06:59 06:59 06:59
Intake Total 2521.5 / 2521.5 2148.9 / 2148.9
Output Total 1550 / 1550 1490 / 1490
Balance 971.5 / 971.5 658.9 / 658.9
SaO2 95
Nasal Cannula flow liters per 60
minute
Physical Exam
General: Respiratory Distress (n) and Comfortable
HEENT: Normocephalic, Anicteric and Moist Mucous Membranes
Cardiovascular: Regular Rhythm
Respiratory: Wheeze (n), Crackles (Basilar), Rhonchi ( expiratory), Non-Labored Respirations, Accessory Resp Muscle Use (nn), Stridor (n) and Other (Decreased breath sounds left)
GI: Soft, Non Distended and Non Tender
Neurology: Awake, Alert and Other (Some right greater than left upper extremity movement, minimal lower extremity movement)
Skin: Warm, Good Color, Cyanosis (n), Jaundice (n) and Rash (n)
Labs/Micro/Reports
Lab Data
05/06/24 03:08
05/06/24 03:08
Microbiology
05/05/24 06:38 Blood/Venous Blood Culture - Preliminary
Positive culture in progress
05/03/24 03:42 Blood/Venous Blood Culture - Preliminary
Staph aureus MRSA
05/03/24 03:42 Blood/Venous Gram Stain - Preliminary
05/04/24 03:09 Blood/Venous Blood Culture - Preliminary
Positive culture in progress
05/04/24 03:09 Blood/Venous Gram Stain - Preliminary
05/02/24 01:49 Blood/Venous Blood Culture - Preliminary
Staph aureus MRSA
05/02/24 01:49 Blood/Venous Gram Stain - Preliminary
--- NOTE | 2024-05-06 07:39 | PN.DE.MGMTRT ---
Insulin Management
- -
05/05/2024: Diabetes Management Consult Follow u
Patient initially admitted to on 04/24 s/p fall with significant left upper back pain and left hip pain due to Acute left greater trochanteric fx and MRI findings consistent with epidural abscess/osteo of C5- C7 level. Pt was transferred to [facility] on
04/28/2024 and underwent emergent C4-C7 laminectomy, cervical decompression, OR cx +MRSA. He was transferred back to on 04/30/24 for further management of his bacteremia.
PMH: HTN, HLD, Alcohol abuse with acute on chronic pancreatitis, h/o hypertriglyceridemia, Hemochromatosis s/p liver biopsy, GERD, Chronic back pain/sciatica s/p hemilaminectomy, Essential tremor, Asthma, Anxiety/depression, Former smoker, alcohol
abuse, Opioid dependence and IDDM.
Patient was noted for marijuana and methamphetamine use TRAIN ENGINEER. UDS +oxycodone and meth/amphetamines.
Prior to admission was prescribed Lantus 20 units BID, Lispro 30 units AC, Jardiance 10 mg daily, Metformin 1000 mg BID, and Glipizide 10mg BID but had not taken his meds in 8-9 months. Routinely seeing an Endo at [place]. A1C 16.9%, Cr 0.4, eGFR
>60.
Pt sleeping, easily awakened, offers no complaints, unable to discuss diabetes plan of care at this time.
Patient receiving steroids IV hydrocortisone 50 mg Q12H and Tube feeds @ 65c/hr. Transitioned off insulin infusion to 18 units lantus and 4 units novolog Q 6 hours. Glucose has trended up to > 300.
05/05 AM lantus increased to 22 units and Q 6 hour novolog to 15 units (first dose @ 6pm) with low corrective. HS glucose 225.
05/06 CR .5, eGFR >60. Steroids continue, 50 mg Q 12 hours. Fasting glucose 200, will increase AM lantus to 25 units, increase Q 6 hour novolog 17 units with low corrective. As steroids wean will reduce insulin doses.
Discussed with patients nurse. Will follow.
Diabetes History
- -
Type of Diabetes: 2 requiring insulin
Pre-Admission Diabetes Regimen
05/06/24
03:08
Creatinine 0.5 L
Insulin Pump Settings
IP Diabetes Regimen
05/05/24 05/05/24 05/05/24
12:05 17:48 23:16
Glucose
POC Glucose 361 H 313 H 225 H
05/06/24 05/06/24
03:08 04:55
Glucose 189 H
POC Glucose 200 H
Patient Education
[2024-05-06] MEDS: LIDOCAINE 4% PATCH 1 PATCH TOPICAL (08:00)
[2024-05-06] MEDS: NEURONTIN 600 MG TUBE ×3 (08:00→22:19)
[2024-05-06] MEDS: LIDOCAINE 4% PATCH 2 PATCH TOPICAL (08:00)
[2024-05-06] MEDS: SOLU-CORTEF 50 MG IV ×2 (08:00→19:57)
[2024-05-06] MEDS: LASIX 20 MG IV (08:01)
[2024-05-06] MEDS: SANTYL OINTMENT 1 APPLIC TOPICAL (08:01)
[2024-05-06] MEDS: FOLVITE 1 MG TUBE (08:01)
[2024-05-06] MEDS: PEPCID 20 MG TUBE ×2 (08:01→19:58)
[2024-05-06] MEDS: ProAmatine 5 MG PO ×3 (08:01→17:49)
[2024-05-06] MEDS: DAILY VITAMIN/CENTRUM 15 ML TUBE (08:01)
[2024-05-06] MEDS: NSS (PRESERVATIVE FREE) IV (08:02)
[2024-05-06] MEDS: DAKIN'S SOLUTION 0.125% 1/4 STRENGTH 10 ML TOPICAL (08:03)
[2024-05-06] MEDS: VITAMIN B1 100 MG TUBE (08:04)
[2024-05-06] MEDS: DILAUDID 2 MG TUBE (08:14)
--- NOTE | 2024-05-06 08:33 | W.PN.HOSP.TC ---
Today's Communication/Plan
-
see A/P
Assessment / Plan
Assessment / Plan
A/P:
# MRSA bacteremia
# MRSA UTI
# septic shock
still with persistently positive MRSA bacteremia, follow blood culture until clearance (if at all able to achieve)
vancomycin changed to daptomycin and ceftaroline.
Cont Levophed, aim MAP > 65.
Midodrine added.
Low dose IV lasix 20 mg daily added for edema.
s/p NEELIMA at [place] which showed no vegetations, ejection fraction 60%, no RV strain, normal pulmonary artery pressures, this was done prior to extubation at [place].
Consider eval of Left hip prosthesis as alternative source of MRSA bacteremia per ID.
Cont stress dose steroids, now IV hydrocortisone 50 mg Q12H
apprec ID/framing inspector.
# cervical epidural abscess s/p C4-C7 cervical laminectomy and drainage on April 28, 2024 at [place]
upper and lower extremity weakness/paraplegia with inability to move, required emergent transfer 04/28
NOE drain removed April 30, dangelo to remain in place through May 19, 2024
vancomycin has been changed to daptomycin and ceftaroline per ID
pain control
neuro on board, [facility] MRI brain to rule out embolic septic infarcts
# Anemia
Hgb today at 7.6, was at 10.0 on initial presentation
monitor Hgb
# acute hypoxemic respiratory failure, required intubation with extubation on April 30, likely due to septic shock
Cont current High flow NC 100% with intermittent use of NRB mask (perhaps acute lung injury?)
apprec framing inspector
# chest pain appears to be musculoskeletal
# inverted T waves on EKG
Trop negative
cards on board
# type 2 DM, insulin requiring, uncontrolled
on glycemic protocol with insulin drip
on tube feed
SPL eval prior to restarting diet
A1C at 16.9%
Started insulin, Lantus 25 units daily
DM CP BLEACHER OPERATOR on board
# Acute Left comminuted nondisplaced greater trochanter fracture from acute fall
patient was seen by 2 orthopedic groups here and the orthopedic group at [facility], all 3 have recommended no surgical interventions with weightbearing as tolerated and follow-up as an outpatient with his orthopedic doctor
however, [facility] ID team recommending taking a look at the hardware as a potential source of ongoing infection if blood cultures do not clear
may need ortho reconsult
# bilateral LE edema
bilateral LE US 10/8 neg for DVT
left arm US 10/8 neg for DVT
# History of chronic pancreatitis, Unclear etiology, possibly from alcohol or other substance abuse
Home medications include pancreatic enzymes, Creon 2 caps with meals
Remains on home enzyme replacement therapy
# Hyperthyroidism
Per history, home med list prior to first admission here showed methimazole 15 mg daily
consider restarting methimazole
TSH 3.19
# Hereditary hemochromatosis per history
no HFE gene mutation analysis per records here (in 2007, liver iron concentration very high at 7340)
# Diffuse pain
family's current goal is to address pain
cont Dilaudid PO through tube/IV PRN
DVT prophylaxis: switched to Lovenox SQ
CODE STATUS: DNR DNI, discussed with family/sister
pt critically ill, prognosis guarded
DW Director Professional Services
Total Critical Care Time 50 minutes. I was immediately available to the patient and staff. I personally examined, reviewed labs, diagnostic images/reports, interpretations, treatment plans, discussed patient care with other providers and family
or caregivers (if patient is unable to make decisions), entered orders as appropriate and documented the medical record.
Anticipated Discharge: > 48 hours
Subjective/Interval History
-
Date of Service: May 06, 2024
Objective Data
-
Labs:
Laboratory Results
05/06/24
03:08
WBC 26.4 H
Hgb 7.6 L
Hct 24.0 L
Plt Count 550 H
Sodium 145
Potassium 4.2
Chloride 102
Carbon Dioxide 37 H
BUN 27 H
Creatinine 0.5 L
Glucose 189 H
Calcium 7.8 L
Vital Signs:
Vital Signs
Temp Pulse Resp BP Pulse Ox
36.4 C 61 12 99/73 99
05/06/24 08:13 05/06/24 06:16 05/06/24 06:16 05/06/24 08:01 05/06/24 08:06
I&O
05/05/24 05/06/24 05/07/24
06:59 06:59 06:59
Intake Total 2521.5 / 2521.5 2148.9 / 2148.9
Output Total 1550 / 1550 1490 / 1490
Balance 971.5 / 971.5 658.9 / 658.9
Review of Systems
-
Unable to obtain full review of systems at this time due to: Acuity
Constitutional: Reports Other (pain everywhere)
Physical Exam
-
General: Appears Chronically Ill
HEENT: Normocephalic, Atraumatic and Oxygen (high flow NC with intermittent use of NRB mask )
Respiratory: Rhonchi (all lung linares)
Cardiac: Regular Rhythm and S1/S2; Negative Murmur
GI: Soft, Nontender, Nondistended and Normal Bowel Sounds
Genito-urinary: Proctor
Musculoskeletal: No Clubbing, No Cyanosis, Edema, Right Lower Extrem and Edema, Left Lower Extrem
Skin: Lesions (see wound care note)
Neuro: Awake and Alert
Psych: Agitated
Data Reviewed
-
CT Scan: Report Reviewed by me
Labs: Labs Reviewed by me
--- NOTE | 2024-05-06 09:00 | PTCARENOTE ---
Received pt on High Flow 60L 100% sating 99%, RT at bedside, HF weaned to 50L 60% sating 98%. LS w/ coarse rhonchi throughout. Pt w/ moist weak cough, able to expectorate when lying on L side w/ gentle chest PT, thick jones sputum. Pt awake, confused
at times, complains of pain in neck and thien shoulders, see MAR. Unable to move extremities, Q2hr turns continue. SB-NSR on monitor. Levophed @ 4mcg to maintain MAP >65. + 3 edema noted in extremities, elevated w/ pillows as pt tolerates. Proctor
intact w yellow urine. L nare dobhuff w/ Jevity 1.5 @ 65ml/hr H2O @ 25ml/hr. Incontinent of stool. Updated sister at bedside. Full assessment as documented.
[2024-05-06] MEDS: LANTUS 0.25 UNITS SC (09:05)
[2024-05-06 09:22] LABS: Glucose - Point of Care 198 mg/dl (70-99)
[2024-05-06] MEDS: DILAUDID 1 MG IV (10:32)
[2024-05-06] MEDS: NOVOLOG FLEXPEN-LOW RESISTANCE SC ×2 (11:37→17:49)
[2024-05-06] MEDS: NOVOLOG FLEXPEN 17 UNITS SC ×2 (11:38→17:49)
[2024-05-06] MEDS: CUBICIN 20 MG IV (11:41)
[2024-05-06 11:48] LABS: Glucose - Point of Care 147 mg/dl (70-99)
--- NOTE | 2024-05-06 12:00 | W.PN.ID1 ---
Date of Service
Date of Service: May 06, 2024
Today's Communication
Continue antibiotics.
Assessment / Plan
MRSA bacteremia - sustained & persistent
- 04/29/24 NEELIMA no veg at [facility]
- currently on 2 active antibiotics.
C4-C7 epidural abscess
- 04/28/24 s/p laminectomy, decompression at [facility].
- OR cx: MRSA
septic shock
- on Levophed
- on steroid
Acute hypoxic respiratory failure : on high-flow oxygen
Elevated ESR, CRP
Leukocytosis
- likely some component of steroid effect
Fever
Dysphagia - NGT in place
Hyperglycemia
Illicit drug use (opiates, amphetamines) <- may have been source of MRSA
Left hip fracture
Asthma
GERD
Hypertension
Dyslipidemia
Diabetes mellitus
Anxiety/depression
Chronic pancreatitis
Hemochromatosis
Recommendations:
Given ongoing bacteremia, antibiotics transitioned to daptomycin / ceftaroline on 05/03/24, in an attempt to gain control of bacteremia.
Continue daily blood culture until bacteremia cleared. Clearance may take several days.
Follow white count and temperature curve.
Patient remains critically ill in intensive care unit on pressors.
Continue ICU supportive care.
Brain MRI has been ordered, although patient currently too unstable to be placed in machine, as he is on high flow with nonrebreather.
Prognosis extremely guarded.
Prognosis previously discussed extensively with patient's sisters at the bedside. They understand the gravity of the situation. All questions answered. Patient has been made DNR.
����������������������������������������������������������
Chief Complaint
-: Clinical Sepsis, Bacteremia (MRSA) and Other (Cervical epidural abscess)
Subjective / Review of Systems
Patient seen and examined. Reports some improvement in pain control today. Discussed with nursing, patient remains on pressor at this time, and also remains on high flow O2 with nonrebreather supplementation..
Vital Signs / Physical Exam
Vital Signs
Vital Signs
Temp Pulse Resp BP Pulse Ox
97.7 F 61 12 99/73 96
05/06/24 11:50 05/06/24 06:16 05/06/24 06:16 05/06/24 08:01 05/06/24 10:00
Physical Exam
Constitutional: Acutely Ill and Non-toxic
Head: Normocephalic
Eyes: Pupils Equal, Pupils Round, No Conjunctival Hemorrhage and Sclera Anicteric
Cardiovascular: Regular Rate and S1/S2; Negative S3/S4 or Murmur
Pulmonary: Rhonchi (Scattered), Coarse and Other (Mildly labored, although less than yesterday. High flow O2 in place.)
Gastrointestinal: Soft, Non Distended, Normal Bowel Sounds, No Rebound and No Guarding
Genito-Urinary: Proctor and Clear Urine
Extremities: Edema (4+ bilateral extremity upper and lower extremities. ); Negative Cyanosis, Erythema, Splinter Hemorrhage or Janeway Lesions
Skin: Other (Anasarca noted in abdominal area)
Neurological: Awake and Alert; Negative Normal Muscle Strength (No motor strength lower extremities bilaterally. Left upper extremity motor strength (Now ~2/5))
Psychological: Calm and Confused
Objective Data
Lab Data
Lab Results
05/06/24 03:08
05/06/24 03:08
Estimated Creat Clear > 125 ml/min 05/06/24 03:08
Total Bilirubin 0.2 mg/dl (0.2-1.3) 05/03/24 03:42
AST 17 U/L (17-59) 05/03/24 03:42
ALT 16 U/L (0-50) 05/03/24 03:42
Alkaline Phosphatase 229 U/L (38-126) H 05/03/24 03:42
Most recent labs reviewed.
Micro Results:
05/02/24 01:49 Blood Culture - Preliminary
Blood/Venous Staph aureus MRSA
Gram Stain - Preliminary
05/05/24 06:38 Blood Culture - Preliminary
Blood/Venous Positive culture in progress
Gram Stain - Preliminary
05/06/24 05:07 Blood Culture - Pending
Blood/Venous
05/03/24 03:42 Blood Culture - Preliminary
Blood/Venous Staph aureus MRSA
Gram Stain - Preliminary
05/04/24 03:09 Blood Culture - Preliminary
Blood/Venous Positive culture in progress
Gram Stain - Preliminary
Imaging:
05/04/2024 CXR (portable): Nasogastric tube extends into the abdomen, with tip off the image. Bibasilar opacities noted. These are slightly increased on the right. No pneumothorax. Please see full dictation for additional detail.
04/28/2024 MRI T-spine: Revenue Stamp Clerk images demonstrate T2 signal within the C6-C7 vertebral bodies with a likely 3 mm T2 hyperintense focus of signal in the anterior epidural space which appears to extend from the C5-C7 levels. Findings may represent
discitis/osteomyelitis with epidural phlegmon or fracture with hematoma. Recommend dedicated MRI cervical spine with and without contrast for further evaluation.
04/24/2024 X-ray left hip: Total left hip arthroplasty hardware noted in place. There is a comminuted nondisplaced fracture of the left greater trochanter, with possible extension to the prosthesis. No dislocation noted. Please see full dictation
for additional detail.
04/24/2024 CT chest/abdomen/pelvis with IV contrast: There is a small to moderate bilateral pleural effusions with associated consolidation. Infectious/inflammatory bronchiolitis changes in the bilateral upper lobes. Cannot rule out superimposed
pulmonary contusion or underlying nodules. There is a comminuted minimally displaced fracture of the left greater trochanter extending to the underlying prosthesis. Please see full dictation for additional detail. Film personally viewed.
04/24/2024 CT cervical spine without contrast; CT head without contrast: No acute intracranial abnormalities noted. No acute fracture or subluxation of the cervical spine. Multilevel degenerative changes of the cervical spine are noted.
--- NOTE | 2024-05-06 12:26 | W.PN.CARDCBS ---
Today's Communication / Plan
-
No recurrent chest pain. Prior chest pain likely musculoskeletal. Troponins have been negative with unremarkable echocardiogram.
Continue gentle diuresis with IV Lasix. proBNP improved to 420 on May 03. Keep I and Is equivalent.
Continue IV Levophed pressor support for hypotension in the setting of sepsis. Wean IV Levophed as able.
Continue broad-spectrum antibiotics as per ID for MRSA bacteremia.
NEELIMA [facility] was negative for veg
Continue pulmonary toilet and wean O2 as able.
Impression / Plan
-
.
PCP: None, previously discharged from Dr. Bates's office for noncompliance 05/2023, multiple no-shows with [facility]-residency program
Bilingual Hr Generalist: none as an outpatient, seen by [facility] during previous admission in 2019
Impression:
Admitted with back pain after a fall at home 5 days prior, 04/24/24
Sepsis
Septic shock
MRSA bacteremia
IVDA
Acute hypoxemic respiratory failure
Acute HFpEF
Left greater trochanter fracture
TME
Chronic pancreatitis
DM 2
h/o Mediterranean fever
Hemochromatosis
HTN
HLD-Hypertriglyceridemia
Severe Fatty Liver Disease
Chronic pancreatitis
DM II
RA
Multiple fractures including hip and pelvic (was very active as a child and young adult with sports including Equestrian sports)
Chronic pain
ECHO 05/15/20: EF 60-65%, mild cLVH
Echo 04/26/24: EF 54%, D-shaped septum c/w RV pressure overload, mild MR, mild aortic sclerosis with trace aortic regurgitation, borderline dilated RV with RV hypokinesis and moderate PHTN with PAP 54 to 59 mmHg
Echo 05/02/2024: EF 55 to 60% with no LV wall motion abnormality, mild MR, mild TR PA pressure 40-45
Plan:
No recurrent chest pain. Prior chest pain likely musculoskeletal. Troponins have been negative with unremarkable echocardiogram.
Continue gentle diuresis with IV Lasix. proBNP improved to 420 on May 03. Keep I and Is equivalent.
Continue IV Levophed pressor support for hypotension in the setting of sepsis. Wean IV Levophed as able.
Continue broad-spectrum antibiotics as per ID for MRSA bacteremia.
[facility] was negative for veg
Continue pulmonary toilet and wean O2 as able.
Discussed with nursing.
Prognosis poor
Critical care time 31 minutes.
Progress Note - Bilingual Hr Generalist
Subjective
Date of Service: May 06, 2024
Patient seen and examined. No chest pain
Objective
Labs:
05/06/24 03:08
05/06/24 03:08
Labs
Hgb 7.6 g/dL (13.0-18.0) L 05/06/24 03:08
Hct 24.0 % (39.0-52.0) L 05/06/24 03:08
Plt Count 550 10^3/uL (130-400) H 05/06/24 03:08
Sodium 145 mmol/L (135-145) 05/06/24 03:08
Potassium 4.2 mmol/L (3.5-5.1) 05/06/24 03:08
BUN 27 mg/dl (9-20) H 05/06/24 03:08
Creatinine 0.5 mg/dL (0.7-1.3) L 05/06/24 03:08
Glucose 189 mg/dl (70-99) H 05/06/24 03:08
Troponins
05/03/24
12:19
Troponin I < 0.012
Vital Signs and I&O:
Vital Signs
Temp Pulse Resp BP Pulse Ox
97.7 F 61 12 99/73 99
05/06/24 11:50 05/06/24 06:16 05/06/24 06:16 05/06/24 08:01 05/06/24 12:16
Vital Signs
Temp Pulse Resp BP Pulse Ox
97.7 F 61 12 99/73 99
05/06/24 11:50 05/06/24 06:16 05/06/24 06:16 05/06/24 08:01 05/06/24 12:16
Intake & Output
05/04/24 05/05/24 05/06/24 05/07/24
06:59 06:59 06:59 06:59
Intake Total 2937.5 / 3047.5 2521.5 / 2521.5 2148.9 / 2353.9 750 / 750
Output Total 2785 / 2835 1550 / 1550 1490 / 1690 900 / 900
Balance 152.5 / 212.5 971.5 / 971.5 658.9 / 663.9 -150 / -150
Physical Exam
Physical Exam
General: No acute distress, lethargic
Neck: Negative JVD
Heart: Regular, Negative S3 positive S1/S2, Negative S4, No murmur
Lungs: CTA b/l, negative wheezes/rales/rhonchi
Abd: Positive BS, NT/ND, neg rebound/rigidity/guarding
Ext: Negative cyanosis/clubbing/edema
Neuro: nonfocal
--- NOTE | 2024-05-06 12:30 | PTCARENOTE ---
Sacral wound and thien heel wounds changed as documented. Otherwise, assessment unchanged. Plan for Chest US today.
[2024-05-06] MEDS: ROBITUSSIN 200 MG PO ×3 (12:42→22:19)
[2024-05-06] MEDS: RIFADIN 105 MG IV ×2 (13:14→19:59)
--- NOTE | 2024-05-06 14:54 | CM ---
CM following re: discharge planning.
Discussed in Rounds, reviewed pt's chart, met with pt and pt's sisters.
Per Rounds meeting, pt continue to require 60 L HFNC with FIO2 60%, continue supportive care.
D/C plan: uncertain at this time and will depend on pt's progress.
CM will follow with discharge plan updates as hospitalization progresses
[2024-05-06 17:49] LABS: Glucose - Point of Care 117 mg/dl (70-99)
[2024-05-06] MEDS: LOVENOX 40 MG SC (17:49)
--- NOTE | 2024-05-06 20:50 | PTCARENOTE ---
Received patient oriented to self, repeating 'I need to go, I'm in the wrong room, get me up'. Reoriented patient to place, time, and situation, patient understood. Weak cough and gag, unable to lift arms, absent hand grasps. Can shrug shoulders
slightly, cannot wiggle toes or move legs. Sinus adri/normal sinus, 50s-60s, on levo gtt to maintain MAP>65. Normothermic, +3 generalized anasarca. On 50 liters, 50% HFNC, saturating 94%. Lung sounds coarse with rhonchi throughout. Left nare DHT
with jevity 1.5 at goal. Abdomen round, obese, positive bowel sounds. White in place draining yellow urine, white care done. Foams on left heel and sacrum CDI. Gauze on neck incision CDI. Midline and left PIV patent, WNL. Mouth care done,
repositioned. Hourly rounding and patient safety checks ongoing.
[2024-05-06] MEDS: LEVOPHED 250 IV (22:18)
[2024-05-07] VITALS (66 sets, daily range): BP systolic 69–128; BP diastolic 40–80; BMI 26.8
[2024-05-07 00:10] LABS: Glucose - Point of Care 100 mg/dl (70-99)
[2024-05-07] MEDS: NOVOLOG FLEXPEN SC ×2 (00:15→06:12)
[2024-05-07] MEDS: NOVOLOG FLEXPEN-LOW RESISTANCE SC ×2 (00:16→06:13)
[2024-05-07] MEDS: DILAUDID 4 MG TUBE ×2 (00:21→12:15)
[2024-05-07] MEDS: TYLENOL ORAL SOLUTION 650 MG TUBE ×5 (00:21→20:53)
--- NOTE | 2024-05-07 01:19 | PTCARENOTE ---
Patient assessment unchanged from previous.
[2024-05-07] MEDS: DILAUDID 1 MG IV ×4 (02:43→17:24)
--- NOTE | 2024-05-07 02:46 | PTCARENOTE ---
Patient removed DHT, tube feed off. JACK MACHINE OPERATOR notified.
[2024-05-07] MEDS: TYLENOL ORAL SOLUTION TUBE (04:42)
[2024-05-07] MEDS: TEFLARO 270 MG IV ×3 (05:37→20:53)
[2024-05-07 06:08] LABS: % Basophils 0.1 % (0-2); % Eosinophils 0.1 % (0-6); % Immature Granulocytes 0.7 % (0-0.5); % Neutrophils 85.1 % (42.2-75.2); Absolute Immature Granulocytes 0.1 10^3/uL (0-0.05); Absolute Lymphocytes 1.6 10^3/uL (1.2-3.4); Absolute Monocytes 0.7 10^3/uL (0.1-0.6); Absolute Neutrophils 13.7 10^3/uL (1.4-6.5); Hematocrit 24.6 % (39.0-52.0); Hemoglobin 7.6 g/dL (13.0-18.0); Mean Corp Hgb Conc. 30.9 g/dL (33.0-37.0); Mean Corpuscular Hgb 28.3 pg (27.0-31.0); Mean Corpuscular Volume 91.4 fL (80.0-94.0); Mean Platelet Volume 9.5 fL (7.4-10.4); Nucleated Red Blood Cells % 0 % (-); Platelet Count 506 10^3/uL (130-400); Red Blood Cell Count 2.69 10^6/uL (4.70-6.10); Red Cell Dist. Width 15.8 % (11.5-14.5); White Blood Cell Count 16.1 10^3/uL (4.8-10.8)
--- NOTE | 2024-05-07 06:11 | PTCARENOTE ---
Patient had large bowel movement, cleaned up, CHG bath done, repositioned. Labs sent. Hourly rounding and patient safety checks ongoing.
[2024-05-07 06:21] LABS: Glucose - Point of Care 109 mg/dl (70-99)
[2024-05-07 06:34] LABS: Blood Urea Nitrogen 26 mg/dl (9-20); Calcium 7.6 mg/dl (8.4-10.2); Carbon Dioxide 39 mmol/L (22-30); Chloride 102 mmol/L (98-107); Estimated Creatinine Clearance > 125 ml/min; Glucose 101 mg/dl (70-99); Magnesium 1.9 mg/dl (1.6-2.3); Potassium 4.5 mmol/L (3.5-5.1); Sodium 142 mmol/L (135-145); eGFR > 60.00
--- NOTE | 2024-05-07 07:47 | PN.DE.MGMTRT ---
Insulin Management
- -
05/07/2024: Diabetes Management F/U:
Patient initially admitted to on 04/24 s/p fall with significant left upper back pain and left hip pain due to Acute left greater trochanteric fx and MRI findings consistent with epidural abscess/osteo of C5- C7 level. Pt was transferred to [facility] on
04/28/2024 and underwent emergent C4-C7 laminectomy, cervical decompression, OR cx +MRSA. He was transferred back to on 04/30/24 for further management of his bacteremia.
PMH: HTN, HLD, Alcohol abuse with acute on chronic pancreatitis, h/o hypertriglyceridemia, Hemochromatosis s/p liver biopsy, GERD, Chronic back pain/sciatica s/p hemilaminectomy, Essential tremor, Asthma, Anxiety/depression, Former smoker, alcohol
abuse, Opioid dependence and IDDM.
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 UDS +oxycodone and meth/amphetamines.
Prior to admission was prescribed Lantus 20 units BID, Lispro 30 units AC, Jardiance 10 mg daily, Metformin 1000 mg BID, and Glipizide 10mg BID but had not taken his meds in 8-9 months. Routinely seeing an Endo at [place]. A1C 16.9%, Cr 0.4, eGFR
>60.
Pt sleeping, easily awakens to name call, offers no complaints, unable to discuss diabetes plan of care at this time.
Patient receiving steroids IV hydrocortisone 50 mg Q12H and Tube feeds @ 65c/hr. Transitioned off insulin infusion 05/04.
Pt remains on Tube feeds, steroids have been discontinued. Glucose stable and in range, premeal 117 to 198, FBG 101 (V) this AM
Will reduce Lantus dose to 22 units @ HS and Q 6 hour NovoLog to 15 units with low corrective.
Discussed with patients nurse. Will follow.
Diabetes History
- -
Type of Diabetes: 2 requiring insulin
Pre-Admission Diabetes Regimen
05/07/24
05:44
Creatinine 0.4 L
Insulin Pump Settings
IP Diabetes Regimen
05/06/24 05/06/24 05/06/24
09:08 11:36 17:37
Glucose
POC Glucose 198 H 147 H 117 H
05/06/24 05/07/24 05/07/24
23:58 05:44 06:11
Glucose 101 H
POC Glucose 100 H 109 H
Patient Education
--- NOTE | 2024-05-07 07:57 | W.PN.INTV ---
Today's Communication / Plan
Recommendations
Brief cardiopulmonary arrest noted-separate update note
Chest physiotherapy
Antibiotics
Diuresis
Supplemental oxygen as needed
Comfort a priority
Goals of care discussion ongoing
Assessment
-
Patient is a 54-year-old male with previous history of IDDM, anxiety and depression, alcohol abuse with chronic pancreatitis, hypertension, hereditary hemochromatosis, asthma presenting via ambulance for a fall that occurred 5 days ago with
persistent left upper back pain and left hip pain. He admits to noncompliance with his medications. Arrived to hypotensive, tachycardic and hypoxemic. He was it is late on the floor somnolent for a few days. He had been using marijuana,
injecting and snorting methamphetamines. UDS indicating positive screening for oxycodone and meth/amphetamines. Alcohol level negative. Elevated beta hydroxybutyrate, UA possibly demonstrating UTI. CT obtained of chest abdomen pelvis showing
small to moderate bilateral pleural effusions and left greater trochanteric fracture. He is placed on pressors for hypotension, and admitted to ICU.
Subsequently diagnosed with cervical epidural abscess-transferred to [facility] underwent laminectomy and decompression. 04/28/2024.
Negative NEELIMA. Persistently positive cultures for MRSA. Persistently in shock. Persistently hypoxemic. Transferred back to the critical care unit [facility] 05/01/2024
Septic shock
MRSA bacteremia-source possibly due to IVDA
Persistently positive blood cultures as of 04/29/2024
Cervical epidural abscess status postlaminectomy and decompression 04/28/2024 [facility]
Acute respiratory failure: Suspect acute lung injury/possibly MRSA pneumonia as well
Bilateral pleural effusions: Likely to hypovolemia, fluid resuscitation. Volume overload status post left thoracentesis
--1100 mL
Left lung atelectasis from mucous plugs
Acute left greater trochanteric fracture, left hip pain status post fall
Positive urine culture for MRSA
Leukocytosis
Hyperglycemia-necessitating insulin drip
Polysubstance abuse including marijuana, methamphetamines
Medical noncompliance
TME likely from sepsis
Hypothermia
DNR
Conditions present prior to admission:
Transfer to [facility] for laminectomy due to persistent MRSA bacteremia 04/28/2024 status post laminectomy and decompression-subsequently transferred back to [facility] on hospital
Initial Adm [facility] 03/15/2020: Acute on chronic pancreatitis triggered by alcohol use
GERD
Chronic abdominal pain/pancreatitis
Pancreatic pseudocyst per imaging, 4.1 cm
History of hypertriglyceridemia
Admitted with DKA 12/2019
Hemochromatosis s/p liver biopsy; phlebotomy every 6 weeks (Prashanth)
Chronic back pain/sciatica s/p hemilaminectomy
Hypertension
Essential tremor
History of asthma, on Symbicort
Anxiety/depression
Former smoker
Former alcohol abuse
Bilateral hip replacement
Insulin-dependent diabetes
Opioid dependence
Hyperlipidemia
Plan:
Continues to be critically ill on pressors as well as high FiO2 requirements
Supplemental oxygen as needed-attempt to wean-reviewed with INVENTORY TECHNICIAN
High flow oxygen continues in addition to nonrebreather
Suction as tolerated
Encourage mobilization of secretions
Aspiration precautions per protocol
Mucus clearing devices
Check sputum-unable to produce
Chest x-ray 05/04/2024-bibasilar opacifications consistent with atelectasis, possible small bilateral pleural effusions
Chest x-ray 05/05/20246385-[id number] whiteout-effusion and atelectasis
Chest x-ray 05/07/2024-mild improvement in left apical aeration, otherwise significant opacifications due to atelectasis
Chest ultrasound 05/06/2024-minimal left-sided pleural fluid-not enough for thoracentesis
Chest physiotherapy-reviewed with INVENTORY TECHNICIAN
Mucolytics
Incentive spirometry if able
Mucus clearing devices
Nebulizers as needed-currently not bronchospastic
Cultures reviewed
MRSA bacteremia/epidural cervical abscess
Follow blood cultures-last positive cultures 05/03/2024-follow blood cultures until cleared,-persistent blood culture positivity daily since 05/02/2024 through 05/06/2024
Infectious disease following-correspondence reviewed
Continue antibiotics per infectious disease
Status post laminectomy and spinal epidural abscess decompression 05/01/2024
Norepinephrine as needed-MAP goal greater than 65
Intravenous fluids
Midodrine added
Hydrocortisone 50 mg IV every 6 hours-reduce to every 12 hours-no change
Neurosurgical evaluation completed
Analgesia as needed--reviewed and made adjustments
Comfort a priority
Monitor for oversedation
Continue diuresis as tolerated
Monitor renal function, electrolytes, intake/output, lower extremity edema and weight
Replace electrolytes as needed
Echocardiogram 04/26/2024: D-shaped septum consistent with RV pressure overload. EF 44%. Mild MR. Mild aortic sclerosis. Borderline RV with RV hypokinesis and moderate pulmonary hypertension. Bilateral pleural effusions.
Echocardiogram 05/02/2024-EF 55-60%, mild mitral regurgitation, PA systolic 40-45
Transesophageal echocardiogram at [facility]-no endocarditis
EKG changes
Troponin negative
Cardiology following-correspondence reviewed
Lower extremity ultrasound-04/27/2024 lower extremity Dopplers negative. Upper left extremity Doppler negative for DVT.
Thoracentesis 04/28/2024-- left side, 1100 mL clear fluid, transudate suspect due to heart failure, cultures negative
Thoracentesis 05/06/2024 left side--not enough fluid for thoracentesis
Monitor hemoglobin
Transfuse as needed
Monitor blood sugar
Insulin supplementation including insulin drip as needed
s/p L femur fracture after a fall this admission-ortho consult placed-prior history of left hip replacement back in 2008
Per Ortho, periprosthetic fracture (greater trochanter), but fortunately no operative management will be recommended at this time.
He will continue to be NWB with no active or passive abduction.
DVT prophylaxis-on Lovenox
GI prophylaxis-on pantoprazole as well as famotidine-discontinue pantoprazole-no longer on ventilator
Nutrition
PT/OT and eventual rehab
CODE STATUS changed-now DNR-reviewed with primary service
Dr. oSlorio reviewed with sister at the bedside 05/05/2024-current condition, poor prognosis, multiorgan failure,-appreciative and concerned about pain, comfort and will have discussions with patient in regards to further level of care desired-for
now supportive care with an emphasis of comfort and potential if pain cannot be adequately controlled to be converted to comfort care
Dr. Solorio reviewed with sister at bedside 05/07/2024-current condition, overall poor prognosis with multiorgan failure including significant hypoxemia/left lung atelectasis, pneumonia and possible pleural effusion-additional family members and
friends will visit and they will have discussions with patient in regards to how long he would want to pursue supportive care or transition to withdrawal of supportive care and comfort care
Critical care statement: A total of 90 minutes of critical care time was provided for this patient today. This includes management of unstable vital signs, evaluation of the patient at bedside, reviewing the patient's pertinent medical records
including radiographs, running a code 9/bradycardia arrhythmia and hypoxemic cardiopulmonary arrest on 05/07/2024, microbiology, pressor management, sepsis management, insulin drip management, laboratory evaluations, and discussion with primary
team, consultants, pharmacy, nutrition, physical therapy, case management, charge nurse, critical care nursing, and respiratory therapy.

Diagnostic Data
Chest X-Ray: 01/21/21-The lung volumes are mildly decreased bilaterally. The tracheal air column is slightly deviated to the right. There is no focal airspace opacity suspicious for pneumonia. There is no pleural effusion or pneumothorax. The
cardiomediastinal silhouette is mildly enlarged. There is no radiographic evidence for acute pulmonary edema.
CT Scan: CAP 04/24/24- 1. Small to moderate bilateral pleural effusions with associated consolidation/atelectasis.
2. Confluent pleural-based consolidation within the lingula measures up to 2.4 cm. Infectious/inflammatory bronchiolitis change in the bilateral upper lobes. Cannot rule out superimposed pulmonary contusions and/or underlying nodules.
3. Comminuted minimally displaced fracture of the left greater trochanter extending to the underlying prosthesis.
Stable simple bilateral renal cysts
Echocardiogram on 05/15/2020: Normal LVEF. Ejection fraction 60-65%. Mild LVH.
02/19/21- Technically difficult study. Normal left ventricular chamber size and left ventricular systolic function. Left ventricular ejection fraction is 55-60% . Mild concentric left ventricular hypertrophy.
Normal diastolic function. Trace mitral regurgitation. Aortic sclerosis without stenosis. Trace tricuspid regurgitation. Estimated pulmonary artery pressure of 30-35 mmHg assuming a right atrial pressure of 0-5 mmHg. Compared to study dated
05/15/2020, no significant change.
Reports and relevant images were personally reviewed.
Subjective Dataa
Subjective Data
Date of Service:
Date of Service: May 07, 2024
Chief Complaint: Fish Technologist Follow Up and Pulmonary Follow Up
Subjective:
Still complaining of pain, marginal oxygenation, no complaints of chest pain but has 'back pain' and difficulties mobilizing secretions
Review of Systems
General: Other (Per HPI)
Objective Data
Data Reviewed
Vital Signs / I&O / Oxygen:
Vital Signs
Temp Pulse Resp BP Pulse Ox
97.7 F 61 20 100/61 92
05/07/24 03:17 05/07/24 06:00 05/07/24 06:00 05/07/24 06:00 05/07/24 06:00
Intake and Output
05/06/24 05/07/24 05/08/24
06:59 06:59 06:59
Intake Total 2148.9 / 2353.9 2975 / 2975
Output Total 1490 / 1690 1805 / 1805
Balance 658.9 / 663.9 1170 / 1170
SaO2 92
Nasal Cannula flow liters per 50
minute
Physical Exam
General: Respiratory Distress (n) and Comfortable
HEENT: Normocephalic, Anicteric and Moist Mucous Membranes
Cardiovascular: Regular Rhythm
Respiratory: Wheeze (n), Crackles (Basilar), Rhonchi ( expiratory), Non-Labored Respirations, Accessory Resp Muscle Use (nn), Stridor (n) and Other (Decreased breath sounds left)
GI: Soft, Non Distended and Non Tender
Neurology: Awake, Alert and Other (Some right greater than left upper extremity movement, minimal lower extremity movement)
Skin: Warm, Good Color, Cyanosis (n), Jaundice (n) and Rash (n)
Labs/Micro/Reports
Lab Data
05/07/24 05:44
05/07/24 05:44
Microbiology
05/06/24 05:07 Blood/Venous Blood Culture - Preliminary
No Growth in 24 hours- Final report to follow
05/04/24 03:09 Blood/Venous Blood Culture - Preliminary
Staph aureus MRSA
05/04/24 03:09 Blood/Venous Gram Stain - Preliminary
05/02/24 01:49 Blood/Venous Blood Culture - Preliminary
Staph aureus MRSA
05/02/24 01:49 Blood/Venous Gram Stain - Preliminary
05/05/24 06:38 Blood/Venous Blood Culture - Preliminary
Positive culture in progress
05/05/24 06:38 Blood/Venous Gram Stain - Preliminary
05/03/24 03:42 Blood/Venous Blood Culture - Preliminary
Staph aureus MRSA
05/03/24 03:42 Blood/Venous Gram Stain - Preliminary
--- NOTE | 2024-05-07 08:23 | W.PN.HOSP.TC ---
Addendum entered and electronically signed by Anamaria Branch MD 05/07/24 12:00:
I saw and evaluated the patient. I reviewed the resident�s note and agree with findings and plan as documented in the resident�s note.
Of note, patient developed respiratory arrest followed by cardiac arrest in the morning.
He became pulseless without a blood pressure and code 9 was called.
Patient was repositioned, bagged, given 1 dose of epinephrine and brief CPR.
He very quickly resumed ROSC.
Sister was updated in person.
CODE STATUS readdressed, and confirmed patient to be DNR/DNI.
Total time 40 minutes
Original Note:
Today's Communication/Plan
-
.
Assessment / Plan
Assessment / Plan
A/P:
# MRSA bacteremia
# MRSA UTI
# septic shock
still with persistently positive MRSA bacteremia, follow blood culture until clearance
continue daptomycin, ceftaroline, rifampin
Cont Levophed, aim MAP > 65.
Midodrine added.
Low dose IV lasix 20 mg daily added for edema.
s/p NEELIMA at [place] which showed no vegetations, ejection fraction 60%, no RV strain, normal pulmonary artery pressures, this was done prior to extubation at [place].
Cont stress dose steroids, now IV hydrocortisone 50 mg Q12H
apprec ID/culinary worker.
# cervical epidural abscess s/p C4-C7 cervical laminectomy and drainage on April 28, 2024 at [place]
upper and lower extremity weakness/paraplegia with inability to move, required emergent transfer 04/28
NOE drain removed April 30, dangelo to remain in place through May 19, 2024
continue daptomycin, ceftaroline, rifampin
pain control
neuro on board, [facility] MRI brain to rule out embolic septic infarcts
# Anemia
Hgb today at 7.6, was at 10.0 on initial presentation
monitor Hgb
# acute hypoxemic respiratory failure, required intubation with extubation on April 30, likely due to septic shock
Cont current High flow NC 100% with intermittent use of NRB mask (perhaps acute lung injury?)
apprec culinary worker
# chest pain appears to be musculoskeletal
# inverted T waves on EKG
Trop negative
cards on board
# type 2 DM, insulin requiring, uncontrolled
on glycemic protocol with insulin drip
tube feed removed
SPL eval prior to restarting diet
A1C at 16.9%
Started insulin, Lantus 25 units daily
DM COST COORDINATOR on board
# Acute Left comminuted nondisplaced greater trochanter fracture from acute fall
patient was seen by 2 orthopedic groups here and the orthopedic group at [facility], all 3 have recommended no surgical interventions with weightbearing as tolerated and follow-up as an outpatient with his orthopedic doctor
however, [facility] ID team recommending taking a look at the hardware as a potential source of ongoing infection if blood cultures do not clear
may need ortho reconsult
# bilateral LE edema
bilateral LE US 10/8 neg for DVT
left arm US 10/8 neg for DVT
# History of chronic pancreatitis, Unclear etiology, possibly from alcohol or other substance abuse
Home medications include pancreatic enzymes, Creon 2 caps with meals
Remains on home enzyme replacement therapy
# Hyperthyroidism
Per history, home med list prior to first admission here showed methimazole 15 mg daily
consider restarting methimazole
TSH 3.19
# Hereditary hemochromatosis per history
no HFE gene mutation analysis per records here (in 2007, liver iron concentration very high at 7340)
DVT prophylaxis: Lovenox SQ
CODE STATUS: DNR DNI,
Anticipated Discharge: > 48 hours
Subjective/Interval History
-
Date of Service: May 07, 2024
Objective Data
-
Labs:
Laboratory Results
05/07/24
05:44
WBC 16.1 H
Hgb 7.6 L
Hct 24.6 L
Plt Count 506 H
Sodium 142
Potassium 4.5
Chloride 102
Carbon Dioxide 39 H
BUN 26 H
Creatinine 0.4 L
Glucose 101 H
Calcium 7.6 L
Vital Signs:
Vital Signs
Temp Pulse Resp BP Pulse Ox
97.7 F 61 20 100/61 92
05/07/24 03:17 05/07/24 06:00 05/07/24 06:00 05/07/24 06:00 05/07/24 06:00
I&O
05/06/24 05/07/24 05/08/24
06:59 06:59 06:59
Intake Total 2148.9 / 2353.9 2975 / 2975
Output Total 1490 / 1690 1805 / 1805
Balance 658.9 / 663.9 1170 / 1170
Review of Systems
-
All other systems: Reviewed and negative (EXCEPT DOCUMENTED)
Physical Exam
-
Respiratory: Rhonchi, Crackles and Decreased Breath Sounds (decreased on the left)
Cardiac: Regular Rhythm
GI: Soft and Nontender
--- NOTE | 2024-05-07 08:41 | CON.IR ---
Medical History
Allergies / Home Medications
Allergy/AdvReac Type Severity Reaction Status Date / Time
venom-honey bee Allergy PASSED OUT Verified 04/24/24 11:44
[bee venom (honey bee)] AFTER
STING/ANAPHYLAXIS
�Medication �Instructions �Recorded �Confirmed �Type
acetaminophen 160 mg/5 mL oral 500 mg feeding tube Q6H Pain 05/01/24 05/01/24 History
elixir
bisacodyl 10 mg rectal suppository 10 mg SD DAILY PRN constipation 05/01/24 05/01/24 History
famotidine 20 mg tablet 20 mg PO BID Gastrointestinal Issue 05/01/24 05/01/24 History
folic acid 1 mg tablet 1 mg PO DAILY Supplement 05/01/24 05/01/24 History
heparin, porcine (PF) 5,000 5,000 unit SC Q8H Blood Clot 05/01/24 05/01/24 History
unit/mL injection syringe Prevention/Tx
hydrocortisone sod succinate 100 100 mg IV Q6H SHOCK 05/01/24 05/01/24 History
mg solution for injection
(Solu-Cortef)
hydromorphone 0.2 mg/mL injection 0.4 mg Q1H Pain 05/01/24 05/01/24 History
solution
insulin aspart U-100 100 unit/mL 1 sliding scale dose SC 05/01/24 05/01/24 History
(3 mL) subcutaneous pen (Novolog DIRECTED Diabetes
FlexPen U-100 Insulin aspart)
lidocaine 5 % topical patch 1 patch topical DAILY Pain 05/01/24 05/01/24 History
multivitamin with minerals-iron 15 ml PO DAILY Supplement 05/01/24 05/01/24 History
fumarate 9 mg iron/15 mL oral
liquid (Multi Vitamin)
polyethylene glycol 3350 17 gram 17 g PO DAILY Constipation 05/01/24 05/01/24 History
oral powder packet (Miralax)
sennosides 8.6 mg tablet (senna) 8.6 mg PO DAILY Constipation 05/01/24 05/01/24 History
thiamine HCl (vitamin B1) 100 mg 100 mg feeding tube DAILY 05/01/24 05/01/24 History
tablet Supplement
vancomycin 1.5 gram/500 mL in 0.9 1.5 g IV Q8H Infection 05/01/24 05/01/24 History
% sodium chloride intravenous soln
Physical Exam
Vital Signs
Temp Pulse Resp BP Pulse Ox
97.7 F 61 20 100/61 92
05/07/24 08:29 05/07/24 06:00 05/07/24 06:00 05/07/24 06:00 05/07/24 06:00
Lab Results
05/07/24 05:44
05/07/24 05:44
Troponin I < 0.012 ng/ml 05/03/24 12:19
Keb-D-Zoiddznphfy Pept 420 pg/ml 05/03/24 12:19
Assessment / Plan
-
Reviewed recent imaging. Small left effusion with consolidation in left lung representing either pneumonia or atelectasis. Atelectasis being the dominant component makes sense given the leftward shift of the mediastinum on CXR, which would be
unexpected if fluid were the dominant component (would result in contralateral mediastinal shift). Will defer thoracentesis given lack of fluid.
[2024-05-07] MEDS: LASIX 20 MG IV (09:00)
[2024-05-07] MEDS: NSS (PRESERVATIVE FREE) 10 ML IV (09:00)
[2024-05-07] MEDS: SOLU-CORTEF 50 MG IV ×2 (09:01→20:51)
[2024-05-07 10:04] LABS: Glucose - Point of Care 107 mg/dl (70-99)
[2024-05-07] MEDS: NEURONTIN 600 MG TUBE ×3 (10:37→20:53)
[2024-05-07] MEDS: SANTYL OINTMENT 1 APPLIC TOPICAL (10:37)
[2024-05-07] MEDS: DAILY VITAMIN/CENTRUM 15 ML TUBE (10:37)
[2024-05-07] MEDS: ProAmatine 5 MG PO ×3 (10:37→17:29)
[2024-05-07] MEDS: PEPCID 20 MG TUBE ×2 (10:38→20:50)
[2024-05-07] MEDS: LIDOCAINE 4% PATCH 1 PATCH TOPICAL (10:38)
[2024-05-07] MEDS: FOLVITE 1 MG TUBE (10:38)
[2024-05-07] MEDS: LIDOCAINE 4% PATCH 2 PATCH TOPICAL (10:39)
[2024-05-07] MEDS: VITAMIN B1 100 MG TUBE (10:40)
[2024-05-07] MEDS: ROBITUSSIN 200 MG PO ×4 (10:40→20:52)
[2024-05-07] MEDS: DAKIN'S SOLUTION 0.125% 1/4 STRENGTH 1 ML TOPICAL (10:46)
[2024-05-07] MEDS: RIFADIN 105 MG IV ×2 (11:04→20:51)
--- NOTE | 2024-05-07 11:18 | W.PN.ID1 ---
Date of Service
Date of Service: May 07, 2024
Today's Communication
Continue antibiotics.
Assessment / Plan
MRSA bacteremia - sustained & persistent
- 04/29/24 NEELIMA no veg at [facility]
- on 3 active antibiotics (daptomycin, ceftaroline, rifampin)
C4-C7 epidural abscess
- 04/28/24 s/p laminectomy, decompression at [facility].
- OR cx: MRSA
septic shock
- on Levophed
- on steroid
Acute hypoxic respiratory failure : on high-flow oxygen
Elevated ESR, CRP
Leukocytosis
- likely some component of steroid effect
Fever
Dysphagia - NGT in place
Hyperglycemia
Illicit drug use (opiates, amphetamines) <- may have been source of MRSA
Left hip fracture
Asthma
GERD
Hypertension
Dyslipidemia
Diabetes mellitus
Anxiety/depression
Chronic pancreatitis
Hemochromatosis
Recommendations:
Given ongoing bacteremia, antibiotics transitioned to daptomycin / ceftaroline on 05/03/24, in an attempt to gain control of bacteremia. Rifampin added 05/06/2024 given ongoing bacteremia.
Continue daily blood culture until bacteremia cleared.
Follow white count and temperature curve.
Patient remains critically ill in intensive care unit on pressors.
Continue ICU supportive care.
Brain MRI has been ordered, although patient remains too unstable to be placed in machine, as he is on high flow with nonrebreather.
Prognosis appears poor given inability (despite maximal antibiotic therapy) to clear infection. An intravascular source seems likely, although to date it has not been able to be found despite extensive workup.
Will discuss with Cardiology possibility of repeating echo.
Prognosis previously discussed extensively with patient's sisters at the bedside. They understand the gravity of the situation. All questions answered. Patient is DNR.
����������������������������������������������������������
Chief Complaint
-: Clinical Sepsis, Bacteremia (MRSA) and Other (Cervical epidural abscess)
Subjective / Review of Systems
Patient seen and examined. Remains on high flow O2 with nonrebreather supplementation. Nursing reports episode of bradycardia earlier today requiring 1 dose of epinephrine. Currently remains on norepinephrine.
Vital Signs / Physical Exam
Vital Signs
Vital Signs
Temp Pulse Resp BP Pulse Ox
97.7 F 73 20 77/61 92
05/07/24 08:29 05/07/24 10:37 05/07/24 06:00 05/07/24 10:37 05/07/24 11:12
Physical Exam
Constitutional: Acutely Ill, Chronically Ill and Toxic
Head: Normocephalic
Eyes: No Conjunctival Hemorrhage and Sclera Anicteric
Cardiovascular: Regular Rate and S1/S2; Negative S3/S4 or Murmur
Pulmonary: Rhonchi and Other (Mild-moderately labored.)
Gastrointestinal: Soft, Non Distended, Normal Bowel Sounds, No Rebound and No Guarding
Genito-Urinary: Proctor and Clear Urine
Extremities: Edema (4+ bilateral extremity upper and lower extremities. ); Negative Cyanosis, Erythema, Splinter Hemorrhage or Janeway Lesions
Skin: Other (Anasarca noted in abdominal area)
Neurological: Awake and Alert; Negative Normal Muscle Strength (No motor strength lower extremities bilaterally. Left upper extremity motor strength (Now ~2/5))
Psychological: Calm and Confused
Objective Data
Lab Data
Lab Results
05/07/24 05:44
05/07/24 05:44
Estimated Creat Clear > 125 ml/min 05/07/24 05:44
Total Bilirubin 0.2 mg/dl (0.2-1.3) 05/03/24 03:42
AST 17 U/L (17-59) 05/03/24 03:42
ALT 16 U/L (0-50) 05/03/24 03:42
Alkaline Phosphatase 229 U/L (38-126) H 05/03/24 03:42
Most recent labs reviewed.
Micro Results:
05/05/24 06:38 Blood Culture - Preliminary
Blood/Venous Staph aureus MRSA
Gram Stain - Preliminary
05/06/24 05:07 Blood Culture - Preliminary
Blood/Venous Positive culture in progress
Gram Stain - Final
05/04/24 03:09 Blood Culture - Preliminary
Blood/Venous Staph aureus MRSA
Gram Stain - Preliminary
05/02/24 01:49 Blood Culture - Preliminary
Blood/Venous Staph aureus MRSA
Gram Stain - Preliminary
05/03/24 03:42 Blood Culture - Preliminary
Blood/Venous Staph aureus MRSA
Gram Stain - Preliminary
Imaging:
05/04/2024 CXR (portable): Nasogastric tube extends into the abdomen, with tip off the image. Bibasilar opacities noted. These are slightly increased on the right. No pneumothorax. Please see full dictation for additional detail.
04/28/2024 MRI T-spine: Licensed Certified Orthotist images demonstrate T2 signal within the C6-C7 vertebral bodies with a likely 3 mm T2 hyperintense focus of signal in the anterior epidural space which appears to extend from the C5-C7 levels. Findings may represent
discitis/osteomyelitis with epidural phlegmon or fracture with hematoma. Recommend dedicated MRI cervical spine with and without contrast for further evaluation.
04/24/2024 X-ray left hip: Total left hip arthroplasty hardware noted in place. There is a comminuted nondisplaced fracture of the left greater trochanter, with possible extension to the prosthesis. No dislocation noted. Please see full dictation
for additional detail.
04/24/2024 CT chest/abdomen/pelvis with IV contrast: There is a small to moderate bilateral pleural effusions with associated consolidation. Infectious/inflammatory bronchiolitis changes in the bilateral upper lobes. Cannot rule out superimposed
pulmonary contusion or underlying nodules. There is a comminuted minimally displaced fracture of the left greater trochanter extending to the underlying prosthesis. Please see full dictation for additional detail. Film personally viewed.
04/24/2024 CT cervical spine without contrast; CT head without contrast: No acute intracranial abnormalities noted. No acute fracture or subluxation of the cervical spine. Multilevel degenerative changes of the cervical spine are noted.
Care Review
Plan reviewed with: Physician (Cardiology)
--- NOTE | 2024-05-07 11:26 | W.PN.UPDATE ---
Update Note
Progress Note Update
Called for respiratory arrest-patient had progressive hypoxemia, subsequent bradycardia arrhythmia and then became pulseless without a blood pressure
Code 9 was called-patient is a DNR, however, this appeared to be primarily a respiratory event
Patient was repositioned, bagged, given 1 dose of epinephrine and brief CPR
Subsequently resumption of spontaneous circulation, mentation, oxygenation and blood pressure was adequate
Sister was updated-she was thankful resuscitative efforts were provided and will quickly reversed
Going forward no additional CPR, chest compressions, or resuscitative efforts going forward-we will respect their wishes
Primary team was also updated
Total time spent today critical care-greater than 90 minutes
[2024-05-07 11:46] LABS: Glucose - Point of Care 183 mg/dl (70-99)
[2024-05-07] MEDS: NOVOLOG FLEXPEN-LOW RESISTANCE 1 UNITS SC ×2 (12:19→17:39)
[2024-05-07] MEDS: NOVOLOG FLEXPEN 15 UNITS SC ×3 (12:21→23:59)
[2024-05-07] MEDS: CUBICIN 20 MG IV (12:29)
[2024-05-07] MEDS: LEVOPHED 250 IV ×2 (12:33→22:47)
--- NOTE | 2024-05-07 12:35 | CM ---
CM following re: discharge planning.
Discussed in Rounds, reviewed pt's chart, met with pt and pt's sister. Pt's sister participated in Rounds meeting and updated on pt's progress and clinical event today.
Per Rounds meeting, pt continue to require 50 L HFNC with FIO2 60%, continue supportive care.
D/C plan: uncertain at this time and will depend on pt's progress.
CM will follow with discharge plan updates as hospitalization progresses
[2024-05-07] MEDS: LANTUS SC (13:09)
[2024-05-07] MEDS: ATIVAN 0.5 MG IV ×2 (13:38→18:11)
--- NOTE | 2024-05-07 13:54 | W.PN.CARDCBS ---
Today's Communication / Plan
-
Vasopressor support for presumed septic shock
ABX for MRSA bacteremia
Repeat TTE
Poor prognosis
Impression / Plan
-
.
PCP: None, previously discharged from Dr. Bates's office for noncompliance 05/2023, multiple no-shows with [facility]-residency program
Administrative Asst: none as an outpatient, seen by [facility] during previous admission in 2019
Impression:
Admitted with back pain after a fall at home 5 days prior, 04/24/24
Sepsis
Septic shock
MRSA bacteremia
IVDA
Acute hypoxemic respiratory failure
- respiratory failure in AM 05/07 with associated bradycardia, responsive to medical therapy
Acute HFpEF
Left greater trochanter fracture
TME
Chronic pancreatitis
DM 2
h/o Mediterranean fever
Hemochromatosis
HTN
HLD-Hypertriglyceridemia
Severe Fatty Liver Disease
Chronic pancreatitis
DM II
RA
Multiple fractures including hip and pelvic (was very active as a child and young adult with sports including Equestrian sports)
Chronic pain
ECHO 05/15/20: EF 60-65%, mild cLVH
Echo 04/26/24: EF 54%, D-shaped septum c/w RV pressure overload, mild MR, mild aortic sclerosis with trace aortic regurgitation, borderline dilated RV with RV hypokinesis and moderate PHTN with PAP 54 to 59 mmHg
Echo 05/02/2024: EF 55 to 60% with no LV wall motion abnormality, mild MR, mild TR PA pressure 40-45
Plan:
No recurrent chest pain. Prior chest pain likely musculoskeletal. Troponins have been negative with unremarkable echocardiogram.
Continue gentle diuresis with IV Lasix. proBNP improved to 420 on May 03. Keep I and Is equivalent.
Continue IV Levophed pressor support for hypotension in the setting of sepsis. Wean IV Levophed as able.
Continue broad-spectrum antibiotics as per ID for MRSA bacteremia.
[facility]IMA [facility] was negative for veg
Continue pulmonary toilet and wean O2 as able; remains on high flow NC; with recent respiratory event, repeat TTE
Discussed with nursing, family, CC-team.
Prognosis very poor
Critical care time 30 minutes.
Progress Note - Administrative Asst
Subjective
Date of Service: May 07, 2024
Patient seen and examined in AM. No acute events overnight. Patient in bed reporting neck, back pain which he and family reports as chronic. Patient on HFNC O2 support and vasopressor support. Notes swelling in extremities. No CP, palpitations, or
weakness.
Objective
Labs:
05/07/24 05:44
05/07/24 05:44
Labs
Hgb 7.6 g/dL (13.0-18.0) L 05/07/24 05:44
Hct 24.6 % (39.0-52.0) L 05/07/24 05:44
Plt Count 506 10^3/uL (130-400) H 05/07/24 05:44
Sodium 142 mmol/L (135-145) 05/07/24 05:44
Potassium 4.5 mmol/L (3.5-5.1) 05/07/24 05:44
BUN 26 mg/dl (9-20) H 05/07/24 05:44
Creatinine 0.4 mg/dL (0.7-1.3) L 05/07/24 05:44
Glucose 101 mg/dl (70-99) H 05/07/24 05:44
Vital Signs and I&O:
Vital Signs
Temp Pulse Resp BP Pulse Ox
97.7 F 58 20 94/55 92
05/07/24 11:58 05/07/24 13:41 05/07/24 06:00 05/07/24 13:41 05/07/24 11:12
Vital Signs
Temp Pulse Resp BP Pulse Ox
97.7 F 58 20 94/55 92
05/07/24 11:58 05/07/24 13:41 05/07/24 06:00 05/07/24 13:41 05/07/24 11:12
Intake & Output
05/05/24 05/06/24 05/07/24 05/08/24
06:59 06:59 06:59 06:59
Intake Total 2521.5 / 2521.5 2148.9 / 2353.9 2975 / 2975 410.0 / 410.0
Output Total 1550 / 1550 1490 / 1690 1805 / 1805 950 / 950
Balance 971.5 / 971.5 658.9 / 663.9 1170 / 1170 -540.0 / -540.0
Physical Exam
Physical Exam
General: No acute distress, lethargic
Neck: Negative JVD
Heart: Regular, Negative S3 positive S1/S2, Negative S4, No murmur
Lungs: BL rhonchi, poor resp effort; decreased breath sounds L>R
Abd: Positive BS, NT/ND, neg rebound/rigidity/guarding
Ext: Negative cyanosis/clubbing; BL UE/LE 1+ edema
Neuro: nonfocal
[2024-05-07] MEDS: LANTUS 0.22 UNITS SC (15:47)
[2024-05-07] MEDS: LOVENOX 40 MG SC (17:25)
[2024-05-07 17:41] LABS: Glucose - Point of Care 191 mg/dl (70-99)
--- NOTE | 2024-05-07 20:00 | PTCARENOTE ---
rec`d pt at 1900 resting in bed. pt drowsy but awakens to verbal stimuli. does not make complete sentences. one word answers. SR on monitor. hr 60s to 70s. +pulses via doppler. afebrile. high flow 55L and 100%. w/ non rebreather. POX 02 92-97%. weak
cough. coarse lung sounds. dobhoff w/ TF@65 w/ 25 water flush. white in place draining katia urine. sacral wound. left heel wound covered with foam. levo going through rt midline. left ac flushed and patent.
--- NOTE | 2024-05-07 22:08 | PTCARENOTE ---
spoke to pt`s sister at 2208. gave her an update on pt.
[2024-05-08] VITALS (44 sets, daily range): BP systolic 82–136; BP diastolic 45–88; BMI 26.8
[2024-05-08] MEDS: TYLENOL ORAL SOLUTION 650 MG TUBE ×6 (00:07→23:49)
[2024-05-08] MEDS: DILAUDID 1 MG IV ×5 (00:07→22:10)
[2024-05-08 00:10] LABS: Glucose - Point of Care 129 mg/dl (70-99)
--- NOTE | 2024-05-08 01:00 | PTCARENOTE ---
pt`s wound care complete. scaral wound care changed. heel foams changed as well.
[2024-05-08 05:19] LABS: % Basophils 0.1 % (0-2); % Eosinophils 0.1 % (0-6); % Immature Granulocytes 0.7 % (0-0.5); % Lymphocytes 14.8 % (20.5-51.1); % Monocytes 5.7 % (1.7-9.3); % Neutrophils 78.6 % (42.2-75.2); Absolute Immature Granulocytes 0.1 10^3/uL (0-0.05); Absolute Lymphocytes 1.8 10^3/uL (1.2-3.4); Absolute Monocytes 0.7 10^3/uL (0.1-0.6); Absolute Neutrophils 9.5 10^3/uL (1.4-6.5); Hematocrit 24.1 % (39.0-52.0); Hemoglobin 7.6 g/dL (13.0-18.0); Mean Corp Hgb Conc. 31.5 g/dL (33.0-37.0); Mean Corpuscular Hgb 27.8 pg (27.0-31.0); Mean Corpuscular Volume 88.3 fL (80.0-94.0); Mean Platelet Volume 9.6 fL (7.4-10.4); Nucleated Red Blood Cells % 0 % (-); Platelet Count 511 10^3/uL (130-400); Red Blood Cell Count 2.73 10^6/uL (4.70-6.10); Red Cell Dist. Width 16.4 % (11.5-14.5); White Blood Cell Count 12.1 10^3/uL (4.8-10.8)
[2024-05-08] MEDS: TEFLARO 270 MG IV ×3 (05:29→21:51)
[2024-05-08 05:38] LABS: Blood Urea Nitrogen 26 mg/dl (9-20); Calcium 7.5 mg/dl (8.4-10.2); Chloride 99 mmol/L (98-107); Estimated Creatinine Clearance > 125 ml/min; Glucose 87 mg/dl (70-99); Magnesium 1.8 mg/dl (1.6-2.3); Potassium 4.3 mmol/L (3.5-5.1); Sodium 142 mmol/L (135-145); eGFR > 60.00
[2024-05-08] MEDS: NOVOLOG FLEXPEN 15 UNITS SC ×3 (05:47→23:48)
[2024-05-08] MEDS: NOVOLOG FLEXPEN-LOW RESISTANCE SC ×3 (05:47→12:42)
[2024-05-08 05:53] LABS: Carbon Dioxide 38 mmol/L (22-30)
[2024-05-08] MEDS: ATIVAN 0.5 MG IV ×3 (06:10→19:39)
--- NOTE | 2024-05-08 07:00 | PTCARENOTE ---
0700 patient received in bed. On High Flow 50/100%. Indwelling white draining katia clear urine. Levophed 6mcg via Rt upper arm mid-line
--- NOTE | 2024-05-08 07:31 | W.PN.INTV ---
Today's Communication / Plan
Recommendations
Chest physiotherapy
Follow chest x-ray
Attempt to wean oxygen
Diuresis
Antibiotics
Comfort a priority-opiates and benzodiazepines as needed
Goals of care discussion ongoing-moving towards withdrawal/hospice
Assessment
-
Patient is a 54-year-old male with previous history of IDDM, anxiety and depression, alcohol abuse with chronic pancreatitis, hypertension, hereditary hemochromatosis, asthma presenting via ambulance for a fall that occurred 5 days ago with
persistent left upper back pain and left hip pain. He admits to noncompliance with his medications. Arrived to hypotensive, tachycardic and hypoxemic. He was it is late on the floor somnolent for a few days. He had been using marijuana,
injecting and snorting methamphetamines. UDS indicating positive screening for oxycodone and meth/amphetamines. Alcohol level negative. Elevated beta hydroxybutyrate, UA possibly demonstrating UTI. CT obtained of chest abdomen pelvis showing
small to moderate bilateral pleural effusions and left greater trochanteric fracture. He is placed on pressors for hypotension, and admitted to ICU.
Subsequently diagnosed with cervical epidural abscess-transferred to [facility] underwent laminectomy and decompression. 04/28/2024.
Negative NEELIMA. Persistently positive cultures for MRSA. Persistently in shock. Persistently hypoxemic. Transferred back to the critical care unit [facility] 05/01/2024
Septic shock
MRSA bacteremia-source possibly due to IVDA
Persistently positive blood cultures as of 04/29/2024
Cervical epidural abscess status postlaminectomy and decompression 04/28/2024 [facility]
Acute respiratory failure: Suspect acute lung injury/possibly MRSA pneumonia as well
Bilateral pleural effusions: Likely to hypovolemia, fluid resuscitation. Volume overload status post left thoracentesis
--1100 mL
Left lung atelectasis from mucous plugs
Status post cardiopulmonary arrest-mucous plug leading to bradycardia arrhythmia/brief CPR/epinephrine 1 mg 05/07/2024
Acute left greater trochanteric fracture, left hip pain status post fall
Positive urine culture for MRSA
Leukocytosis
Hyperglycemia-necessitating insulin drip
Polysubstance abuse including marijuana, methamphetamines
Medical noncompliance
TME likely from sepsis
Hypothermia
Anemia
DNR
Conditions present prior to admission:
Transfer to [facility] for laminectomy due to persistent MRSA bacteremia 04/28/2024 status post laminectomy and decompression-subsequently transferred back to [facility]
Initial Adm DH 03/15/2020: Acute on chronic pancreatitis triggered by alcohol use
GERD
Chronic abdominal pain/pancreatitis
Pancreatic pseudocyst per imaging, 4.1 cm
History of hypertriglyceridemia
Admitted with DKA 12/2019
Hemochromatosis s/p liver biopsy; phlebotomy every 6 weeks (Prashanth)
Chronic back pain/sciatica s/p hemilaminectomy
Hypertension
Essential tremor
History of asthma, on Symbicort
Anxiety/depression
Former smoker
Former alcohol abuse
Bilateral hip replacement
Insulin-dependent diabetes
Opioid dependence
Hyperlipidemia
Plan:
Continues to be critically ill-on pressors and tenuous respiratory status on high flow oxygen
Supplemental oxygen as needed-attempt to wean-reviewed with [employer]STRU[employer]
High flow oxygen continues in addition to nonrebreather
Suction-deep if possible-as tolerated
Encourage mobilization of secretions
Aspiration precautions per protocol
Chest physiotherapy with right side down with subsequent deep suctioning-reviewed with [employer]
Mucus clearing devices
Check sputum-unable to produce
Chest x-ray 05/04/2024-bibasilar opacifications consistent with atelectasis, possible small bilateral pleural effusions
Chest x-ray 05/05/20247327-[id number] whiteout-effusion and atelectasis
Chest x-ray 05/07/2024-mild improvement in left apical aeration, otherwise significant opacifications due to atelectasis
Chest ultrasound 05/06/2024-minimal left-sided pleural fluid-not enough for thoracentesis
Chest x-ray 05/08/2024-complete atelectasis of the left lung-worsening
Chest physiotherapy-reviewed with [employer]
Mucolytics
Incentive spirometry if able
Mucus clearing devices
Nebulizers as needed-currently not bronchospastic
Cultures reviewed-persistent MRSA bacteremia
MRSA bacteremia/epidural cervical abscess
Follow blood cultures-last positive cultures 05/03/2024-follow blood cultures until cleared,-persistent blood culture positivity daily since 05/02/2024 through 05/06/2024
Infectious disease following-correspondence reviewed
Continue antibiotics per infectious disease
Status post laminectomy and spinal epidural abscess decompression 05/01/2024
Norepinephrine as needed-MAP goal greater than 65
Intravenous fluids
Midodrine added
Hydrocortisone 50 mg IV every 6 hours-reduce to every 12 hours-no change
Repeat transthoracic echocardiogram on Friday
Consider additional imaging if there are additional pockets of infection-note ultrasound of left chest with not enough fluid for diagnostic thoracentesis
Neurosurgical evaluation completed
Analgesia as needed--reviewed and made adjustments
Opiates slowly increase
Ativan added for anxiety-appears to be helping
Comfort a priority
Monitor for oversedation
Continue diuresis as tolerated
Monitor renal function, electrolytes, intake/output, lower extremity edema and weight
Replace electrolytes as needed
Echocardiogram 04/26/2024: D-shaped septum consistent with RV pressure overload. EF 44%. Mild MR. Mild aortic sclerosis. Borderline RV with RV hypokinesis and moderate pulmonary hypertension. Bilateral pleural effusions.
Echocardiogram 05/02/2024-EF 55-60%, mild mitral regurgitation, PA systolic 40-45
Transesophageal echocardiogram at [facility]-no endocarditis
EKG changes
Troponin negative
Cardiology following-correspondence reviewed
Lower extremity ultrasound-04/27/2024 lower extremity Dopplers negative. Upper left extremity Doppler negative for DVT.
Thoracentesis 04/28/2024-- left side, 1100 mL clear fluid, transudate suspect due to heart failure, cultures negative
Thoracentesis 05/06/2024 left side--not enough fluid for thoracentesis
Follow hemoglobin-currently stable at 7.6
Transfuse as needed
Monitor blood sugar
Insulin supplementation including insulin drip as needed
s/p L femur fracture after a fall this admission-ortho consult placed-prior history of left hip replacement back in 2008
Per Ortho, periprosthetic fracture (greater trochanter), but fortunately no operative management will be recommended at this time.
He will continue to be NWB with no active or passive abduction.
DVT prophylaxis-on Lovenox
GI prophylaxis-on pantoprazole as well as famotidine-discontinue pantoprazole-no longer on ventilator
Nutrition
PT/OT and eventual rehab
CODE STATUS changed-now DNR-reviewed with primary service
Dr. Solorio reviewed with sister at the bedside 05/05/2024-current condition, poor prognosis, multiorgan failure,-appreciative and concerned about pain, comfort and will have discussions with patient in regards to further level of care desired-for
now supportive care with an emphasis of comfort and potential if pain cannot be adequately controlled to be converted to comfort care
Dr. Solorio reviewed with sister at bedside 05/07/2024-current condition, overall poor prognosis with multiorgan failure including significant hypoxemia/left lung atelectasis, pneumonia and possible pleural effusion-additional family members and
friends will visit and they will have discussions with patient in regards to how long he would want to pursue supportive care or transition to withdrawal of supportive care and comfort care
Dr. Solorio reviewed with sister-the one that lives next to them and knows him best 05/08/2024 at length-she has been told that he is likely terminal and unlikely to recover by infectious disease, I am in agreement, comfort is a priority, her twin
sister who has not been as involved is not quite ready and there are additional family members/friends that need to visit-they will let us know when they are ready for withdrawal-Sister states 'I live next to them and I have watched him slowly
over the past several years', she realizes he is an addict with multiple medical problems
Critical care statement: A total of 45 minutes of critical care time was provided for this patient today. This includes management of unstable vital signs, evaluation of the patient at bedside, reviewing the patient's pertinent medical records
including radiographs, microbiology, pressor management, sepsis management, insulin drip management, laboratory evaluations, and discussion with primary team, consultants, pharmacy, nutrition, physical therapy, case management, charge nurse,
critical care nursing, and respiratory therapy.

Diagnostic Data
Chest X-Ray: 01/21/21-The lung volumes are mildly decreased bilaterally. The tracheal air column is slightly deviated to the right. There is no focal airspace opacity suspicious for pneumonia. There is no pleural effusion or pneumothorax. The
cardiomediastinal silhouette is mildly enlarged. There is no radiographic evidence for acute pulmonary edema.
CT Scan: CAP 04/24/24- 1. Small to moderate bilateral pleural effusions with associated consolidation/atelectasis.
2. Confluent pleural-based consolidation within the lingula measures up to 2.4 cm. Infectious/inflammatory bronchiolitis change in the bilateral upper lobes. Cannot rule out superimposed pulmonary contusions and/or underlying nodules.
3. Comminuted minimally displaced fracture of the left greater trochanter extending to the underlying prosthesis.
Stable simple bilateral renal cysts
Echocardiogram on 05/15/2020: Normal LVEF. Ejection fraction 60-65%. Mild LVH.
02/19/21- Technically difficult study. Normal left ventricular chamber size and left ventricular systolic function. Left ventricular ejection fraction is 55-60% . Mild concentric left ventricular hypertrophy.
Normal diastolic function. Trace mitral regurgitation. Aortic sclerosis without stenosis. Trace tricuspid regurgitation. Estimated pulmonary artery pressure of 30-35 mmHg assuming a right atrial pressure of 0-5 mmHg. Compared to study dated
05/15/2020, no significant change.
Reports and relevant images were personally reviewed.
Subjective Dataa
Subjective Data
Date of Service:
Date of Service: May 08, 2024
Chief Complaint: Mail Agent Follow Up and Pulmonary Follow Up
Subjective:
Ativan helping, less anxious, continues to have intermittent episodes of pain, continues to be bacteremic, no complaints of anterior chest pain or abdominal pain
Review of Systems
General: Other (Per HPI)
Objective Data
Data Reviewed
Vital Signs / I&O / Oxygen:
Vital Signs
Temp Pulse Resp BP Pulse Ox
98.0 F 52 13 105/67 97
05/08/24 07:00 05/08/24 05:00 05/08/24 05:00 05/08/24 05:00 05/08/24 05:00
Intake and Output
05/07/24 05/08/24 05/09/24
06:59 06:59 06:59
Intake Total 2975 / 2975 1962.5 / 1962.5
Output Total 1805 / 1805 2004 / 2004
Balance 1170 / 1170 -42.5 / -42.5
SaO2 97
Nasal Cannula flow liters per 55
minute
Physical Exam
General: Respiratory Distress (n) and Comfortable
HEENT: Normocephalic, Anicteric and Moist Mucous Membranes
Cardiovascular: Regular Rhythm
Respiratory: Wheeze (n), Crackles (Basilar), Rhonchi ( expiratory), Non-Labored Respirations, Accessory Resp Muscle Use (nn), Stridor (n) and Other (Decreased breath sounds left)
GI: Soft, Non Distended and Non Tender
Neurology: Awake, Alert and Other (Some right greater than left upper extremity movement, minimal lower extremity movement)
Skin: Warm, Good Color, Cyanosis (n), Jaundice (n) and Rash (n)
Labs/Micro/Reports
Lab Data
05/08/24 04:46
05/08/24 04:46
Microbiology
05/05/24 06:38 Blood/Venous Blood Culture - Preliminary
Staph aureus MRSA
05/05/24 06:38 Blood/Venous Gram Stain - Preliminary
05/06/24 05:07 Blood/Venous Blood Culture - Preliminary
Positive culture in progress
05/06/24 05:07 Blood/Venous Gram Stain - Final
05/04/24 03:09 Blood/Venous Blood Culture - Preliminary
Staph aureus MRSA
05/04/24 03:09 Blood/Venous Gram Stain - Preliminary
05/02/24 01:49 Blood/Venous Blood Culture - Preliminary
Staph aureus MRSA
05/02/24 01:49 Blood/Venous Gram Stain - Preliminary
05/03/24 03:42 Blood/Venous Blood Culture - Preliminary
Staph aureus MRSA
05/03/24 03:42 Blood/Venous Gram Stain - Preliminary
--- NOTE | 2024-05-08 07:49 | W.PN.HOSP.TC ---
Today's Communication/Plan
-
see A/P
Assessment / Plan
Assessment / Plan
A/P:
# MRSA bacteremia
# MRSA UTI
# septic shock
still with persistently positive MRSA bacteremia, follow blood culture until clearance
continue daptomycin, ceftaroline, rifampin
Cont Levophed, aim MAP > 65.
Midodrine added.
Low dose IV lasix 20 mg daily added for edema.
s/p NEELIMA at [place] which showed no vegetations, ejection fraction 60%, no RV strain, normal pulmonary artery pressures, this was done prior to extubation at [place].
Cont stress dose steroids, now IV hydrocortisone 50 mg Q12H
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
# cervical epidural abscess s/p C4-C7 cervical laminectomy and drainage on April 28, 2024 at [place]
upper and lower extremity weakness/paraplegia with inability to move, required emergent transfer 04/28
NOE drain removed April 30, dangelo to remain in place through May 19, 2024
continue daptomycin, ceftaroline, rifampin
pain control
neuro on board, [facility] MRI brain to rule out embolic septic infarcts (has been too sick to leave the unit for MRI)
# Anemia
Hgb today at 7.6, was at 10.0 on initial presentation
monitor Hgb
# acute hypoxemic respiratory failure, required intubation with extubation on April 30, likely due to septic shock
Cont current High flow NC 100% with intermittent use of NRB mask
apprec rubber goods inspector
# chest pain appears to be musculoskeletal
# inverted T waves on EKG
Trop negative
cards on board
# type 2 DM, insulin requiring, uncontrolled
on glycemic protocol with insulin drip
tube feed removed
SPL eval prior to restarting diet
A1C at 16.9%
Started insulin, Lantus 25 units daily
DM IP ARCHITECT on board
# Acute Left comminuted nondisplaced greater trochanter fracture from acute fall
patient was seen by 2 orthopedic groups here and the orthopedic group at [facility], all 3 have recommended no surgical interventions with weightbearing as tolerated and follow-up as an outpatient with his orthopedic doctor
however, [facility] ID team recommending taking a look at the hardware as a potential source of ongoing infection if blood cultures do not clear
may need ortho reconsult
# bilateral LE edema
bilateral LE US / neg for DVT
left arm US 04/27 neg for DVT
# History of chronic pancreatitis, Unclear etiology, possibly from alcohol or other substance abuse
Home medications include pancreatic enzymes, Creon 2 caps with meals
Remains on home enzyme replacement therapy
# Hyperthyroidism
Per history, home med list prior to first admission here showed methimazole 15 mg daily
consider restarting methimazole
TSH 3.19
# Hereditary hemochromatosis per history
no HFE gene mutation analysis per records here (in 2007, liver iron concentration very high at 7340)
# Generalized pain with anxiety
IV and PO Dilaudid
IV Ativan added for anxiety
Mood now stable
# Cardiac and respiratory arrest 05/07
resumed ROSC after brief CPR and 1 dose of epinephrine
GOC readdressed and code status confirmed to be DNR DNI.
DVT prophylaxis: Lovenox SQ
CODE STATUS: DNR DNI
DW Care Director
CC time 40 min
Anticipated Discharge: > 48 hours
Subjective/Interval History
-
Date of Service: May 08, 2024
Objective Data
-
Labs:
Laboratory Results
05/08/24
04:46
WBC 12.1 H
Hgb 7.6 L
Hct 24.1 L
Plt Count 511 H
Sodium 142
Potassium 4.3
Chloride 99
Carbon Dioxide 38 H
BUN 26 H
Creatinine 0.4 L
Glucose 87
Calcium 7.5 L
Vital Signs:
Vital Signs
Temp Pulse Resp BP Pulse Ox
36.7 C 52 13 105/67 97
05/08/24 07:00 05/08/24 05:00 05/08/24 05:00 05/08/24 05:00 05/08/24 05:00
I&O
05/07/24 05/08/24 05/09/24
06:59 06:59 06:59
Intake Total 2975 / 2975 1962.5 / 1962.5
Output Total 1805 / 1805 2004 / 2004
Balance 1170 / 1170 -42.5 / -42.5
Review of Systems
-
All other systems: Reviewed and negative (EXCEPT DOCUMENTED)
Physical Exam
-
General: Respiratory Distress and Appears Chronically Ill
HEENT: Oxygen (high flow NC)
Respiratory: Rhonchi and Crackles
Cardiac: Regular Rhythm and S1/S2
GI: Soft and Nontender
Data Reviewed
-
Labs: Labs Reviewed by me
--- NOTE | 2024-05-08 07:52 | W.PN.CARDCBS ---
Today's Communication / Plan
-
Repeat echo normal EF, noted BL pleural effusions
Worsening extremity edema; continue gentle IV diuresis; consider extremity compression garments to help mobilize fluid
ABX, vasopressors for septic shock
Monitor on telemetry
Impression / Plan
-
.
PCP: None, previously discharged from Dr. Bates's office for noncompliance 05/2023, multiple no-shows with [facility]-residency program
Senior Engineering Team Leader: none as an outpatient, seen by [facility] during previous admission in 2019
Impression:
Admitted with back pain after a fall at home 5 days prior, 04/24/24
Sepsis
Septic shock
MRSA bacteremia
IVDA
Acute hypoxemic respiratory failure, worsening; on HFNC
- respiratory failure in AM 05/07 with associated bradycardia, responsive to medical therapy
Acute HFpEF
Extremity Edema
- BL UE/LE, worsening
Left greater trochanter fracture
TME
Chronic pancreatitis
h/o Mediterranean fever
Hemochromatosis
HTN
HLD-Hypertriglyceridemia
Severe Fatty Liver Disease
Chronic pancreatitis
DM II
RA
Multiple fractures including hip and pelvic (was very active as a child and young adult with sports including Equestrian sports)
Chronic pain
ECHO 05/15/20: EF 60-65%, mild cLVH
Echo 04/26/24: EF 54%, D-shaped septum c/w RV pressure overload, mild MR, mild aortic sclerosis with trace aortic regurgitation, borderline dilated RV with RV hypokinesis and moderate PHTN with PAP 54 to 59 mmHg
Echo 05/02/2024: EF 55 to 60% with no LV wall motion abnormality, mild MR, mild TR PA pressure 40-45
ECHO 05/07/2024: EF
Plan:
No recurrent chest pain. Prior chest pain likely musculoskeletal. Troponins have been negative with unremarkable echocardiogram.
Continue gentle diuresis with IV Lasix. proBNP improved to 420 on May 03. Keep I and Is equivalent.
Noted pleural effusion bilaterally on echocardiogram (05/07), likely contributing to dyspnea
Continue IV Levophed pressor support for hypotension in the setting of sepsis. Wean IV Levophed as able.
Continue broad-spectrum antibiotics as per ID for MRSA bacteremia.
NEELIMA [facility] was negative for veg
Continue pulmonary toilet and wean O2 as able; remains on high flow NC; with recent respiratory event, repeat TTE
Discussed with nursing
Prognosis very poor
Critical care time 30 minutes.
Progress Note - Senior Engineering Team Leader
Subjective
Date of Service: May 08, 2024
Patient seen and examined this morning. No acute events overnight, patient reporting mild back/neck pain. On HFNC, somnolent but easily arousable to verbal stimuli. Tele SB/SR. Remains on levophed at 6.
Objective
Labs:
05/08/24 04:46
05/08/24 04:46
Labs
Hgb 7.6 g/dL (13.0-18.0) L 05/08/24 04:46
Hct 24.1 % (39.0-52.0) L 05/08/24 04:46
Plt Count 511 10^3/uL (130-400) H 05/08/24 04:46
Sodium 142 mmol/L (135-145) 05/08/24 04:46
Potassium 4.3 mmol/L (3.5-5.1) 05/08/24 04:46
BUN 26 mg/dl (9-20) H 05/08/24 04:46
Creatinine 0.4 mg/dL (0.7-1.3) L 05/08/24 04:46
Glucose 87 mg/dl (70-99) 05/08/24 04:46
Vital Signs and I&O:
Vital Signs
Temp Pulse Resp BP Pulse Ox
98.0 F 52 13 105/67 97
05/08/24 07:00 05/08/24 05:00 05/08/24 05:00 05/08/24 05:00 05/08/24 05:00
Vital Signs
Temp Pulse Resp BP Pulse Ox
98.0 F 52 13 105/67 97
05/08/24 07:00 05/08/24 05:00 05/08/24 05:00 05/08/24 05:00 05/08/24 05:00
Intake & Output
05/06/24 05/07/24 05/08/24 05/09/24
06:59 06:59 06:59 06:59
Intake Total 2148.9 / 2353.9 2975 / 2975 1962.5 / 1962.5
Output Total 1490 / 1690 1805 / 1805 2004 / 2004
Balance 658.9 / 663.9 1170 / 1170 -42.5 / -42.5
Physical Exam
Physical Exam
General: No acute distress, lethargic
Neck: Negative JVD
Heart: Regular, Negative S3 positive S1/S2, Negative S4, No murmur
Lungs: BL rhonchi, poor resp effort; decreased breath sounds L>R
Abd: Positive BS, NT/ND, neg rebound/rigidity/guarding
Ext: Negative cyanosis/clubbing; BL UE/LE 2+ edema
Neuro: nonfocal
--- NOTE | 2024-05-08 08:00 | PTCARENOTE ---
Patient appeared drowsy. Blood sugar checked with result 36, rechecked immediately after [address] Krishan Cr to hold am dose with NovoLog 15 units standard dose cover pt wit Sliding scale only . Dextrose 12.5 per PRN order adm.
--- NOTE | 2024-05-08 08:58 | W.PN.ID1 ---
Date of Service
Date of Service: May 08, 2024
Today's Communication
prognosis grim with 12 days of sustained bacteremia
repeat TTE friday
Assessment / Plan
MRSA bacteremia - sustained & persistent
- 04/29/24 NEELIMA no veg at [facility]
- on 3 active antibiotics (daptomycin, ceftaroline, rifampin)
C4-C7 epidural abscess
- 04/28/24 s/p laminectomy, decompression at [facility].
- OR cx: MRSA
septic shock
- on Levophed
- on steroid
Acute hypoxic respiratory failure : on high-flow oxygen
Elevated ESR, CRP
Leukocytosis
- likely some component of steroid effect
Fever
Dysphagia - NGT in place
Hyperglycemia
Illicit drug use (opiates, amphetamines) <- may have been source of MRSA
Left hip fracture
Asthma
GERD
Hypertension
Dyslipidemia
Diabetes mellitus
Anxiety/depression
Chronic pancreatitis
Hemochromatosis
Recommendations:
Given ongoing bacteremia, persistent shock, antibiotics transitioned to daptomycin / ceftaroline on 05/03/24, in an attempt to gain control of bacteremia. Rifampin added 05/06/2024 given ongoing bacteremia.
Continue daily blood culture until bacteremia cleared
Follow white count and temperature curve.
CXR: atelectasis of the L lung with r to l mediastinal shift - mucous plugging suspected
Patient remains critically ill in intensive care unit on pressors.
Continue ICU supportive care.
Brain MRI has been ordered, although patient remains too unstable to be placed in machine, as he is high flow NC
Prognosis appears poor given inability (despite maximal antibiotic therapy) to clear infection. An intravascular source seems likely, although to date it has not been able to be found despite extensive workup.
Repeat echo friday
Prognosis previously discussed extensively with patient's sisters at the bedside by Dr Hand. They understand the gravity of the situation. All questions answered. Patient is DNR. Prognosis Grim.
����������������������������������������������������������
Chief Complaint
-: Clinical Sepsis, Bacteremia (MRSA) and Other (Cervical epidural abscess)
Subjective / Review of Systems
afebrile
no events overnight
Vital Signs / Physical Exam
Vital Signs
Vital Signs
Temp Pulse Resp BP Pulse Ox
98.0 F 52 13 105/67 99
05/08/24 07:00 05/08/24 05:00 05/08/24 05:00 05/08/24 05:00 05/08/24 07:57
Physical Exam
Constitutional: Chronically Ill and Toxic
Cardiovascular: Regular Rate and S1/S2; Negative Murmur or Rub
Pulmonary: Symmetric, Coarse, Non Labored and Other (on high flow NC); Negative Wheezes or Rales
Gastrointestinal: Soft, Non Tender, Non Distended and Normal Bowel Sounds
Skin: Warm and Dry; Negative Rash or Jaundice
Neurological: Awake
Lines: Other (lines nontender, no erythema or drainage - functional)
Objective Data
Lab Data
Lab Results
05/08/24 04:46
05/08/24 04:46
Estimated Creat Clear > 125 ml/min 05/08/24 04:46
Total Bilirubin 0.2 mg/dl (0.2-1.3) 05/03/24 03:42
AST 17 U/L (17-59) 05/03/24 03:42
ALT 16 U/L (0-50) 05/03/24 03:42
Alkaline Phosphatase 229 U/L (38-126) H 05/03/24 03:42
Most recent labs reviewed.
Micro Results:
05/05/24 06:38 Blood Culture - Preliminary
Blood/Venous Staph aureus MRSA
Gram Stain - Preliminary
05/06/24 05:07 Blood Culture - Preliminary
Blood/Venous Positive culture in progress
Gram Stain - Final
05/04/24 03:09 Blood Culture - Preliminary
Blood/Venous Staph aureus MRSA
Gram Stain - Preliminary
05/02/24 01:49 Blood Culture - Preliminary
Blood/Venous Staph aureus MRSA
Gram Stain - Preliminary
05/03/24 03:42 Blood Culture - Preliminary
Blood/Venous Staph aureus MRSA
Gram Stain - Preliminary
Imaging:
05/04/2024 CXR (portable): Nasogastric tube extends into the abdomen, with tip off the image. Bibasilar opacities noted. These are slightly increased on the right. No pneumothorax. Please see full dictation for additional detail.
04/28/2024 MRI T-spine: Watch And Clock Repair Clerk images demonstrate T2 signal within the C6-C7 vertebral bodies with a likely 3 mm T2 hyperintense focus of signal in the anterior epidural space which appears to extend from the C5-C7 levels. Findings may represent
discitis/osteomyelitis with epidural phlegmon or fracture with hematoma. Recommend dedicated MRI cervical spine with and without contrast for further evaluation.
04/24/2024 X-ray left hip: Total left hip arthroplasty hardware noted in place. There is a comminuted nondisplaced fracture of the left greater trochanter, with possible extension to the prosthesis. No dislocation noted. Please see full dictation
for additional detail.
04/24/2024 CT chest/abdomen/pelvis with IV contrast: There is a small to moderate bilateral pleural effusions with associated consolidation. Infectious/inflammatory bronchiolitis changes in the bilateral upper lobes. Cannot rule out superimposed
pulmonary contusion or underlying nodules. There is a comminuted minimally displaced fracture of the left greater trochanter extending to the underlying prosthesis. Please see full dictation for additional detail. Film personally viewed.
04/24/2024 CT cervical spine without contrast; CT head without contrast: No acute intracranial abnormalities noted. No acute fracture or subluxation of the cervical spine. Multilevel degenerative changes of the cervical spine are noted.
[2024-05-08] MEDS: ROBITUSSIN 200 MG PO ×4 (08:59→21:51)
[2024-05-08] MEDS: FOLVITE 1 MG TUBE (08:59)
[2024-05-08] MEDS: LASIX 20 MG IV (08:59)
[2024-05-08] MEDS: PEPCID 20 MG TUBE ×2 (08:59→19:45)
[2024-05-08] MEDS: NSS (PRESERVATIVE FREE) 10 ML IV (08:59)
[2024-05-08] MEDS: VITAMIN B1 100 MG TUBE (08:59)
[2024-05-08] MEDS: ProAmatine 5 MG PO ×3 (08:59→17:17)
[2024-05-08] MEDS: DAILY VITAMIN/CENTRUM 15 ML TUBE (08:59)
[2024-05-08] MEDS: NEURONTIN 600 MG TUBE ×3 (08:59→21:51)
[2024-05-08] MEDS: SOLU-CORTEF 50 MG IV ×2 (08:59→19:45)
[2024-05-08] MEDS: SANTYL OINTMENT 1 APPLIC TOPICAL (09:00)
[2024-05-08] MEDS: LIDOCAINE 4% PATCH 2 PATCH TOPICAL (09:01)
[2024-05-08] MEDS: LIDOCAINE 4% PATCH 1 PATCH TOPICAL (09:01)
[2024-05-08] MEDS: RIFADIN 105 MG IV ×2 (09:02→20:08)
[2024-05-08] MEDS: DAKIN'S SOLUTION 0.125% 1/4 STRENGTH 1 ML TOPICAL (09:06)
[2024-05-08] MEDS: LEVOPHED 250 IV ×2 (09:10→17:47)
[2024-05-08] MEDS: TYLENOL ORAL SOLUTION TUBE (09:12)
[2024-05-08] MEDS: DEXTROSE 50% SYRINGE 12.5 GRAMS IV (09:27)
[2024-05-08 09:38] LABS: Glucose - Point of Care 35 mg/dl (70-99)
[2024-05-08 09:55] LABS: Glucose - Point of Care 64 mg/dl (70-99)
[2024-05-08 10:22] LABS: Glucose - Point of Care 84 mg/dl (70-99)
[2024-05-08 12:01] LABS: Glucose - Point of Care 137 mg/dl (70-99)
[2024-05-08] MEDS: CUBICIN 20 MG IV (12:36)
[2024-05-08] MEDS: DILAUDID 4 MG TUBE ×2 (12:37→20:08)
[2024-05-08] MEDS: NOVOLOG FLEXPEN SC (12:38)
[2024-05-08] MEDS: DILAUDID 2 MG TUBE (15:27)
[2024-05-08] MEDS: LOVENOX 40 MG SC (17:18)
[2024-05-08] MEDS: NOVOLOG FLEXPEN-LOW RESISTANCE 3 UNITS SC ×2 (17:29→23:48)
[2024-05-08 17:46] LABS: Glucose - Point of Care 293 mg/dl (70-99)
[2024-05-08] MEDS: NSS (PRESERVATIVE FREE) 0.25 ML IV (19:40)
--- NOTE | 2024-05-08 20:00 | PTCARENOTE ---
rec`d pt at 1900 resting in bed. family at bedside. pt drowsy but awakens to verbal stimuli. SR on monitor. hr 60s to 70s. +pulses via doppler. afebrile. high flow. POX 02 92%. very weak cough. no gag reflex. coarse lung sounds. dobhoff w/ TF@65 w/
25 water flush. white in place draining katia urine. sacral wound. left heel wound covered with foam. levo going through rt midline. left upper arm flushed and patent. safe environment maintained.
--- NOTE | 2024-05-08 22:19 | PTCARENOTE ---
increasing oxygen needs, pt went to 84% POX. high flow settings are now 50L w/ 100%. w/ non rebreather. pt turned to left side. now satting 97%. pt`s sister at bedside.
[2024-05-08 23:02] LABS: Glucose - Point of Care 269 mg/dl (70-99)
[2024-05-09] VITALS (27 sets, daily range): BP systolic 48–117; BP diastolic 25–76; BMI 26.9
[2024-05-09] MEDS: ATIVAN 0.5 MG IV ×2 (01:10→05:50)
[2024-05-09] MEDS: DILAUDID 2 MG TUBE (01:10)
[2024-05-09] MEDS: TYLENOL ORAL SOLUTION 650 MG TUBE ×2 (03:29→08:04)
[2024-05-09 04:56] LABS: % Basophils 0.1 % (0-2); % Eosinophils 0.1 % (0-6); % Immature Granulocytes 0.6 % (0-0.5); % Lymphocytes 10.6 % (20.5-51.1); % Monocytes 5.3 % (1.7-9.3); % Neutrophils 83.3 % (42.2-75.2); Absolute Immature Granulocytes 0.1 10^3/uL (0-0.05); Absolute Lymphocytes 1.6 10^3/uL (1.2-3.4); Absolute Monocytes 0.8 10^3/uL (0.1-0.6); Absolute Neutrophils 12.2 10^3/uL (1.4-6.5); Hematocrit 25.4 % (39.0-52.0); Hemoglobin 7.9 g/dL (13.0-18.0); Mean Corp Hgb Conc. 31.1 g/dL (33.0-37.0); Mean Corpuscular Hgb 27.7 pg (27.0-31.0); Mean Corpuscular Volume 89.1 fL (80.0-94.0); Mean Platelet Volume 9.5 fL (7.4-10.4); Nucleated Red Blood Cells % 0 % (-); Platelet Count 500 10^3/uL (130-400); Red Blood Cell Count 2.85 10^6/uL (4.70-6.10); Red Cell Dist. Width 17.2 % (11.5-14.5); White Blood Cell Count 14.7 10^3/uL (4.8-10.8)
[2024-05-09] MEDS: TEFLARO 270 MG IV (05:08)
[2024-05-09 05:10] LABS: Blood Urea Nitrogen 23 mg/dl (9-20); Calcium 7.4 mg/dl (8.4-10.2); Chloride 97 mmol/L (98-107); Estimated Creatinine Clearance > 125 ml/min; Glucose 259 mg/dl (70-99); Magnesium 1.8 mg/dl (1.6-2.3); Potassium 4.6 mmol/L (3.5-5.1); Sodium 140 mmol/L (135-145); eGFR > 60.00
[2024-05-09] MEDS: DILAUDID 1 MG IV (05:14)
[2024-05-09 05:31] LABS: Carbon Dioxide 34 mmol/L (22-30)
[2024-05-09] MEDS: NOVOLOG FLEXPEN 15 UNITS SC (05:33)
[2024-05-09] MEDS: NOVOLOG FLEXPEN-LOW RESISTANCE 3 UNITS SC (05:34)
--- NOTE | 2024-05-09 05:59 | PTCARENOTE ---
pt`s wound care complete.
--- NOTE | 2024-05-09 07:45 | W.PN.HOSP.TC ---
Addendum entered and electronically signed by Anamaria Branch MD 05/09/24 14:09:
total DC time 40 min
Original Note:
Today's Communication/Plan
-
see A/P
Assessment / Plan
Assessment / Plan
A/P:
# MRSA bacteremia
# MRSA UTI
# septic shock
still with persistently positive MRSA bacteremia, follow blood culture until clearance
continue daptomycin, ceftaroline, rifampin
Cont Levophed, aim MAP > 65.
Midodrine added.
Low dose IV lasix 20 mg daily added for edema.
s/p NEELIMA at [place] which showed no vegetations, ejection fraction 60%, no RV strain, normal pulmonary artery pressures, this was done prior to extubation at [place].
Cont stress dose steroids, now IV hydrocortisone 50 mg Q12H
apprec ID/tire specialist.
# cervical epidural abscess s/p C4-C7 cervical laminectomy and drainage on April 28, 2024 at [place]
upper and lower extremity weakness/paraplegia with inability to move, required emergent transfer 04/28
NOE drain removed April 30, dangelo to remain in place through May 19, 2024
continue daptomycin, ceftaroline, rifampin
pain control
neuro on board, [facility] MRI brain to rule out embolic septic infarcts (has been too sick to leave the unit for MRI)
# Anemia
Hgb today at 7.9, was at 10.0 on initial presentation
monitor Hgb
# acute hypoxemic respiratory failure, required intubation with extubation on April 30, likely due to septic shock
Cont current High flow NC 100% with intermittent use of NRB mask
apprec tire specialist
# chest pain appears to be musculoskeletal
# inverted T waves on EKG
Trop negative
cards on board
# type 2 DM, insulin requiring, uncontrolled
A1C at 16.9%
Started tube feed
Started insulin, Lantus and lispro adjusting
DM CW OPERATOR on board
# Acute Left comminuted nondisplaced greater trochanter fracture from acute fall
patient was seen by 2 orthopedic groups here and the orthopedic group at [facility], all 3 have recommended no surgical interventions with weightbearing as tolerated and follow-up as an outpatient with his orthopedic doctor
however, [facility] ID team recommending taking a look at the hardware as a potential source of ongoing infection if blood cultures do not clear
may need ortho reconsult
# bilateral LE edema
bilateral LE US 10/ neg for DVT
left arm US / neg for DVT
# History of chronic pancreatitis, Unclear etiology, possibly from alcohol or other substance abuse
Home medications include pancreatic enzymes, Creon 2 caps with meals
Remains on home enzyme replacement therapy
# Hyperthyroidism
Per history, home med list prior to first admission here showed methimazole 15 mg daily
TSH 3.19
# Hereditary hemochromatosis per history
no HFE gene mutation analysis per records here (in 2007, liver iron concentration very high at 7340)
# Generalized pain with anxiety
IV and PO Dilaudid
IV Ativan added for anxiety
Mood now stable
# Cardiac and respiratory arrest 05/07
resumed ROSC after brief CPR and 1 dose of epinephrine
GOC readdressed and code status confirmed to be DNR DNI.
DVT prophylaxis: Lovenox SQ
CODE STATUS: DNR DNI
updated sister Pam on the phone
CC time 40 min
Anticipated Discharge: > 48 hours
Subjective/Interval History
-
Date of Service: May 09, 2024
Objective Data
-
Labs:
Laboratory Results
05/09/24
04:30
WBC 14.7 H
Hgb 7.9 L
Hct 25.4 L
Plt Count 500 H
Sodium 140
Potassium 4.6
Chloride 97 L
Carbon Dioxide 34 H
BUN 23 H
Creatinine 0.4 L
Glucose 259 H
Calcium 7.4 L
Vital Signs:
Vital Signs
Temp Pulse Resp BP Pulse Ox
37.1 C 79 20 115/65 96
05/09/24 07:00 05/09/24 06:00 05/09/24 06:00 05/09/24 06:00 05/09/24 06:00
I&O
05/08/24 05/09/24 05/10/24
06:59 06:59 06:59
Intake Total 1962.5 / 1985.0 2710.0 / 2710.0
Output Total 2004 / 2199
Balance -42.5 / -170.0 510 / 510.0
Review of Systems
-
All other systems: Reviewed and negative (EXCEPT DOCUMENTED)
Physical Exam
-
General: Respiratory Distress and Appears Chronically Ill
HEENT: Oxygen (high flow NC with PRN use of NRB Mask)
Respiratory: Rhonchi and Crackles
Cardiac: Regular Rhythm and S1/S2
GI: Soft and Nontender
Psych: Calm
Data Reviewed
-
Labs: Labs Reviewed by me
--- NOTE | 2024-05-09 07:46 | W.PN.INTV ---
Today's Communication / Plan
Recommendations
Attempt to wean FiO2
Remove mucous plugs
Antibiotics
Comfort a priority-opiates and benzodiazepines as needed
Moving towards comfort care
Family updated
Assessment
-
Patient is a 54-year-old male with previous history of IDDM, anxiety and depression, alcohol abuse with chronic pancreatitis, hypertension, hereditary hemochromatosis, asthma presenting via ambulance for a fall that occurred 5 days ago with
persistent left upper back pain and left hip pain. He admits to noncompliance with his medications. Arrived to hypotensive, tachycardic and hypoxemic. He was it is late on the floor somnolent for a few days. He had been using marijuana,
injecting and snorting methamphetamines. UDS indicating positive screening for oxycodone and meth/amphetamines. Alcohol level negative. Elevated beta hydroxybutyrate, UA possibly demonstrating UTI. CT obtained of chest abdomen pelvis showing
small to moderate bilateral pleural effusions and left greater trochanteric fracture. He is placed on pressors for hypotension, and admitted to ICU.
Subsequently diagnosed with cervical epidural abscess-transferred to [facility] underwent laminectomy and decompression. 04/28/2024.
Negative NEELIMA. Persistently positive cultures for MRSA. Persistently in shock. Persistently hypoxemic. Transferred back to the critical care unit [facility] 05/01/2024
Septic shock
MRSA bacteremia-source possibly due to IVDA
Persistently positive blood cultures as of 04/29/2024
Cervical epidural abscess status postlaminectomy and decompression 04/28/2024 [facility]
Acute respiratory failure: Suspect acute lung injury/possibly MRSA pneumonia as well
Bilateral pleural effusions: Likely to hypovolemia, fluid resuscitation. Volume overload status post left thoracentesis
--1100 mL
Left lung atelectasis from mucous plugs
Status post cardiopulmonary arrest-mucous plug leading to bradycardia arrhythmia/brief CPR/epinephrine 1 mg 05/07/2024
Acute left greater trochanteric fracture, left hip pain status post fall
Positive urine culture for MRSA
Leukocytosis
Hyperglycemia-necessitating insulin drip
Polysubstance abuse including marijuana, methamphetamines
Medical noncompliance
TME likely from sepsis
Hypothermia
Anemia
DNR
Conditions present prior to admission:
Transfer to [facility] for laminectomy due to persistent MRSA bacteremia 04/28/2024 status post laminectomy and decompression-subsequently transferred back to [facility] hospital
Initial Adm DH 03/15/2020: Acute on chronic pancreatitis triggered by alcohol use
GERD
Chronic abdominal pain/pancreatitis
Pancreatic pseudocyst per imaging, 4.1 cm
History of hypertriglyceridemia
Admitted with DKA 12/2019
Hemochromatosis s/p liver biopsy; phlebotomy every 6 weeks (Prashanth)
Chronic back pain/sciatica s/p hemilaminectomy
Hypertension
Essential tremor
History of asthma, on Symbicort
Anxiety/depression
Former smoker
Former alcohol abuse
Bilateral hip replacement
Insulin-dependent diabetes
Opioid dependence
Hyperlipidemia
Plan:
Remains critically ill-on pressors and tenuous respiratory status on high flow oxygen
Supplemental oxygen as needed-attempt to wean-reviewed with GLOBAL ENGINEERING MANAGER
High flow oxygen continues in addition to nonrebreather
Suction-deep if possible-as tolerated
Encourage mobilization of secretions
Aspiration precautions per protocol
Chest physiotherapy with right side down with subsequent deep suctioning-reviewed with GLOBAL ENGINEERING MANAGER
Mucus clearing devices
Check sputum-unable to produce
Chest x-ray 05/04/2024-bibasilar opacifications consistent with atelectasis, possible small bilateral pleural effusions
Chest x-ray 05/05/20248112-[id number] whiteout-effusion and atelectasis
Chest x-ray 05/07/2024-mild improvement in left apical aeration, otherwise significant opacifications due to atelectasis
Chest ultrasound 05/06/2024-minimal left-sided pleural fluid-not enough for thoracentesis
Chest x-ray 05/08/2024-complete atelectasis of the left lung-worsening
Chest physiotherapy-reviewed with GLOBAL ENGINEERING MANAGER
Mucolytics
Incentive spirometry if able
Mucus clearing devices
Nebulizers as needed-currently not bronchospastic
Cultures reviewed-persistent MRSA bacteremia
MRSA bacteremia/epidural cervical abscess
Follow blood cultures-last positive cultures 05/03/2024-follow blood cultures until cleared,-persistent blood culture positivity daily since 05/02/2024 through 05/06/2024, 05/08/2024-pending
Infectious disease following-correspondence reviewed
Continue antibiotics per infectious disease-daptomycin, ceftraroline, rifampin
Status post laminectomy and spinal epidural abscess decompression 05/01/2024
Norepinephrine as needed-MAP goal greater than 65
Intravenous fluids
Midodrine added
Hydrocortisone 50 mg IV every 6 hours-reduce to every 12 hours-no change
Repeat transthoracic echocardiogram on Friday
Consider additional imaging if there are additional pockets of infection-note ultrasound of left chest with not enough fluid for diagnostic thoracentesis
Neurosurgical evaluation completed
Analgesia as needed--reviewed and made adjustments
Opiates slowly increase
Ativan added for anxiety-appears to be helping
Comfort a priority
Monitor for oversedation
Continue diuresis as tolerated
Monitor renal function, electrolytes, intake/output, lower extremity edema and weight
Replace electrolytes as needed
Echocardiogram 04/26/2024: D-shaped septum consistent with RV pressure overload. EF 44%. Mild MR. Mild aortic sclerosis. Borderline RV with RV hypokinesis and moderate pulmonary hypertension. Bilateral pleural effusions.
Echocardiogram 05/02/2024-EF 55-60%, mild mitral regurgitation, PA systolic 40-45
Transesophageal echocardiogram at [facility]-no endocarditis
EKG changes
Troponin negative
Cardiology following-correspondence reviewed
Lower extremity ultrasound-04/27/2024 lower extremity Dopplers negative. Upper left extremity Doppler negative for DVT.
Thoracentesis 04/28/2024-- left side, 1100 mL clear fluid, transudate suspect due to heart failure, cultures negative
Thoracentesis 05/06/2024 left side--not enough fluid for thoracentesis
Consider reimaging and tapping if there is enough fluid
Follow hemoglobin-currently stable at 7.9
Transfuse as needed
Monitor blood sugar
Insulin supplementation including insulin drip as needed
s/p L femur fracture after a fall this admission-ortho consult placed-prior history of left hip replacement back in 2008
Per Ortho, periprosthetic fracture (greater trochanter), but fortunately no operative management will be recommended at this time.
He will continue to be NWB with no active or passive abduction.
DVT prophylaxis-on Lovenox
GI prophylaxis-on pantoprazole as well as famotidine-discontinue pantoprazole-no longer on ventilator
Nutrition
PT/OT and eventual rehab
CODE STATUS changed-now DNR-reviewed with primary service
Family leaning towards comfort care
Family meetings:
Dr. Solorio reviewed with sister at the bedside 05/05/2024-current condition, poor prognosis, multiorgan failure,-appreciative and concerned about pain, comfort and will have discussions with patient in regards to further level of care desired-for
now supportive care with an emphasis of comfort and potential if pain cannot be adequately controlled to be converted to comfort care
Dr. Solorio reviewed with sister at bedside 05/07/2024-current condition, overall poor prognosis with multiorgan failure including significant hypoxemia/left lung atelectasis, pneumonia and possible pleural effusion-additional family members and
friends will visit and they will have discussions with patient in regards to how long he would want to pursue supportive care or transition to withdrawal of supportive care and comfort care
Dr. Solorio reviewed with sister-the one that lives next to them and knows him best 05/08/2024 at length-she has been told that he is likely terminal and unlikely to recover by infectious disease, I am in agreement, comfort is a priority, her twin
sister who has not been as involved is not quite ready and there are additional family members/friends that need to visit-they will let us know when they are ready for withdrawal-Sister states 'I live next to them and I have watched him slowly
over the past several years', she realizes he is an addict with multiple medical problems
Dr. Solorio reviewed with sister 05/09/2024 in the midst of respiratory distress and while respiratory therapy was trying to 'bag patient' and she stated 'what is the purpose', bagging discontinued, comfort care-notified primary team
Critical care statement: A total of 50 minutes of critical care time was provided for this patient today. This includes management of unstable vital signs, evaluation of the patient at bedside, reviewing the patient's pertinent medical records
including radiographs, microbiology, pressor management, sepsis management, insulin drip management, laboratory evaluations, and discussion with primary team, consultants, pharmacy, nutrition, physical therapy, case management, charge nurse,
critical care nursing, and respiratory therapy.

Diagnostic Data
Chest X-Ray: 01/21/21-The lung volumes are mildly decreased bilaterally. The tracheal air column is slightly deviated to the right. There is no focal airspace opacity suspicious for pneumonia. There is no pleural effusion or pneumothorax. The
cardiomediastinal silhouette is mildly enlarged. There is no radiographic evidence for acute pulmonary edema.
CT Scan: CAP 04/24/24- 1. Small to moderate bilateral pleural effusions with associated consolidation/atelectasis.
2. Confluent pleural-based consolidation within the lingula measures up to 2.4 cm. Infectious/inflammatory bronchiolitis change in the bilateral upper lobes. Cannot rule out superimposed pulmonary contusions and/or underlying nodules.
3. Comminuted minimally displaced fracture of the left greater trochanter extending to the underlying prosthesis.
Stable simple bilateral renal cysts
Echocardiogram on 05/15/2020: Normal LVEF. Ejection fraction 60-65%. Mild LVH.
8/2/21- Technically difficult study. Normal left ventricular chamber size and left ventricular systolic function. Left ventricular ejection fraction is 55-60% . Mild concentric left ventricular hypertrophy.
Normal diastolic function. Trace mitral regurgitation. Aortic sclerosis without stenosis. Trace tricuspid regurgitation. Estimated pulmonary artery pressure of 30-35 mmHg assuming a right atrial pressure of 0-5 mmHg. Compared to study dated
05/15/2020, no significant change.
Reports and relevant images were personally reviewed.
Subjective Dataa
Subjective Data
Date of Service:
Date of Service: May 09, 2024
Chief Complaint: President And Chief Executive Officer Follow Up and Pulmonary Follow Up
Subjective:
More somnolent, increased difficulties breathing, unable to obtain review of systems, marginal saturations, persistent bacteremia
Review of Systems
General: Other (Per HPI)
Objective Data
Data Reviewed
Vital Signs / I&O / Oxygen:
Vital Signs
Temp Pulse Resp BP Pulse Ox
98.8 F 79 20 115/65 96
05/09/24 07:00 05/09/24 06:00 05/09/24 06:00 05/09/24 06:00 05/09/24 06:00
Intake and Output
05/08/24 05/09/24 05/10/24
06:59 06:59 06:59
Intake Total 1962.5 / 1985.0 2710.0 / 2710.0
Output Total 2004 2200 / 2200
Balance -42.5 / -170.0 510 / 510.0
SaO2 96
Nasal Cannula flow liters per 50
minute
Physical Exam
General: Respiratory Distress (n) and Comfortable
HEENT: Normocephalic, Anicteric and Moist Mucous Membranes
Cardiovascular: Regular Rhythm
Respiratory: Wheeze (n), Crackles (Basilar), Rhonchi ( expiratory), Non-Labored Respirations, Accessory Resp Muscle Use (nn), Stridor (n) and Other (Decreased breath sounds left)
GI: Soft, Non Distended and Non Tender
Neurology: Lethargic and Other (Some right greater than left upper extremity movement, minimal lower extremity movement)
Skin: Warm, Good Color, Cyanosis (n), Jaundice (n) and Rash (n)
Labs/Micro/Reports
Lab Data
05/09/24 04:30
05/09/24 04:30
Microbiology
05/06/24 05:07 Blood/Venous Blood Culture - Preliminary
Staph aureus MRSA
05/06/24 05:07 Blood/Venous Gram Stain - Final
05/05/24 06:38 Blood/Venous Blood Culture - Preliminary
Staph aureus MRSA
05/05/24 06:38 Blood/Venous Gram Stain - Preliminary
05/04/24 03:09 Blood/Venous Blood Culture - Preliminary
Staph aureus MRSA
05/04/24 03:09 Blood/Venous Gram Stain - Preliminary
05/02/24 01:49 Blood/Venous Blood Culture - Preliminary
Staph aureus MRSA
05/02/24 01:49 Blood/Venous Gram Stain - Preliminary
[2024-05-09] MEDS: ProAmatine 5 MG PO (08:04)
[2024-05-09] MEDS: DAILY VITAMIN/CENTRUM 15 ML TUBE (08:04)
[2024-05-09] MEDS: NEURONTIN 600 MG TUBE (08:04)
[2024-05-09] MEDS: FOLVITE 1 MG TUBE (08:05)
[2024-05-09] MEDS: DILAUDID 4 MG TUBE (08:05)
[2024-05-09] MEDS: LASIX 20 MG IV (08:05)
[2024-05-09] MEDS: ROBITUSSIN 200 MG PO (08:05)
[2024-05-09] MEDS: PEPCID 20 MG TUBE (08:05)
[2024-05-09] MEDS: VITAMIN B1 100 MG TUBE (08:05)
--- NOTE | 2024-05-09 08:05 | W.PN.CARDCBS ---
Today's Communication / Plan
-
Repeat echo 05/07 showed normal EF, noted BL pleural effusions
Worsening extremity edema; continue gentle IV diuresis; consider extremity compression garments to help mobilize fluid
ABX, vasopressors for septic shock
Repeat TTE per ID on 05/10
Impression / Plan
-
.
PCP: None, previously discharged from Dr. Bates's office for noncompliance 05/2023, multiple no-shows with [facility]-residency program
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
Impression:
Admitted with back pain after a fall at home 5 days prior, 04/24/24
Sepsis
Septic shock
MRSA bacteremia
IVDA
Acute hypoxemic respiratory failure, worsening; on HFNC
- respiratory failure in AM 05/07 with associated bradycardia, responsive to medical therapy
Acute HFpEF
Extremity Edema
- BL UE/LE, worsening
Left greater trochanter fracture
TME
Chronic pancreatitis
h/o Mediterranean fever
Hemochromatosis
HTN
HLD-Hypertriglyceridemia
Severe Fatty Liver Disease
Chronic pancreatitis
DM II
RA
Multiple fractures including hip and pelvic (was very active as a child and young adult with sports including Equestrian sports)
Chronic pain
ECHO 05/15/20: EF 60-65%, mild cLVH
Echo 04/26/24: EF 54%, D-shaped septum c/w RV pressure overload, mild MR, mild aortic sclerosis with trace aortic regurgitation, borderline dilated RV with RV hypokinesis and moderate PHTN with PAP 54 to 59 mmHg
Echo 05/02/2024: EF 55 to 60% with no LV wall motion abnormality, mild MR, mild TR PA pressure 40-45
ECHO 05/07/2024: EF 66% mild cLVH, no RWMA, normal RV size and function, mild MR, mild AI, mild TR 47 mmHg; BL pleural effusions present
Plan:
No recurrent chest pain. Prior chest pain likely musculoskeletal. Troponins have been negative with unremarkable echocardiogram.
Continue gentle diuresis with IV Lasix. proBNP improved to 420 on May 03. Keep I and Is equivalent.
Noted pleural effusion bilaterally on echocardiogram (05/07), likely contributing to dyspnea
Continue IV Levophed pressor support for hypotension in the setting of sepsis. Wean IV Levophed as able.
Continue broad-spectrum antibiotics as per ID for MRSA bacteremia.
[facility] was negative for veg
Continue pulmonary toilet and wean O2 as able; remains on high flow NC; with recent respiratory event
Discussed with nursing
Prognosis very poor
Critical care time 30 minutes.
Progress Note - Bus Starter
Subjective
Date of Service: May 09, 2024
Patient seen and examined. No acute events overnight. Patient on NRB O2 support reporting neck and back pain.
Objective
Labs:
05/09/24 04:30
05/09/24 04:30
Labs
Hgb 7.9 g/dL (13.0-18.0) L 05/09/24 04:30
Hct 25.4 % (39.0-52.0) L 05/09/24 04:30
Plt Count 500 10^3/uL (130-400) H 05/09/24 04:30
Sodium 140 mmol/L (135-145) 05/09/24 04:30
Potassium 4.6 mmol/L (3.5-5.1) 05/09/24 04:30
BUN 23 mg/dl (9-20) H 05/09/24 04:30
Creatinine 0.4 mg/dL (0.7-1.3) L 05/09/24 04:30
Glucose 259 mg/dl (70-99) H 05/09/24 04:30
Vital Signs and I&O:
Vital Signs
Temp Pulse Resp BP Pulse Ox
98.8 F 79 20 115/65 96
05/09/24 07:00 05/09/24 06:00 05/09/24 06:00 05/09/24 06:00 05/09/24 06:00
Vital Signs
Temp Pulse Resp BP Pulse Ox
98.8 F 79 20 115/65 96
05/09/24 07:00 05/09/24 06:00 05/09/24 06:00 05/09/24 06:00 05/09/24 06:00
Intake & Output
05/07/24 05/08/24 05/09/24 05/10/24
06:59 06:59 06:59 06:59
Intake Total 2975 / 2975 1962.5 / 1985.0 2710.0 / 2710.0
Output Total 1805 / 1805 2005 / 2155 2200 / 2200
Balance 1170 / 1170 -42.5 / -170.0 510 / 510.0
Physical Exam
Physical Exam
General: No acute distress, lethargic
Neck: Negative JVD
Heart: Regular, Negative S3 positive S1/S2, Negative S4, No murmur
Lungs: BL rhonchi, poor resp effort; decreased breath sounds BL
Abd: Positive BS, NT/ND, neg rebound/rigidity/guarding
Ext: Negative cyanosis/clubbing; BL UE/LE 2+ edema
Neuro: nonfocal
[2024-05-09] MEDS: SOLU-CORTEF 50 MG IV (08:06)
[2024-05-09] MEDS: DAKIN'S SOLUTION 0.125% 1/4 STRENGTH 1 ML TOPICAL (08:06)
[2024-05-09] MEDS: LIDOCAINE 4% PATCH 1 PATCH TOPICAL (08:06)
[2024-05-09] MEDS: SANTYL OINTMENT 1 APPLIC TOPICAL (08:07)
[2024-05-09] MEDS: LIDOCAINE 4% PATCH 2 PATCH TOPICAL (08:07)
[2024-05-09] MEDS: NSS (PRESERVATIVE FREE) 10 ML IV (08:07)
--- NOTE | 2024-05-09 09:23 | W.PN.ID1 ---
Date of Service
Date of Service: May 09, 2024
Today's Communication
Prognosis Grim agree with planned withdrawl of care; spoke with family, all of their questions previously answered.
Assessment / Plan
MRSA bacteremia - sustained & persistent
- 04/29/24 NEELIMA no veg at [facility]
- on 3 active antibiotics (daptomycin, ceftaroline, rifampin)
C4-C7 epidural abscess
- 04/28/24 s/p laminectomy, decompression at [facility].
- OR cx: MRSA
septic shock
- on Levophed
- on steroid
Acute hypoxic respiratory failure : on high-flow oxygen
Elevated ESR, CRP
Leukocytosis
- likely some component of steroid effect
Fever
Dysphagia - NGT in place
Hyperglycemia
Illicit drug use (opiates, amphetamines) <- may have been source of MRSA
Left hip fracture
Asthma
GERD
Hypertension
Dyslipidemia
Diabetes mellitus
Anxiety/depression
Chronic pancreatitis
Hemochromatosis
Recommendations:
Given ongoing bacteremia, persistent shock, antibiotics transitioned to daptomycin / ceftaroline on 05/03/24, in an attempt to gain control of bacteremia. Rifampin added 05/06/2024 given ongoing bacteremia.
Continue daily blood cultures until bacteremia cleared
Follow white count and temperature curve.
CXR: atelectasis of the L lung with r to l mediastinal shift - mucous plugging suspected; on chest PT
Patient remains critically ill in intensive care unit on increasing doses of pressors.
Continue ICU supportive care.
Brain MRI has been ordered, although patient remains too unstable to be placed in machine, as he is high flow NC
Prognosis appears poor given inability (despite maximal antibiotic therapy) to clear infection. An intravascular source seems likely, although to date it has not been able to be found despite extensive workup.
Echo 05/07: no visualized vegetations
Prognosis Grim agree with planned withdrawl of care; spoke with family, all of their questions previously answered.
����������������������������������������������������������
Chief Complaint
-: Clinical Sepsis, Bacteremia (MRSA) and Other (Cervical epidural abscess)
Subjective / Review of Systems
afebrile
increasing pressor requirements
respiratory arrest this AM
care is being withdrawn
Vital Signs / Physical Exam
Vital Signs
Vital Signs
Temp Pulse Resp BP Pulse Ox
98.8 F 79 20 115/65 96
05/09/24 07:00 05/09/24 06:00 05/09/24 06:00 05/09/24 06:00 05/09/24 08:09
Physical Exam
Constitutional: Acutely Ill, Chronically Ill and Toxic
Cardiovascular: Regular Rate and S1/S2; Negative Murmur or Rub
Pulmonary: Clear, Symmetric and Coarse; Negative Wheezes or Rales
Gastrointestinal: Soft, Non Tender, Non Distended and Normal Bowel Sounds
Skin: Warm and Dry; Negative Rash or Jaundice
Neurological: Negative Awake
Objective Data
Lab Data
Lab Results
05/09/24 04:30
05/09/24 04:30
Estimated Creat Clear > 125 ml/min 05/09/24 04:30
Total Bilirubin 0.2 mg/dl (0.2-1.3) 05/03/24 03:42
AST 17 U/L (17-59) 05/03/24 03:42
ALT 16 U/L (0-50) 05/03/24 03:42
Alkaline Phosphatase 229 U/L (38-126) H 05/03/24 03:42
Most recent labs reviewed.
Micro Results:
05/06/24 05:07 Blood Culture - Final
Blood/Venous Staph aureus MRSA
Gram Stain - Final
05/03/24 03:42 Blood Culture - Final
Blood/Venous Staph aureus MRSA
Gram Stain - Final
05/02/24 01:49 Blood Culture - Final
Blood/Venous Staph aureus MRSA
Gram Stain - Final
05/08/24 11:13 Blood Culture - Pending
Blood/Venous
05/05/24 06:38 Blood Culture - Preliminary
Blood/Venous Staph aureus MRSA
Gram Stain - Preliminary
05/04/24 03:09 Blood Culture - Preliminary
Blood/Venous Staph aureus MRSA
Gram Stain - Preliminary
Imaging:
05/04/2024 CXR (portable): Nasogastric tube extends into the abdomen, with tip off the image. Bibasilar opacities noted. These are slightly increased on the right. No pneumothorax. Please see full dictation for additional detail.
04/28/2024 MRI T-spine: Instrument Tech images demonstrate T2 signal within the C6-C7 vertebral bodies with a likely 3 mm T2 hyperintense focus of signal in the anterior epidural space which appears to extend from the C5-C7 levels. Findings may represent
discitis/osteomyelitis with epidural phlegmon or fracture with hematoma. Recommend dedicated MRI cervical spine with and without contrast for further evaluation.
04/24/2024 X-ray left hip: Total left hip arthroplasty hardware noted in place. There is a comminuted nondisplaced fracture of the left greater trochanter, with possible extension to the prosthesis. No dislocation noted. Please see full dictation
for additional detail.
04/24/2024 CT chest/abdomen/pelvis with IV contrast: There is a small to moderate bilateral pleural effusions with associated consolidation. Infectious/inflammatory bronchiolitis changes in the bilateral upper lobes. Cannot rule out superimposed
pulmonary contusion or underlying nodules. There is a comminuted minimally displaced fracture of the left greater trochanter extending to the underlying prosthesis. Please see full dictation for additional detail. Film personally viewed.
04/24/2024 CT cervical spine without contrast; CT head without contrast: No acute intracranial abnormalities noted. No acute fracture or subluxation of the cervical spine. Multilevel degenerative changes of the cervical spine are noted.
[2024-05-09] MEDS: LEVOPHED 250 IV (09:53)
[2024-05-09] MEDS: RIFADIN IV (10:43)
--- NOTE | 2024-05-09 10:44 | PTCARENOTE ---
0700-Received pt awake,drowsy.Pt repeating 'help me, pain'. BL upper and lower extremities are flaccid.Weak cough noted.SR noted.Levophed gtt.High Flow O2 60l 100% with NRB mask.POX 97%Scattered coarse rhonchi and crackles throughout.+
tachypnea.Dobbhoff intact with tube feedings.Proctor draining yellow urine.Skin integrity as documented.Pt's sister at bedside.Plan of care discussed. She states that she wanted pt to be placed on comfort care and was going to discuss this with her
sibling.
0800-NRB mask discontinued by RT.POX 97%
0838-AM care in progress,pt turned on left side when POX decreased to 75%Agonal breathing noted.NRB mask reapplied.HOB raised.HR decreased to 38.
0839-Rescue breathing with bag. Pt's sister at bedside.
0842-HR 45 BP 48/25 POX 33% Dr Cook at bedside.Rescue breathing stopped as per pt's sisters directive.
--- NOTE | 2024-05-09 10:59 | PTCARENOTE ---
0930-Pt's sister wants to withdrawal care when her sister arrives.Dr Branch made aware.
1100-All family at bedside and are ready for withdrawal of care.Dr Branch made aware.
--- NOTE | 2024-05-09 11:15 | CHAP ---
Called by nurse for Michael and his family at bedside. Sister, Pam, shared background about her brother and asked for final prayers. A bag builder visit was not needed, she said. We offered prayers from the [employer], commending Michael to God, and
asking blessings for him and his family. We gave thanks for Michael's life and love. Emotional support provided, along with a prayer blanket. Assurance given of our on-going availability.
--- NOTE | 2024-05-09 11:28 | W.PN.UPDATE ---
Update Note
Progress Note Update
Reevaluated patient-unconscious
Family at the bedside and sister/POA would like comfort care only-no further supportive care
We will respect family wishes
Reviewed with critical care nursing
Morphine and Ativan as needed for comfort
--- NOTE | 2024-05-09 12:07 | PTCARENOTE ---
Pt assessed.Pt is unresponsive to verbal and noxious stim.SR noted.Levophed infusing.High Flow 60l 100% maintained.Pt's sisters at bedside.Pt for withdrawal of care as per MD order.
--- NOTE | 2024-05-09 12:39 | PTCARENOTE ---
1230-Pt's family at bedside.Levophed discontinued.Dobbhoff removed.High Flow O2 discontinued.Agonal respirations noted.
1232-Hr 30.Respirations agonal.Pt does not appear air hungry.
[2024-05-09] MEDS: TYLENOL ORAL SOLUTION TUBE (12:42)
[2024-05-09] MEDS: CUBICIN IV (12:42)
[2024-05-09] MEDS: NOVOLOG FLEXPEN-LOW RESISTANCE SC (12:42)
[2024-05-09] MEDS: ProAmatine PO (12:43)
[2024-05-09] MEDS: ROBITUSSIN PO (12:43)
--- NOTE | 2024-05-09 13:16 | PTCARENOTE ---
Asystole without palpable pulse noted at 1302.Nelson Branch and Joey made aware.Pt's family at bedside.
--- NOTE | 2024-05-09 13:29 | W.PN.DEATH ---
Pronouncement of
-
Called to see patient to pronounce.
No spontaneous heart tones or respirations noted.
Patient not responsive to verbal stimuli.
Patient is pronounced .
Time of : 13:25
Date of : 05/09/24
Family Notified: Yes (family at bedside )
--- NOTE | 2024-05-09 13:46 | W.DCSUMMARY ---
Discharge Summary
Discharge Data
Date of Admission: 05/01/24
Date of Discharge: 05/09/24
-
Pending Results: No
Hospital Course
Principal Diagnosis:
Septic shock with persistent MRSA bacteremia
MRSA Urinary tract infection
Clinical decompensation with bilateral lower extremity edema
Quadriplegia due to cervical epidural abscess s/p C4-C7 cervical laminectomy and drainage on April 28, 2024 at [place]
Cardiac and respiratory arrest 05/07
Chronic Diagnoses:�
Insulin-dependent diabetes, uncontrolled. A1C at 16.9% this admission
Acute Left comminuted nondisplaced greater trochanter fracture from acute fall
History of chronic pancreatitis, unclear etiology, possibly from alcohol or other substance abuse
Hyperthyroidism
Hereditary hemochromatosis per history
Generalized pain with anxiety
Consultations:�
Media Coordinator
Infectious disease
Cardiology
Neurology
Diabetes nurse practitioner
Procedures:�
None this admission
Clinical course:�
This is a 54-year-old male, with past medical history as stated above, who returned from [facility] after his C4-C7 cervical laminectomy and drainage for cervical epidural abscess.
He has remained extremely deconditioned/debilitated following return.
His blood culture remain positive for MRSA bacteremia, despite aggressive management with IV antibiotic (prior to , he was on daptomycin, ceftaroline, rifampin).
He was also maintained on pressor Levophed for blood pressure support.
He received stress dose steroid and had remained in the ICU prior to his withdrawal of care.
He had a brief cardiac arrest and resumed ROSC following brief CPR and IV epinephrine.
Due to extremely poor prognosis with severe clinical deterioration, goals of care was discussed with family.
The family has made the decision to withdraw care on 05/09/2024, and the patient peacefully following his withdrawal of care.
He was pronounced at 1:25 PM, with multiple family members at bedside.
Discharge Plan
-
Patient Disposition:
Date/Time
Date/Time: 05/09/24 13:25
Discharge Date and Time
Print Language: LAO
== END 2024-05-09 13:02 | disposition expired | DRG 871 ==
LOC: ICU 12:48
PROVIDERS: Internal Medicine; Nurse Practitioner Primary Care; Radiology Diagnostic Radiology; ADMITTING PHYSICIAN Internal Medicine; ATTENDING PHYSICIAN Internal Medicine; CONSULT PHYSICIAN Internal Medicine Cardiovascular Disease; CONSULT PHYSICIAN Internal Medicine Critical Care Medicine; CONSULT PHYSICIAN Internal Medicine Infectious Disease; CONSULT PHYSICIAN Psychiatry & Neurology Neurology; OTHER PHYSICIAN Radiology Diagnostic Radiology
PROC: 0DH67UZ Insertion of Feeding Device into Stomach, Via Natural or Artificial Opening (ICD-10-PCS; 2024-05-01)
PROC: 5A0955A Assistance with Respiratory Ventilation, Greater than 96 Consecutive Hours, High Flow/Velocity Cannula (ICD-10-PCS; 2024-05-01)
DX: A41.02 Sepsis due to Methicillin resistant Staphylococcus aureus (principal); G06.1 Intraspinal abscess and granuloma; G82.50 Quadriplegia, unspecified; G92.8 Other toxic encephalopathy; S72.115A Nondisplaced fracture of greater trochanter of left femur, initial encounter for closed fracture; J96.01 Acute respiratory failure with hypoxia; I50.31 Acute diastolic (congestive) heart failure; R65.21 Severe sepsis with septic shock; N39.0 Urinary tract infection, site not specified; K86.1 Other chronic pancreatitis; F11.20 Opioid dependence, uncomplicated; J98.11 Atelectasis; K86.3 Pseudocyst of pancreas; Z51.5 Encounter for palliative care; I46.9 Cardiac arrest, cause unspecified; F10.10 Alcohol abuse, uncomplicated; E03.9 Hypothyroidism, unspecified; E83.110 Hereditary hemochromatosis; E11.65 Type 2 diabetes mellitus with hyperglycemia; I11.0 Hypertensive heart disease with heart failure; G43.109 Migraine with aura, not intractable, without status migrainosus; F17.200 Nicotine dependence, unspecified, uncomplicated; F15.10 Other stimulant abuse, uncomplicated; E78.1 Pure hyperglyceridemia; W18.30XA Fall on same level, unspecified, initial encounter; Y93.9 Activity, unspecified; Y92.009 Unspecified place in unspecified non-institutional (private) residence as the place of occurrence of the external cause; K21.9 Gastro-esophageal reflux disease without esophagitis; F41.1 Generalized anxiety disorder; E05.90 Thyrotoxicosis, unspecified without thyrotoxic crisis or storm; F32.A Depression, unspecified; J45.909 Unspecified asthma, uncomplicated; K76.0 Fatty (change of) liver, not elsewhere classified; G89.4 Chronic pain syndrome; R13.10 Dysphagia, unspecified; G25.0 Essential tremor; D64.9 Anemia, unspecified; K90.0 Celiac disease; D75.839 Thrombocytosis, unspecified; I08.1 Rheumatic disorders of both mitral and tricuspid valves; I27.20 Pulmonary hypertension, unspecified; I70.0 Atherosclerosis of aorta; Z66 Do not resuscitate; Z60.2 Problems related to living alone; Z96.643 Presence of artificial hip joint, bilateral; Z91.148 Patient's other noncompliance with medication regimen for other reason; Z79.51 Long term (current) use of inhaled steroids; Z98.1 Arthrodesis status; Z79.4 Long term (current) use of insulin; Z91.030 Bee allergy status; Z86.61 Personal history of infections of the central nervous system; Z91.199 Patient's noncompliance with other medical treatment and regimen due to unspecified reason
CPT/HCPCS: 93308; 71045; 74018; 76604; 80048; 80053; 80202; 81003; 82140; 82805; 82962; 83690; 83735; 83880; 84100; 84443; 84484; 85025; 85027; 87040; 87150; 87186; 87205; 92526; 92610; 93005; 93306; 93321; 93325; 93971; 94667; 94668; J0712; J0878